=== PATIENT | male | born 1940 | race Caucasian/White ===

== ENCOUNTER 2020-02-03 10:21 | Inpatient (IN) | payer OTHER, MEDICARE, SELFPAY ==
[2020-02-03] VITALS (17 sets, daily range): BP systolic 97–142; BP diastolic 52–93; PULSE 95–114; RESP 16–26; TEMP 36.3–36.6; O2SAT 95–98; BMI 25.4
--- NOTE | 2020-02-03 10:42 | CT_ITS ---
STUDY: CT BRAIN WITHOUT CONTRAST REASON FOR EXAM: Male, 79 years old. [place] NESS, INCREASED SOB SINCE BEGINNING OF YEAR, CHOKING ON FOOD AND MEDICATED, RECENT WT LOSS OF 60 LBS RADIATION DOSAGE (If Supplied By Facility): CTDIvol = ( 44.99 ) mGy, DLP = ( 846.73 ) mGycm TECHNIQUE: Transaxial CT imaging of the brain was performed without administration of intravenous contrast material. Individualized dose optimization techniques were used for this CT. COMPARISON: No relevant priors. FINDINGS: Normal soft tissue structures. Normal calvarium. There is mild cerebral atrophy with widening of the extra-axial spaces and ventricular dilatation. There are areas of decreased attenuation within the white matter tracts of the supratentorial brain, consistent with microvascular disease changes. Normal basal ganglia and thalami. Normal brainstem. There is mild cerebellar atrophy. There is no intracranial hemorrhage. There are no findings of an acute ischemic infarction. Atherosclerotic calcification of the cavernous portions of the internal carotid arteries bilaterally. Normal visualized paranasal sinuses. CT/Brain/Head without Contrast IMPRESSION: Chronic involutional changes of the brain. Electronically Signed: Freddie Montaño, at 12:31 EDT , Service support ,
--- NOTE | 2020-02-03 10:43 | EKG12_ITS ---
Test Reason : SOB Blood Pressure : / mmHG Vent. Rate : 104 BPM Atrial Rate : 104 BPM P-R Int : 152 ms QRS Dur : 108 ms QT Int : 398 ms P-R-T Axes : 054 -23 090 degrees QTc Int : 523 ms Sinus tachycardia Prolonged QT Abnormal ECG Confirmed by TOM HARDING, SHAGUFTA ([id number]), editor farm journal MO CRUZ ([id number]) on 02/06/2020 12:59:46 PM Referred By: MARNIE Confirmed By:SHAGUFTA SANTOS MD
--- NOTE | 2020-02-03 10:44 | ED.DCSUM_ITS ---
History of Present Illness Chief Complaint: Shortness of Breath Informant: Patient, Family, Sterile Process Coordinator Narrative: Patient is brought to the emergency department by EMS from [place] because family states that he has declined over the past year to a point now where he is unable to walk today. They have been seen in the [facility] and have had a bunch of test run. I cannot really tell me what all has been done. Tell me has a history of asthma and hypertension. He states that his voice has gotten weak. He is choking on food drink and pills. He has lost over 60 pounds. He states he is really not eating. He has not had a bowel movement in 4 days. States he forces himself to drink water. He notes shortness of breath that is not acutely changed. Past Medical History - Allergies and Home Meds Allergies/Adverse Reactions: Allergies No Known Allergies Allergy (Verified 02/03/20 10:22) Primary Care Physician: [facility] [Primary Care Provider] - Past Medical History: - - Asthma hypertension Surgical History: noncontributory Lives: With Family Drugs: None Review of Systems General: Reports: Malaise, Weight loss. Denies: Chills, Fever, Sweats Eyes: Denies: Visual changes - bilaterally, Diplopia ENT: Reports: - - Dysphasia. Denies: Rhinorrhea, Sore throat Cardiovascular: Denies: Chest pain, Palpitations Respiratory: Reports: Dyspnea, Cough. Denies: Dyspnea on exertion Gastrointestinal: Reports: Constipation. Denies: Abdominal pain, Nausea, Vomiting, Diarrhea, Melena, Hematochezia Genitourinary: Denies: Dysuria, Hematuria, Frequency Musculoskeletal: Denies: Back pain, Extremity Pain Skin: Denies: Rash, Wounds Neurological: Denies: Headache, Weakness, Numbness Physical Exam Vital Signs/Narrative: Vital Signs Temp Pulse Resp BP Pulse Ox 02/03/20 10:23 97.3 F L 108 H 24 H 142/78 H 96 Inital Vital Signs reviewed: Yes General: Well nourished, Well developed, No Acute Distress Head: Normocephalic, Atraumatic Eyes: Perrl, EOMI ENT: No rhinorrhea, Dry mucous membranes Neck: Supple, Nontender Cardiovascular: Regular rate, No murmurs, Tachycardia Respiratory: No distress, CTA bilaterally, Chest nontender Abdomen: Soft, Nontender, Nondistended, Normal bowel sounds Back: Nontender, Normal Inspection Extremities: Nontender, No edema Skin: Normal color, No rash Neurological: Alert, Oriented x3, Cranial nerves II-XII grossly intact, Normal Strength, Normal Sensation Psychological: Normal affect, Normal Mood Diagnostic/Tx/Re-eval Clinical Impression(s) from Imaging Studies Brain CT 02/03/20 10:42 IMPRESSION: Chronic involutional changes of the brain. Electronically Signed: Freddie Danyel, at 12:31 EDT , Service support , Chest X-Ray 02/03/20 12:14 IMPRESSION: Findings suggestive of calcified pleural plaque overlying the right mid thorax. Electronically Signed: Freddie Danyel, at 12:30 EDT , Service support , Laboratory Last Values WBC 8.4 K/mm3 (4.4-11.0) 02/03/20 11:30 RBC 6.10 M/mm3 (4.6-6.2) 02/03/20 11:30 Hgb 17.2 g/dL (13.0-16.5) H 02/03/20 11:30 Hct 51.0 % (40-54) 02/03/20 11:30 MCV 83.6 fL (80-94) 02/03/20 11:30 MCH 28.2 pg (27.0-32.0) 02/03/20 11:30 MCHC 33.7 g/dL (32-36) 02/03/20 11:30 RDW Std Deviation 42.1 fl (35.1-43.9) 02/03/20 11:30 RDW Coeff of Yamile 14.0 % (11.6-14.6) 02/03/20 11:30 Plt Count 236 K/mm3 (150-450) 02/03/20 11:30 MPV 9.9 fl (6.2-12.0) 02/03/20 11:30 Immature Gran % (Auto) 0.400 % (0.0-0.9) 02/03/20 11:30 Neut % (Auto) 86.3 % (47-70) H 02/03/20 11:30 Lymph % (Auto) 8.3 % (19-41) L 02/03/20 11:30 [place] % (Auto) 4.9 % (0-10) 02/03/20 11:30 Eos % (Auto) 0.0 % (0-5) 02/03/20 11:30 Baso % (Auto) 0.1 % (0-1) 02/03/20 11:30 Absolute Neuts (auto) 7.3 X10^3/uL (2.0-7.7) 02/03/20 11:30 Absolute Lymphs (auto) 0.70 X10^3/uL (0.83-4.51) L 02/03/20 11:30 Nucleated RBC % 0 % (0-5) 02/03/20 11:30 PT 13.8 SECONDS (11.7-14.9) 02/03/20 11:30 INR 1.1 02/03/20 11:30 APTT 26.3 Seconds (24.1-36.2) 02/03/20 11:30 Specimen Type ART 02/03/20 13:57 Sample Site R Radial 02/03/20 13:57 pH 7.28 (7.35-7.45) L 02/03/20 13:57 Bicarbonate Actual 15.3 mmol/L (22-26) L 02/03/20 13:57 Total CO2 16 mmol/L 02/03/20 13:57 Base Excess -12 mmol/L (-2 to +2) L 02/03/20 13:57 O2 Saturation 97 % (95-99) 02/03/20 13:57 O2 % 21 02/03/20 13:57 ABG pCO2 32.9 mmHg (35-45) L 02/03/20 13:57 ABG pO2 97 mmHG (75-100) 02/03/20 13:57 Sodium 132 mmol/L (136-145) L 02/03/20 12:03 Potassium 3.5 mmol/L (3.5-5.1) 02/03/20 12:03 Chloride 94 mmol/L (98-107) L 02/03/20 12:03 Carbon Dioxide 19.0 mmol/L (21.0-32.0) L 02/03/20 12:03 Anion Gap 19 (5-15) H 02/03/20 12:03 BUN 20 mg/dL (7-18) H 02/03/20 12:03 Creatinine 0.99 mg/dL (0.70-1.30) 02/03/20 12:03 Estim Creat Clear Calc 56.57 ml/min 02/03/20 12:03 Est GFR (MDRD) Af Amer 93 mL/min (>60) 02/03/20 12:03 Est GFR (MDRD) Non-Af 77 mL/min (>60) 02/03/20 12:03 BUN/Creatinine Ratio 20.1 RATIO (10-20) H 02/03/20 12:03 Glucose 245 mg/dL (74-106) H 02/03/20 12:03 Calcium 9.7 mg/dL (8.5-10.1) 02/03/20 12:03 Total Bilirubin 1.40 mg/dL (0.20-1.00) H 02/03/20 12:03 AST 23 U/L (15-37) 02/03/20 12:03 ALT 37 U/L (16-61) 02/03/20 12:03 Alkaline Phosphatase 110 U/L (45-117) 02/03/20 12:03 Troponin I < 0.015 ng/mL (<0.045) 02/03/20 12:03 B-Natriuretic Peptide 42.7 pg/mL (0-100) 02/03/20 11:30 Total Protein 7.7 g/dL (6.4-8.2) 02/03/20 12:03 Albumin 3.8 g/dL (3.2-5.0) 02/03/20 12:03 Globulin 3.9 g/dL (2.2-4.2) 02/03/20 12:03 Albumin/Globulin Ratio 1.0 RATIO (0.9-2.4) 02/03/20 12:03 Amylase 26 U/L (25-115) 02/03/20 12:03 Lipase 92 U/L (73-393) 02/03/20 12:03 Acetone Level SMALL (NEG) H 02/03/20 13:40 - EKG Initial EKG Interpretation: Sinus Tachycardia - EKG demonstrates a sinus tachycardia at a rate of 104. - Medical Decision Making He received IV fluids. He has a slight metabolic acidosis. He has not been taking his insulin. We are going to put him on a insulin drip and admit to the ICU. I discussed with family the possibility he may need rehab or fpc facility. - Critical Care Time Critical care time (excluding procedures): 30-74 minutes - 35 min ED Disposition - Plan for ED Patient: Diagnosis: Weakness, Dysphagia, Metabolic acidosis, Diabetes mellitus, DKA (diabetic ketoacidoses) [facility]errals: [facility] [Primary Care Provider] -
--- NOTE | 2020-02-03 10:56 | NURSING ---
NO OLD EKGS
[2020-02-03 11:43] LABS: Absolute Neutrophil Count 7.3 X10^3/uL (2.0-7.7); Basophil# 0.01 X10^3/uL; Basophil% 0.1 % (0-1); Hemoglobin 17.2 g/dL (13.0-16.5); Lymphocyte % 8.3 % (19-41); Mean Corp Hgb Conc 33.7 g/dL (32-36); Mean Corpuscular Hgb 28.2 pg (27.0-32.0); Mean Corpuscular Volume 83.6 fL (80-94); Mean Platelet Vol. 9.9 fl (6.2-12.0); Monocyte# 0.41 X10^3/uL; Monocyte% 4.9 % (0-10); NRBC Flagged by Analyzer 0 % (0-5); Neutrophil # 7.25 X10^3/uL (2.7-7.7); Neutrophil % 86.3 % (47-70); Platelet Count 236 K/mm3 (150-450); RBC Distribution Width SD 42.1 fl (35.1-43.9); White Blood Count 8.4 K/mm3 (4.4-11.0)
[2020-02-03] MEDS: 0.9% Normal Saline 1,000 ML 1000 ML IV (11:43)
--- NOTE | 2020-02-03 11:49 | NURSING ---
PER [facility]IA, LAB, CHEMISTRIES HEMOLIZED
[2020-02-03 11:53] LABS: International Normalized Ratio 1.1; Prothrombin Time (Protime)PT. 13.8 SECONDS (11.7-14.9)
[2020-02-03 11:54] LABS: Partial Thromboplast Time 26.3 Seconds (24.1-36.2)
[2020-02-03 11:57] LABS: BNP,B-Type NATRIURETIC PEPTIDE 42.7 pg/mL (0-100)
--- NOTE | 2020-02-03 12:14 | RAD_ITS ---
STUDY: X-RAY CHEST REASON FOR EXAM: Male, 79 years old. SOB, WEAKNESS, LOST 60 POUNDS SINCE BEGINNING OF YEAR TECHNIQUE: Single AP portable view of the chest. COMPARISON: None. FINDINGS: EKG electrodes are seen. The lungs are clear and expanded. Findings suggestive of a focal calcific plaque overlying the right mid lung. Normal size heart. Normal mediastinum and padmaja. Normal visualized pulmonary arteries. Normal visualized aortic arch and descending thoracic aorta. Normal visualized thoracic spine. There is degenerative osteoarthritis of the bilateral shoulders. There is no demonstrated abnormality of the visualized soft tissue structures of the upper abdomen. RAD/Chest 1 View (Portable) IMPRESSION: Findings suggestive of calcified pleural plaque overlying the right mid thorax. Electronically Signed: Freddie Montaño, at 12:30 EDT , Service support ,
[2020-02-03 12:41] LABS: AST(SGOT) 23 U/L (15-37); Alanine Aminotransfer ALT/SGPT 37 U/L (16-61); Albumin, Serum 3.8 g/dL (3.2-5.0); Alkaline Phosphatase 110 U/L (45-117); Amylase 26 U/L (25-115); Anion Gap 19 (5-15); BUN 20 mg/dL (7-18); BUN/Creat Ratio 20.1 RATIO (10-20); Calcium,Total 9.7 mg/dL (8.5-10.1); Chloride 94 mmol/L (98-107); Creatinine, Serum 0.99 mg/dL (0.70-1.30); EST Glomerular Filtration Rate 77 mL/min (>60); Est Glom Filt Rate - Afr Amer 93 mL/min (>60); Estimated Creatinine Clearance 56.57 ml/min; Globulin 3.9 g/dL (2.2-4.2); Glucose 245 mg/dL (74-106); Lipase 92 U/L (73-393); Potassium 3.5 mmol/L (3.5-5.1); Protein, Total 7.7 g/dL (6.4-8.2); Sodium Level 132 mmol/L (136-145)
--- NOTE | 2020-02-03 13:01 | ED.RN ---
[facility]
--- NOTE | 2020-02-03 13:04 | HP.PCM_ITS ---
Problem List (1) Diabetes mellitus type 2 in nonobese Status: Chronic (2) Hypertension Status: Chronic (3) COPD (chronic obstructive pulmonary disease) Status: Chronic (4) Dyslipidemia Status: Chronic (5) Generalized weakness Status: Chronic (6) Dysphagia Status: Acute History of Present Illness Date of Admission: 02/03/20 Chief Complaint: Shortness of breath generalized weakness for few weeks The patient is a 79 year old M with history of diabetes mellitus type 2 came to ER for weakness and shortness of breath since the beginning of this year but patient progressively getting more short of breath and weak for last few weeks. Few weeks ago he was able to walk to the bathroom but today he even could not stand up and get short of breath even on conversation. Patient also states he does not have appetite and he often chokes and throat are in the chest area. He has lost 60 pounds in the last 6 months. Triage vitals shows heart rate 108/min, blood pressure 142/78 respiratory 24 and pulse ox 96% on room air. Orthostatic blood pressure showed drop in systolic blood pressure from 123 in lying position to 106 and sitting up position. Heart rate did not show significant change although in 100s Electrolytes shows high anion gap metabolic acidosis, anion gap 19, bicarb 19, sodium 132, BUN 20. ABG was done shows 7.28/30 3/97 with bicarb of 15. Serum acetone is pending. Patient got 1 L normal saline bolus and on second liter is running. Past Medical History Past Medical History (Chronic Problems): Chronic Problems Diabetes mellitus type 2 in nonobese (Chronic) Hypertension (Chronic) COPD (chronic obstructive pulmonary disease) (Chronic) Dyslipidemia (Chronic) Generalized weakness (Chronic) Allergies No Known Allergies Allergy (Verified 02/03/20 10:22) Home Medications: Ambulatory Orders Medication Instructions Recorded Albuterol IH (ProAir) [Proair Hfa 1 - 2 puff INHALATION Q6H PRN PRN 02/03/20 (SP)Vent Pts] Ascorbic Acid [Vitamin C] 250 mg PO QODAY 02/03/20 Atorvastatin Calcium 80 mg PO QHS 02/03/20 Budesonide/Formoterol Fumarate 2 puff IH BID 02/03/20 [Budesonide-Formoterol 160-4.5] Calcium Citrate/Vitamin D3 1 tab PO DAILY 02/03/20 [Calcium Citrate-Vit D3 Caplet] Empagliflozin [Jardiance] 10 mg PO DAILY 02/03/20 Ferrous Sulfate 325 mg PO QODAY 02/03/20 Fluocinonide/Emollient Base 15 gm TP DAILY PRN 02/03/20 [Fluocinonide-E 0.05% Cream] Insulin Glargine [Lantus (BKC)] 60 units SUBCUT DAILY 02/03/20 Losartan Potassium 100 mg PO DAILY 02/03/20 Metformin HCl 1,000 mg PO BID 02/03/20 Montelukast [Singulair] 10 mg PO DAILY 02/03/20 Multivitamin 1 ea PO DAILY 02/03/20 Pantoprazole Sodium [Protonix] 40 mg PO DAILY 02/03/20 Potassium Citrate [Urocit-K] 5 meq PO BID 02/03/20 Tiotropium [place] [Spiriva 2 puff IH BID 02/03/20 Respimat] Surgical History: noncontributory Lives: With Family Smoking Status: Former smoker - Smoked from age of 22 quit in his 30s therefore possible 10 to 15 years about half pack per day. Patient stated he was not being a smoker. Alcohol: None, Occasional Drugs: None Review of Systems Constitutional: Reports: Anorexia, Malaise, Weakness, Weight Change, Fatigue HEENT: Denies: Head Aches, Sinus Congestion, Sinus Drainage Cardiovascular: Denies: Chest Pain, Palpitations Respiratory: Reports: Shortness of Breath, Shortness of breath upon exertion. Denies: Cough, Shortness of breath at rest, Sputum production Gastrointestinal: Reports: Constipation - Did not move bowel in last 3 days. Denies: Abdominal Pain, Nausea, Vomiting Genitourinary: Denies: Dysuria, Frequency, Hesitancy Musculoskeletal: Denies: Joint Pain, Joint Tenderness Skin: Denies: Rash, Wounds Neurological: Reports: Balance problems, Incoordination. Denies: Focal weakne ss, Numbness, Tingling Psychiatric: Denies: Anxiety, Depression, Homicidal Ideations, Suicidal Ideations Hematologic/ Lymphatic: Denies: Easy Bruising, Easy Bleeding VTE Information - Inpt Only VTE Present on Admission: No VTE Mechan Device Prophylaxis: SCD's VTE Pharm Prophylaxis ordered?: Yes Patient Problems: Active and Suspected Problems Dysphagia (Acute) Weakness (Acute) Dysphagia (Acute) Metabolic acidosis (Acute) Diabetes mellitus (Acute) DKA (diabetic ketoacidoses) (Acute) - Physical Exam Vitals/I&O's: Vital Signs Temp Pulse Resp BP Pulse Ox 97.3 F L 102 H 24 H 123/73 H 96 02/03/20 10:23 02/03/20 11:40 02/03/20 10:23 02/03/20 11:40 02/03/20 10:23 Oxygen Delivery Method Room Air Weight: 162 lb 4.163 oz Body Mass Index (BMI) 25.4 General: Oriented x3, Cooperative, Lethargic, - - Weak voice. HEENT: Atraumatic, PERRLA, EOMI, Normocephalic Oral: No Gingival or Mucosal Lesions/ Ulcerations, Dry Mucosa Neck: Supple, No JVD, Negative Carotid Bruits Lungs: Clear to auscultation, No rhonchi, No wheeze, No rales, Diminished - Air entry diminished in bilateral lung bases Cardiovascular: Regular Rhythm, Normal S1, Normal S2, No murmurs, Tachycardic Abdomen: Bowel Sounds Present, Soft, Non Tender, Non-Distended Extremities: No edema, Capillary Refill Less than 3 Seconds Skin: No rashes, No breakdown Musculoskeletal: No Tenderness to Palpation of Joints or Extremities, Arthritic Changes, Muscle Wasting Neurological: Cranial nerves II-XII grossly intact, Deep Tendon Reflexes 2+/4 and Symmetrical, Neuro grossly intact Psych/Mental Status: Normal Affect, Appropriate Laboratory Results 02/03/20 11:30: WBC 8.4, RBC 6.10, Hgb 17.2 H, Hct 51.0, MCV 83.6, MCH 28.2, MCHC 33.7, RDW Std Deviation 42.1, RDW Coeff of Yamile 14.0, Plt Count 236, MPV 9.9, Immature Gran % (Auto) 0.400, Neut % (Auto) 86.3 H, Lymph % (Auto) 8.3 L, [place] % (Auto) 4.9, Eos % (Auto) 0.0, Baso % (Auto) 0.1, Absolute Neuts (auto) 7.3, Absolute Lymphs (auto) 0.70 L, Nucleated RBC % 0 02/03/20 11:30: PT 13.8, INR 1.1, APTT 26.3 02/03/20 11:30: Sodium Cancelled, Potassium Cancelled, Chloride Cancelled, Carbon Dioxide Cancelled, Anion Gap Cancelled, BUN Cancelled, Creatinine Cancelled, Estim Creat Clear Calc Cancelled, Est GFR (MDRD) Af Amer Cancelled, Est GFR (MDRD) Non-Af Cancelled, BUN/Creatinine Ratio Cancelled, Glucose Cancelled, Calcium Cancelled, Total Bilirubin Cancelled, AST Cancelled, ALT Cancelled, Alkaline Phosphatase Cancelled, Troponin I Cancelled, Total Protein Cancelled, Albumin Cancelled, Globulin Cancelled, Albumin/Globulin Ratio Cancelled, Amylase Cancelled, Lipase Cancelled 02/03/20 11:30: B-Natriuretic Peptide 42.7 02/03/20 12:03: Sodium 132 L, Potassium 3.5, Chloride 94 L, Carbon Dioxide 19.0 L, Anion Gap 19 H, BUN 20 H, Creatinine 0.99, Estim Creat Clear Calc 56.57, Est GFR (MDRD) Af Amer 93, Est GFR (MDRD) Non-Af 77, BUN/Creatinine Ratio 20.1 H, Glucose 245 H, Calcium 9.7, Total Bilirubin 1.40 H, AST 23, ALT 37, Alkaline Phosphatase 110, Troponin I < 0.015, Total Protein 7.7, Albumin 3.8, Globulin 3.9, Albumin/Globulin Ratio 1.0, Amylase 26, Lipase 92 Current Medications Sodium Chloride () 1,000 mls @ 150 mls/hr IV .Q6H40M COUNTS INCLUDE 234 BEDS AT THE [facility] Assessment/Plan All Active Problems Dysphagia (Acute) Weakness (Acute) Dysphagia (Acute) Metabolic acidosis (Acute) Diabetes mellitus (Acute) DKA (diabetic ketoacidoses) (Acute) The patient is a 79 year old M with history of diabetes mellitus type 2 came to ER for weakness and shortness of breath since the start of 2019 but worse in the last few weeks. 1. DKA with high anion gap metabolic acidosis with history of type 2 diabetes mellitus: Even though blood sugar is not very high, and about 250 mg/dL but DKA can be seen in euglycemia especially the patient is on Jardiance/SGLT-2 transporter medication. We will start the patient on IV fluid normal saline and insulin drip as per DKA protocol. Patient has not been taking his scheduled dose therefore DKA probably secondary to noncompliance and also starvation 2. Electrolyte abnormality: Hypotonic, hypochloremic, complex acid-base disturbance high anion gap metabolic acidosis and respiratory alkalosis due to DKA, starvation and hypovolemia: IV fluid normal saline. Treat underlying disorder. 3. Generalized weakness, failure to thrive and loss of weigh oropharyngeal dysphagia t: PT, OT, speech and swallow evaluation. [facility] is [facility] and therefore previous health screening and preventative care is unavailable to review. Denies any history of cancer. 4. COPD: Patient does not have new cough or change in his sputum or severity of cough. Continue DuoNeb nebulization. Other chronic comorbidities include hypertension, dyslipidemia: Home medication reconciliation done Living will/advanced directive/end of life care: Patient does not have living will or advanced directive. After discussion of procedures involved with full code, DNR CC arrest and DNR CC, the patient and her daughter near the bedside opted for full code. Patient does want artificial life support including intubation, tube feed, ventilator and/chest compression, central venous catheter, vasopressor and DC shock if needed Total time spent in [id number] encounter in discussion of advanced directive 16 minutes. Inpatient E&M: 29108 Init Hosp L3 Procedures: 22834 Advncd Care Plan 30 Min
[2020-02-03 14:01] LABS: Base Excess -12 mmol/L (-2 to +2); Bicarbonate 15.3 mmol/L (22-26); Blood Gas Specimen Type ART; FI02 21; PO2 97 mmHG (75-100); SITE R Radial; SO2 97 % (95-99); Total Carbon Dioxide 16 mmol/L; pCO2 32.9 mmHg (35-45); pH 7.28 (7.35-7.45)
--- NOTE | 2020-02-03 14:53 | NURSING ---
ICU [facility] DKA, FAILURE TO THRIVE
--- NOTE | 2020-02-03 14:53 | NURSING ---
ICU 5
--- NOTE | 2020-02-03 14:58 | NURSING ---
CALLED [facility], TALKED TO VIKI. THEY RECEIVED THE CHART. IT'S OK TO HAVE HIM ADMITTED TO [facility] PER HER
[2020-02-03 15:15] LABS: Bedside Glucose 213 mg/dL (70-110)
[2020-02-03] MEDS: 0.9% Normal Saline 1,000 ML 999 ML IV (15:38)
[2020-02-03] MEDS: Dext 5%-0.45% NS 1,000 ML 150 ML IV ×2 (16:05→22:58)
[2020-02-03] MEDS: Potassium Chloride 10mEq/100mL 10 MEQ/100 ML IV.SOLN. 100 MEQ IV BOLUS ×6 (16:42→23:00)
[2020-02-03 16:56] LABS: Bedside Glucose 212 mg/dL (70-110)
[2020-02-03 17:09] LABS: Anion Gap 20 (5-15); BUN 20 mg/dL (7-18); Calcium,Total 9.6 mg/dL (8.5-10.1); Chloride 101 mmol/L (98-107); Creatinine, Serum 0.87 mg/dL (0.70-1.30); EST Glomerular Filtration Rate 90 mL/min (>60); Est Glom Filt Rate - Afr Amer 109 mL/min (>60); Estimated Creatinine Clearance 64.37 ml/min; Glucose 189 mg/dL (74-106); Potassium 3.4 mmol/L (3.5-5.1); Sodium Level 134 mmol/L (136-145)
[2020-02-03] MEDS: Enoxaparin 40 MG/0.4 ML Syringe SC (17:34)
[2020-02-03 17:45] LABS: Bedside Glucose 156 mg/dL (70-110)
[2020-02-03 18:56] LABS: Bedside Glucose 127 mg/dL (70-110)
[2020-02-03 18:56] LABS: Magnesium 2.3 mg/dL (1.6-2.6)
[2020-02-03] MEDS: Ipratropium/Albuterol Sulfate 3 ML AMPUL.NEB INHALATION ×2 (19:20→23:01)
[2020-02-03] MEDS: Budesonide Respules 0.5 MG/2 ML AMPUL.NEB. INHALATION (19:20)
[2020-02-03 21:15] LABS: Anion Gap 11 (5-15); BUN 19 mg/dL (7-18); BUN/Creat Ratio 22.2 RATIO (10-20); Calcium,Total 9.2 mg/dL (8.5-10.1); Chloride 103 mmol/L (98-107); Creatinine, Serum 0.86 mg/dL (0.70-1.30); EST Glomerular Filtration Rate 92 mL/min (>60); Est Glom Filt Rate - Afr Amer 111 mL/min (>60); Estimated Creatinine Clearance 65.12 ml/min; Glucose 79 mg/dL (74-106); Potassium 3.3 mmol/L (3.5-5.1); Sodium Level 137 mmol/L (136-145)
[2020-02-03 21:40] LABS: Bedside Glucose 121 mg/dL (70-110)
[2020-02-03 21:40] LABS: Bedside Glucose 82 mg/dL (70-110)
[2020-02-03 21:40] LABS: Bedside Glucose 103 mg/dL (70-110)
[2020-02-04] VITALS (19 sets, daily range): BP systolic 106–136; BP diastolic 58–83; PULSE 84–110; RESP 16–26; TEMP 36.1–36.7; O2SAT 94–100; BMI 25.7
[2020-02-04] MEDS: Potassium Chloride 10mEq/100mL 10 MEQ/100 ML IV.SOLN. 100 MEQ IV BOLUS ×2 (00:23→01:49)
[2020-02-04] MEDS: Insulin Lispro 100 UNIT/ML INSULN.PEN SC ×6 (01:52→21:30)
[2020-02-04 02:01] LABS: Bedside Glucose 173 mg/dL (70-110)
[2020-02-04] MEDS: Ipratropium/Albuterol Sulfate 3 ML AMPUL.NEB INHALATION ×5 (02:14→19:17)
[2020-02-04] MEDS: Dext 5%-0.45% NS 1,000 ML 150 ML IV (05:52)
[2020-02-04 06:10] LABS: Bedside Glucose 253 mg/dL (70-110)
[2020-02-04 06:17] LABS: Absolute Lymphocyte Count 0.61 X10^3/uL (0.83-4.51); Absolute Neutrophil Count 10.9 X10^3/uL (2.0-7.7); Basophil# 0.01 X10^3/uL; Basophil% 0.1 % (0-1); Hematocrit 46.4 % (40-54); Hemoglobin 15.4 g/dL (13.0-16.5); Lymphocyte # 0.61 X10^3/ul (4.0); Lymphocyte % 4.8 % (19-41); Mean Corp Hgb Conc 33.2 g/dL (32-36); Mean Corpuscular Hgb 28.1 pg (27.0-32.0); Mean Corpuscular Volume 84.5 fL (80-94); Mean Platelet Vol. 9.5 fl (6.2-12.0); Monocyte# 1.15 X10^3/uL; NRBC Flagged by Analyzer 0 % (0-5); Neutrophil % 85.6 % (47-70); POSITIVE MORPHOLOGY YES; Platelet Count 146 K/mm3 (150-450); RBC Distribution Width CV 14.1 % (11.6-14.6); RBC Distribution Width SD 43.5 fl (35.1-43.9); Red Blood Count 5.49 M/mm3 (4.6-6.2); White Blood Count 12.7 K/mm3 (4.4-11.0)
[2020-02-04 06:19] LABS: Differential Indicated SCAN CRITERIA MET
[2020-02-04] MEDS: 0.9% Saline Lock 10 ML Syringe IV (06:32)
[2020-02-04 06:41] LABS: Differential Comment SCANNED
[2020-02-04] MEDS: Budesonide Respules 0.5 MG/2 ML AMPUL.NEB. INHALATION ×2 (06:53→19:17)
[2020-02-04 07:17] LABS: Anion Gap 15 (5-15); BUN 20 mg/dL (7-18); BUN/Creat Ratio 20.6 RATIO (10-20); Calcium,Total 9.4 mg/dL (8.5-10.1); Chloride 99 mmol/L (98-107); Creatinine, Serum 0.97 mg/dL (0.70-1.30); EST Glomerular Filtration Rate 79 mL/min (>60); Est Glom Filt Rate - Afr Amer 96 mL/min (>60); Estimated Creatinine Clearance 57.73 ml/min; Glucose 265 mg/dL (74-106); Sodium Level 133 mmol/L (136-145)
[2020-02-04 07:55] LABS: Bedside Glucose 230 mg/dL (70-110)
[2020-02-04 08:27] LABS: Hemoglobin A1c 9.9 % (3.8-5.6)
--- NOTE | 2020-02-04 09:19 | PN_ITS ---
Patient Problems: Active and Suspected Problems Dysphagia (Acute) Weakness (Acute) Dysphagia (Acute) Metabolic acidosis (Acute) Diabetes mellitus (Acute) DKA (diabetic ketoacidoses) (Acute) Weight loss (Acute) Reason for Visit: DKA, weight loss, dysphagia Objective: Patient seen and examined in the ICU. DKA has resolved with closure of anion gap x2. Patient was evaluated by speech therapist. As per speech therapist, patient could not swallow liquid at throat level. Speech therapist evaluation was moderate pharyngoesophageal phase dysphagia. GI has been consulted. Patient is currently n.p.o. Physical exam General: Alert, Oriented x3, Cooperative HEENT: Atraumatic, PERRLA, EOMI, Normocephalic Oral: No Gingival or Mucosal Lesions/ Ulcerations Neck: Supple, No JVD, Negative Carotid Bruits Lungs: Air entry diminished in bilateral lung bases. No crepitation/rhonchi Cardiovascular: Regular rate, Regular Rhythm, Normal S1, Normal S2, No murmurs Abdomen: Bowel Sounds Present, Soft, Non Tender, Non-Distended : No renal angle tenderness. No suprapubic tenderness. Extremities: No edema, Capillary Refill Less than 3 Seconds Skin: No rashes, No breakdown Musculoskeletal: No Tenderness to Palpation of Joints or Extremities Neurological: Cranial nerves II-XII grossly intact, Deep Tendon Reflexes 2+/4 and Symmetrical, Neuro grossly intact Psych/Mental Status: Normal Affect, Appropriate. Vitals/I&O's: Vital Signs Temp Pulse Resp BP Pulse Ox 97.6 F L 102 H 20 H 136/83 H 100 02/04/20 06:16 02/04/20 07:00 02/04/20 07:00 02/04/20 07:00 02/04/20 07:00 Oxygen Delivery Method Room Air Weight: 164 lb 10.965 oz Body Mass Index (BMI) 25.4 Finger Stick Blood Glucose 82 Intake and Output for Last 24 Hours 02/02/20 02/03/20 02/04/20 23:59 23:59 23:59 Intake Total 3536.82 / 3636.82 1505.83 / 1505.83 Output Total 0 / 0 Balance 3536.82 / 3636.82 1505.83 / 1505.83 Laboratory Results 02/03/20 11:30: WBC 8.4, RBC 6.10, Hgb 17.2 H, Hct 51.0, MCV 83.6, MCH 28.2, MCHC 33.7, RDW Std Deviation 42.1, RDW Coeff of [place]ile 14.0, Plt Count 236, MPV 9.9, Immature Gran % (Auto) 0.400, Neut % (Auto) 86.3 H, Lymph % (Auto) 8.3 L, [place] % (Auto) 4.9, Eos % (Auto) 0.0, Baso % (Auto) 0.1, Absolute Neuts (auto) 7.3, Absolute Lymphs (auto) 0.70 L, Nucleated RBC % 0 02/03/20 11:30: PT 13.8, INR 1.1, APTT 26.3 02/03/20 11:30: Sodium Cancelled, Potassium Cancelled, Chloride Cancelled, Carbon Dioxide Cancelled, Anion Gap Cancelled, BUN Cancelled, Creatinine Cancelled, Estim Creat Clear Calc Cancelled, Est GFR (MDRD) Af Amer Cancelled, Est GFR (MDRD) Non-Af Cancelled, BUN/Creatinine Ratio Cancelled, Glucose Cancelled, Calcium Cancelled, Total Bilirubin Cancelled, AST Cancelled, ALT Cancelled, Alkaline Phosphatase Cancelled, Troponin I Cancelled, Total Protein Cancelled, Albumin Cancelled, Globulin Cancelled, Albumin/Globulin Ratio Cancelled, Amylase Cancelled, Lipase Cancelled 02/03/20 11:30: B-Natriuretic Peptide 42.7 02/03/20 12:03: Sodium 132 L, Potassium 3.5, Chloride 94 L, Carbon Dioxide 19.0 L, Anion Gap 19 H, BUN 20 H, Creatinine 0.99, Estim Creat Clear Calc 56.57, Est GFR (MDRD) Af Amer 93, Est GFR (MDRD) Non-Af 77, BUN/Creatinine Ratio 20.1 H, Glucose 245 H, Calcium 9.7, Total Bilirubin 1.40 H, AST 23, ALT 37, Alkaline Phosphatase 110, Troponin I < 0.015, Total Protein 7.7, Albumin 3.8, Globulin 3.9, Albumin/Globulin Ratio 1.0, Amylase 26, Lipase 92 02/03/20 13:40: Acetone Level SMALL H 02/03/20 13:57: Specimen Type ART, Sample Site R Radial, pH 7.28 L, Bicarbonate Actual 15.3 L, Total CO2 16, Base Excess -12 L, O2 Saturation 97, O2 % 21, ABG pCO2 32.9 L, ABG pO2 97 02/03/20 15:12: POC Glucose 213 H 02/03/20 16:40: Sodium 134 L, Potassium 3.4 L, Chloride 101, Carbon Dioxide 13.0 L, Anion Gap 20 H, BUN 20 H, Creatinine 0.87, Estim Creat Clear Calc 64.37, Est GFR (MDRD) Af Amer 109, Est GFR (MDRD) Non-Af 90, BUN/Creatinine Ratio 23.0 H, Glucose 189 H, Calcium 9.6 02/03/20 16:40: Magnesium 2.3 02/03/20 16:48: POC Glucose 212 H 02/03/20 17:30: POC Glucose 156 H 02/03/20 18:46: POC Glucose 127 H 02/03/20 19:41: POC Glucose 121 H 02/03/20 20:42: POC Glucose 103 02/03/20 20:50: Sodium 137, Potassium 3.3 L, Chloride 103, Carbon Dioxide 23.0, Anion Gap 11, BUN 19 H, Creatinine 0.86, Estim Creat Clear Calc 65.12, Est GFR (MDRD) Af Amer 111, Est GFR (MDRD) Non-Af 92, BUN/Creatinine Ratio 22.2 H, Glucose 79, Calcium 9.2 02/03/20 21:34: POC Glucose 82 02/04/20 01:48: POC Glucose 173 H 02/04/20 05:50: POC Glucose 253 H 02/04/20 06:10: WBC 12.7 H, RBC 5.49, Hgb 15.4, Hct 46.4, MCV 84.5, MCH 28.1, MCHC 33.2, RDW Std Deviation 43.5, RDW Coeff of [place] 14.1, Plt Count 146 L, MPV 9.5, Immature Gran % (Auto) 0.500, Neut % (Auto) 85.6 H, Lymph % (Auto) 4.8 L, [place] % (Auto) 9.0, Eos % (Auto) 0.0, Baso % (Auto) 0.1, Absolute Neuts (auto) 10.9 H, Absolute Lymphs (auto) 0.61 L, Nucleated RBC % 0, Differential Comment SCANNED 09/23/20 06:10: Sodium Cancelled, Potassium Cancelled, Chloride Cancelled, Carbon Dioxide Cancelled, Anion Gap Cancelled, BUN Cancelled, Creatinine Cancelled, Estim Creat Clear Calc Cancelled, Est GFR (MDRD) Af Amer Cancelled, Est GFR (MDRD) Non-Af Cancelled, BUN/Creatinine Ratio Cancelled, Glucose Cancelled, Calcium Cancelled 02/04/20 06:10: Hemoglobin A1c 9.9 H 02/04/20 06:50: Sodium 133 L, Potassium 4.0, Chloride 99, Carbon Dioxide 19.0 L, Anion Gap 15, BUN 20 H, Creatinine 0.97, Estim Creat Clear Calc 57.73, Est GFR (MDRD) Af Amer 96, Est GFR (MDRD) Non-Af 79, BUN/Creatinine Ratio 20.6 H, Glucose 265 H, Calcium 9.4 02/04/20 07:21: POC Glucose 230 H Current Medications Albuterol Sulfate (Ventolin Aerosols) 2.5 mg INHALATION Q2H PRN PRN PRN Reason: SOB/Wheezing Albuterol/Ipratropium (Duoneb) 3 ml INHALATION Q4H.RT ROM Last Admin: 02/04/20 06:53 Dose: 3 ml Documented by: Budesonide (Pulmicort Aerosol) 0.5 mg INHALATION Q12H.RT ROM Last Admin: 02/04/20 06:53 Dose: 0.5 mg Documented by: Calamine/Phenol (Calmoseptine Ointment) 1 applic TOPICAL BID ROM; Protocol Dextrose (D50w Syringe) 0 gm IV X1 PRN; Protocol PRN Reason: Hypoglycemia Protocol Enoxaparin Sodium (Lovenox) 40 mg SC DAILY ROM Last Admin: 02/03/20 17:34 Dose: 40 mg Documented by: Dextrose/Sodium Chloride () 1,000 mls @ 100 mls/hr IV .Q10H ROM Last Infusion: 02/04/20 07:40 Dose: 100 mls/hr Documented by: Influenza Virus Vaccine Quadrival (Flucelvax /Fluzone ) 0.5 ml IM .ONCE ONE Stop: 02/04/20 10:01 Insulin Glargine (Lantus (Bkc)) 30 units SC BID ROM Last Admin: 02/04/20 06:29 Dose: 30 units Documented by: Insulin Human Lispro (Humalog Kwikpen (Bkc)) 0 unit SC Q4 [facility]; Protocol Last Admin: 02/04/20 06:28 Dose: 4 u Documented by: Montelukast Sodium (Singulair) 10 mg PO DAILY [facility] Ondansetron HCl (Zofran) 4 mg IV Q8H PRN PRN PRN Reason: NAUSEA/VOMITING Pantoprazole Sodium (Protonix) 40 mg PO DAILY [facility] Psyllium Hydrophilic Mucilloid (Metamucil) 1 packet PO DAILY [facility] Senna/Docusate Sodium (Senokot-S, Renae-Colace) 2 tablet PO BID ROM Last Admin: 02/03/20 21:28 Dose: Not Given Documented by: Sodium Chloride () 10 - 40 ml IV UD PRN PRN Reason: SALINE FLUSH Last Admin: 02/04/20 06:32 Dose: 20 ml Documented by: STROKE Vital Signs/Narrative: Vital Signs Temp Pulse Resp BP Pulse Ox 02/04/20 07:00 102 H 20 H 136/83 H 100 02/04/20 06:53 104 H 18 02/04/20 06:16 97.6 F L 105 H 22 H 107/58 L 98 Medical Necessity - Tobacco Use Smoking Status: Former smoker Tobacco Use: Cigarettes Assessment/Plan All Active Problems Dysphagia (Acute) Weakness (Acute) Dysphagia (Acute) Metabolic acidosis (Acute) Diabetes mellitus (Acute) DKA (diabetic ketoacidoses) (Acute) Weight loss (Acute) The patient is a 79 year old M with history of diabetes mellitus type 2 came to ER for weakness and shortness of breath since the start 2019 but worse in the last few weeks. 1. DKA with high anion gap metabolic acidosis with history of type 2 diabetes mellitus: Anion gap closed x2. Sodium 133. Bicarb 19. Patient insulin drip was discontinued last night and was switched to Lantus 30 units subcutaneous twice daily. Glucose is running about 200 to 250 mg/dL. Patient is transferred out of ICU. 2. Electrolyte abnormality: Hypotonic, hypochloremic, complex acid-base disturbance high anion gap metabolic acidosis and respiratory alkalosis due to DKA, starvation and hypovolemia: Mild hyponatremia, hypovolemic secondary to DKA. On IV fluid D5 half NS. 3. Weight loss, failure to thrive and pharyngoesophageal dysphagia: Patient has significant wasting of 60 pounds in the last 6 months with dysphagia with choking at the level of throat and chest. Patient was evaluated by speech therapist in the ICU and recommended n.p.o. With concern of malignancy, oncologist Dr. Patterson was called and clinical history labs and imagings were discussed. He suggested CT chest with IV contrast and CT abdomen and pelvis with oral and IV contrast but as patient cannot swallow even liquid therefore without oral contrast was ordered. Surgeon Dr. banerjee was also consulted for dysphagia. Overall, the plan is to review the CT scan abdomen and chest and further modified barium swallow as deemed appropriate and possible EGD tomorrow a.m. [facility] is [facility] therefore previous health screening and preventative care is unavailable to review. Denies any history of cancer. Patient does not have a specific point bony point tenderness, normal, anemia, hypercalcemia, increased gammaglobulin or increased total protein therefore clinically significant monoclonal paraproteinemia unlikely giving rise to weight loss. 4. COPD: Patient does not have new cough or change in his sputum or severity of cough. Continue DuoNeb nebulization. CT chest with IV ordered. Other chronic comorbidities include hypertension, dyslipidemia: Home medication reconciliation done Living will/advanced directive/end of life care: Patient does not have living will or advanced directive. After discussion of procedures involved with full code, DNR CC arrest and DNR CC, the patient and her daughter near the bedside opted for full code. Patient does want artificial life support including intubation, tube feed, ventilator and/chest compression, central venous catheter, vasopressor and DC shock if needed Total time of the visit including total time spent in counseling or coordination of care, (more than 50% of the total time, spent in obtaining medical information from nurses and other ancillary care providers), discussion with surgeon and oncologist, review of labs and imaging is 30 minutes. Inpatient E&M: [address] [facility] L3
--- NOTE | 2020-02-04 09:25 | CT_ITS ---
STUDY: CT ABDOMEN AND PELVIS WITH CONTRAST REASON FOR EXAM: Male, 79 years old. Weight loss, dysphagia, weakness, SOB, eval for malignancy. Patient failed swallowing eval, unable to tolerate PO contrast. RADIATION DOSAGE (If Supplied By Facility): CTDIvol = ( 14.77 ) mGy, DLP = ( 1526.56 ) mGycm TECHNIQUE: Transaxial images were obtained from the dome of the diaphragm to the symphysis pubis without oral contrast. IV 100mL Isovue-300 was administered. Sagittal and coronal images were reconstructed. Individualized dose optimization techniques were used for this CT. COMPARISON: None. FINDINGS: There is a 7.6 mm partially calcified granuloma in the posterolateral aspect of the right upper lobe abutting the minor fissure. Mild increased linear markings at the right lung base as well as anterior aspect of the lingular segment of the left upper lobe suggestive of scarring. Minimal pleural thickening at the left lung base. Coronary artery calcification. There is a diffuse contour abnormality of the liver consistent with cirrhotic changes. Small amount of perihepatic fluid. There are multiple small gallstones. Normal spleen. Normal pancreas. There is a small, circumscribed, smooth, low attenuation right adrenal mass, consistent with an adrenal adenoma. This measures 2.1 cm. Normal left adrenal gland. Normal right kidney. There is a 4.9 cm x 6.3 cm cyst in the inferior medial aspect of the left kidney. 3 mm nonobstructive calculus in the lower pole calyx of the left kidney. This also evidence of a 7.6 mm cyst in the lateral aspect of the left kidney. Mild bilateral hydronephrosis. Nonspecific bilateral perinephric stranding. Normal visualized stomach. Normal small intestine. Normal colon. The appendix is visualized and appears normal. Normal abdominal aorta. Normal inferior vena cava. There is borderline retroperitoneal lymphadenopathy with enlarged nodes no greater than 10mm in the short axis diameter. Distended urinary bladder. Evidence of prior TURP. Central prostatic calcification. There is a small umbilical hernia containing fat. There are diffuse degenerative changes of the visualized lumbar spine. The patient is status post right hip replacement. CT/Abdomen/Pelvis WITH Contrast IMPRESSION: Calcified granuloma in the right lower lobe. Mild scarring at the bases. Small amount of perihepatic fluid with lobular contour of the liver suggestive of cirrhotic change. Multiple small gallstones. Left renal cysts. Nonobstructive contrast in the lower pole calyx of the left kidney. Mild degree of bilateral hydronephrosis and perinephric stranding. 2.1 cm low density nodule in the right adrenal gland suggestive of adenoma. Electronically Signed: Freddie Montaño, at 12:07 EDT , Service support ,
--- NOTE | 2020-02-04 09:25 | CT_ITS ---
STUDY: CT CHEST WITH CONTRAST REASON FOR EXAM: Male, 79 years old. Weight loss, dysphagia, weakness, SOB, eval for malignancy. Patient failed swallowing eval, unable to tolerate PO contrast. RADIATION DOSAGE (If Supplied By Facility): CTDIvol = ( 14.77 ) mGy, DLP = ( 1526.56 ) mGycm TECHNIQUE: Transaxial imaging was performed following intravenous administration of IV 100mL Isovue-300. Multiplanar coronal and sagittal images were reformatted. Individualized dose optimization techniques were used for this CT. COMPARISON: None. FINDINGS: 5.8 mm hypodensity in the lower portion of the right lobe of the thyroid. Hyperinflation. Increased markings in the posterior aspect of the right upper lobe with the calcific granulomas in keeping with the scarring. Mild increased markings at the lung bases slightly more prominent on the right side in keeping with scarring. Minimal pleural thickening bilaterally. There are calcifications of the coronary arteries. Normal mediastinum. Normal hilar regions. Normal enhanced pulmonary arteries. Normal aorta arch and descending thoracic aorta. Bovine origin of the left common carotid artery. There are multi-level degenerative changes of the thoracic spine. Small amount of perihepatic fluid. Multiple small gallstones. 2 cm hypodense nodule in the right adrenal gland. CT/Chest WITH Contrast IMPRESSION: Chronic changes. No acute abnormality is seen. Electronically Signed: Freddie Montaño, at 12:15 EDT , Service support ,
[2020-02-04 10:01] LABS: Bedside Glucose 245 mg/dL (70-110)
[2020-02-04] MEDS: Enoxaparin 40 MG/0.4 ML Syringe SC (10:03)
--- NOTE | 2020-02-04 10:50 | PCM.NTREPORT ---
Nutrition Therapy Report - History Nutrition Services has been consulted to:: Manage nutrient details of diet order Current diet / nutrition support order:: NPO - Anthropometric Measurements Height:: 5 ft 7 in Weight:: 74.7 kg Body Mass Index (BMI):: 25.7 - Relevant Labs Relevant Labs:: WBC 12.7 K/mm3 (4.4-11.0) H 02/04/20 06:10 Hgb 17.2 g/dL (13.0-16.5) H 02/03/20 11:30 Plt Count 146 K/mm3 (150-450) L 02/04/20 06:10 Neut % (Auto) 85.6 % (47-70) H 02/04/20 06:10 Lymph % (Auto) 4.8 % (19-41) L 02/04/20 06:10 Absolute Neuts (auto) 10.9 X10^3/uL (2.0-7.7) H 02/04/20 06:10 Absolute Lymphs (auto) 0.61 X10^3/uL (0.83-4.51) L 02/04/20 06:10 Sodium 133 mmol/L (136-145) L 02/04/20 06:50 Potassium 3.3 mmol/L (3.5-5.1) L 02/03/20 20:50 Chloride 94 mmol/L (98-107) L 02/03/20 12:03 Carbon Dioxide 19.0 mmol/L (21.0-32.0) L 02/04/20 06:50 Anion Gap 20 (5-15) H 02/03/20 16:40 BUN 20 mg/dL (7-18) H 02/04/20 06:50 BUN/Creatinine Ratio 20.6 RATIO (10-20) H 02/04/20 06:50 Glucose 265 mg/dL (74-106) H 02/04/20 06:50 Hemoglobin A1c 9.9 % (3.8-5.6) H 02/04/20 06:10 Total Bilirubin 1.40 mg/dL (0.20-1.00) H 02/03/20 12:03 - Assessment Food / Nutrition-Related History:: Pt reports poor PO intake over last 6 months, w/ severely limited PO intake over last 1-2 weeks. Pt states he was unable to eat anything beyond a half cup of yogurt and felt he was choking on it. Pt states UBW 253#, CBW 164.7#- indicating a 88.3#/35% wt loss x 6 months, significant for severe malnutrition. Pt states he SMBG at home w/ readings ~200mg/dL. A1C indicates poor glycemic control. - Nutrition Diagnosis Problem / Etiology / Signs & Symptoms (PES):: Severe malnutrition related to inadequate energy intake d/t inability to swallow as evidenced by 88.3#/35% wt loss x 6 months, estimated PO intake meeting <75% of pt's estimated nutritional needs over 6 months, and PO intake <50% of pt's estimated nutritional needs over past 2 weeks. Evidence of Malnutrition Exists:: Yes Severe PCM:: Acute Illness - Nutrition Intervention Nutrition Prescription:: [id number] calories/day, 75-90 g protein/day - Food / Nutrient Delivery Interventions Summary of nutrition intervention:: Pt failed bedside swallow evaluation completed by WILD LIFE PHOTOGRAPHER. WILD [employer] PHOTOGRAPHER recommending NPO diet, MBS to be completed. Glucerna ONS on JUL- will d/c at this time. Noted additional imaging ordered by hospitalist. Will monitor pt's ability to resume PO diet. If unable to meet nutritional needs via oral diet, recommend considering enteral nutrition support via NG or PEG. Given reported lack of PO intake over past 2 weeks, pt w/ significant risk for refeeding syndrome. Will closely monitor caloric intake when PO diet appropriate, as well as electrolytes. Nutrition support ordered as / adjusted to:: continue NPO until cleared by WILD LIFE PHOTOGRAPHER for PO intake. Recommend regular diet, consistency per WILD LIFE PHOTOGRAPHER when PO diet appropriate. Due to risk for refeeding syndrome, recommend gradual increase in protein/calories. Will monitor daily wts. Will monitor electrolytes for signs of refeeding syndrome. Recommend enteral nutrition support if deemed unsafe for PO diet- consult RDN for recommendations/management as indicated. Nutrition education provided?: No - MNT Monitoring Further MNT monitoring and evaluation required?: Yes MNT Follow-up in:: 1-2 days
--- NOTE | 2020-02-04 11:35 | PCM.CONS.GEN ---
Problem List (1) Weight loss Status: Acute (2) Dysphagia Status: Acute Reason for Consult Date of Consultation: 02/04/20 Reason for Consultation: Weight loss and dysphagia History of Present Illness: The patient is a 79 year old M reports that he has been having weight loss and he says he is not able to get food to go down. He does not necessarily say that it is she getting stuck and he does not report any nausea or vomiting. He has unintentional weight loss. He is not had a recent endoscopy. Past Medical History Past Medical History (Chronic Problems): Chronic Problems Diabetes mellitus type 2 in nonobese (Chronic) Hypertension (Chronic) COPD (chronic obstructive pulmonary disease) (Chronic) Dyslipidemia (Chronic) Generalized weakness (Chronic) Allergies No Known Allergies Allergy (Verified 02/03/20 10:22) Home Medications: Ambulatory Orders Medication Instructions Recorded Albuterol IH (ProAir) [Proair Hfa 1 - 2 puff INHALATION Q6H PRN PRN 02/03/20 (SP)Vent Pts] Ascorbic Acid [Vitamin C] 250 mg PO QODAY 02/03/20 Atorvastatin Calcium 80 mg PO QHS 02/03/20 Budesonide/Formoterol Fumarate 2 puff IH BID 02/03/20 [Budesonide-Formoterol 160-4.5] Calcium Citrate/Vitamin D3 1 tab PO DAILY 02/03/20 [Calcium Citrate-Vit D3 Caplet] Empagliflozin [Jardiance] 10 mg PO DAILY 02/03/20 Ferrous Sulfate 325 mg PO QODAY 02/03/20 Fluocinonide/Emollient Base 15 gm TP DAILY PRN 02/03/20 [Fluocinonide-E 0.05% Cream] Insulin Glargine [Lantus (BKC)] 60 units SUBCUT DAILY 02/03/20 Losartan Potassium 100 mg PO DAILY 02/03/20 Metformin HCl 1,000 mg PO BID 02/03/20 Montelukast [Singulair] 10 mg PO DAILY 02/03/20 Multivitamin 1 ea PO DAILY 02/03/20 Pantoprazole Sodium [Protonix] 40 mg PO DAILY 02/03/20 Potassium Citrate [Urocit-K] 5 meq PO BID 02/03/20 Tiotropium [place] [Spiriva 2 puff IH BID 02/03/20 Respimat] Surgical History: noncontributory Lives: With Family Smoking Status: Former smoker Tobacco Use: Cigarettes Alcohol: None, Occasional Drugs: None Review of Systems Constitutional: Denies: Anorexia, Fever HEENT: Reports: Dysphasia Respiratory: Denies: Cough Gastrointestinal: Denies: Abdominal Pain, Nausea, Melena, Vomiting Genitourinary: Denies: Dysuria Skin: Denies: Jaundice Neurological: Denies: Focal weakness Psychiatric: Denies: Anxiety Patient Problems: Active and Suspected Problems Dysphagia (Acute) Weakness (Acute) Dysphagia (Acute) Metabolic acidosis (Acute) Diabetes mellitus (Acute) DKA (diabetic ketoacidoses) (Acute) Weight loss (Acute) - Physical Exam Vitals/I&O's: Vital Signs Temp Pulse Resp BP Pulse Ox 97.6 F L 109 H 18 110/65 98 02/04/20 11:29 02/04/20 11:31 02/04/20 11:29 02/04/20 11:29 02/04/20 11:29 Oxygen Delivery Method Room Air Weight: 164 lb 10.965 oz Body Mass Index (BMI) 25.7 Finger Stick Blood Glucose 82 Intake and Output for Last 24 Hours 02/02/20 02/03/20 02/04/20 23:59 23:59 23:59 Intake Total 3536.82 / 3636.82 1869.16 / 1869.16 Output Total 0 / 0 Balance 3536.82 / 3636.82 1869.16 / 1869.16 General: Alert, Cooperative, No apparent distress Neck: No JVD Lungs: Normal air movement Abdomen: Soft, Non Tender, Non-Distended Skin: No breakdown Neurological: Cranial nerves II-XII grossly intact Laboratory Results 02/03/20 11:30: WBC 8.4, RBC 6.10, Hgb 17.2 H, Hct 51.0, MCV 83.6, MCH 28.2, MCHC 33.7, RDW Std Deviation 42.1, RDW Coeff of Yamile 14.0, Plt Count 236, MPV 9.9, Immature Gran % (Auto) 0.400, Neut % (Auto) 86.3 H, Lymph % (Auto) 8.3 L, Larue % (Auto) 4.9, Eos % (Auto) 0.0, Baso % (Auto) 0.1, Absolute Neuts (auto) 7.3, Absolute Lymphs (auto) 0.70 L, Nucleated RBC % 0 02/03/20 11:30: PT 13.8, INR 1.1, APTT 26.3 02/03/20 11:30: Sodium Cancelled, Potassium Cancelled, Chloride Cancelled, Carbon Dioxide Cancelled, Anion Gap Cancelled, BUN Cancelled, Creatinine Cancelled, Estim Creat Clear Calc Cancelled, Est GFR (MDRD) Af Amer Cancelled, Est GFR (MDRD) Non-Af Cancelled, BUN/Creatinine Ratio Cancelled, Glucose Cancelled, Calcium Cancelled, Total Bilirubin Cancelled, AST Cancelled, ALT Cancelled, Alkaline Phosphatase Cancelled, Troponin I Cancelled, Total Protein Cancelled, Albumin Cancelled, Globulin Cancelled, Albumin/Globulin Ratio Cancelled, Amylase Cancelled, Lipase Cancelled 02/03/20 11:30: B-Natriuretic Peptide 42.7 02/03/20 12:03: Sodium 132 L, Potassium 3.5, Chloride 94 L, Carbon Dioxide 19.0 L, Anion Gap 19 H, BUN 20 H, Creatinine 0.99, Estim Creat Clear Calc 56.57, Est GFR (MDRD) Af Amer 93, Est GFR (MDRD) Non-Af 77, BUN/Creatinine Ratio 20.1 H, Glucose 245 H, Calcium 9.7, Total Bilirubin 1.40 H, AST 23, ALT 37, Alkaline Phosphatase 110, Troponin I < 0.015, Total Protein 7.7, Albumin 3.8, Globulin 3.9, Albumin/Globulin Ratio 1.0, Amylase 26, Lipase 92 02/03/20 13:40: Acetone Level SMALL H 02/03/20 13:57: Specimen Type ART, Sample Site R Radial, pH 7.28 L, Bicarbonate Actual 15.3 L, Total CO2 16, Base Excess -12 L, O2 Saturation 97, O2 % 21, ABG pCO2 32.9 L, ABG pO2 97 02/03/20 15:12: POC Glucose 213 H 02/03/20 16:40: Sodium 134 L, Potassium 3.4 L, Chloride 101, Carbon Dioxide 13.0 L, Anion Gap 20 H, BUN 20 H, Creatinine 0.87, Estim Creat Clear Calc 64.37, Est GFR (MDRD) Af Amer 109, Est GFR (MDRD) Non-Af 90, BUN/Creatinine Ratio 23.0 H, Glucose 189 H, Calcium 9.6 02/03/20 16:40: Magnesium 2.3 02/03/20 16:48: POC Glucose 212 H 02/03/20 17:30: POC Glucose 156 H 02/03/20 18:46: POC Glucose 127 H 02/03/20 19:41: POC Glucose 121 H 02/03/20 20:42: POC Glucose 103 02/03/20 20:50: Sodium 137, Potassium 3.3 L, Chloride 103, Carbon Dioxide 23.0, Anion Gap 11, BUN 19 H, Creatinine 0.86, Estim Creat Clear Calc 65.12, Est GFR (MDRD) Af Amer 111, Est GFR (MDRD) Non-Af 92, BUN/Creatinine Ratio 22.2 H, Glucose 79, Calcium 9.2 02/03/20 21:34: POC Glucose 82 02/04/20 01:48: POC Glucose 173 H 02/04/20 05:50: POC Glucose 253 H 02/04/20 06:10: WBC 12.7 H, RBC 5.49, Hgb 15.4, Hct 46.4, MCV 84.5, MCH 28.1, MCHC 33.2, RDW Std Deviation 43.5, RDW Coeff of Yamile 14.1, Plt Count 146 L, MPV 9.5, Immature Gran % (Auto) 0.500, Neut % (Auto) 85.6 H, Lymph % (Auto) 4.8 L, Larue % (Auto) 9.0, Eos % (Auto) 0.0, Baso % (Auto) 0.1, Absolute Neuts (auto) 10.9 H, Absolute Lymphs (auto) 0.61 L, Nucleated RBC % 0, Differential Comment SCANNED 02/04/20 06:10: Sodium Cancelled, Potassium Cancelled, Chloride Cancelled, Carbon Dioxide Cancelled, Anion Gap Cancelled, BUN Cancelled, Creatinine Cancelled, Estim Creat Clear Calc Cancelled, Est GFR (MDRD) Af Amer Cancelled, Est GFR (MDRD) Non-Af Cancelled, BUN/Creatinine Ratio Cancelled, Glucose Cancelled, Calcium Cancelled 02/04/20 06:10: Hemoglobin A1c 9.9 H 02/04/20 06:50: Sodium 133 L, Potassium 4.0, Chloride 99, Carbon Dioxide 19.0 L, Anion Gap 15, BUN 20 H, Creatinine 0.97, Estim Creat Clear Calc 57.73, Est GFR (MDRD) Af Amer 96, Est GFR (MDRD) Non-Af 79, BUN/Creatinine Ratio 20.6 H, Glucose 265 H, Calcium 9.4 02/04/20 07:21: POC Glucose 230 H 02/04/20 09:57: POC Glucose 245 H Current Medications Albuterol Sulfate (Ventolin Aerosols) 2.5 mg INHALATION Q2H PRN PRN PRN Reason: SOB/Wheezing Albuterol/Ipratropium (Duoneb) 3 ml INHALATION Q4H.RT ROM Last Admin: 02/04/20 10:00 Dose: 3 ml Documented by: Budesonide (Pulmicort Aerosol) 0.5 mg INHALATION Q12H.RT ROM Last Admin: 02/04/20 06:53 Dose: 0.5 mg Documented by: Calamine/Phenol (Calmoseptine Ointment) 1 applic TOPICAL BID ROM; Protocol Dextrose (D50w Syringe) 0 gm IV X1 PRN; Protocol PRN Reason: Hypoglycemia Protocol Enoxaparin Sodium (Lovenox) 40 mg SC DAILY ROM Last Admin: 02/04/20 10:03 Dose: 40 mg Documented by: Dextrose/Sodium Chloride () 1,000 mls @ 100 mls/hr IV .Q10H ROM Last Infusion: 02/04/20 11:18 Dose: 0 mls/hr Documented by: Insulin Glargine (Lantus (Bkc)) 30 units SC BID ROM Last Admin: 02/04/20 06:29 Dose: 30 units Documented by: Insulin Human Lispro (Humalog Kwikpen (Bk)) 0 unit SC Q4 ROM; Protocol Last Admin: 02/04/20 10:01 Dose: 4 u Documented by: Montelukast Sodium (Singulair) 10 mg PO DAILY ROM Last Admin: 02/04/20 10:03 Dose: Not Given Documented by: Ondansetron HCl (Zofran) 4 mg IV Q8H PRN PRN PRN Reason: NAUSEA/VOMITING Pantoprazole Sodium (Protonix) 40 mg PO DAILY ROM Last Admin: 02/04/20 10:03 Dose: Not Given Documented by: Psyllium Hydrophilic Mucilloid (Metamucil) 1 packet PO DAILY [facility] Last Admin: 02/04/20 10:03 Dose: Not Given Documented by: Senna/Docusate Sodium (Senokot-S, Renae-Colace) 2 tablet PO BID [facility] Last Admin: 02/04/20 10:03 Dose: Not Given Documented by: Sodium Chloride () 10 - 40 ml IV UD PRN PRN Reason: SALINE FLUSH Last Admin: 02/04/20 06:32 Dose: 20 ml Documented by: Assessment/Plan All Active Problems Dysphagia (Acute) Weakness (Acute) Dysphagia (Acute) Metabolic acidosis (Acute) Diabetes mellitus (Acute) DKA (diabetic ketoacidoses) (Acute) Weight loss (Acute) 79-year-old male with weight loss and possible dysphasia 1. Patient is having a CT scan of the chest abdomen pelvis today with oral IV contrast. If that shows abnormality with thickening I will perform an EGD tomorrow. If it is normal I may start with an upper GI with barium swallow to see if that reveals anything. Jasvir Sky MD Pager: [facility] [address] [place] [address], [address] [place] [address] Office:
--- NOTE | 2020-02-04 14:17 | CHAPLAIN ---
Type of Pastoral Visit _x__ Initial Visit ___ Follow-up Visit ___ On-call Visit ___ General Patient Visit ___ Spiritual Assessment ___ Family Conference ___ Bereavement ___ Rapid Response ___ Code Blue ___ Other (describe below) Pastoral Care Referral From _x__ Patient ___ Family ___ Nurse ___ Physician ___ Manager Security ___ Sand Cutter Operator ___ Other (describe below) Sacrament/Intervention _x__ Active listening ___ Anointing ___ Caodaism ___ Bereavement ___ Communion ___ Mray Grace exploration ___ ___ Life review _x__ Prayer ___ Reconciliation ___ Sacrament of Sick _x__ Supportive presence ___ Wedding ___ Other (describe below) Pastoral Comments patient is sitting up in chair but appears weak and states that it is too hard to talk right now; pt is welcoming of this telemarketer supervisor and asks just for a prayer
--- NOTE | 2020-02-04 14:29 | MRI_ITS ---
STUDY: MRI BRAIN WITHOUT CONTRAST REASON FOR EXAM: Male, 79 years old. right sided leg weakness, weight loss TECHNIQUE: Standardized multiplanar fat and water weighted pulse sequences were obtained. COMPARISON: CT of the brain 02/03/2020 FINDINGS: Mild atrophy and periventricular white matter ischemic change without mass effect or restricted diffusion.. Normal bilateral basal ganglia. Normal thalami. There is no extra-axial fluid accumulation. Normal flow voids within the major intracranial circulation suggesting patency by spin echo criteria. Normal sella turcica, pituitary gland, infundibular stalk, optic chiasm and hypothalamus. Normal tectal plate and pineal gland. Normal midbrain, apurva and medulla. Diffuse cerebellar atrophy. Normal basal cisterns. Normal bilateral temporal bones. Normal bilateral internal auditory canals. Postsurgical changes of the orbits.. Normal visualized paranasal sinuses. Normal calvarium and skull base. Normal visualized soft tissue structures. Normal visualized upper cervical spine. MRI/Brain without Contrast IMPRESSION: Cerebral and cerebellar atrophy with mild periventricular white matter ischemic changes. No evidence for acute infarct Electronically Signed: Norm Esqueda MD at 16:06 EDT , Service support ,
[2020-02-04 14:40] LABS: Bedside Glucose 253 mg/dL (70-110)
[2020-02-04 18:56] LABS: Bedside Glucose 201 mg/dL (70-110)
[2020-02-04] MEDS: Menthol/Lanolin/Calamine/Znox 113 GM Tube 1 APPLIC TOPICAL (21:36)
[2020-02-04 21:45] LABS: Bedside Glucose 205 mg/dL (70-110)
[2020-02-05] VITALS (8 sets, daily range): BP systolic 117–128; BP diastolic 63–64; PULSE 100–110; RESP 14–20; TEMP 36.4–36.8; O2SAT 95–100
[2020-02-05] MEDS: Dext 5%-0.45% NS 1,000 ML 75 ML IV ×2 (01:10→09:27)
[2020-02-05] MEDS: Insulin Lispro 100 UNIT/ML INSULN.PEN SC ×6 (02:19→21:56)
[2020-02-05 02:25] LABS: Bedside Glucose 301 mg/dL (70-110)
[2020-02-05] MEDS: Ipratropium/Albuterol Sulfate 3 ML AMPUL.NEB INHALATION ×4 (02:48→19:38)
[2020-02-05 06:11] LABS: Bedside Glucose 317 mg/dL (70-110)
[2020-02-05] MEDS: Budesonide Respules 0.5 MG/2 ML AMPUL.NEB. INHALATION ×2 (06:50→19:38)
[2020-02-05 08:01] LABS: Absolute Lymphocyte Count 0.61 X10^3/uL (0.83-4.51); Absolute Neutrophil Count 7.8 X10^3/uL (2.0-7.7); Basophil# 0.01 X10^3/uL; Basophil% 0.1 % (0-1); Hematocrit 47.5 % (40-54); Hemoglobin 16.1 g/dL (13.0-16.5); Lymphocyte # 0.61 X10^3/ul (4.0); Lymphocyte % 6.6 % (19-41); Mean Corp Hgb Conc 33.9 g/dL (32-36); Mean Corpuscular Hgb 28.2 pg (27.0-32.0); Mean Corpuscular Volume 83.3 fL (80-94); Mean Platelet Vol. 9.8 fl (6.2-12.0); Monocyte# 0.82 X10^3/uL; Monocyte% 8.8 % (0-10); NRBC Flagged by Analyzer 0 % (0-5); Neutrophil # 7.79 X10^3/uL (2.7-7.7); Neutrophil % 84.1 % (47-70); Platelet Count 118 K/mm3 (150-450); RBC Distribution Width CV 14.6 % (11.6-14.6); RBC Distribution Width SD 43.1 fl (35.1-43.9); White Blood Count 9.3 K/mm3 (4.4-11.0)
[2020-02-05 08:28] LABS: ALB/GLOB Ratio 0.9 RATIO (0.9-2.4); AST(SGOT) 30 U/L (15-37); Alanine Aminotransfer ALT/SGPT 32 U/L (16-61); Albumin, Serum 3.1 g/dL (3.2-5.0); Alkaline Phosphatase 89 U/L (45-117); Anion Gap 8 (5-15); BUN 27 mg/dL (7-18); BUN/Creat Ratio 13.2 RATIO (10-20); Calcium,Total 9.6 mg/dL (8.5-10.1); Chloride 102 mmol/L (98-107); Creatinine, Serum 2.05 mg/dL (0.70-1.30); EST Glomerular Filtration Rate 33 mL/min (>60); Est Glom Filt Rate - Afr Amer 41 mL/min (>60); Estimated Creatinine Clearance 27.32 ml/min; Globulin 3.4 g/dL (2.2-4.2); Glucose 267 mg/dL (74-106); Potassium 3.5 mmol/L (3.5-5.1); Protein, Total 6.5 g/dL (6.4-8.2); Sodium Level 133 mmol/L (136-145)
[2020-02-05] MEDS: Menthol/Lanolin/Calamine/Znox 113 GM Tube 1 APPLIC TOPICAL ×2 (09:27→21:57)
[2020-02-05 09:31] LABS: Bedside Glucose 273 mg/dL (70-110)
[2020-02-05] MEDS: Enoxaparin 40 MG/0.4 ML Syringe SC (09:32)
--- NOTE | 2020-02-05 11:10 | CASEMGMT ---
RN CM Face to Face with patient for initial transition planning/care coordination assessment. RN CM introduced self and role at [facility]. Patient lying in bed, alert and oriented. Patient willing to participate in assessment and is able to answer all questions appropriately. Care providers, pharmacy, and demographics verified. Patient is not sure of needs at discharge. Will monitor therapy, patient willing to go to SNF if recommended. Patient states he has no further needs or concerns at this time. CM to follow for discharge planning needs that may arise. PCP: Specialists: Preferred Pharmacy: Insurance: [facility], [place] Prescription Benefit: yes Living Will/HPOA: none LNOK: , daughter Living Arrangements: Patient lives with in a mobile home with 4 steps and railing to enter the home. Patient states he is independent at home. Transportation: self/ DME/HHC: Patient states he has shower chair, raised toilet, rollator, grab bars, and cpap at home. Patient denies previous HHC. Patient states he has been to SNF previous but could not recall where. Disposition Plan: TBD by course of treatment and progress with therapy. Dorina MARS, RN, CM
[2020-02-05 13:01] LABS: Bedside Glucose 209 mg/dL (70-110)
--- NOTE | 2020-02-05 13:45 | CASEMGMT ---
DOREEN CM in to discuss [facility] Decl[facility] form to patient. Patient states he wishes to stay at [facility] and have it billed under his MCR. Patient signed declination form. [facility] with [facility]. Patient had no further questions or concerns at this time.
--- NOTE | 2020-02-05 14:33 | PCM.PN.HOSP ---
Patient Problems: Active and Suspected Problems Dysphagia (Acute) Weakness (Acute) Dysphagia (Acute) Metabolic acidosis (Acute) Diabetes mellitus (Acute) DKA (diabetic ketoacidoses) (Acute) Weight loss (Acute) Reason for Visit: Loss of weight, dysphagia Objective: Blood pressure 128/64. Heart rate in 100s. Evaluated by speech therapist. Still n.p.o. status as patient with high risk of aspiration. Plan for MBS Physical exam General: Alert, Oriented x3, Cooperative, moderate malnutrition HEENT: Atraumatic, PERRLA, EOMI, Normocephalic Oral: No Gingival or Mucosal Lesions/ Ulcerations. Poor oropharyngeal swallow function Neck: Supple, No JVD, Negative Carotid Bruits Lungs: Air entry diminished in bilateral lung bases. No crepitation/rhonchi Cardiovascular: Regular rate, Regular Rhythm, Normal S1, Normal S2, No murmurs Abdomen: Bowel Sounds Present, Soft, Non Tender, Non-Distended : No renal angle tenderness. No suprapubic tenderness. Extremities: No edema, Capillary Refill Less than 3 Seconds Skin: No rashes, No breakdown Musculoskeletal: No Tenderness to Palpation of Joints or Extremities Neurological: Cranial nerves II-XII grossly intact, Deep Tendon Reflexes 2+/4 and Symmetrical, Neuro grossly intact Psych/Mental Status: Normal Affect, Appropriate. Vitals/I&O's: Vital Signs Temp Pulse Resp BP Pulse Ox 97.5 F L 109 H 16 128/64 H 96 02/05/20 09:00 02/05/20 09:00 02/05/20 09:00 02/05/20 09:00 02/05/20 09:00 Oxygen Delivery Method Room Air Weight: 166 lb Body Mass Index (BMI) 25.7 Finger Stick Blood Glucose 82 Intake and Output for Last 24 Hours 02/03/20 02/04/20 02/05/20 23:59 23:59 23:59 Intake Total 3536.82 / 3636.82 934.59 / 934.59 Output Total 0 / 0 Balance 3536.82 / 3636.82 934.59 / 934.59 Laboratory Results 02/04/20 14:33: POC Glucose 253 H 02/04/20 18:45: POC Glucose 201 H 02/04/20 21:28: POC Glucose 205 H 02/05/20 02:18: POC Glucose 301 H 02/05/20 05:56: POC Glucose 317 H 02/05/20 07:50: WBC 9.3, RBC 5.70, Hgb 16.1, Hct 47.5, MCV 83.3, MCH 28.2, MCHC 33.9, RDW Std Deviation 43.1, RDW Coeff of Yamile 14.6, Plt Count 118 L, MPV 9.8, Immature Gran % (Auto) 0.400, Neut % (Auto) 84.1 H, Lymph % (Auto) 6.6 L, [place] % (Auto) 8.8, Eos % (Auto) 0.0, Baso % (Auto) 0.1, Absolute Neuts (auto) 7.8 H, Absolute Lymphs (auto) 0.61 L, Nucleated RBC % 0 02/05/20 07:50: Sodium 133 L, Potassium 3.5, Chloride 102, Carbon Dioxide 23.0, Anion Gap 8, BUN 27 H, Creatinine 2.05 H, Estim Creat Clear Calc 27.32, Est GFR (MDRD) Af Amer 41 L, Est GFR (MDRD) Non-Af 33 L, BUN/Creatinine Ratio 13.2, Glucose 267 H, Calcium 9.6, Total Bilirubin 1.10 H, AST 30, ALT 32, Alkaline Phosphatase 89, Total Protein 6.5, Albumin 3.1 L, Globulin 3.4, Albumin/Globulin Ratio 0.9 02/05/20 09:25: POC Glucose 273 H 02/05/20 12:57: POC Glucose 209 H Current Medications Albuterol Sulfate (Ventolin Aerosols) 2.5 mg INHALATION Q2H PRN PRN PRN Reason: SOB/Wheezing Albuterol/Ipratropium (Duoneb) 3 ml INHALATION Q4H.RT ROM Last Admin: 02/05/20 10:55 Dose: Not Given Documented by: Budesonide (Pulmicort Aerosol) 0.5 mg INHALATION Q12H.RT ROM Last Admin: 02/05/20 06:50 Dose: 0.5 mg Documented by: Calamine/Phenol (Calmoseptine Ointment) 1 applic TOPICAL BID ROM; Protocol Last Admin: 02/05/20 09:27 Dose: 1 applic Documented by: Dextrose (D50w Syringe) 0 gm IV X1 PRN; Protocol PRN Reason: Hypoglycemia Protocol Enoxaparin Sodium (Lovenox) 30 mg SC DAILY [facility] Dextrose/Sodium Chloride () 1,000 mls @ 30 mls/hr IV .[id number] [facility] Last Admin: 02/05/20 09:27 Dose: 75 mls/hr Documented by: Insulin Glargine (Lantus ([facility])) 30 units SC BID [facility] Last Admin: 02/05/20 09:29 Dose: 30 units Documented by: Insulin Human Lispro (Humalog Kwikpen ([facility])) 0 unit SC Q4 [facility]; Protocol Last Admin: 02/05/20 13:00 Dose: 4 u Documented by: Montelukast Sodium (Singulair) 10 mg PO DAILY [facility] Last Admin: 02/04/20 10:03 Dose: Not Given Documented by: Ondansetron HCl (Zofran) 4 mg IV Q8H PRN PRN PRN Reason: NAUSEA/VOMITING Pantoprazole Sodium (Protonix) 40 mg PO DAILY [facility] Last Admin: 02/04/20 10:03 Dose: Not Given Documented by: Psyllium Hydrophilic Mucilloid (Metamucil) 1 packet PO DAILY [facility] Last Admin: 02/04/20 10:03 Dose: Not Given Documented by: Senna/Docusate Sodium (Senokot-S, Renae-Colace) 2 tablet PO BID [facility] Last Admin: 02/04/20 21:24 Dose: Not Given Documented by: Sodium Chloride () 10 - 40 ml IV UD PRN PRN Reason: SALINE FLUSH Last Admin: 02/04/20 06:32 Dose: 20 ml Documented by: Medical Necessity - Tobacco Use Smoking Status: Former smoker Tobacco Use: Cigarettes Assessment/Plan All Active Problems Dysphagia (Acute) Weakness (Acute) Dysphagia (Acute) Metabolic acidosis (Acute) Diabetes mellitus (Acute) DKA (diabetic ketoacidoses) (Acute) Weight loss (Acute) The patient is a 79 year old M with history of diabetes mellitus type 2 came to ER for weakness and shortness of breath since the start of 2019 but worse in the last few weeks. 1. DKA with high anion gap metabolic acidosis with history of type 2 diabetes mellitus: Anion gap closed x2. Sodium 133. Bicarb 19. Patient insulin drip was discontinued last night and was switched to Lantus 30 units subcutaneous twice daily. Glucose is running about 200 to 250 mg/dL. Patient is transferred out of ICU. 02/04: Blood sugars are running around 200. 2. Electrolyte abnormality: Hypotonic, hypochloremic, complex acid-base disturbance high anion gap metabolic acidosis and respiratory alkalosis due to DKA, starvation and hypovolemia: Mild hyponatremia, hypovolemic secondary to DKA. On IV fluid D5 half NS for nutritional purposes. 3. Weight loss, failure to thrive and pharyngoesophageal dysphagia: Patient has significant wasting of 60 pounds in the last 6 months with dysphagia with choking at the level of throat and chest. Patient was evaluated by speech therapist in the ICU and recommended n.p.o. With concern of malignancy, oncologist Dr. Patterson was called and clinical history labs and imagings were discussed. He suggested CT chest with IV contrast and CT abdomen and pelvis with oral and IV contrast but as patient cannot swallow even liquid therefore without oral contrast was ordered. Surgeon Dr. banerjee was also consulted for dysphagia. Overall, the plan is to review the CT scan abdomen and chest and further modified barium swallow as deemed appropriate. [facility] and therefore previous health screening and preventative care is unavailable to review. Denies any history of cancer. Patient does not have a specific point bony point tenderness, normal, anemia, hypercalcemia, increased gammaglobulin or increased total protein therefore clinically significant monoclonal paraproteinemia unlikely giving rise to weight loss. 02/04: Plan for modified barium swallow and esophagogram hopefully can further do barium meal to see up to stomach and duodenum. Continue n.p.o. status. High risk for aspiration. Being evaluated by speech therapist. 4. COPD: Patient does not have new cough or change in his sputum or severity of cough. Continue DuoNeb nebulization. CT chest with IV ordered. Other chronic comorbidities include hypertension, dyslipidemia: Home medication reconciliation done Living will/advanced directive/end of life care: Patient does not have living will or advanced directive. After discussion of procedures involved with full code, DNR CC arrest and DNR CC, the patient and her daughter near the bedside opted for full code. Patient does want artificial life support including intubation, tube feed, ventilator and/chest compression, central venous catheter, vasopressor and DC shock if needed Total time of the visit including total time spent in counseling or coordination of care, (more than 50% of the total time, spent in obtaining medical information from nurses and other ancillary care providers), discussion with surgeon and oncologist, review of labs and imaging is 30 minutes. Inpatient E&M: [id number] Subs Hosp L2
--- NOTE | 2020-02-05 14:35 | ST.MBS ---
Modified Barium Swallow - Patient Information Study Date: 02/05/20 Study Time: 13:45 Direct Billable Minutes: 120 Total Minutes procedure & reportin Diagnosis: dysphagia, unspecified (R13.10) Referring Physician: Paevl Aranda Reason for Referral: Patient NPO with concern for silent aspiration. Medical History: The patient is a 79 year old M with history of Diabetes mellitus type 2, Hypertension, COPD, Dyslipidemia, and Generalized weakness. Pt came to ER for weakness and shortness of breath since the beginning of this year but patient has been progressively getting more short of breath and weak for last few weeks. He also reported that he has had increased difficulty swallowing in the past 2-4 weeks. After a half a cup of yogurt he reports feeling choked up. He also reports getting short of breath when eating and drinking. Patient also has a poor appetite and has lost 60 pounds in the last [address] 02/03/20 IMPRESSION: Chronic involutional changes of the brain. Chest X-Ray 02/03/20 IMPRESSION: Findings suggestive of calcified pleural plaque overlying the right mid thorax. Current Diet Ordered: NPO Dentition: Upper Dentures, Lower Dentures Respiratory Status: Oxygenating on Room Air - Study Findings Consistencies: Thin Liquid, [place] Thick Liquid, Honey Thick Liquid, Pudding, Cookie - Penetration-Aspiration Scale Penetration-Aspiration Scale: OBJECTIVE ASSESSMENT OF SWALLOW FUNCTION (QUANTITATIVE ? PER TRIAL): PENETRATION / ASPIRATION SCALE (DIALLO): 1 = does not enter airway 2 = enters airway/above vocal folds/ejected 3 = enters airway/above vocal folds/not ejected 4 = enters airway/contacts vocal folds/ejected 5 = enters airway/contacts vocal folds/not ejected 6 = enters airway/below vocal folds/ejected 7 = enters airway/below vocal folds/not ejected despite effort 8 = enters airway/below vocal folds/no effort - Penetration-Aspiration Scale Score Thin Liquid via teaspoon Result: 2= enter airway/above vocal folds/ejected Thin Liquid via teaspoon Trial 2 Result: 1= does not enter airway Thin Liquid via small single sip from cup Result: 2= enter airway/above vocal folds/ejected Comment: took larger sip despite cue for small sip Thin Liquid via large single sip from cup Result: 4= enters airway/contacts vocal folds/ejected [place] Thick Liquid via small single sip from cup Result: 1= does not enter airway [place] Thick Liquid via large single sip from cup Comment: Aspiration scale not scored: assessed for esophageal retention; esophageal retention with retrograde flow below the pharyngoesophageal segment present Honey Thick Liquid via small single sip from cup Result: 1= does not enter airway Pudding Result: 1= does not enter airway Pudding Trial 2 Comment: aspiration scale not scored. Assessed for esophageal retention. Pt presents with esophageal retention with retrograde flow below the pharyngoesophageal segment. Thin Liquid via sequential sips from straw Result: 1= does not enter airway Cookie Result: 1= does not enter airway Thin Liquid via single sip from straw Trial 2 Result: 1= does not enter airway Thin Liquid via sequential sips from straw Trial 2 Result: 1= does not enter airway - Oral Phase Labial Seal: Interlabial escape, no progression to anterior lip Tongue Control During Bolus Hold: Escape to lateral buccal cavity/floor of mouth Bolus Preparation/Mastication: Disorganized chewing/mashing with solid pieces of bolus unchewed Bolus Transport/Lingual Motion: Slowed tongue motion Oral Residue: Residue collection on oral structures - Pharyngeal Phase Initiation of Pharyngeal Swallow: Bolus head in valleculae Soft Palate Elevation: No bolus between soft palate and pharyngeal wall Laryngeal Elevation: Partial superior movement thyroid cart/partial apprx aryt-epig petiole Anterior Hyoid Excursion: Partial anterior movement Epiglottic Movement: Complete inversion Laryngeal Vestibule Closure at Height of Swallow: Incomplete; narrow column of air/contrast in laryngeal vestibule Pharyngeal Stripping Wave: Present - complete Pharyngoesophageal Segment Opening: Parital distension and partial duration; parital obstruction of flow Tongue Base Retraction: Narrow column of contrast between tongue base & post. pharyngeal wall Pharyngeal Residue: Trace residue within or on pharyngeal structures - Esophageal Phase Esophageal Clearance: Esophageal retention w/ retrograde flow below pharyngoesophageal seg. - Diagnosis/Impression Diagnosis: moderate pharyngoesophageal dysphagia Impression: The patient trialed thin liquid via teaspoon sips, sips from cup, and sips from straw. Most significantly was thin liquids via sequential sips from cup where patient demonstrated penetration of the liquid to the vocal cords that was ejected. No overt/silent aspiration was found during this evaluation. Throughout the trials patient became short of breath requesting breaks at times before taking another sip or bite. Belching was present throughout the assessment with both liquid and solid trials. When scanning to the upper esophagus, esophageal retention was present with retrograde flow below the PES. Patient presented with effortful mastication of solid Maddie Doone cookie with increased shortness of breath. It is recommended patient be upgraded to thin liquids/puree textures with continued skilled ST intervention warranted for training of compensatory strategies and instruction and analysis of diet. - Recommendations Diet: Puree Textures, Thin Liquids Compensatory Strategies: Small Bites, Small Sips, Slow Rate, Feed only when alert, Alternate bites/solids and sips/liquids, Sitting upright, Remain sitting upright for 30 minutes after PO intake Supervision: 1:1 Close Supervision Recommend Repeat Modified Barium Swallow: TBD Need for Skilled Speech Therapy Services: Yes Recommended Referrals: GI Consult Education Completed: 1. Described result of evaluation., 2. Pt understands evaluation & agrees with goals and treatment plan. - Status Active ST Patient: Active - Contact Information [facility] Speech Therapy:: Abby Taylor MA, CCC-FISHERIES SPECIALIST [email or web address] [phone]
--- NOTE | 2020-02-05 14:46 | CASEMGMT ---
Social Work Note SW provided pt with list of SNF that accept his insurance in the event SNF is needed. Dorina Corral [employer], [employer]
[2020-02-05] MEDS: Pantoprazole Sodium 40 MG Tablet PO (16:06)
[2020-02-05] MEDS: Montelukast 10 MG Tablet PO (16:07)
[2020-02-05] MEDS: Senna/Docusate Sodium 1 Tablet 2 TABLET PO ×2 (16:07→21:56)
[2020-02-05] MEDS: Psyllium 1 PACKET PO (16:24)
[2020-02-05] MEDS: 0.9% Saline Lock 10 ML Syringe IV (16:28)
[2020-02-05 19:10] LABS: Bedside Glucose 213 mg/dL (70-110)
[2020-02-05 22:16] LABS: Bedside Glucose 197 mg/dL (70-110)
[2020-02-06] VITALS (10 sets, daily range): BP systolic 106–121; BP diastolic 70–76; PULSE 62–112; RESP 18–28; TEMP 36.2–37.1; O2SAT 95–98; BMI 25.9
[2020-02-06 02:01] LABS: Bedside Glucose 148 mg/dL (70-110)
[2020-02-06] MEDS: Dext 5%-0.45% NS 1,000 ML 30 ML IV (02:03)
[2020-02-06] MEDS: Ipratropium/Albuterol Sulfate 3 ML AMPUL.NEB INHALATION ×6 (02:28→22:37)
[2020-02-06 06:05] LABS: Absolute Lymphocyte Count 0.58 X10^3/uL (0.83-4.51); Absolute Neutrophil Count 5.6 X10^3/uL (2.0-7.7); Eosinophil# 0.02 X10^3/uL; Eosinophils% 0.3 % (0-5); Hematocrit 49.7 % (40-54); Hemoglobin 16.4 g/dL (13.0-16.5); Lymphocyte # 0.58 X10^3/ul (4.0); Lymphocyte % 8.6 % (19-41); Mean Corpuscular Hgb 27.7 pg (27.0-32.0); Mean Corpuscular Volume 83.8 fL (80-94); Mean Platelet Vol. 9.8 fl (6.2-12.0); Monocyte# 0.52 X10^3/uL; Monocyte% 7.7 % (0-10); NRBC Flagged by Analyzer 0 % (0-5); Neutrophil # 5.58 X10^3/uL (2.7-7.7); Neutrophil % 83.1 % (47-70); POSITIVE DIFFERENTIAL YES; Platelet Count 100 K/mm3 (150-450); RBC Distribution Width CV 14.6 % (11.6-14.6); RBC Distribution Width SD 44.4 fl (35.1-43.9); Red Blood Count 5.93 M/mm3 (4.6-6.2); White Blood Count 6.7 K/mm3 (4.4-11.0)
[2020-02-06 06:07] LABS: Differential Indicated SCAN CRITERIA MET
[2020-02-06] MEDS: Insulin Lispro 100 UNIT/ML INSULN.PEN SC ×4 (06:23→18:42)
[2020-02-06 06:28] LABS: Anion Gap 6 (5-15); BUN 32 mg/dL (7-18); BUN/Creat Ratio 11.1 RATIO (10-20); Calcium,Total 9.7 mg/dL (8.5-10.1); Chloride 104 mmol/L (98-107); Creatinine, Serum 2.89 mg/dL (0.70-1.30); EST Glomerular Filtration Rate 23 mL/min (>60); Est Glom Filt Rate - Afr Amer 27 mL/min (>60); Estimated Creatinine Clearance 19.38 ml/min; Glucose 155 mg/dL (74-106); Potassium 3.3 mmol/L (3.5-5.1); Sodium Level 134 mmol/L (136-145)
[2020-02-06 06:31] LABS: Bedside Glucose 154 mg/dL (70-110)
[2020-02-06 06:36] LABS: Differential Comment SCANNED
[2020-02-06] MEDS: Budesonide Respules 0.5 MG/2 ML AMPUL.NEB. INHALATION ×2 (07:17→19:20)
--- NOTE | 2020-02-06 07:21 | PN.SURG_ITS ---
Patient Problems: Active and Suspected Problems Dysphagia (Acute) Weakness (Acute) Dysphagia (Acute) Metabolic acidosis (Acute) Diabetes mellitus (Acute) DKA (diabetic ketoacidoses) (Acute) Weight loss (Acute) Subjective: The patient had modified barium swallow yesterday - Physical Exam Vitals/I&O's: Vital Signs Temp Pulse Resp BP Pulse Ox 97.2 F L 105 H 18 111/76 97 02/06/20 02:01 02/06/20 02:29 02/06/20 02:29 02/06/20 02:01 02/06/20 02:01 Oxygen Flow Rate (L/min) 1 Oxygen Delivery Method Room Air Weight: 165 lb 12.602 oz Body Mass Index (BMI) 25.7 Finger Stick Blood Glucose 82 Intake and Output for Last 24 Hours 02/04/20 02/05/20 02/06/20 23:59 23:59 23:59 Intake Total 170. / 173.09 281 / 281 Balance 281 / 281 General: Alert, Cooperative Neck: No JVD Cardiovascular: Regular rate, Regular Rhythm Abdomen: Soft, Non Tender, Non-Distended Laboratory Results 02/05/20 07:50: WBC 9.3, RBC 5.70, Hgb 16.1, Hct 47.5, MCV 83.3, MCH 28.2, MCHC 33.9, RDW Std Deviation 43.1, RDW Coeff of Yamile 14.6, Plt Count 118 L, MPV 9.8, Immature Gran % (Auto) 0.400, Neut % (Auto) 84.1 H, Lymph % (Auto) 6.6 L, Hood % (Auto) 8.8, Eos % (Auto) 0.0, Baso % (Auto) 0.1, Absolute Neuts (auto) 7.8 H, Absolute Lymphs (auto) 0.61 L, Nucleated RBC % 0 02/05/20 07:50: Sodium 133 L, Potassium 3.5, Chloride 102, Carbon Dioxide 23.0, Anion Gap 8, BUN 27 H, Creatinine 2.05 H, Estim Creat Clear Calc 27.32, Est GFR (MDRD) Af Amer 41 L, Est GFR (MDRD) Non-Af 33 L, BUN/Creatinine Ratio 13.2, Glucose 267 H, Calcium 9.6, Total Bilirubin 1.10 H, AST 30, ALT 32, Alkaline Phosphatase 89, Total Protein 6.5, Albumin 3.1 L, Globulin 3.4, Albumin/Globulin Ratio 0.9 02/05/20 09:25: POC Glucose 273 H 02/05/20 12:57: POC Glucose 209 H 02/05/20 19:04: POC Glucose 213 H 02/05/20 21:55: POC Glucose 197 H 02/06/20 01:52: POC Glucose 148 H 02/06/20 05:40: WBC 6.7, RBC 5.93, Hgb 16.4, Hct 49.7, MCV 83.8, MCH 27.7, MCHC 33.0, RDW Std Deviation 44.4 H, RDW Coeff of Yamile 14.6, Plt Count 100 L, MPV 9.8, Immature Gran % (Auto) 0.300, Neut % (Auto) 83.1 H, Lymph % (Auto) 8.6 L, Hood % (Auto) 7.7, Eos % (Auto) 0.3, Baso % (Auto) 0.0, Absolute Neuts (auto) 5.6, Absolute Lymphs (auto) 0.58 L, Nucleated RBC % 0, Differential Comment SCANNED 02/06/20 05:40: Sodium 134 L, Potassium 3.3 L, Chloride 104, Carbon Dioxide 24.0, Anion Gap 6, BUN 32 H, Creatinine 2.89 H, Estim Creat Clear Calc 19.38, Est GFR (MDRD) Af Amer 27 L, Est GFR (MDRD) Non-Af 23 L, BUN/Creatinine Ratio 11.1, Glucose 155 H, Calcium 9.7 02/06/20 06:22: POC Glucose 154 H Current Medications Albuterol Sulfate (Ventolin Aerosols) 2.5 mg INHALATION Q2H PRN PRN PRN Reason: SOB/Wheezing Albuterol/Ipratropium (Duoneb) 3 ml INHALATION Q4H.RT ROM Last Admin: 02/06/20 07:17 Dose: 3 ml Documented by: Budesonide (Pulmicort Aerosol) 0.5 mg INHALATION Q12H.RT ROM Last Admin: 02/06/20 07:17 Dose: 0.5 mg Documented by: Calamine/Phenol (Calmoseptine Ointment) 1 applic TOPICAL BID [facility]; Protocol Last Admin: 02/05/20 21:57 Dose: 1 applic Documented by: Dextrose (D50w Syringe) 0 gm IV X1 PRN; Protocol PRN Reason: Hypoglycemia Protocol Enoxaparin Sodium (Lovenox) 30 mg SC DAILY [facility] Dextrose/Sodium Chloride () 1,000 mls @ 30 mls/hr IV .[id number] [facility] Last Admin: 02/06/20 02:03 Dose: 30 mls/hr Documented by: Insulin Glargine (Lantus ([facility])) 30 units SC BID [facility] Last Admin: 02/05/20 21:56 Dose: 30 units Documented by: Insulin Human Lispro (Humalog Kwikpen ([facility])) 0 unit SC Q4 [facility]; Protocol Last Admin: 02/06/20 06:23 Dose: 2 u Documented by: Montelukast Sodium (Singulair) 10 mg PO DAILY [facility] Last Admin: 02/05/20 16:07 Dose: 10 mg Documented by: Ondansetron HCl (Zofran) 4 mg IV Q8H PRN PRN PRN Reason: NAUSEA/VOMITING Pantoprazole Sodium (Protonix) 40 mg PO DAILY [facility] Last Admin: 02/05/20 16:06 Dose: 40 mg Documented by: Psyllium Hydrophilic Mucilloid (Metamucil) 1 packet PO DAILY [facility] Last Admin: 02/05/20 16:24 Dose: 1 packet Documented by: Senna/Docusate Sodium (Senokot-S, Renae-Colace) 2 tablet PO BID [facility] Last Admin: 02/05/20 21:56 Dose: 2 tablet Documented by: Sodium Chloride () 10 - 40 ml IV UD PRN PRN Reason: SALINE FLUSH Last Admin: 02/05/20 16:28 Dose: 10 ml Documented by: Medical Necessity - Tobacco Use Smoking Status: Former smoker Tobacco Use: Cigarettes Assessment/Plan All Active Problems Dysphagia (Acute) Weakness (Acute) Dysphagia (Acute) Metabolic acidosis (Acute) Diabetes mellitus (Acute) DKA (diabetic ketoacidoses) (Acute) Weight loss (Acute) 79-year-old male with weight loss and dysphagia 1. Patient has a oral pharyngeal dysphasia. He was given diet recommendations. I discussed with Dr. Aranda yesterday. Plan is to see how much he is able to tolerate p.o. If he is unable to tolerate any diet orally I would discuss performing EGD and placing PEG tube at the same time. If the patient is able to tolerate diet without dysphagia I would perform EGD alone for the weight loss. Jasvir Sky MD Pager: [facility] [address] [place] [address] [address] [place] [address] Office:
[2020-02-06] MEDS: Enoxaparin 30 MG/0.3 ML Syringe SC (10:28)
[2020-02-06 10:35] LABS: Bedside Glucose 188 mg/dL (70-110)
--- NOTE | 2020-02-06 10:39 | CASEMGMT ---
Addendum entered by Ara Eastman 02/06/20 11:26: Social Work Return call from [facility] in TCU and they are able to accept pt on Sunday. SW met with pt in room and informed that pt dgt was requesting that pt stay at [facility] and they are able to accept. Pt will be her through the weekend according to Dr. Aranda. Pt is understanding and agreeable to d/c plan. Dgt notified that TCU has a bed. ZAINAB Garrido Original Note: Social Work SW met spoke with CUSTOMER SUPPORT ASSOCIATE who is recommending SNF. SW met with pt and introduced self and role of SW. Pt lives at home with his . Pt would like to return home at time of d/c but is understanding this is not the best thing for him and that short term SNF for rehab is needed. SW reviewed list of in network facilities with pt. Pt would like to go to [facility] SNF. Phone call to [facility] and they do have beds available. KP then spoke with Dr. Aranda who states in his conversations with dgt, dgt requesting [facility]. KP met again with pt and informed of above. Pt gave permission for SW to speak with dgt and states, if my dgt wants me here I will stay here. Phone call to pt karol Mike and discussed discharge plan. Cee states first choice if [facility] and if they cannot accept [facility] SNF. VM left with [facility] in TCU and will await return call if they can accept. Charge nurse notified pt will need Covid test for SNF admission. ZAINAB Garrido
[2020-02-06] MEDS: Senna/Docusate Sodium 1 Tablet 2 TABLET PO ×2 (10:46→20:37)
[2020-02-06] MEDS: Montelukast 10 MG Tablet PO (10:46)
[2020-02-06] MEDS: Pantoprazole Sodium 40 MG Tablet PO (10:46)
[2020-02-06] MEDS: Psyllium 1 PACKET PO (10:48)
[2020-02-06] MEDS: Menthol/Lanolin/Calamine/Znox 113 GM Tube 1 APPLIC TOPICAL ×2 (10:48→22:33)
--- NOTE | 2020-02-06 11:56 | PN_ITS ---
Patient Problems: Active and Suspected Problems Dysphagia (Acute) Weakness (Acute) Dysphagia (Acute) Metabolic acidosis (Acute) Diabetes mellitus (Acute) DKA (diabetic ketoacidoses) (Acute) Weight loss (Acute) Reason for Visit: Weight loss. Oropharyngeal dysphagia Objective: Discussed with the nursing staff. Patient gets easily tired after 2-3 sips teaspoonful of diet. Speech therapist and rubber turner working on the diet/calorie intake Physical exam Physical exam General: Awake but frail looking oriented x3, Cooperative, moderate malnutrition HEENT: Atraumatic, PERRLA, EOMI, Normocephalic Oral: No Gingival or Mucosal Lesions/ Ulcerations. Poor oropharyngeal swallow function Neck: Supple, No JVD, Negative Carotid Bruits Lungs: Air entry diminished in bilateral lung bases. No crepitation/rhonchi Cardiovascular: Regular rate, Regular Rhythm, Normal S1, Normal S2, No murmurs Abdomen: Bowel Sounds Present, Soft, Non Tender, Non-Distended : No renal angle tenderness. No suprapubic tenderness. Extremities: No edema, Capillary Refill Less than 3 Seconds Skin: No rashes, No breakdown Musculoskeletal: No Tenderness to Palpation of Joints or Extremities Neurological: Cranial nerves II-XII grossly intact, Deep Tendon Reflexes 2+/4 and Symmetrical, Neuro grossly intact Psych/Mental Status: Normal Affect, Appropriate. Vitals/I&O's: Vital Signs Temp Pulse Resp BP Pulse Ox 98.7 F 105 H 20 H 121/70 H 98 02/06/20 07:59 02/06/20 11:16 02/06/20 11:16 02/06/20 07:59 02/06/20 07:59 Oxygen Flow Rate (L/min) 1 Oxygen Delivery Method Room Air Weight: 165 lb 12.602 oz Body Mass Index (BMI) 25.7 Finger Stick Blood Glucose 82 Intake and Output for Last 24 Hours 02/04/20 02/05/20 02/06/20 23:59 23:59 23:59 Intake Total 281 / 281 Balance 281 / 281 Laboratory Results 02/05/20 12:57: POC Glucose 209 H 02/05/20 19:04: POC Glucose 213 H 02/05/20 21:55: POC Glucose 197 H 02/06/20 01:52: POC Glucose 148 H 02/06/20 05:40: WBC 6.7, RBC 5.93, Hgb 16.4, Hct 49.7, MCV 83.8, MCH 27.7, MCHC 33.0, RDW Std Deviation 44.4 H, RDW Coeff of Yamile 14.6, Plt Count 100 L, MPV 9.8, Immature Gran % (Auto) 0.300, Neut % (Auto) 83.1 H, Lymph % (Auto) 8.6 L, [place] % (Auto) 7.7, Eos % (Auto) 0.3, Baso % (Auto) 0.0, Absolute Neuts (auto) 5.6, Absolute Lymphs (auto) 0.58 L, Nucleated RBC % 0, Differential Comment SCANNED 02/06/20 05:40: Sodium 134 L, Potassium 3.3 L, Chloride 104, Carbon Dioxide 24.0, Anion Gap 6, BUN 32 H, Creatinine 2.89 H, Estim Creat Clear Calc 19.38, Est GFR (MDRD) Af Amer 27 L, Est GFR (MDRD) Non-Af 23 L, BUN/Creatinine Ratio 11.1, Glucose 155 H, Calcium 9.7 02/06/20 06:22: POC Glucose 154 H 02/06/20 10:26: POC Glucose 188 H Current Medications Albuterol Sulfate (Ventolin Aerosols) 2.5 mg INHALATION Q2H PRN PRN PRN Reason: SOB/Wheezing Albuterol/Ipratropium (Duoneb) 3 ml INHALATION Q4H.RT ROM Last Admin: 02/06/20 11:16 Dose: 3 ml Documented by: Budesonide (Pulmicort Aerosol) 0.5 mg INHALATION Q12H.RT ROM Last Admin: 02/06/20 07:17 Dose: 0.5 mg Documented by: Calamine/Phenol (Calmoseptine Ointment) 1 applic TOPICAL BID [facility]; Protocol Last Admin: 02/06/20 10:48 Dose: 1 applic Documented by: Dextrose (D50w Syringe) 0 gm IV X1 PRN; Protocol PRN Reason: Hypoglycemia Protocol Enoxaparin Sodium (Lovenox) 30 mg SC DAILY [facility] Last Admin: 02/06/20 10:28 Dose: 30 mg Documented by: Dextrose/Sodium Chloride () 1,000 mls @ 30 mls/hr IV .[id number] [facility] Last Admin: 02/06/20 02:03 Dose: 30 mls/hr Documented by: Insulin Glargine (Lantus (Bk)) 30 units SC BID [facility] Last Admin: 02/06/20 10:29 Dose: 30 units Documented by: Insulin Human Lispro (Humalog Kwikpen ([facility])) 0 unit SC Q4 [facility]; Protocol Last Admin: 02/06/20 10:28 Dose: 2 u Documented by: Montelukast Sodium (Singulair) 10 mg PO DAILY [facility] Last Admin: 02/06/20 10:46 Dose: 10 mg Documented by: Nutritional Formula (Lactose Free) (Glucerna Shake) 120 ml PO 4X/DAY [facility] Last Admin: 02/06/20 10:42 Dose: Not Given Documented by: Ondansetron HCl (Zofran) 4 mg IV Q8H PRN PRN PRN Reason: NAUSEA/VOMITING Pantoprazole Sodium (Protonix) 40 mg PO DAILY [facility] Last Admin: 02/06/20 10:46 Dose: 40 mg Documented by: Psyllium Hydrophilic Mucilloid (Metamucil) 1 packet PO DAILY [facility] Last Admin: 02/06/20 10:48 Dose: 1 packet Documented by: Senna/Docusate Sodium (Senokot-S, Renae-Colace) 2 tablet PO BID [facility] Last Admin: 02/06/20 10:46 Dose: 2 tablet Documented by: Sodium Chloride () 10 - 40 ml IV UD PRN PRN Reason: SALINE FLUSH Last Admin: 02/05/20 16:28 Dose: 10 ml Documented by: STROKE Vital Signs/Narrative: Vital Signs Temp Pulse Resp BP Pulse Ox 02/06/20 11:16 105 H 20 H 02/06/20 07:59 98.7 F 105 H 18 121/70 H 98 Medical Necessity - Tobacco Use Smoking Status: Former smoker Tobacco Use: Cigarettes Assessment/Plan All Active Problems Dysphagia (Acute) Weakness (Acute) Dysphagia (Acute) Metabolic acidosis (Acute) Diabetes mellitus (Acute) DKA (diabetic ketoacidoses) (Acute) Weight loss (Acute) The patient is a 79 year old M with history of diabetes mellitus type 2 came to ER for weakness and shortness of breath since the start of 2019 but worse in the last few weeks. 1. DKA with high anion gap metabolic acidosis with history of type 2 diabetes mellitus: Anion gap closed x2. Sodium 133. Bicarb 19. Patient insulin drip was discontinued last night and was switched to Lantus 30 units subcutaneous twice daily. Glucose is running about 200 to 250 mg/dL. Patient is transferred out of ICU. 02/04: Blood sugars are running around 200. 2. Electrolyte abnormality: Hypotonic, hypochloremic, complex acid-base disturbance high anion gap metabolic acidosis and respiratory alkalosis due to DKA, starvation and hypovolemia: Mild hyponatremia, hypovolemic secondary to DKA. 02/05: Mild hyponatremia and hypokalemia: Potassium replacement with IV fluid normal saline. Medication reconciliation done. No nephrotoxic medications. IV fluid normal saline 75 mils per hour for 1 L and then D5 half NS for nutritional purposes. Acute kidney injury most likely prerenal. BUN/creatinine went up from 2.02-2.89 3. Weight loss, failure to thrive and pharyngoesophageal dysphagia: Patient has significant wasting of 60 pounds in the last 6 months with dysphagia with choking at the level of throat and chest. Patient was evaluated by speech therapist in the ICU and recommended n.p.o. With concern of malignancy, oncologist Dr. Patterson was called and clinical history labs and imagings were discussed. He suggested CT chest with IV contrast and CT abdomen and pelvis wit h oral and IV contrast but as patient cannot swallow even liquid therefore without oral contrast was ordered. Surgeon Dr. banerjee was also consulted for dysphagia. Overall, the plan is to review the CT scan abdomen and chest and further modified barium swallow as deemed appropriate. Patient is a [employer] and therefore previous health screening and preventative care is unavailable to review. Denies any history of cancer. Patient does not have a specific point bony point tenderness, normal, anemia, hypercalcemia, increased gammaglobulin or increased total protein therefore clinically significant monoclonal paraproteinemia unlikely giving rise to weight loss. 02/04: Plan for modified barium swallow and esophagogram hopefully can further do barium meal to see up to stomach and duodenum. Continue n.p.o. status. High risk for aspiration. Being evaluated by speech therapist. 02/05: Clinical updates were given to patient's daughter, Cee regarding CT scan, MRI brain and modified barium swallow. Speech therapist working on swallow function. Seen by surgeon Dr. Sky. Plan for EGD and possible PEG tube at same time if swallow function/calorie intake is suboptimal. 4. COPD: Patient does not have new cough or change in his sputum or severity of cough. Continue DuoNeb nebulization. CT chest with IV ordered. Other chronic comorbidities include hypertension, dyslipidemia: Home medication reconciliation done Living will/advanced directive/end of life care: Patient does not have living will or advanced directive. After discussion of procedures involved with full code, DNR CC arrest and DNR CC, the patient and her daughter near the bedside opted for full code. Patient does want artificial life support including intubation, tube feed, ventilator and/chest compression, central venous catheter, vasopressor and DC shock if needed Total time of the visit including total time spent in counseling or coordination of care, (more than 50% of the total time, spent in obtaining medical information from nurses and other ancillary care providers), discussion with surgeon and oncologist, review of labs and imaging is 30 minutes. Inpatient E&M: [id number] [facility] L[facility]
[2020-02-06] MEDS: Potassium Chloride 10mEq/100mL 10 MEQ/100 ML IV.SOLN. 100 MEQ IV BOLUS ×2 (12:35→14:00)
[2020-02-06] MEDS: 0.9% Normal Saline 1,000 ML 75 ML IV (12:37)
[2020-02-06 14:26] LABS: Bedside Glucose 218 mg/dL (70-110)
--- NOTE | 2020-02-06 14:35 | NT.THERAPY_ITS ---
Nutrition Therapy Report - History Current diet / nutrition support order:: Regular puree w/ thin liquids - Anthropometric Measurements Height:: 5 ft 7 in Weight:: 75.2 kg Body Mass Index (BMI):: 25.9 - Relevant Labs Relevant Labs:: WBC 12.7 K/mm3 (4.4-11.0) H 02/04/20 06:10 Hgb 17.2 g/dL (13.0-16.5) H 02/03/20 11:30 RDW Std Deviation 44.4 fl (35.1-43.9) H 02/06/20 05:40 Plt Count 100 K/mm3 (150-450) L 02/06/20 05:40 Neut % (Auto) 83.1 % (47-70) H 02/06/20 05:40 Lymph % (Auto) 8.6 % (19-41) L 02/06/20 05:40 Absolute Neuts (auto) 7.8 X10^3/uL (2.0-7.7) H 02/05/20 07:50 Absolute Lymphs (auto) 0.58 X10^3/uL (0.83-4.51) L 02/06/20 05:40 Sodium 134 mmol/L (136-145) L 02/06/20 05:40 Potassium 3.3 mmol/L (3.5-5.1) L 02/06/20 05:40 Chloride 94 mmol/L (98-107) L 02/03/20 12:03 Carbon Dioxide 19.0 mmol/L (21.0-32.0) L 02/04/20 06:50 Anion Gap 20 (5-15) H 02/03/20 16:40 BUN 32 mg/dL (7-18) H 02/06/20 05:40 Creatinine 2.89 mg/dL (0.70-1.30) H 02/06/20 05:40 Est GFR (MDRD) Af Amer 27 mL/min (>60) L 02/06/20 05:40 Est GFR (MDRD) Non-Af 23 mL/min (>60) L 02/06/20 05:40 BUN/Creatinine Ratio 20.6 RATIO (10-20) H 02/04/20 06:50 Glucose 155 mg/dL (74-106) H 02/06/20 05:40 Hemoglobin A1c 9.9 % (3.8-5.6) H 02/04/20 06:10 Total Bilirubin 1.10 mg/dL (0.20-1.00) H 02/05/20 07:50 Albumin 3.1 g/dL (3.2-5.0) L 02/05/20 07:50 - Assessment Food / Nutrition-Related History:: Pt had MBS 02/04 w/ rec for puree consistency/thin liquids - po intake poor per nsg taking only sips/bites before pt quits trying d/t fatigue. WT ~ stable since last review. Will order ONS w/ medpass and meals for increased nutrition if consumed. [ End ] - Nutrition Diagnosis Problem / Etiology / Signs & Symptoms (PES):: Severe malnutrition related to inadequate energy intake d/t inability to swallow as evidenced by 88.3#/35% wt loss x 6 months, estimated PO intake meeting <75% of pt's estimated nutritional needs over 6 months, and PO intake <50% of pt's estimated nutritional needs over past 2 weeks. Evidence of Malnutrition Exists:: Yes Severe PCM:: Chronic Illness - Nutrition Intervention Nutrition Prescription:: [id number] wagner / 75-90 gm pro / day - Food / Nutrient Delivery Interventions Summary of nutrition intervention:: Rec continue liberal regular diet, consistency per GIFT SHOP ASSISTANT. Due to risk for refeeding syndrome, rec gradual increase in protein/calories. Will order ONS w/ medpass and meals for increased nutrition if consumed. Will monitor daily wts. Will monitor electrolytes for signs of refeeding syndrome. Rec consider enteral nutrition support if pt po intake fails to improve and if in accordance w/ pt/family wishes. If tf, rec Jevity 1.5 at goal rate 50 cc/hr with 150 cc H2O flush every 4 hours to provide ~ 1800 wagner / 76 gm pro / 1812 cc free water/day. Would start tf at 10 cc/hr and increase by 10 cc/hr every 12 hrs until goal rate achieved. [ End ] Nutrition support ordered as / adjusted to:: If tf, rec Jevity 1.5 at goal rate 50 cc/hr with 150 cc H2O flush every 4 hours to provide ~ 1800 wagner / 76 gm pro / 1812 cc free water/day. Would start tf at 10 cc/hr and increase by 10 cc/hr every 12 hrs until goal rate achieved. Nutrition education provided?: No - MNT Monitoring Further MNT monitoring and evaluation required?: Yes MNT Follow-up in:: 1-2 days - please call RD/LD at [phone] if questions
--- NOTE | 2020-02-06 14:47 | CHAPLAIN ---
Type of Pastoral Visit ___ Initial Visit _x__ Follow-up Visit ___ On-call Visit ___ General Patient Visit ___ Spiritual Assessment ___ Family Conference ___ Bereavement ___ Rapid Response ___ Code Blue ___ Other (describe below) Pastoral Care Referral From _x__ Patient ___ Family ___ Nurse ___ Physician ___ Lens Block Gauger ___ Electrician Control Equipment ___ Other (describe below) Sacrament/Intervention ___ Active listening ___ Anointing ___ Congregation ___ Bereavement ___ Communion ___ Mary Grace exploration ___ ___ Life review ___ Prayer ___ Reconciliation ___ Sacrament of Sick _x__ Supportive presence ___ Wedding ___ Other (describe below) Pastoral Comments patient is sitting up in chair but had difficulty maintaining focus and staying awake; pt apologized for inattention;
--- NOTE | 2020-02-06 15:35 | RAD_ITS ---
STUDY: X-RAY - ABDOMEN/PELVIS REASON FOR EXAM: Male, 79 years old. NG TUBE PLACEMENT (#1 OF 3 ATTEMPTS) TECHNIQUE: Single AP view of the abdomen / pelvis. COMPARISON: None. FINDINGS: Normal visualized lung bases. Nasogastric tube bends back on itself and terminates in the distal esophagus. It needs to be repositioned. RAD/Abdomen Single View IMPRESSION: Improper positioning of nasogastric tube. Electronically Signed: Yonathan Pedersen MD at 18:03 EDT , Service support ,
--- NOTE | 2020-02-06 16:44 | RAD_ITS ---
STUDY: X-RAY - ABDOMEN/PELVIS REASON FOR EXAM: Male, 79 years old. NG PLACEMENT (#2 OF 3 TRIES) TECHNIQUE: Single AP view of the abdomen / pelvis. COMPARISON: Same day, 4:38 PM. FINDINGS: No nasogastric tube is seen. It may be coiled in the oropharynx. No other changes since earlier today. Electronically Signed: Yonatahn Pedersen MD at 18:04 EDT , Service support , RAD/Abdomen Single View (Portable)
--- NOTE | 2020-02-06 17:15 | RAD_ITS ---
STUDY: X-RAY - ABDOMEN/PELVIS REASON FOR EXAM: Male, 79 years old. NG TUBE PLACEMENT (#3 OF 3 TRIES) TECHNIQUE: Single AP view of the abdomen / pelvis. COMPARISON: None. FINDINGS: Nasogastric tube is coiled in the fundus of the stomach. No other changes since earlier today. Electronically Signed: Yonathan Pedersen MD at 18:04 EDT , Service support , RAD/Abdomen Single View (Portable)
[2020-02-06 17:50] LABS: Bedside Glucose 172 mg/dL (70-110)
[2020-02-06] MEDS: Acetaminophen 325 MG Tablet 650 MG PO (20:37)
[2020-02-06] MEDS: Jevity 1.5 1,000 ML 10 ML NG (20:38)
[2020-02-06 22:40] LABS: Bedside Glucose 148 mg/dL (70-110)
[2020-02-07] VITALS (17 sets, daily range): BP systolic 113–154; BP diastolic 70–86; PULSE 99–118; RESP 18–24; TEMP 36.4–36.6; O2SAT 93–98
[2020-02-07] MEDS: Ipratropium/Albuterol Sulfate 3 ML AMPUL.NEB INHALATION ×6 (02:40→23:01)
[2020-02-07 06:40] LABS: Bedside Glucose 131 mg/dL (70-110)
[2020-02-07 06:41] LABS: Absolute Lymphocyte Count 0.57 X10^3/uL (0.83-4.51); Absolute Neutrophil Count 8.8 X10^3/uL (2.0-7.7); Basophil# 0.01 X10^3/uL; Basophil% 0.1 % (0-1); Eosinophil# 0.01 X10^3/uL; Eosinophils% 0.1 % (0-5); Hematocrit 47.1 % (40-54); Hemoglobin 15.7 g/dL (13.0-16.5); Lymphocyte # 0.57 X10^3/ul (4.0); Lymphocyte % 5.6 % (19-41); Mean Corp Hgb Conc 33.3 g/dL (32-36); Mean Corpuscular Hgb 28.1 pg (27.0-32.0); Mean Corpuscular Volume 84.3 fL (80-94); Mean Platelet Vol. 9.7 fl (6.2-12.0); Monocyte# 0.86 X10^3/uL; Monocyte% 8.4 % (0-10); NRBC Flagged by Analyzer 0 % (0-5); Neutrophil # 8.76 X10^3/uL (2.7-7.7); Neutrophil % 85.3 % (47-70); POSITIVE COUNT YES; POSITIVE DIFFERENTIAL YES; Platelet Count 96 K/mm3 (150-450); RBC Distribution Width CV 14.8 % (11.6-14.6); RBC Distribution Width SD 45.1 fl (35.1-43.9); Red Blood Count 5.59 M/mm3 (4.6-6.2); White Blood Count 10.3 K/mm3 (4.4-11.0)
[2020-02-07 06:45] LABS: Bedside Glucose 124 mg/dL (70-110)
[2020-02-07 06:52] LABS: Differential Indicated SCAN CRITERIA MET
[2020-02-07 07:04] LABS: Phosphorus 2.3 mg/dL (2.5-4.9)
[2020-02-07] MEDS: Budesonide Respules 0.5 MG/2 ML AMPUL.NEB. INHALATION ×2 (07:14→18:56)
[2020-02-07 07:17] LABS: Differential Comment SCANNED
--- NOTE | 2020-02-07 08:49 | NURSING ---
portable CXR in room
--- NOTE | 2020-02-07 08:50 | RAD_ITS ---
STUDY: X-RAY CHEST REASON FOR EXAM: Male, 79 years old. [place], NG PLACEMENT TECHNIQUE: Single AP portable view of the chest. COMPARISON: CT February 04, 2020 FINDINGS: Feeding tube extends to the stomach in the left upper quadrant. There are mild interstitial increased opacities in the right lower lung. There is no demonstrated pleural abnormality. Normal size heart. Normal mediastinum and padmaja. Normal visualized pulmonary arteries. Normal visualized aortic arch and descending thoracic aorta. There is demineralization of the osseous structures. There is degenerative osteoarthritis of the bilateral shoulders. There is no demonstrated abnormality of the visualized soft tissue structures of the upper abdomen. RAD/Chest 1 View (Portable) IMPRESSION: Feeding tube extends to the stomach. Right lower lung infiltrate. Electronically Signed: Bandar Clemens MD at 10:01 EDT , Service support ,
[2020-02-07] MEDS: Furosemide 40 MG/4 ML Vial IV ×3 (09:27→13:14)
[2020-02-07] MEDS: 0.9% Saline Lock 10 ML Syringe IV ×2 (09:28→21:39)
[2020-02-07] MEDS: Menthol/Lanolin/Calamine/Znox 113 GM Tube 1 APPLIC TOPICAL ×2 (09:29→21:38)
[2020-02-07] MEDS: Enoxaparin 30 MG/0.3 ML Syringe SC (09:31)
[2020-02-07] MEDS: Montelukast 10 MG Tablet PO (09:32)
[2020-02-07] MEDS: Senna/Docusate Sodium 1 Tablet 2 TABLET PO ×2 (09:32→21:39)
[2020-02-07] MEDS: Lansoprazole 15 MG Capsule.DR 30 MG NG (09:35)
[2020-02-07] MEDS: Psyllium 1 PACKET PO (09:35)
--- NOTE | 2020-02-07 10:06 | PCM.PN.SRG ---
Patient Problems: Active and Suspected Problems Dysphagia (Acute) Weakness (Acute) Dysphagia (Acute) Metabolic acidosis (Acute) Diabetes mellitus (Acute) DKA (diabetic ketoacidoses) (Acute) Weight loss (Acute) Subjective: Patient has had a NG tube placed and is started on tube feeds. Objective: Abdomen is soft nontender - Physical Exam Vitals/I&O's: Vital Signs Temp Pulse Resp BP Pulse Ox 97.9 F 99 20 H 140/82 H 98 02/07/20 08:44 02/07/20 08:44 02/07/20 08:44 02/07/20 08:44 02/07/20 08:44 Oxygen Flow Rate (L/min) 1 Oxygen Delivery Method Nasal Cannula Weight: 164 lb 14.492 oz Body Mass Index (BMI) 25.9 Finger Stick Blood Glucose 82 Intake and Output for Last 24 Hours 02/05/20 02/06/20 02/07/20 23:59 23:59 23:59 Intake Total 1702.09 / 1732.09 861 / 921 1100 / 1100 Balance 1702.09 / 1732.09 861 / 921 1100 / 1100 Laboratory Results 02/06/20 10:26: POC Glucose 188 H 02/06/20 14:19: POC Glucose 218 H 02/06/20 17:45: POC Glucose 172 H 02/06/20 22:27: POC Glucose 148 H 02/07/20 02:57: POC Glucose 131 H 02/07/20 06:05: WBC 10.3, RBC 5.59, Hgb 15.7, Hct 47.1, MCV 84.3, MCH 28.1, MCHC 33.3, RDW Std Deviation 45.1 H, RDW Coeff of Yamile 14.8 H, Plt Count 96 L, MPV 9.7, Immature Gran % (Auto) 0.500, Neut % (Auto) 85.3 H, Lymph % (Auto) 5.6 L, [place] % (Auto) 8.4, Eos % (Auto) 0.1, Baso % (Auto) 0.1, Absolute Neuts (auto) 8.8 H, Absolute Lymphs (auto) 0.57 L, Nucleated RBC % 0, Differential Comment SCANNED 02/07/20 06:05: Sodium Cancelled, Potassium Cancelled, Chloride Cancelled, Carbon Dioxide Cancelled, Anion Gap Cancelled, BUN Cancelled, Creatinine Cancelled, Estim Creat Clear Calc Cancelled, Est GFR (MDRD) Af Amer Cancelled, Est GFR (MDRD) Non-Af Cancelled, BUN/Creatinine Ratio Cancelled, Glucose Cancelled, Calcium Cancelled, Magnesium Cancelled, Prealbumin Cancelled 02/07/20 06:05: Phosphorus 2.3 L 02/07/20 06:38: POC Glucose 124 H Current Medications Acetaminophen (Tylenol) 650 mg PO Q6H PRN PRN PRN Reason: Pain Score 1-10/10 Last Admin: 02/06/20 20:37 Dose: 650 mg Documented by: Albuterol Sulfate (Ventolin Aerosols) 2.5 mg INHALATION Q2H PRN PRN PRN Reason: SOB/Wheezing Albuterol/Ipratropium (Duoneb) 3 ml INHALATION Q4H.RT ROM Last Admin: 02/07/20 07:14 Dose: 3 ml Documented by: Budesonide (Pulmicort Aerosol) 0.5 mg INHALATION Q12H.RT ROM Last Admin: 02/07/20 07:14 Dose: 0.5 mg Documented by: Calamine/Phenol (Calmoseptine Ointment) 1 applic TOPICAL BID ROM; Protocol Last Admin: 02/07/20 09:29 Dose: 1 applic Documented by: Dextrose (D50w Syringe) 0 gm IV X1 PRN; Protocol PRN Reason: Hypoglycemia Protocol Enoxaparin Sodium (Lovenox) 30 mg SC DAILY ROM Last Admin: 02/07/20 09:31 Dose: 30 mg Documented by: Enteral Nutritional Formula (Jevity 1.5) 1,000 mls @ 10 mls/hr NG .Q48H ROM Last Admin: 02/06/20 20:38 Dose: 10 mls/hr Documented by: Insulin Glargine (Lantus (Bk)) 25 units SC BID ROM Last Admin: 02/07/20 09:30 Dose: 25 u Documented by: Insulin Human Lispro (Humalog Kwikpen (Bk)) 0 unit SC Q4 ROM; Protocol Last Admin: 02/07/20 06:47 Dose: Not Given Documented by: Lansoprazole (Lansoprazole) 30 mg NG DAILY ROM Last Admin: 02/07/20 09:35 Dose: 30 mg Documented by: Montelukast Sodium (Singulair) 10 mg PO DAILY [facility] Last Admin: 02/07/20 09:32 Dose: 10 mg Documented by: Ondansetron HCl (Zofran) 4 mg IV Q8H PRN PRN PRN Reason: NAUSEA/VOMITING Psyllium Hydrophilic Mucilloid (Metamucil) 1 packet PO DAILY [facility] Last Admin: 02/07/20 09:35 Dose: 1 packet Documented by: Senna/Docusate Sodium (Senokot-S, Renae-Colace) 2 tablet PO BID [facility] Last Admin: 02/07/20 09:32 Dose: 2 tablet Documented by: Sodium Chloride () 10 - 40 ml IV UD PRN PRN Reason: SALINE FLUSH Last Admin: 02/07/20 09:28 Dose: 10 ml Documented by: Medical Necessity - Tobacco Use Smoking Status: Former smoker Tobacco Use: Cigarettes Assessment/Plan All Active Problems Dysphagia (Acute) Weakness (Acute) Dysphagia (Acute) Metabolic acidosis (Acute) Diabetes mellitus (Acute) DKA (diabetic ketoacidoses) (Acute) Weight loss (Acute) We will need to have a sit down with the family to discuss PEG tube placement probably early next week. Inpatient E&M: 79497 Subs Hosp L2
[2020-02-07 10:30] LABS: Bedside Glucose 132 mg/dL (70-110)
[2020-02-07 11:20] LABS: Anion Gap 12 (5-15); BUN 39 mg/dL (7-18); BUN/Creat Ratio 11.9 RATIO (10-20); Calcium,Total 9.5 mg/dL (8.5-10.1); Chloride 106 mmol/L (98-107); Creatinine, Serum 3.29 mg/dL (0.70-1.30); EST Glomerular Filtration Rate 19 mL/min (>60); Est Glom Filt Rate - Afr Amer 23 mL/min (>60); Estimated Creatinine Clearance 17.02 ml/min; Glucose 107 mg/dL (74-106); Potassium 3.7 mmol/L (3.5-5.1); Sodium Level 136 mmol/L (136-145)
[2020-02-07 11:28] LABS: BNP,B-Type NATRIURETIC PEPTIDE 40.6 pg/mL (0-100)
--- NOTE | 2020-02-07 12:01 | PN_ITS ---
Patient Problems: Active and Suspected Problems Dysphagia (Acute) Weakness (Acute) Dysphagia (Acute) Metabolic acidosis (Acute) Diabetes mellitus (Acute) DKA (diabetic ketoacidoses) (Acute) Weight loss (Acute) Reason for Visit: Loss of weight, generalized weakness, dysphagia Objective: Patient found short of breath, respiratory rate 20 to 24/min. Heart rate in the 100. Blood pressure 140/82. On NG tube feeding. NG tube placement was checked and its correlation left upper quadrant, stomach. The position was checked by auscultation also. Lasix 40 mill IV ordered in the morning Physical exam General: Lethargic and weak, oriented x3, Cooperative HEENT: Atraumatic, PERRLA, EOMI, Normocephalic Oral: No Gingival or Mucosal Lesions/ Ulcerations Neck: Supple, No JVD, Negative Carotid Bruits Lungs: Air entry diminished in bilateral posterior half of lungs. No crepitation/rhonchi Cardiovascular: Regular rate, Regular Rhythm, Normal S1, Normal S2, No murmurs Abdomen: Bowel Sounds Present, Soft, Non Tender, Non-Distended : No renal angle tenderness. No suprapubic tenderness. Patient is not incontinent. No significant urine output after Lasix 40 mg IV. Extremities: No edema, Capillary Refill Less than 3 Seconds Skin: No rashes, No breakdown Musculoskeletal: No Tenderness to Palpation of Joints or Extremities Neurological: Cranial nerves II-XII grossly intact, Deep Tendon Reflexes 2+/4 and Symmetrical, Neuro grossly intact Psych/Mental Status: Normal Affect, Appropriate. Vitals/I&O's: Vital Signs Temp Pulse Resp BP Pulse Ox 97.9 F 100 24 H 154/86 H 94 02/07/20 11:01 02/07/20 11:25 02/07/20 11:25 02/07/20 11:01 02/07/20 11:13 Oxygen Flow Rate (L/min) 1 Oxygen Delivery Method Nasal Cannula Weight: 164 lb 14.492 oz Body Mass Index (BMI) 25.9 Finger Stick Blood Glucose 82 Intake and Output for Last 24 Hours 02/05/20 02/06/20 02/07/20 23:59 23:59 23:59 Intake Total 1702.09 / 1732.09 861 / 921 1100 / 1100 Balance 1702.09 / 1732.09 861 / 921 1100 / 1100 Laboratory Results 02/06/20 14:19: POC Glucose 218 H 02/06/20 17:45: POC Glucose 172 H 02/06/20 22:27: POC Glucose 148 H 02/07/20 02:57: POC Glucose 131 H 02/07/20 06:05: WBC 10.3, RBC 5.59, Hgb 15.7, Hct 47.1, MCV 84.3, MCH 28.1, MCHC 33.3, RDW Std Deviation 45.1 H, RDW Coeff of Yamile 14.8 H, Plt Count 96 L, MPV 9.7, Immature Gran % (Auto) 0.500, Neut % (Auto) 85.3 H, Lymph % (Auto) 5.6 L, [place] % (Auto) 8.4, Eos % (Auto) 0.1, Baso % (Auto) 0.1, Absolute Neuts (auto) 8.8 H, Absolute Lymphs (auto) 0.57 L, Nucleated RBC % 0, Differential Comment SCANNED 02/07/20 06:05: Sodium Cancelled, Potassium Cancelled, Chloride Cancelled, Carbon Dioxide Cancelled, Anion Gap Cancelled, BUN Cancelled, Creatinine Cancelled, Estim Creat Clear Calc Cancelled, Est GFR (MDRD) Af Amer Cancelled, Est GFR (MDRD) Non-Af Cancelled, BUN/Creatinine Ratio Cancelled, Glucose Cancelled, Calcium Cancelled, Magnesium Cancelled, Prealbumin Cancelled 02/07/20 06:05: Phosphorus 2.3 L 02/07/20 06:05: B-Natriuretic Peptide 40.6 02/07/20 06:05: Sodium 136, Potassium 3.7, Chloride 106, Carbon Dioxide 18.0 L, Anion Gap 12, BUN 39 H, Creatinine 3.29 H, Estim Creat Clear Calc 17.02, Est GFR (MDRD) Af Amer 23 L, Est GFR (MDRD) Non-Af 19 L, BUN/Creatinine Ratio 11.9, Glucose 107 H, Calcium 9.5 02/07/20 06:38: POC Glucose 124 H 02/07/20 10:25: POC Glucose 132 H Current Medications Acetaminophen (Tylenol) 650 mg PO Q6H PRN PRN PRN Reason: Pain Score 1-10/10 Last Admin: 02/06/20 20:37 Dose: 650 mg Documented by: Albuterol Sulfate (Ventolin Aerosols) 2.5 mg INHALATION Q2H PRN PRN PRN Reason: SOB/Wheezing Albuterol/Ipratropium (Duoneb) 3 ml INHALATION Q4H.RT [facility] Last Admin: 02/07/20 11:25 Dose: 3 ml Documented by: Budesonide (Pulmicort Aerosol) 0.5 mg INHALATION Q12H.RT [facility] Last Admin: 02/07/20 07:14 Dose: 0.5 mg Documented by: Calamine/Phenol (Calmoseptine Ointment) 1 applic TOPICAL BID [facility]; Protocol Last Admin: 02/07/20 09:29 Dose: 1 applic Documented by: Dextrose (D50w Syringe) 0 gm IV X1 PRN; Protocol PRN Reason: Hypoglycemia Protocol Enoxaparin Sodium (Lovenox) 30 mg SC DAILY [facility] Last Admin: 02/07/20 09:31 Dose: 30 mg Documented by: Furosemide (Lasix) 40 mg IV DAILY [facility] Enteral Nutritional Formula (Jevity 1.5) 1,000 mls @ 10 mls/hr NG .Q48H [facility] Last Admin: 02/06/20 20:38 Dose: 10 mls/hr Documented by: Insulin Glargine (Lantus (Bkc)) 25 units SC BID [facility] Last Admin: 02/07/20 09:30 Dose: 25 u Documented by: Insulin Human Lispro (Humalog Kwikpen (Bkc)) 0 unit SC Q4 [facility]; Protocol Last Admin: 02/07/20 10:58 Dose: Not Given Documented by: Lansoprazole (Lansoprazole) 30 mg NG DAILY [facility] Last Admin: 02/07/20 09:35 Dose: 30 mg Documented by: Montelukast Sodium (Singulair) 10 mg PO DAILY [facility] Last Admin: 02/07/20 09:32 Dose: 10 mg Documented by: Ondansetron HCl (Zofran) 4 mg IV Q8H PRN PRN PRN Reason: NAUSEA/VOMITING Psyllium Hydrophilic Mucilloid (Metamucil) 1 packet PO DAILY [facility] Last Admin: 02/07/20 09:35 Dose: 1 packet Documented by: Senna/Docusate Sodium (Senokot-S, Renae-Colace) 2 tablet PO BID [facility] Last Admin: 09/26/20 09:32 Dose: 2 tablet Documented by: Sodium Chloride () 10 - 40 ml IV UD PRN PRN Reason: SALINE FLUSH Last Admin: 02/07/20 09:28 Dose: 10 ml Documented by: STROKE Vital Signs/Narrative: Vital Signs Temp Pulse Resp BP Pulse Ox 02/07/20 11:25 100 24 H 02/07/20 11:13 99 20 H 94 02/07/20 11:01 97.9 F 100 20 H 154/86 H 98 02/07/20 08:44 97.9 F 99 20 H 140/82 H 98 Medical Necessity - Tobacco Use Smoking Status: Former smoker Tobacco Use: Cigarettes Assessment/Plan All Active Problems Dysphagia (Acute) Weakness (Acute) Dysphagia (Acute) Metabolic acidosis (Acute) Diabetes mellitus (Acute) DKA (diabetic ketoacidoses) (Acute) Weight loss (Acute) The patient is a 79 year old M with history of diabetes mellitus type 2 came to ER for weakness and shortness of breath since the start 2019 but worse in the last few weeks. 1. DKA with high anion gap metabolic acidosis with history of type 2 diabetes mellitus: Anion gap closed x2. Sodium 133. Bicarb 19. Patient insulin drip was discontinued last night and was switched to Lantus 30 units subcutaneous twice daily. Glucose is running about 200 to 250 mg/dL. Patient is transferred out of ICU. 02/04: Blood sugars are running around 200. 2. Electrolyte abnormality: Hypotonic, hypochloremic, complex acid-base disturbance high anion gap metabolic acidosis and respiratory alkalosis due to DKA, starvation and hypovolemia: Mild hyponatremia, hypovolemic secondary to DKA. 02/05: Mild hyponatremia and hypokalemia: Potassium replacement with IV fluid normal saline. Medication reconciliation done. No nephrotoxic medications. IV fluid normal saline 75 mils per hour for 1 L and then D5 half NS for nutritional purposes. 3. Acute kidney injury, most likely contrast induced injury on CKD stage III. Patient creatinine was normal, 0.99, 0.87 at the time of admission. IV contrast was given on second day 02/03 and creatinine went up to 2.0 on 02/04 and then 3.29 today. BUN/creatinine went up from 2.02-2.89, 3.29. Patient initially got a lot of IV fluid normal saline and then D5 half NS as per protocol of DKA. Portable chest x-ray was done which shows interstitial edema. Patient is also making less amount of urine did not had good urine output after Lasix 40 given in the morning. Nephrology consult suggested to give Lasix 80 mg now. UA with reflex urine culture, protein, urine electrolytes and osmolality ordered. Daughter was called and voicemail left. 3. Weight loss, failure to thrive and pharyngoesophageal dysphagia: Patient has significant wasting of 60 pounds in the last 6 months with dysphagia with choking at the level of throat and chest. Patient was evaluated by speech therapist in the ICU and recommended n.p.o. With concern of malignancy, oncologist Dr. Patterson was called and clinical history labs and imagings were discussed. He suggested CT chest with IV contrast and CT abdomen and pelvis with oral and IV contrast but as patient cannot swallow even liquid therefore without oral contrast was ordered. Surgeon Dr. banerjee was also consulted for dysphagia. Overall, the plan is to review the CT scan abdomen and chest and further modified barium swallow as deemed appropriate. Patient is a [facility] and therefore previous health screening and preventative care is unavailable to review. Denies any history of cancer. Patient does not have a specific point bony point tenderness, normal, anemia, hypercalcemia, increased gammaglobulin or increased total protein therefore clinically significant monoclonal paraproteinemia unlikely giving rise to weight loss. 02/04: Plan for modified barium swallow and esophagogram hopefully can further do barium meal to see up to stomach and duodenum. Continue n.p.o. status. High risk for aspiration. Being evaluated by speech therapist. 02/05: Clinical updates were given to patient's daughter, Cee regarding CT scan, MRI brain and modified barium swallow. Speech therapist working on swallow function. Seen by surgeon Dr. Sky. Plan for EGD and possible PEG tube at same time if swallow function/calorie intake is suboptimal. 02/06: On tube feed, increased to 20 mils per minute. 4. COPD: Patient does not have new cough or change in his sputum or severity of cough. Continue DuoNeb nebulization. Other chronic comorbidities include hypertension, dyslipidemia: Home medication reconciliation done Living will/advanced directive/end of life care: Patient does not have living will or advanced directive. After discussion of procedures involved with full code, DNR CC arrest and DNR CC, the patient and her daughter near the bedside opted for full code. Patient does want artificial life support including intubation, tube feed, ventilator and/chest compression, central venous catheter, vasopressor and DC shock if needed Total time of the visit including total time spent in counseling or coordination of care, (more than 50% of the total time, spent in obtaining medical information from nurses and other ancillary care providers), discussion with surgeon, and tufting creeler, review of labs and imaging is 30 minutes. Clinical Impression(s) from Imaging Studies Brain CT 02/03/20 10:42 IMPRESSION: Chronic involutional changes of the brain. Electronically Signed: Freddie Montaño, at 12:31 EDT , Service support , Chest X-Ray 02/03/20 12:14 IMPRESSION: Findings suggestive of calcified pleural plaque overlying the right mid thorax. Electronically Signed: Freddie Montaño, at 12:30 EDT , Service support , Abdomen/Pelvis CT 02/04/20 09:25 IMPRESSION: Calcified granuloma in the right lower lobe. Mild scarring at the bases. Small amount of perihepatic fluid with lobular contour of the liver suggestive of cirrhotic change. Multiple small gallstones. Left renal cysts. Nonobstructive contrast in the lower pole calyx of the left kidney. Mild degree of bilateral hydronephrosis and perinephric stranding. 2.1 cm low density nodule in the right adrenal gland suggestive of adenoma. Electronically Signed: Freddie Montaño, at 12:07 EDT , Service support , Chest CT 02/04/20 09:25 IMPRESSION: Chronic changes. No acute abnormality is seen. Electronically Signed: Ferddie Montaño, at 12:15 EDT , Service support , Brain MRI 02/04/20 14:29 IMPRESSION: Cerebral and cerebellar atrophy with mild periventricular white matter ischemic changes. No evidence for acute infarct Chest X-Ray 02/07/20 08:50 IMPRESSION: Feeding tube extends to the stomach. Right lower lung infiltrate. Inpatient E&M: [id number] [facility] Hosp L3
[2020-02-07 13:46] LABS: Bacteria 0 SEEN /hpf (None Seen); Mucous, Urine 0 SEEN /hpf (<or=2+); Squamous Epithelial Cells - UA 0 SEEN /hpf (0-5); White Blood Cells 0 SEEN /hpf (0-5)
[2020-02-07 13:54] LABS: Color, Urine Yellow (Yellow); Glucose, Dipstick 1000 mg/dl (Normal); Ketone-Dipstick 5 mg/dl (Negative); Leukocyte Esterase-Dipstick Negative /ul (Negative); Nitrite-Dipstick Negative (Negative); Occult Blood-Urine 150 /ul (Negative); Protein-Dipstick 15 mg/dl (Negative); Urine Bilirubin Dipstick Negative (Negative); Urine Clarity Clear (Clear); Urine Urobilinogen Normal (Normal)
[2020-02-07 13:57] LABS: Urine Chloride 57 mmol/L (Not Establ.); Urine Sodium 44 mmol/L (Not Establ.)
[2020-02-07 14:03] LABS: Red Blood Cells-Urine 0-5 SEEN /hpf (0-5)
[2020-02-07 14:06] LABS: Protein, Urine (Random) 14.6 mg/dL (<11.9); Protein:Creat Ratio 436 mg/g CRE (0-200)
[2020-02-07 14:25] LABS: Osmolality, Urine 324 mOsm/KG
--- NOTE | 2020-02-07 14:39 | NURSING ---
daughter cullen here and expressed concern about father, he did arouse for her but quickly returned to sleep,mouth care done, pt declined anything to eat at this time-tube feeding increased to 20/hr after checked for placement and 10 ml residual obtained-pt continues to be a q2 hr turn with HOB up 30 degrees at all time-f/c placed and specimens sent to lab-d/t the large amount of retention, perez was left in place after ok'd per dr dent
--- NOTE | 2020-02-07 14:50 | NURSING ---
report called to kaye rn PCU
[2020-02-07 15:51] LABS: Allen Test Positive; Base Excess -2 mmol/L (-2 to +2); Blood Gas Specimen Type ART; O2 Delivery Device Cannula; PO2 100 mmHG (75-100); SITE L Brach; SO2 97 % (95-99); Total Carbon Dioxide 25 mmol/L; pCO2 43.9 mmHg (35-45); pH 7.35 (7.35-7.45)
--- NOTE | 2020-02-07 16:05 | CPS ---
Started Airvo instead of BIPAP after getting ABG on O2 @1lpm via [place] and speaking to Dr Aranda.
--- NOTE | 2020-02-07 16:11 | NURSING ---
Orly dc'd from patient at this time.
--- NOTE | 2020-02-07 17:17 | CON.PCM_ITS ---
Consultation - Renal PCP/ Referring MD: Requesting physician: [] Primary care physician: [facility] - History of Present Illness History of Present Illness: The patient is a 79 year old M PMH f HTN, COPD. Patient presented with progressive weakness and functio decline. Patient lost 60 pounds over few month. Patient has been having poor appetite. Patient also has been having dysphagia .Patient was found to have normal BG DKA and was admitted initially to ICU and treated with IV insulin drip and IVF Oncology service was consulted concerning malignancy. CT C/A/P with IV contrast was done to rule out malignancy on 02/02 SCr increased on 02/04 t 2.0 t0 3.2 mg/dl today. Patient was complaining of SOB this am. Patient was given IV lasix 120 mg this am due to concern of pulmonary interstitial edema. Mendes cath was placed with immediate urine return f 1800 cc UOP BP has been stable. ROS. Patient is obtunded. ROS is not obtainable [] - Allergies Allergies: Allergies No Known Allergies Allergy (Verified 02/03/20 10:22) - Current Medications Current Medications: Current Medications Acetaminophen (Tylenol) 650 mg PO Q6H PRN PRN PRN Reason: Pain Score 1-10/10 Last Admin: 02/06/20 20:37 Dose: 650 mg Documented by: Albuterol Sulfate (Ventolin Aerosols) 2.5 mg INHALATION Q2H PRN PRN PRN Reason: SOB/Wheezing Albuterol/Ipratropium (Duoneb) 3 ml INHALATION Q4H.RT ROM Last Admin: 02/07/20 15:33 Dose: 3 ml Documented by: Budesonide (Pulmicort Aerosol) 0.5 mg INHALATION Q12H.RT ROM Last Admin: 02/07/20 07:14 Dose: 0.5 mg Documented by: Calamine/Phenol (Calmoseptine Ointment) 1 applic TOPICAL BID ROM; Protocol Last Admin: 02/07/20 09:29 Dose: 1 applic Documented by: Dextrose (D50w Syringe) 0 gm IV X1 PRN; Protocol PRN Reason: Hypoglycemia Protocol Enoxaparin Sodium (Lovenox) 30 mg SC DAILY ROM Last Admin: 02/07/20 09:31 Dose: 30 mg Documented by: Piperacillin Sod/Tazobactam (Sod 3.375 gm/ Sodium Chloride) 50 mls @ 12.5 mls/hr IV Q12 [facility] Sodium Chloride () 500 mls @ 100 mls/hr IV .Q5H ONE Stop: 02/07/20 22:07 Insulin Glargine (Lantus (Bkc)) 25 units SC 0600,1800 ROM Insulin Human Lispro (Humalog Kwikpen ([facility])) 0 unit SC Q6 [facility]; Protocol Lansoprazole (Lansoprazole) 30 mg NG DAILY [facility] Last Admin: 02/07/20 09:35 Dose: 30 mg Documented by: Montelukast Sodium (Singulair) 10 mg PO DAILY [facility] Last Admin: 02/07/20 09:32 Dose: 10 mg Documented by: Ondansetron HCl (Zofran) 4 mg IV Q8H PRN PRN PRN Reason: NAUSEA/VOMITING Psyllium Hydrophilic Mucilloid (Metamucil) 1 packet PO DAILY [facility] Last Admin: 02/07/20 09:35 Dose: 1 packet Documented by: Senna/Docusate Sodium (Senokot-S, Renae-Colace) 2 tablet PO BID [facility] Last Admin: 02/07/20 09:32 Dose: 2 tablet Documented by: Sodium Chloride () 10 - 40 ml IV UD PRN PRN Reason: SALINE FLUSH Last Admin: 02/07/20 09:28 Dose: 10 ml Documented by: - Past Medical History Past Medical History (Chronic Problems): Chronic Problems Diabetes mellitus type 2 in nonobese (Chronic) Hypertension (Chronic) COPD (chronic obstructive pulmonary disease) (Chronic) Dyslipidemia (Chronic) Generalized weakness (Chronic) - Past Surgical History Surgical History: noncontributory - Social History Smoking Status: Former smoker Alcohol: None, Occasional Drugs: None Patient Problems: Active and Suspected Problems Dysphagia (Acute) Weakness (Acute) Dysphagia (Acute) Metabolic acidosis (Acute) Diabetes mellitus (Acute) DKA (diabetic ketoacidoses) (Acute) Weight loss (Acute) - Physical Exam Vitals/I&O's: Vital Signs Temp Pulse Resp BP Pulse Ox 97.8 F 118 H 24 H 113/76 97 02/07/20 16:00 02/07/20 16:05 02/07/20 16:05 02/07/20 16:00 02/07/20 16:05 Oxygen Flow Rate (L/min) 1 Oxygen Delivery Method Nasal Cannula Weight: 74.8 kg Body Mass Index (BMI) 25.9 Finger Stick Blood Glucose 82 Intake and Output for Last 24 Hours 02/05/20 02/06/20 02/07/20 23:59 23:59 23:59 Intake Total 1702. / 1732.09 861 / 921 2170 / 2170 Balance 1702. / 1732.09 861 / 921 2170 / 2170 General: Lethargic HEENT: Atraumatic Oral: Dry Mucosa Neck: Supple, No JVD Lungs: - - RLL rhonchi. decreased BS in general Cardiovascular: Regular rate, Regular Rhythm, Normal S1, Normal S2 Abdomen: Bowel Sounds Present, Soft, Non Tender, Non-Distended Extremities: No clubbing, No cyanosis, No edema Skin: No rashes Musculoskeletal: Cachexia Lymphatic: No Cervical, Supraclavicular, or Inguinal Adenopathy Psych/Mental Status: - - obtunded Microbiology Past 72 Hours 02/07/20 13:30 Urine Catheter - Catheter Streptococcus pneumoniae Antigen (M - Final 02/07/20 13:30 Urine Catheter - Catheter Legionella Antigen - Final Laboratory Results 02/06/20 17:45: POC Glucose 172 H 02/06/20 22:27: POC Glucose 148 H 02/07/20 02:57: POC Glucose 131 H 02/07/20 06:05: WBC 10.3, RBC 5.59, Hgb 15.7, Hct 47.1, MCV 84.3, MCH 28.1, MCHC 33.3, RDW Std Deviation 45.1 H, RDW Coeff of Yamile 14.8 H, Plt Count 96 L, MPV 9.7, Immature Gran % (Auto) 0.500, Neut % (Auto) 85.3 H, Lymph % (Auto) 5.6 L, Crawford % (Auto) 8.4, Eos % (Auto) 0.1, Baso % (Auto) 0.1, Absolute Neuts (auto) 8.8 H, Absolute Lymphs (auto) 0.57 L, Nucleated RBC % 0, Differential Comment SCANNED 02/07/20 06:05: Sodium Cancelled, Potassium Cancelled, Chloride Cancelled, Carbon Dioxide Cancelled, Anion Gap Cancelled, BUN Cancelled, Creatinine Cancelled, Estim Creat Clear Calc Cancelled, Est GFR (MDRD) Af Amer Cancelled, Est GFR (MDRD) Non-Af Cancelled, BUN/Creatinine Ratio Cancelled, Glucose Cancelled, Calcium Cancelled, Magnesium Cancelled, Prealbumin Cancelled 02/07/20 06:05: Phosphorus 2.3 L 02/07/20 06:05: B-Natriuretic Peptide 40.6 02/07/20 06:05: Sodium 136, Potassium 3.7, Chloride 106, Carbon Dioxide 18.0 L, Anion Gap 12, BUN 39 H, Creatinine 3.29 H, Estim Creat Clear Calc 17.02, Est GFR (MDRD) Af Amer 23 L, Est GFR (MDRD) Non-Af 19 L, BUN/Creatinine Ratio 11.9, Glucose 107 H, Calcium 9.5 02/07/20 06:38: POC Glucose 124 H 02/07/20 10:25: POC Glucose 132 H 02/07/20 13:30: Ur Random Sodium 44, Urine Potassium 16.0, Urine Chloride 57 02/07/20 13:30: Urine Osmolality 324 02/07/20 13:30: U Random Total Protein 14.6 H, Urine Creatinine 33.50, Protein/Creatinin Ratio 436 H 02/07/20 13:30: Urine Color Yellow, Urine Clarity Clear, Urine pH 6.0, Ur Specific [place] 1.010, Urine Protein 15 H, Urine Glucose (UA) 1000 H, Urine Ketones 5 H, Urine Occult Blood 150 H, Urine Nitrite Negative, Urine Bilirubin Negative, Urine Urobilinogen Normal, Ur Leukocyte Esterase Negative, Urine RBC 0-5 SEEN, Urine WBC 0 SEEN, Ur Squamous Epith Cells 0 SEEN, Urine Bacteria 0 SEEN, Urine Mucus 0 SEEN 02/07/20 15:43: Specimen Type ART, Sample Site L Brach, pH 7.35, Bicarbonate Actual 24.0, Total CO2 25, Base Excess -2, O2 Saturation 97, ABG pCO2 43.9, ABG pO2 100, Keith Test Positive, O2 Delivery Device Cannula, Liter Flow 1.0 Current Medications Acetaminophen (Tylenol) 650 mg PO Q6H PRN PRN PRN Reason: Pain Score 1-10/10 Last Admin: 02/06/20 20:37 Dose: 650 mg Documented by: Albuterol Sulfate (Ventolin Aerosols) 2.5 mg INHALATION Q2H PRN PRN PRN Reason: SOB/Wheezing Albuterol/Ipratropium (Duoneb) 3 ml INHALATION Q4H.RT [facility] Last Admin: 02/07/20 15:33 Dose: 3 ml Documented by: Budesonide (Pulmicort Aerosol) 0.5 mg INHALATION Q12H.RT [facility] Last Admin: 02/07/20 07:14 Dose: 0.5 mg Documented by: Calamine/Phenol (Calmoseptine Ointment) 1 applic TOPICAL BID ROM; Protocol Last Admin: 02/07/20 09:29 Dose: 1 applic Documented by: Dextrose (D50w Syringe) 0 gm IV X1 PRN; Protocol PRN Reason: Hypoglycemia Protocol Enoxaparin Sodium (Lovenox) 30 mg SC DAILY [facility] Last Admin: 02/07/20 09:31 Dose: 30 mg Documented by: Piperacillin Sod/Tazobactam (Sod 3.375 gm/ Sodium Chloride) 50 mls @ 12.5 mls/hr IV Q12 ROM Sodium Chloride () 500 mls @ 100 mls/hr IV .Q5H ONE Stop: 02/07/20 22:07 Insulin Glargine (Lantus (Bkc)) 25 units SC 0600,1800 [facility] Insulin Human Lispro (Humalog Kwikpen (Bk)) 0 unit SC Q6 [facility]; Protocol Lansoprazole (Lansoprazole) 30 mg NG DAILY [facility] Last Admin: 02/07/20 09:35 Dose: 30 mg Documented by: Montelukast Sodium (Singulair) 10 mg PO DAILY [facility] Last Admin: 02/07/20 09:32 Dose: 10 mg Documented by: Ondansetron HCl (Zofran) 4 mg IV Q8H PRN PRN PRN Reason: NAUSEA/VOMITING Psyllium Hydrophilic Mucilloid (Metamucil) 1 packet PO DAILY [facility] Last Admin: 02/07/20 09:35 Dose: 1 packet Documented by: Senna/Docusate Sodium (Senokot-S, Renae-Colace) 2 tablet PO BID [facility] Last Admin: 02/07/20 09:32 Dose: 2 tablet Documented by: Sodium Chloride () 10 - 40 ml IV UD PRN PRN Reason: SALINE FLUSH Last Admin: 02/07/20 09:28 Dose: 10 ml Documented by: Assessment/Plan All Active Problems Dysphagia (Acute) Weakness (Acute) Dysphagia (Acute) Metabolic acidosis (Acute) Diabetes mellitus (Acute) DKA (diabetic ketoacidoses) (Acute) Weight loss (Acute) 1- MATTHEW . normal SCr at baseline MATTHEW is likely obstructive UOP. Patient also could have ANDREW SCr is up to 3.2 mg/dl today Will d/c lasix. Please give 500 cc NS bolus N indication for [employer] Monitor RFP 2- high anion gap acidosis from DKA. resolved with DKA treatment HC03 dropped today and this is likely from MATTHEW No need for replacement Monitor HC03 level. 3- dysphagia. n NGT feeding might need PEG tube placement if n imprvement 4- change in mental status . from aspiration pneumonia Vs hypoglycemia On Zosyn ABG ok will defer to primary service Thank you for the consult Renal team will continue to follow d/w Dr. Manoj Harris MD
[2020-02-07] MEDS: Insulin Lispro 100 UNIT/ML INSULN.PEN SC (18:49)
[2020-02-07 18:51] LABS: Bedside Glucose 215 mg/dL (70-110)
[2020-02-07 19:04] LABS: M R Staph aureus DNA By PCR Negative (Negative)
[2020-02-07 19:05] LABS: Probe Check PASS; Specimen Processing Control PASS
--- NOTE | 2020-02-07 19:59 | CT_ITS ---
STUDY: CT BRAIN WITHOUT CONTRAST REASON FOR EXAM: Male, 79 years old. LETHARGY AND DECREASED LOC,WEAKNESS,RECENT WEIGHT LOSS -- HX:HTN,DIABETES,COPD RADIATION DOSAGE (If Supplied By Facility): CTDIvol = ( 44.99 ) mGy, DLP = ( 897.35 ) mGycm TECHNIQUE: Transaxial CT imaging of the brain was performed without administration of intravenous contrast material. Individualized dose optimization techniques were used for this CT. COMPARISON: 02/03/2020 FINDINGS: Normal soft tissue structures. Normal calvarium. There is mild cerebral atrophy with widening of the extra-axial spaces and ventricular dilatation. There are areas of decreased attenuation within the white matter tracts of the supratentorial brain, consistent with microvascular disease changes. Normal basal ganglia and thalami. Normal brainstem. There is mild cerebellar atrophy. There is no intracranial hemorrhage. There are no findings of an acute ischemic infarction. Normal visualized paranasal sinuses. CT/Brain/Head without Contrast IMPRESSION: No change. Atrophy and white matter disease with no acute abnormalities. Electronically Signed: Yonathan Pedersen MD at 22:02 EDT , Service support ,
--- NOTE | 2020-02-07 20:57 | NURSING ---
RT took pt. off air vo machine and RN placed on 3L NC oxygen in order to take pt. to CT scan. Pt. leaving room now for CT.
[2020-02-08] VITALS (18 sets, daily range): BP systolic 112–139; BP diastolic 61–76; PULSE 85–107; RESP 16–24; TEMP 36–36.5; O2SAT 92–99; BMI 25.2
[2020-02-08] MEDS: Dext 5%-0.45% NS 1,000 ML 60 ML IV ×2 (00:07→16:39)
[2020-02-08] MEDS: 0.9% Saline Lock 10 ML Syringe IV ×3 (00:08→20:59)
[2020-02-08 00:21] LABS: Bedside Glucose 135 mg/dL (70-110)
[2020-02-08] MEDS: Ipratropium/Albuterol Sulfate 3 ML AMPUL.NEB INHALATION ×5 (03:03→23:07)
[2020-02-08 05:36] LABS: Bedside Glucose 139 mg/dL (70-110)
[2020-02-08 06:06] LABS: Absolute Lymphocyte Count 1.07 X10^3/uL (0.83-4.51); Absolute Neutrophil Count 10.4 X10^3/uL (2.0-7.7); Basophil# 0.01 X10^3/uL; Basophil% 0.1 % (0-1); Eosinophil# 0.02 X10^3/uL; Eosinophils% 0.2 % (0-5); Hematocrit 45.4 % (40-54); Hemoglobin 15.2 g/dL (13.0-16.5); Lymphocyte # 1.07 X10^3/ul (4.0); Lymphocyte % 8.3 % (19-41); Mean Corp Hgb Conc 33.5 g/dL (32-36); Mean Corpuscular Hgb 28.5 pg (27.0-32.0); Mean Platelet Vol. 10.1 fl (6.2-12.0); Monocyte# 1.24 X10^3/uL; Monocyte% 9.6 % (0-10); NRBC Flagged by Analyzer 0 % (0-5); Neutrophil % 80.8 % (47-70); Platelet Count 144 K/mm3 (150-450); RBC Distribution Width CV 14.9 % (11.6-14.6); RBC Distribution Width SD 45.3 fl (35.1-43.9); Red Blood Count 5.34 M/mm3 (4.6-6.2); White Blood Count 12.9 K/mm3 (4.4-11.0)
--- NOTE | 2020-02-08 06:13 | CON.PCM_ITS ---
Reason for Consult Date of Consultation: 02/08/20 Reason for Consultation: Acute respiratory failure, BiPAP History of Present Illness: The patient is a 79-year-old male, with a history as outlined below, who initially presented to the emergency department on February 02 with failure to thrive and dysphasia. The patient does have baseline shortness of breath and has been getting progressively more weak with decreased appetite over the course of the last year. The patient does report a prior smoking history, although he is a somewhat poor historian. He does appear to be on triple therapy as an outpatient. On presentation to the emergency department, the patient was noted to be afeb rile and hemodynamically stable. He was maintaining appropriate oxygen saturations on room air. Laboratory evaluation revealed no evidence of a leukocytosis. Hemoglobin was elevated to 17.2 g/dL. Coagulation profile was within normal limits. Chemistry profile was notable for a sodium of 132, chloride of 94, bicarbonate of 19 and creatinine of 0.99. Head CT revealed chronic involutional changes of the brain. Chest x-ray revealed calcified pleural plaquing. The patient received supplemental IV fluid hydration and was admitted to the progressive care unit for further work-up. The patient's hospital course has included consultation by general surgery due to his reported weight loss and dysphasia. The patient had a CT abdomen/pelvis completed along with a modified barium swallow which demonstrated moderate pharyngeal esophageal dysphasia. CT chest revealed hyperinflated lung gomes with stigmata of granulomatous disease. MRI brain revealed cerebral and cerebellar atrophy with mild periventricular white matter ischemic changes. The patient is currently documented to be overall net +9 L for the hospital admission. He has subsequently developed worsening renal insufficiency. Although the patient was initially listed as a full code, per nursing report, the patient's CODE STATUS was transitioned to DNR CCA without intubation yesterday afternoon. Past Medical History Past Medical History (Chronic Problems): Chronic Problems Diabetes mellitus type 2 in nonobese (Chronic) Hypertension (Chronic) COPD (chronic obstructive pulmonary disease) (Chronic) Dyslipidemia (Chronic) Generalized weakness (Chronic) Allergies No Known Allergies Allergy (Verified 02/03/20 10:22) Home Medications: Ambulatory Orders Medication Instructions Recorded Albuterol IH (ProAir) [Proair Hfa 1 - 2 puff INHALATION Q6H PRN PRN 02/03/20 (SP)Vent Pts] Ascorbic Acid [Vitamin C] 250 mg PO QODAY 02/03/20 Atorvastatin Calcium 80 mg PO QHS 02/03/20 Budesonide/Formoterol Fumarate 2 puff IH BID 02/03/20 [Budesonide-Formoterol 160-4.5] Calcium Citrate/Vitamin D3 1 tab PO DAILY 02/03/20 [Calcium Citrate-Vit D3 Caplet] Empagliflozin [Jardiance] 10 mg PO DAILY 02/03/20 Ferrous Sulfate 325 mg PO QODAY 02/03/20 Fluocinonide/Emollient Base 15 gm TP DAILY PRN 02/03/20 [Fluocinonide-E 0.05% Cream] Insulin Glargine [Lantus (BKC)] 60 units SUBCUT DAILY 02/03/20 Losartan Potassium 100 mg PO DAILY 02/03/20 Metformin HCl 1,000 mg PO BID 02/03/20 Montelukast [Singulair] 10 mg PO DAILY 02/03/20 Multivitamin 1 ea PO DAILY 02/03/20 Pantoprazole Sodium [Protonix] 40 mg PO DAILY 02/03/20 Potassium Citrate [Urocit-K] 5 meq PO BID 02/03/20 Tiotropium [place] [Spiriva 2 puff IH BID 02/03/20 Respimat] Surgical History: noncontributory Lives: With Family Smoking Status: Former smoker Tobacco Use: Cigarettes Alcohol: None, Occasional Drugs: None Review of Systems Constitutional: Reports: Weakness, Fatigue Eyes: Denies: Blurred vision, Double vision HEENT: Reports: Difficulty Swallowing, Dysphasia Cardiovascular: Denies: Chest Pain, Palpitations Respiratory: Reports: Shortness of Breath Gastrointestinal: Denies: Abdominal Pain, Nausea, Vomiting Genitourinary: Denies: Dysuria Musculoskeletal: Denies: Joint Pain, Joint Tenderness Skin: Denies: Rash, Wounds Neurological: Reports: Difficulty swallowing Psychiatric: Denies: Anxiety, Depression, Homicidal Ideations, Suicidal Ideations Hematologic/ Lymphatic: Denies: Easy Bruising, Easy Bleeding Patient Problems: Active and Suspected Problems Dysphagia (Acute) Weakness (Acute) Dysphagia (Acute) Metabolic acidosis (Acute) Diabetes mellitus (Acute) DKA (diabetic ketoacidoses) (Acute) Weight loss (Acute) Objective: The patient's most recent lab work, culture data and imaging studies have all been personally reviewed. Strep and urine Legionella antigens were negative. Urine culture is currently pending. - Physical Exam Vitals/I&O's: Vital Signs Temp Pulse Resp BP Pulse Ox 97.4 F L 100 22 H 116/64 98 02/08/20 04:30 02/08/20 04:30 02/08/20 04:30 02/08/20 04:30 02/08/20 04:30 Oxygen Flow Rate (L/min) 1 Oxygen Delivery Method Nasal Cannula Weight: 160 lb 11.472 oz Body Mass Index (BMI) 25.9 Finger Stick Blood Glucose 82 Intake and Output for Last 24 Hours 02/06/20 02/07/20 02/08/20 23:59 23:59 23:59 Intake Total 861 / 921 2800 / 2800 80 / 80 Output Total 1200 / 1200 700 / 700 Balance 861 / 921 1600 / 1600 -620 / -620 General: Lethargic, - - Quite deconditioned in appearance. HEENT: Atraumatic, Normocephalic, - - Nasogastric feeding tube in place Oral: Dry Mucosa Neck: Supple, No Nodes, Trachea Midline Lungs: - - Diminished air movement bilaterally. Suboptimal inspiratory effort. Cardiovascular: Regular rate, Regular Rhythm Abdomen: Bowel Sounds Present, Soft, Non Tender Extremities: No clubbing, No cyanosis Skin: No breakdown Musculoskeletal: No Tenderness to Palpation of Joints or Extremities Lymphatic: No Cervical, Supraclavicular, or Inguinal Adenopathy Neurological: - - No focal neurological deficits. Psych/Mental Status: Flat Affect Labs (Last 48 Hours) 02/06/20 02/06/20 02/06/20 05:40 05:40 06:22 WBC RBC Hgb Hct MCV MCH MCHC RDW Std Deviation RDW Coeff of Yamile Plt Count MPV Immature Gran % (Auto) Neut % (Auto) Lymph % (Auto) Cass % (Auto) Eos % (Auto) Baso % (Auto) Absolute Neuts (auto) Absolute Lymphs (auto) Nucleated RBC % Differential Comment SCANNED Specimen Type Sample Site pH Bicarbonate Actual Total CO2 Base Excess O2 Saturation ABG pCO2 ABG pO2 Keith Test O2 Delivery Device Liter Flow Sodium 134 L Potassium 3.3 L Chloride 104 Carbon Dioxide 24.0 Anion Gap 6 BUN 32 H Creatinine 2.89 H Estim Creat Clear Calc 19.38 Est GFR (MDRD) Af Amer 27 L Est GFR (MDRD) Non-Af 23 L BUN/Creatinine Ratio 11.1 Glucose 155 H Calcium 9.7 Phosphorus Magnesium Total Bilirubin AST ALT Alkaline Phosphatase Ammonia B-Natriuretic Peptide Total Protein Albumin Prealbumin Urine Color Urine Clarity Urine pH Ur Specific [place] Urine Protein Urine Glucose (UA) Urine Ketones Urine Occult Blood Urine Nitrite Urine Bilirubin Urine Urobilinogen Ur Leukocyte Esterase Urine RBC Urine WBC Ur Squamous Epith Cells Urine Bacteria Urine Mucus Urine Osmolality U Random Total Protein Ur Random Sodium Urine Creatinine Protein/Creatinin Ratio Urine Potassium Urine Chloride MRSA (PCR) POC Glucose 154 H 02/06/20 02/06/20 02/06/20 10:26 14:19 17:45 WBC RBC Hgb Hct MCV MCH MCHC RDW Std Deviation RDW Coeff of [place] Plt Count MPV Immature Gran % (Auto) Neut % (Auto) Lymph % (Auto) Cass % (Auto) Eos % (Auto) Baso % (Auto) Absolute Neuts (auto) Absolute Lymphs (auto) Nucleated RBC % Differential Comment Specimen Type Sample Site pH Bicarbonate Actual Total CO2 Base Excess O2 Saturation ABG pCO2 ABG pO2 Keith Test O2 Delivery Device Liter Flow Sodium Potassium Chloride Carbon Dioxide Anion Gap BUN Creatinine Estim Creat Clear Calc Est GFR (MDRD) Af Amer Est GFR (MDRD) Non-Af BUN/Creatinine Ratio Glucose Calcium Phosphorus Magnesium Total Bilirubin AST ALT Alkaline Phosphatase Ammonia B-Natriuretic Peptide Total Protein Albumin Prealbumin Urine Color Urine Clarity Urine pH Ur Specific [place] Urine Protein Urine Glucose (UA) Urine Ketones Urine Occult Blood Urine Nitrite Urine Bilirubin Urine Urobilinogen Ur Leukocyte Esterase Urine RBC Urine WBC Ur Squamous Epith Cells Urine Bacteria Urine Mucus Urine Osmolality U Random Total Protein Ur Random Sodium Urine Creatinine Protein/Creatinin Ratio Urine Potassium Urine Chloride MRSA (PCR) POC Glucose 188 H 218 H 172 H 02/06/20 02/07/20 02/07/20 22:27 02:57 06:05 WBC 10.3 RBC 5.59 Hgb 15.7 Hct 47.1 MCV 84.3 MCH 28.1 MCHC 33.3 RDW Std Deviation 45.1 H RDW Coeff of Yamile 14.8 H Plt Count 96 L MPV 9.7 Immature Gran % (Auto) 0.500 Neut % (Auto) 85.3 H Lymph % (Auto) 5.6 L Cass % (Auto) 8.4 Eos % (Auto) 0.1 Baso % (Auto) 0.1 Absolute Neuts (auto) 8.8 H Absolute Lymphs (auto) 0.57 L Nucleated RBC % 0 Differential Comment SCANNED Specimen Type Sample Site pH Bicarbonate Actual Total CO2 Base Excess O2 Saturation ABG pCO2 ABG pO2 Keith Test O2 Delivery Device Liter Flow Sodium Potassium Chloride Carbon Dioxide Anion Gap BUN Creatinine Estim Creat Clear Calc Est GFR (MDRD) Af Amer Est GFR (MDRD) Non-Af BUN/Creatinine Ratio Glucose Calcium Phosphorus Magnesium Total Bilirubin AST ALT Alkaline Phosphatase Ammonia B-Natriuretic Peptide Total Protein Albumin Prealbumin Urine Color Urine Clarity Urine pH Ur Specific [place] Urine Protein Urine Glucose (UA) Urine Ketones Urine Occult Blood Urine Nitrite Urine Bilirubin Urine Urobilinogen Ur Leukocyte Esterase Urine RBC Urine WBC Ur Squamous Epith Cells Urine Bacteria Urine Mucus Urine Osmolality U Random Total Protein Ur Random Sodium Urine Creatinine Protein/Creatinin Ratio Urine Potassium Urine Chloride MRSA (PCR) POC Glucose 148 H 131 H 02/07/20 02/07/20 02/07/20 06:05 06:05 06:05 WBC RBC Hgb Hct MCV MCH MCHC RDW Std Deviation RDW Coeff of [place] Plt Count MPV Immature Gran % (Auto) Neut % (Auto) Lymph % (Auto) Cass % (Auto) Eos % (Auto) Baso % (Auto) Absolute Neuts (auto) Absolute Lymphs (auto) Nucleated RBC % Differential Comment Specimen Type Sample Site pH Bicarbonate Actual Total CO2 Base Excess O2 Saturation ABG pCO2 ABG pO2 Keith Test O2 Delivery Device Liter Flow Sodium Cancelled Potassium Cancelled Chloride Cancelled Carbon Dioxide Cancelled Anion Gap Cancelled BUN Cancelled Creatinine Cancelled Estim Creat Clear Calc Cancelled Est GFR (MDRD) Af Amer Cancelled Est GFR (MDRD) Non-Af Cancelled BUN/Creatinine Ratio Cancelled Glucose Cancelled Calcium Cancelled Phosphorus 2.3 L Magnesium Cancelled Total Bilirubin AST ALT Alkaline Phosphatase Ammonia B-Natriuretic Peptide 40.6 Total Protein Albumin Prealbumin Cancelled Urine Color Urine Clarity Urine pH Ur Specific [place] Urine Protein Urine Glucose (UA) Urine Ketones Urine Occult Blood Urine Nitrite Urine Bilirubin Urine Urobilinogen Ur Leukocyte Esterase Urine RBC Urine WBC Ur Squamous Epith Cells Urine Bacteria Urine Mucus Urine Osmolality U Random Total Protein Ur Random Sodium Urine Creatinine Protein/Creatinin Ratio Urine Potassium Urine Chloride MRSA (PCR) POC Glucose 02/07/20 02/07/20 02/07/20 06:05 06:38 10:25 WBC RBC Hgb Hct MCV MCH MCHC RDW Std Deviation RDW Coeff of [place] Plt Count MPV Immature Gran % (Auto) Neut % (Auto) Lymph % (Auto) Cass % (Auto) Eos % (Auto) Baso % (Auto) Absolute Neuts (auto) Absolute Lymphs (auto) Nucleated RBC % Differential Comment Specimen Type Sample Site pH Bicarbonate Actual Total CO2 Base Excess O2 Saturation ABG pCO2 ABG pO2 Keith Test O2 Delivery Device Liter Flow Sodium 136 Potassium 3.7 Chloride 106 Carbon Dioxide 18.0 L Anion Gap 12 BUN 39 H Creatinine 3.29 H Estim Creat Clear Calc 17.02 Est GFR (MDRD) Af Amer 23 L Est GFR (MDRD) Non-Af 19 L BUN/Creatinine Ratio 11.9 Glucose 107 H Calcium 9.5 Phosphorus Magnesium Total Bilirubin AST ALT Alkaline Phosphatase Ammonia B-Natriuretic Peptide Total Protein Albumin Prealbumin Urine Color Urine Clarity Urine pH Ur Specific [place] Urine Protein Urine Glucose (UA) Urine Ketones Urine Occult Blood Urine Nitrite Urine Bilirubin Urine Urobilinogen Ur Leukocyte Esterase Urine RBC Urine WBC Ur Squamous Epith Cells Urine Bacteria Urine Mucus Urine Osmolality U Random Total Protein Ur Random Sodium Urine Creatinine Protein/Creatinin Ratio Urine Potassium Urine Chloride MRSA (PCR) POC Glucose 124 H 132 H 02/07/20 02/07/20 02/07/20 13:30 13:30 13:30 WBC RBC Hgb Hct MCV MCH MCHC RDW Std Deviation RDW Coeff of [place] Plt Count MPV Immature Gran % (Auto) Neut % (Auto) Lymph % (Auto) Cass % (Auto) Eos % (Auto) Baso % (Auto) Absolute Neuts (auto) Absolute Lymphs (auto) Nucleated RBC % Differential Comment Specimen Type Sample Site pH Bicarbonate Actual Total CO2 Base Excess O2 Saturation ABG pCO2 ABG pO2 Keith Test O2 Delivery Device Liter Flow Sodium Potassium Chloride Carbon Dioxide Anion Gap BUN Creatinine Estim Creat Clear Calc Est GFR (MDRD) Af Amer Est GFR (MDRD) Non-Af BUN/Creatinine Ratio Glucose Calcium Phosphorus Magnesium Total Bilirubin AST ALT Alkaline Phosphatase Ammonia B-Natriuretic Peptide Total Protein Albumin Prealbumin Urine Color Urine Clarity Urine pH Ur Specific [place] Urine Protein Urine Glucose (UA) Urine Ketones Urine Occult Blood Urine Nitrite Urine Bilirubin Urine Urobilinogen Ur Leukocyte Esterase Urine RBC Urine WBC Ur Squamous Epith Cells Urine Bacteria Urine Mucus Urine Osmolality 324 U Random Total Protein 14.6 H Ur Random Sodium 44 Urine Creatinine 33.50 Protein/Creatinin Ratio 436 H Urine Potassium 16.0 Urine Chloride 57 MRSA (PCR) POC Glucose 02/07/20 02/07/20 02/07/20 13:30 15:43 16:45 WBC RBC Hgb Hct MCV MCH MCHC RDW Std Deviation RDW Coeff of [place] Plt Count MPV Immature Gran % (Auto) Neut % (Auto) Lymph % (Auto) Cass % (Auto) Eos % (Auto) Baso % (Auto) Absolute Neuts (auto) Absolute Lymphs (auto) Nucleated RBC % Differential Comment Specimen Type ART Sample Site L Brach pH 7.35 Bicarbonate Actual 24.0 Total CO2 25 Base Excess -2 O2 Saturation 97 ABG pCO2 43.9 ABG pO2 100 Keith Test Positive O2 Delivery Device Cannula Liter Flow 1.0 Sodium Potassium Chloride Carbon Dioxide Anion Gap BUN Creatinine Estim Creat Clear Calc Est GFR (MDRD) Af Amer Est GFR (MDRD) Non-Af BUN/Creatinine Ratio Glucose Calcium Phosphorus Magnesium Total Bilirubin AST ALT Alkaline Phosphatase Ammonia B-Natriuretic Peptide Total Protein Albumin Prealbumin Urine Color Yellow Urine Clarity Clear Urine pH 6.0 Ur Specific [place] 1.010 Urine Protein 15 H Urine Glucose (UA) 1000 H Urine Ketones 5 H Urine Occult Blood 150 H Urine Nitrite Negative Urine Bilirubin Negative Urine Urobilinogen Normal Ur Leukocyte Esterase Negative Urine RBC 0-5 SEEN Urine WBC 0 SEEN Ur Squamous Epith Cells 0 SEEN Urine Bacteria 0 SEEN Urine Mucus 0 SEEN Urine Osmolality U Random Total Protein Ur Random Sodium Urine Creatinine Protein/Creatinin Ratio Urine Potassium Urine Chloride MRSA (PCR) Negative POC Glucose 02/07/20 02/07/20 02/08/20 18:44 20:24 00:09 WBC RBC Hgb Hct MCV MCH MCHC RDW Std Deviation RDW Coeff of Yamile Plt Count MPV Immature Gran % (Auto) Neut % (Auto) Lymph % (Auto) Cass % (Auto) Eos % (Auto) Baso % (Auto) Absolute Neuts (auto) Absolute Lymphs (auto) Nucleated RBC % Differential Comment Specimen Type Sample Site pH Bicarbonate Actual Total CO2 Base Excess O2 Saturation ABG pCO2 ABG pO2 Keith Test O2 Delivery Device Liter Flow Sodium Potassium Chloride Carbon Dioxide Anion Gap BUN Creatinine Estim Creat Clear Calc Est GFR (MDRD) Af Amer Est GFR (MDRD) Non-Af BUN/Creatinine Ratio Glucose Calcium Phosphorus Magnesium Total Bilirubin AST ALT Alkaline Phosphatase Ammonia 23.0 B-Natriuretic Peptide Total Protein Albumin Prealbumin Urine Color Urine Clarity Urine pH Ur Specific [place] Urine Protein Urine Glucose (UA) Urine Ketones Urine Occult Blood Urine Nitrite Urine Bilirubin Urine Urobilinogen Ur Leukocyte Esterase Urine RBC Urine WBC Ur Squamous Epith Cells Urine Bacteria Urine Mucus Urine Osmolality U Random Total Protein Ur Random Sodium Urine Creatinine Protein/Creatinin Ratio Urine Potassium Urine Chloride MRSA (PCR) POC Glucose 215 H 135 H 02/08/20 02/08/20 02/08/20 05:29 05:40 05:40 WBC 12.9 H RBC 5.34 Hgb 15.2 Hct 45.4 MCV 85.0 MCH 28.5 MCHC 33.5 RDW Std Deviation 45.3 H RDW Coeff of Yamile 14.9 H Plt Count 144 L MPV 10.1 Immature Gran % (Auto) 1.000 H Neut % (Auto) 80.8 H Lymph % (Auto) 8.3 L Cass % (Auto) 9.6 Eos % (Auto) 0.2 Baso % (Auto) 0.1 Absolute Neuts (auto) 10.4 H Absolute Lymphs (auto) 1.07 Nucleated RBC % 0 Differential Comment Specimen Type Sample Site pH Bicarbonate Actual Total CO2 Base Excess O2 Saturation ABG pCO2 ABG pO2 Keith Test O2 Delivery Device Liter Flow Sodium Pending Potassium Pending Chloride Pending Carbon Dioxide Pending Anion Gap Pending BUN Pending Creatinine Pending Estim Creat Clear Calc Est GFR (MDRD) Af Amer Pending Est GFR (MDRD) Non-Af Pending BUN/Creatinine Ratio Pending Glucose Pending Calcium Pending Phosphorus Pending Magnesium Pending Total Bilirubin Pending AST Pending ALT Pending Alkaline Phosphatase Pending Ammonia B-Natriuretic Peptide Total Protein Pending Albumin Pending Prealbumin Urine Color Urine Clarity Urine pH Ur Specific [place] Urine Protein Urine Glucose (UA) Urine Ketones Urine Occult Blood Urine Nitrite Urine Bilirubin Urine Urobilinogen Ur Leukocyte Esterase Urine RBC Urine WBC Ur Squamous Epith Cells Urine Bacteria Urine Mucus Urine Osmolality U Random Total Protein Ur Random Sodium Urine Creatinine Protein/Creatinin Ratio Urine Potassium Urine Chloride MRSA (PCR) POC Glucose 139 H Microbiology 02/07/20 13:30 Urine Catheter - Catheter Streptococcus pneumoniae Antigen (M - Final 02/07/20 13:30 Urine Catheter - Catheter Legionella Antigen - Final Clinical Impression(s) from Imaging Studies Brain CT 02/03/20 10:42 IMPRESSION: Chronic involutional changes of the brain. Electronically Signed: Freddie Cortesrajesh, at 12:31 EDT , Service support , Chest X-Ray 02/03/20 12:14 IMPRESSION: Findings suggestive of calcified pleural plaque overlying the right mid thorax. Electronically Signed: Freddie Danyel, at 12:30 EDT , Service support , Abdomen/Pelvis CT 02/04/20 09:25 IMPRESSION: Calcified granuloma in the right lower lobe. Mild scarring at the bases. Small amount of perihepatic fluid with lobular contour of the liver suggestive of cirrhotic change. Multiple small gallstones. Left renal cysts. Nonobstructive contrast in the lower pole calyx of the left kidney. Mild degree of bilateral hydronephrosis and perinephric stranding. 2.1 cm low density nodule in the right adrenal gland suggestive of adenoma. Electronically Signed: Freddie Danyel, at 12:07 EDT , Service support , Chest CT 02/04/20 09:25 IMPRESSION: Chronic changes. No acute abnormality is seen. Electronically Signed: Freddie Danyel, at 12:15 EDT , Service support , Brain MRI 02/04/20 14:29 IMPRESSION: Cerebral and cerebellar atrophy with mild periventricular white matter ischemic changes. No evidence for acute infarct Electronically Signed: Norm Esqueda MD at 16:06 EDT , Service support , KUB X-Ray 02/06/20 15:35 IMPRESSION: Improper positioning of nasogastric tube. Electronically Signed: Yonathan Pedersen MD at 18:03 EDT , Service support , KUB X-Ray 02/06/20 16:44 KUB X-Ray 02/06/20 17:15 Chest X-Ray 02/07/20 08:50 IMPRESSION: Feeding tube extends to the stomach. Right lower lung infiltrate. Electronically Signed: Bandar Clemens MD at 10:01 EDT , Service support , Brain CT 02/07/20 19:59 IMPRESSION: No change. Atrophy and white matter disease with no acute abnormalities. Electronically Signed: Yonathan Pedersen MD at 22:02 EDT , Service support , Current Medications Acetaminophen (Tylenol) 650 mg PO Q6H PRN PRN PRN Reason: Pain Score 1-10/10 Last Admin: 02/06/20 20:37 Dose: 650 mg Documented by: Albuterol Sulfate (Ventolin Aerosols) 2.5 mg INHALATION Q2H PRN PRN PRN Reason: SOB/Wheezing Albuterol/Ipratropium (Duoneb) 3 ml INHALATION Q4H.RT ROM Last Admin: 02/08/20 03:03 Dose: 3 ml Documented by: Budesonide (Pulmicort Aerosol) 0.5 mg INHALATION Q12H.RT ROM Last Admin: 02/07/20 18:56 Dose: 0.5 mg Documented by: Calamine/Phenol (Calmoseptine Ointment) 1 applic TOPICAL BID ROM; Protocol Last Admin: 02/07/20 21:38 Dose: 1 applic Documented by: Dextrose (D50w Syringe) 0 gm IV X1 PRN; Protocol PRN Reason: Hypoglycemia Protocol Enoxaparin Sodium (Lovenox) 30 mg SC DAILY ROM Last Admin: 02/07/20 09:31 Dose: 30 mg Documented by: Piperacillin Sod/Tazobactam (Sod 3.375 gm/ Sodium Chloride) 50 mls @ 12.5 mls/hr IV Q12 ROM Last Infusion: 02/07/20 23:55 Dose: Infused Documented by: Dextrose/Sodium Chloride () 1,000 mls @ 60 mls/hr IV .[id number] [facility] Last Admin: 02/08/20 00:07 Dose: 60 mls/hr Documented by: Insulin Glargine (Lantus (Bk)) 25 units SC 0600,1800 [facility] Last Admin: 02/07/20 18:50 Dose: 25 u Documented by: Insulin Human Lispro (Humalog Kwikpen ([facility])) 0 unit SC Q6 [facility]; Protocol Last Admin: 02/08/20 05:30 Dose: Not Given Documented by: Lansoprazole (Lansoprazole) 30 mg NG DAILY [facility] Last Admin: 02/07/20 09:35 Dose: 30 mg Documented by: Montelukast Sodium (Singulair) 10 mg PO DAILY [facility] Last Admin: 02/07/20 09:32 Dose: 10 mg Documented by: Ondansetron HCl (Zofran) 4 mg IV Q8H PRN PRN PRN Reason: NAUSEA/VOMITING Psyllium Hydrophilic Mucilloid (Metamucil) 1 packet PO DAILY [facility] Last Admin: 02/07/20 09:35 Dose: 1 packet Documented by: Senna/Docusate Sodium (Senokot-S, Renae-Colace) 2 tablet PO BID [facility] Last Admin: 02/07/20 21:39 Dose: 2 tablet Documented by: Sodium Chloride () 10 - 40 ml IV UD PRN PRN Reason: SALINE FLUSH Last Admin: 02/08/20 00:08 Dose: 10 ml Documented by: Assessment/Plan All Active Problems Dysphagia (Acute) Weakness (Acute) Dysphagia (Acute) Metabolic acidosis (Acute) Diabetes mellitus (Acute) DKA (diabetic ketoacidoses) (Acute) Weight loss (Acute) RECOMMENDATIONS: 1. Transition patient from Airvo back to conventional nasal cannula. 2. Wean supplemental oxygen to maintain saturations at or above 90%. 3. Continue antimicrobials as ordered. 4. Continue scheduled bronchodilator therapy. 5. Consider gentle diuresis as the patient is overall net positive for the hospital admission. 6. Encourage incentive spirometer use and mobilize patient as tolerated. IMPRESSIONS: 1. Acute hypoxemic respiratory insufficiency The patient does have a reported history of COPD of unknown severity. He is a poor historian and unable to provide any additional details. Nevertheless, he does appear to be prescribed a triple therapy inhaler regimen on an outpatient basis. The patient is currently on antimicrobials over concerns for possible aspiration, especially in light of his dysphasia. He does currently have a nasogastric feeding tube in place. The patient did have an arterial blood gas obtained yesterday on 1 L/min via nasal cannula which revealed a normal pH with a PO2 of 100 and oxygen saturation of 97%. Accordingly, I do not feel that the patient requires Airvo and can be transition back to conventional nasal cannula with goals to wean oxygen to maintain saturations at or above 90%. I would plan to continue aspiration precautions. Continue scheduled bronchodilators as ordered. The patient may benefit from diuresis, as he is currently documented to be overall net positive 9+ liters for the hospital admission. 2. Weight loss/failure to thrive/pharyngeal esophageal dysphasia/advanced age and deconditioning/diabetes mellitus/hyperlipidemia Complicates care, management, recovery and prognosis. Defer management and work-up of the patient's failure to thrive and weight loss to hospitalist. CODE STATUS has already been addressed and documented to be DNR CCA without intubation. This note was generated with Jebbit dictation software. It may contain incorrect words, spelling, and punctuation that were not noted in checking the note before signing. Inpatient E&M: 39341 Init Hosp L3
[2020-02-08 06:33] LABS: ALB/GLOB Ratio 0.7 RATIO (0.9-2.4); AST(SGOT) 20 U/L (15-37); Alanine Aminotransfer ALT/SGPT 28 U/L (16-61); Albumin, Serum 2.5 g/dL (3.2-5.0); Alkaline Phosphatase 99 U/L (45-117); Anion Gap 4 (5-15); BUN 25 mg/dL (7-18); BUN/Creat Ratio 26.3 RATIO (10-20); Calcium,Total 9.4 mg/dL (8.5-10.1); Chloride 108 mmol/L (98-107); Creatinine, Serum 0.95 mg/dL (0.70-1.30); EST Glomerular Filtration Rate 81 mL/min (>60); Est Glom Filt Rate - Afr Amer 98 mL/min (>60); Estimated Creatinine Clearance 58.95 ml/min; Globulin 3.8 g/dL (2.2-4.2); Glucose 134 mg/dL (74-106); Magnesium 1.8 mg/dL (1.6-2.6); Potassium 3.2 mmol/L (3.5-5.1); Protein, Total 6.3 g/dL (6.4-8.2); Sodium Level 140 mmol/L (136-145)
[2020-02-08] MEDS: Budesonide Respules 0.5 MG/2 ML AMPUL.NEB. INHALATION ×2 (06:56→19:27)
--- NOTE | 2020-02-08 08:05 | PN_ITS ---
Patient Problems: Active and Suspected Problems Dysphagia (Acute) Weakness (Acute) Dysphagia (Acute) Metabolic acidosis (Acute) Diabetes mellitus (Acute) DKA (diabetic ketoacidoses) (Acute) Weight loss (Acute) Reason for Visit: Follow-up for multiple issues, altered mental status, failure to thrive, loss of weight, dysphagia and acute kidney injury Objective: Patient afebrile. Patient is still drowsy and lethargic but he wakes up on verbal command. He opens eyes. He is still not nonconversant. Labs reviewed. Physical exam General: Lethargic and weak, Cooperative. Opens eyes on verbal command. HEENT: Atraumatic, PERRLA, EOMI, Normocephalic Oral: No Gingival or Mucosal Lesions/ Ulcerations Neck: Supple, No JVD, Negative Carotid Bruits Lungs: Air entry diminished in bilateral posterior half of lungs. No crepitation/rhonchi Cardiovascular: Regular rate, Regular Rhythm, Normal S1, Normal S2, No murmurs. Heart rate in 90s 200s. Abdomen: Bowel Sounds Present, but sluggish. Soft, Non Tender, Non-Distended. : No renal angle tenderness. No suprapubic tenderness. Patient is not in continent. No significant urine output after Lasix 40 mg IV. Extremities: No edema, Capillary Refill Less than 3 Seconds Skin: No rashes, No breakdown Musculoskeletal: No Tenderness to Palpation of Joints or Extremities Neurological: Deep Tendon Reflexes 2+/4 and Symmetrical. Detailed neuro exam unobtainable. Psych/Mental Status: Possible depressed. Vitals/I&O's: Vital Signs Temp Pulse Resp BP Pulse Ox 96.8 F L 93 20 H 138/72 H 98 02/08/20 07:00 02/08/20 07:00 02/08/20 07:00 02/08/20 07:00 02/08/20 07:00 Oxygen Flow Rate (L/min) 1 Oxygen Delivery Method Nasal Cannula Weight: 160 lb 11.472 oz Body Mass Index (BMI) 25.9 Finger Stick Blood Glucose 82 Intake and Output for Last 24 Hours 02/06/20 02/07/20 02/08/20 23:59 23:59 23:59 Intake Total 861 / 921 2800 / 2800 80 / 80 Output Total 1200 / 1200 700 / 700 Balance 861 / 921 1600 / 1600 -620 / -620 Microbiology Past 72 Hours 02/07/20 13:30 Urine Catheter - Catheter Streptococcus pneumoniae Antigen (M - Final 02/07/20 13:30 Urine Catheter - Catheter Legionella Antigen - Final Laboratory Results 02/07/20 06:05: B-Natriuretic Peptide 40.6 02/07/20 06:05: Sodium 136, Potassium 3.7, Chloride 106, Carbon Dioxide 18.0 L, Anion Gap 12, BUN 39 H, Creatinine 3.29 H, Estim Creat Clear Calc 17.02, Est GFR (MDRD) Af Amer 23 L, Est GFR (MDRD) Non-Af 19 L, BUN/Creatinine Ratio 11.9, Glucose 107 H, Calcium 9.5 02/07/20 10:25: POC Glucose 132 H 02/07/20 13:30: Ur Random Sodium 44, Urine Potassium 16.0, Urine Chloride 57 02/07/20 13:30: Urine Osmolality 324 02/07/20 13:30: U Random Total Protein 14.6 H, Urine Creatinine 33.50, Protein/Creatinin Ratio 436 H 02/07/20 13:30: Urine Color Yellow, Urine Clarity Clear, Urine pH 6.0, Ur Specific [place] 1.010, Urine Protein 15 H, Urine Glucose (UA) 1000 H, Urine Ketones 5 H, Urine Occult Blood 150 H, Urine Nitrite Negative, Urine Bilirubin Negative, Urine Urobilinogen Normal, Ur Leukocyte Esterase Negative, Urine RBC 0-5 SEEN, Urine WBC 0 SEEN, Ur Squamous Epith Cells 0 SEEN, Urine Bacteria 0 SEEN, Urine Mucus 0 SEEN 02/07/20 15:43: Specimen Type ART, Sample Site L Brach, pH 7.35, Bicarbonate Actual 24.0, Total CO2 25, Base Excess -2, O2 Saturation 97, ABG pCO2 43.9, ABG pO2 100, Keith Test Positive, O2 Delivery Device Cannula, Liter Flow 1.0 02/07/20 16:45: MRSA (PCR) Negative 02/07/20 18:44: POC Glucose 215 H 02/07/20 20:24: Ammonia 23.0 02/08/20 00:09: POC Glucose 135 H 02/08/20 05:29: POC Glucose 139 H 02/08/20 05:40: Sodium 140, Potassium 3.2 L, Chloride 108 H, Carbon Dioxide 28.0, Anion Gap 4 L, BUN 25 H, Creatinine 0.95, Estim Creat Clear Calc 58.95, Est GFR (MDRD) Af Amer 98, Est GFR (MDRD) Non-Af 81, BUN/Creatinine Ratio 26.3 H , Glucose 134 H, Calcium 9.4, Phosphorus 3.0, Magnesium 1.8, Total Bilirubin 1.10 H, AST 20, ALT 28, Alkaline Phosphatase 99, Total Protein 6.3 L, Albumin 2.5 L, Globulin 3.8, Albumin/Globulin Ratio 0.7 L 02/08/20 05:40: WBC 12.9 H, RBC 5.34, Hgb 15.2, Hct 45.4, MCV 85.0, MCH 28.5, MCHC 33.5, RDW Std Deviation 45.3 H, RDW Coeff of Yamile 14.9 H, Plt Count 144 L, MPV 10.1, Immature Gran % (Auto) 1.000 H, Neut % (Auto) 80.8 H, Lymph % (Auto) 8.3 L, [place] % (Auto) 9.6, Eos % (Auto) 0.2, Baso % (Auto) 0.1, Absolute Neuts (auto) 10.4 H, Absolute Lymphs (auto) 1.07, Nucleated RBC % 0 Current Medications Acetaminophen (Tylenol) 650 mg PO Q6H PRN PRN PRN Reason: Pain Score 1-10/10 Last Admin: 02/06/20 20:37 Dose: 650 mg Documented by: Albuterol Sulfate (Ventolin Aerosols) 2.5 mg INHALATION Q2H PRN PRN PRN Reason: SOB/Wheezing Albuterol/Ipratropium (Duoneb) 3 ml INHALATION Q4H.RT ROM Last Admin: 02/08/20 06:56 Dose: 3 ml Documented by: Budesonide (Pulmicort Aerosol) 0.5 mg INHALATION Q12H.RT ROM Last Admin: 02/08/20 06:56 Dose: 0.5 mg Documented by: Calamine/Phenol (Calmoseptine Ointment) 1 applic TOPICAL BID ROM; Protocol Last Admin: 02/07/20 21:38 Dose: 1 applic Documented by: Dextrose (D50w Syringe) 0 gm IV X1 PRN; Protocol PRN Reason: Hypoglycemia Protocol Enoxaparin Sodium (Lovenox) 40 mg SC DAILY [facility] Piperacillin Sod/Tazobactam (Sod 3.375 gm/ Sodium Chloride) 50 mls @ 12.5 mls/hr IV Q12 [facility] Last Infusion: 02/07/20 23:55 Dose: Infused Documented by: Dextrose/Sodium Chloride () 1,000 mls @ 60 mls/hr IV .[id number] [facility] Last Admin: 02/08/20 00:07 Dose: 60 mls/hr Documented by: Potassium Chloride () 10 meq in 100 mls @ 100 mls/hr IV BOLUS Q1H [facility] Stop: 02/08/20 12:59 Enteral Nutritional Formula (Jevity 1.5) 1,000 mls @ 30 mls/hr GT .[id number] [facility] Insulin Glargine (Lantus ([facility])) 25 units SC QHS [facility] Insulin Human Lispro (Humalog Kwikpen ([facility])) 0 unit SC Q6 [facility]; Protocol Last Admin: 02/08/20 05:30 Dose: Not Given Documented by: Lansoprazole (Lansoprazole) 30 mg NG DAILY [facility] Last Admin: 02/07/20 09:35 Dose: 30 mg Documented by: Montelukast Sodium (Singulair) 10 mg PO DAILY [facility] Last Admin: 02/07/20 09:32 Dose: 10 mg Documented by: Ondansetron HCl (Zofran) 4 mg IV Q8H PRN PRN PRN Reason: NAUSEA/VOMITING Senna/Docusate Sodium (Senokot-S, Renae-Colace) 2 tablet PO BID [facility] Last Admin: 02/07/20 21:39 Dose: 2 tablet Documented by: Sodium Chloride () 10 - 40 ml IV UD PRN PRN Reason: SALINE FLUSH Last Admin: 02/08/20 00:08 Dose: 10 ml Documented by: STROKE Vital Signs/Narrative: Vital Signs Temp Pulse Resp BP Pulse Ox 02/08/20 07:00 96.8 F L 93 20 H 138/72 H 98 02/08/20 04:30 97.4 F L 100 22 H 116/64 98 Medical Necessity - Tobacco Use Smoking Status: Former smoker Tobacco Use: Cigarettes Assessment/Plan All Active Problems Dysphagia (Acute) Weakness (Acute) Dysphagia (Acute) Metabolic acidosis (Acute) Diabetes mellitus (Acute) DKA (diabetic ketoacidoses) (Acute) Weight loss (Acute) The patient is a 79 year old M with history of diabetes mellitus type 2 came to ER for weakness and shortness of breath since the start of 2019 but worse in the last few weeks. 1. DKA with high anion gap metabolic acidosis with history of type 2 diabetes mellitus: Anion gap closed x2. Sodium 133. Bicarb 19. Patient insulin drip was discontinued last night and was switched to Lantus 30 units subcutaneous twice daily. Glucose is running about 200 to 250 mg/dL. Patient is transferred out of ICU. Blood sugar in the 130s. 2. Electrolyte abnormality: Hypotonic, hypochloremic, complex acid-base disturbance high anion gap metabolic acidosis and respiratory alkalosis due to DKA, starvation and hypovolemia: Mild hyponatremia, hypovolemic secondary to DKA. 02/07: Sodium 140. Mild hypokalemia. Magnesium and phosphorus normal. IV potassium rider ordered. 3. Acute kidney injury, most likely contrast induced injury, postobstructive, neurogenic bladder on CKD stage III. Patient creatinine was normal, 0.99, 0.87 at the time of admission. IV contrast was given on second day 02/03 and creatinine went up to 2.0 on 02/04 and then 3.29 today. BUN/creatinine went up from 2.02-2.89, 3.29. Patient initially got a lot of IV fluid normal saline and then D5 half NS as per protocol of DKA. 02/07 nephrology was consulted. Urine sodium 44, potassium 16, urine protein creatinine ratio of 136. UA shows no pyuria or dysuria. Patient creatinine jumped up from 0.97-3.29. Patient was put Mendes catheter and Lasix for presumed interstitial edema on chest x-ray. Creatinine came to normal 0.95. 3. Weight loss, failure to thrive and pharyngoesophageal dysphagia: Patient has significant wasting of 60 pounds in the last 6 months with dysphagia with choking at the level of throat and chest. Patient was evaluated by emily ochoa in the ICU and recommended n.p.o. With concern of malignancy, oncologist Dr. Patterson was called and clinical history labs and imagings were discussed. CT chest with IV contrast and CT abdomen and pelvis with oral and IV contrast and nonspecific mass concerning for malignancy was found. Patient further had MRI brain as he was dragging his right side as per physical therapist but reported a cerebral and cerebellar atrophy with mild periventricular white matter ischemic changes. No evidence of acute ischemia. Surgeon Dr. banerjee was also consulted for oropharyngeal dysphagia. Patient could not tolerate enough barium contrast to evaluate for esophagus or stomach. Patient does not have a specific point bony point tenderness, normal, anemia, hypercalcemia, increased gammaglobulin or increased total protein therefore clinically significant monoclonal paraproteinemia unlikely giving rise to weight loss. 02/07: Patient was seen by Dr. Steel. It was discussed plan for EGD and PEG tube on Sunday. Hold Lovenox for tomorrow a.m. Tube feed was hold but resumed at 30 mils per hour. KUB x-ray ordered to look for bowel function/ileus. 4. Acute hypoxic respiratory insufficiency with COPD with concern for possible aspiration pneumonia: Patient was put on high flow oxygen as he was unresponsive and ventilatory failure. Changed back to nasal cannula. Seen by venetian blind worker. Chest x-ray reported right lower lung infiltrate. On IV Zosyn. Scheduled bronchodilator, aggressive pulmonary hygiene as per tolerated with incentive spirometry and pep. Other chronic comorbidities include hypertension, dyslipidemia: Home medication reconciliation done Living will/advanced directive/end of life care: Patient does not have living will or advanced directive. Her daughter Ms. Cee Hernandes is the power of regulatory attorney for [facility]. After discussion of procedures involved with full code, DNR CC arrest and DNR CC, she agreed for DNR-CC Arrest with no intubation okay for tube feeding and PEG tube. Patient does not want artificial life support including intubation, ventilator and/chest compression, central venous catheter, vasopressor and DC shock if needed Total time of the visit including total time spent in counseling or coordination of care, (more than 50% of the total time, spent in obtaining medical information from nurses and other ancillary care providers), discussion with surgeon, and job analyst, venetian blind worker, review of labs and imaging is 30 minutes. Signout: Active for tomorrow a.m. Discussed with patient's daughter, Cee regarding further care. Discharge plan overall to transfer to TCU after PEG tube probably on Sunday Clinical Impression(s) from Imaging Studies Brain CT 02/03/20 10:42 IMPRESSION: Chronic involutional changes of the brain. Electronically Signed: Freddie Montaño, at 12:31 EDT , Service support , Chest X-Ray 02/03/20 12:14 IMPRESSION: Findings suggestive of calcified pleural plaque overlying the right mid thorax. Electronically Signed: Freddie Danyel, at 12:30 EDT , Service support , Abdomen/Pelvis CT 02/04/20 09:25 IMPRESSION: Calcified granuloma in the right lower lobe. Mild scarring at the bases. Small amount of perihepatic fluid with lobular contour of the liver suggestive of cirrhotic change. Multiple small gallstones. Left renal cysts. Nonobstructive contrast in the lower pole calyx of the left kidney. Mild degree of bilateral hydronephrosis and perinephric stranding. 2.1 cm low density nodule in the right adrenal gland suggestive of adenoma. Electronically Signed: Freddie Montaño, at 12:07 EDT , Service support , Chest CT 02/04/20 09:25 IMPRESSION: Chronic changes. No acute abnormality is seen. Electronically Signed: Freddie Danyel, at 12:15 EDT , Service support , Brain MRI 02/04/20 14:29 IMPRESSION: Cerebral and cerebellar atrophy with mild periventricular white matter ischemic changes. No evidence for acute infarct Chest X-Ray 02/07/20 08:50 IMPRESSION: Feeding tube extends to the stomach. Right lower lung infiltrate. Inpatient E&M: [id number] [facility] Hosp L3
--- NOTE | 2020-02-08 08:14 | RAD_ITS ---
STUDY: X-RAY - ABDOMEN/PELVIS REASON FOR EXAM: Male, 79 years old. ileus TECHNIQUE: AP supine and decubitus views of the abdomen and pelvis. COMPARISON: 02/06/2020 FINDINGS: Normal visualized lung bases. Enteric tube extends to stomach. There is a paralytic ileus of the small intestine and colon with mild gaseous distention. Previously ingested contrast persists in the right colon without significant advancement. There is no demonstrated free abdominal air. The visualized liver, spleen and kidneys are grossly normal in size and morphology. Normal soft tissue structures. There are diffuse degenerative changes of the visualized lumbar spine. RAD/Abd Decub and/or Erect(Portabl IMPRESSION: 1. No pneumoperitoneum. Diffuse ileus. 2. Enteric tube extends to the upper stomach. Electronically Signed: Quentin Tejeda MD ([place]) at 12:10 EDT , Service support ,
--- NOTE | 2020-02-08 08:51 | PCM.PN.SRG ---
Patient Problems: Active and Suspected Problems Dysphagia (Acute) Weakness (Acute) Dysphagia (Acute) Metabolic acidosis (Acute) Diabetes mellitus (Acute) DKA (diabetic ketoacidoses) (Acute) Weight loss (Acute) Subjective: Spoke with patient this morning about doing an upper scope and putting in a PEG tube he nodded verbally yes that he was amendable to this. Objective: Abdomen is soft and nontender - Physical Exam Vitals/I&O's: Vital Signs Temp Pulse Resp BP Pulse Ox 96.8 F L 93 20 H 138/72 H 98 02/08/20 07:00 02/08/20 07:30 02/08/20 07:00 02/08/20 07:00 02/08/20 07:00 Oxygen Flow Rate (L/min) 1 Oxygen Delivery Method Nasal Cannula Weight: 160 lb 11.472 oz Body Mass Index (BMI) 25.9 Finger Stick Blood Glucose 82 Intake and Output for Last 24 Hours 02/06/20 02/07/20 02/08/20 23:59 23:59 23:59 Intake Total 861 / 921 2800 / 2800 583 / 583 Output Total 1200 / 1200 700 / 700 Balance 861 / 921 1600 / 1600 -117 / -117 Microbiology Past 72 Hours 02/07/20 13:30 Urine Catheter - Catheter Streptococcus pneumoniae Antigen (M - Final 02/07/20 13:30 Urine Catheter - Catheter Legionella Antigen - Final Laboratory Results 02/07/20 06:05: B-Natriuretic Peptide 40.6 02/07/20 06:05: Sodium 136, Potassium 3.7, Chloride 106, Carbon Dioxide 18.0 L, Anion Gap 12, BUN 39 H, Creatinine 3.29 H, Estim Creat Clear Calc 17.02, Est GFR (MDRD) Af Amer 23 L, Est GFR (MDRD) Non-Af 19 L, BUN/Creatinine Ratio 11.9, Glucose 107 H, Calcium 9.5 02/07/20 10:25: POC Glucose 132 H 02/07/20 13:30: Ur Random Sodium 44, Urine Potassium 16.0, Urine Chloride 57 02/07/20 13:30: Urine Osmolality 324 02/07/20 13:30: U Random Total Protein 14.6 H, Urine Creatinine 33.50, Protein/Creatinin Ratio 436 H 02/07/20 13:30: Urine Color Yellow, Urine Clarity Clear, Urine pH 6.0, Ur Specific [place] 1.010, Urine Protein 15 H, Urine Glucose (UA) 1000 H, Urine Ketones 5 H, Urine Occult Blood 150 H, Urine Nitrite Negative, Urine Bilirubin Negative, Urine Urobilinogen Normal, Ur Leukocyte Esterase Negative, Urine RBC 0-5 SEEN, Urine WBC 0 SEEN, Ur Squamous Epith Cells 0 SEEN, Urine Bacteria 0 SEEN, Urine Mucus 0 SEEN 02/07/20 15:43: Specimen Type ART, Sample Site L Brach, pH 7.35, Bicarbonate Actual 24.0, Total CO2 25, Base Excess -2, O2 Saturation 97, ABG pCO2 43.9, ABG pO2 100, Keith Test Positive, O2 Delivery Device Cannula, Liter Flow 1.0 02/07/20 16:45: MRSA (PCR) Negative 02/07/20 18:44: POC Glucose 215 H 02/07/20 20:24: Ammonia 23.0 02/08/20 00:09: POC Glucose 135 H 02/08/20 05:29: POC Glucose 139 H 02/08/20 05:40: Sodium 140, Potassium 3.2 L, Chloride 108 H, Carbon Dioxide 28.0, Anion Gap 4 L, BUN 25 H, Creatinine 0.95, Estim Creat Clear Calc 58.95, Est GFR (MDRD) Af Amer 98, Est GFR (MDRD) Non-Af 81, BUN/Creatinine Ratio 26.3 H, Glucose 134 H, Calcium 9.4, Phosphorus 3.0, Magnesium 1.8, Total Bilirubin 1.10 H, AST 20, ALT 28, Alkaline Phosphatase 99, Total Protein 6.3 L, Albumin 2.5 L, Globulin 3.8, Albumin/Globulin Ratio 0.7 L 02/08/20 05:40: WBC 12.9 H, RBC 5.34, Hgb 15.2, Hct 45.4, MCV 85.0, MCH 28.5, MCHC 33.5, RDW Std Deviation 45.3 H, RDW Coeff of [place] 14.9 H, Plt Count 144 L, MPV 10.1, Immature Gran % (Auto) 1.000 H, Neut % (Auto) 80.8 H, Lymph % (Auto) 8.3 L, [place] % (Auto) 9.6, Eos % (Auto) 0.2, Baso % (Auto) 0.1, Absolute Neuts (auto) 10.4 H, Absolute Lymphs (auto) 1.07, Nucleated RBC % 0 Current Medications Acetaminophen (Tylenol) 650 mg PO Q6H PRN PRN PRN Reason: Pain Score 1-10/10 Last Admin: 02/06/20 20:37 Dose: 650 mg Documented by: Acetaminophen (Tylenol Liquid) 650 mg NG Q6H PRN PRN PRN Reason: Pain Score 1-10/10 Albuterol Sulfate (Ventolin Aerosols) 2.5 mg INHALATION Q2H PRN PRN PRN Reason: SOB/Wheezing Albuterol/Ipratropium (Duoneb) 3 ml INHALATION Q4H.RT [facility] Last Admin: 02/08/20 06:56 Dose: 3 ml Documented by: Budesonide (Pulmicort Aerosol) 0.5 mg INHALATION Q12H.RT [facility] Last Admin: 02/08/20 06:56 Dose: 0.5 mg Documented by: Calamine/Phenol (Calmoseptine Ointment) 1 applic TOPICAL BID ROM; Protocol Last Admin: 02/07/20 21:38 Dose: 1 applic Documented by: Dextrose (D50w Syringe) 0 gm IV X1 PRN; Protocol PRN Reason: Hypoglycemia Protocol Enoxaparin Sodium (Lovenox) 40 mg SC DAILY [facility] Stop: 02/08/20 10:01 Enoxaparin Sodium (Lovenox) 40 mg SC DAILY [facility] Piperacillin Sod/Tazobactam (Sod 3.375 gm/ Sodium Chloride) 50 mls @ 12.5 mls/hr IV Q12 [facility] Last Infusion: 02/07/20 23:55 Dose: Infused Documented by: Dextrose/Sodium Chloride () 1,000 mls @ 60 mls/hr IV .[id number] [facility] Last Infusion: 02/08/20 08:30 Dose: 0 mls/hr Documented by: Potassium Chloride () 10 meq in 100 mls @ 100 mls/hr IV BOLUS Q1H [facility] Stop: 02/08/20 12:59 Enteral Nutritional Formula (Jevity 1.5) 1,000 mls @ 30 mls/hr GT .[id number] [facility] Insulin Glargine (Lantus ([facility])) 25 units SC QHS [facility] Insulin Human Lispro (Humalog Kwikpen ([facility])) 0 unit SC Q6 [facility]; Protocol Last Admin: 02/08/20 05:30 Dose: Not Given Documented by: Lansoprazole (Lansoprazole) 30 mg NG DAILY [facility] Last Admin: 02/07/20 09:35 Dose: 30 mg Documented by: Montelukast Sodium (Singulair) 10 mg NG QHS [facility] Ondansetron HCl (Zofran) 4 mg IV Q8H PRN PRN PRN Reason: NAUSEA/VOMITING Senna/Docusate Sodium (Senokot-S, Renae-Colace) 2 tablet NG BID [facility] Sodium Chloride () 10 - 40 ml IV UD PRN PRN Reason: SALINE FLUSH Last Admin: 02/08/20 00:08 Dose: 10 ml Documented by: Medical Necessity - Tobacco Use Smoking Status: Former smoker Tobacco Use: Cigarettes Assessment/Plan All Active Problems Dysphagia (Acute) Weakness (Acute) Dysphagia (Acute) Metabolic acidosis (Acute) Diabetes mellitus (Acute) DKA (diabetic ketoacidoses) (Acute) Weight loss (Acute) Plan will be to place a PEG tube sometime tomorrow. Inpatient E&M: [id number] Subs Hosp L2
[2020-02-08] MEDS: Bisacodyl 10 MG Suppository RECTAL (09:17)
[2020-02-08] MEDS: Potassium Chloride 10mEq/100mL 10 MEQ/100 ML IV.SOLN. 100 MEQ IV BOLUS ×4 (09:18→13:21)
[2020-02-08] MEDS: Menthol/Lanolin/Calamine/Znox 113 GM Tube 1 APPLIC TOPICAL ×2 (09:34→20:58)
[2020-02-08] MEDS: Lansoprazole 15 MG Capsule.DR 30 MG NG (09:35)
[2020-02-08] MEDS: Senna/Docusate Sodium 1 Tablet 2 TABLET NG ×2 (09:35→20:58)
[2020-02-08] MEDS: Lactulose 20 GM/30 ML UDC NG (09:43)
[2020-02-08] MEDS: Enoxaparin 40 MG/0.4 ML Syringe SC (09:44)
[2020-02-08] MEDS: Jevity 1.5 1,000 ML 20 ML GT (10:00)
[2020-02-08 12:16] LABS: Bedside Glucose 136 mg/dL (70-110)
[2020-02-08 13:55] LABS: Probe Check PASS; Specimen Processing Control PASS
[2020-02-08] MEDS: Insulin Lispro 100 UNIT/ML INSULN.PEN SC (16:48)
[2020-02-08 18:31] LABS: Bedside Glucose 202 mg/dL (70-110)
[2020-02-08] MEDS: Montelukast 10 MG Tablet NG (20:58)
[2020-02-09] VITALS (19 sets, daily range): BP systolic 108–138; BP diastolic 54–67; PULSE 84–105; RESP 16–26; TEMP 35.6–36.8; O2SAT 93–100
--- NOTE | 2020-02-09 00:32 | NURSING ---
Tube feed turned off 02/08 at 0000 for EGD and PEG tube insertion scheduled for this AM. DOREEN Marsh.
[2020-02-09 00:56] LABS: Bedside Glucose 186 mg/dL (70-110)
--- NOTE | 2020-02-09 05:00 | EKG12_ITS ---
Test Reason : AM EKG Blood Pressure : / mmHG Vent. Rate : 088 BPM Atrial Rate : 088 BPM P-R Int : 154 ms QRS Dur : 104 ms QT Int : 380 ms P-R-T Axes : 066 -31 090 degrees QTc Int : 459 ms Normal sinus rhythm Left axis deviation Abnormal ECG When compared with ECG of 03-FEB-2020 10:56, QT has shortened Confirmed by TOM HARDING, SHAGUFTA ([id number]), restaurant expeditor MO CRUZ ([id number]) on 02/10/2020 12:39:56 PM Referred By: DR MARQUES Confirmed By:SHAGUFTA SANTOS MD
[2020-02-09 05:42] LABS: Mean Corp Hgb Conc 31.8 g/dL (32-36); Mean Corpuscular Hgb 28.1 pg (27.0-32.0); Mean Corpuscular Volume 88.2 fL (80-94); Platelet Count 124 K/mm3 (150-450); RBC Distribution Width CV 15.2 % (11.6-14.6); RBC Distribution Width SD 48.7 fl (35.1-43.9); Red Blood Count 4.99 M/mm3 (4.6-6.2); White Blood Count 9.3 K/mm3 (4.4-11.0)
[2020-02-09 05:56] LABS: Bedside Glucose 141 mg/dL (70-110)
[2020-02-09 05:57] LABS: Anion Gap 4 (5-15); BUN 17 mg/dL (7-18); BUN/Creat Ratio 35.2 RATIO (10-20); Calcium,Total 8.8 mg/dL (8.5-10.1); Chloride 105 mmol/L (98-107); Creatinine, Serum 0.48 mg/dL (0.70-1.30); EST Glomerular Filtration Rate 177 mL/min (>60); Est Glom Filt Rate - Afr Amer 215 mL/min (>60); Glucose 162 mg/dL (74-106); Magnesium 1.7 mg/dL (1.6-2.6); Phosphorus 2.5 mg/dL (2.5-4.9); Potassium 3.4 mmol/L (3.5-5.1); Sodium Level 137 mmol/L (136-145)
[2020-02-09] MEDS: Ipratropium/Albuterol Sulfate 3 ML AMPUL.NEB INHALATION ×3 (06:42→19:30)
[2020-02-09] MEDS: Budesonide Respules 0.5 MG/2 ML AMPUL.NEB. INHALATION ×2 (06:42→19:30)
[2020-02-09] MEDS: Potassium Chloride 10mEq/100mL 10 MEQ/100 ML IV.SOLN. 100 MEQ IV BOLUS ×4 (06:45→13:19)
[2020-02-09] MEDS: 0.9% Saline Lock 10 ML Syringe IV ×3 (06:45→21:55)
[2020-02-09] MEDS: Dext 5%-0.45% NS 1,000 ML 60 ML IV ×2 (08:30→21:52)
--- NOTE | 2020-02-09 09:14 | PCM.PN.PUL ---
Patient Problems: Active and Suspected Problems Dysphagia (Acute) Weakness (Acute) Dysphagia (Acute) Metabolic acidosis (Acute) Diabetes mellitus (Acute) DKA (diabetic ketoacidoses) (Acute) Weight loss (Acute) Subjective: Patient did okay overnight. No acute issues were reported. Patient reports he is subjectively unchanged compared to previous. Patient denies any current chest pain. NG remains in place. Patient reportedly is to go to the TCU later today. Did discuss with family member at the bedside - Physical Exam Vitals/I&O's: Vital Signs Temp Pulse Resp BP Pulse Ox 36.2 C L 88 26 H 108/54 L 98 02/09/20 05:47 02/09/20 06:42 02/09/20 06:42 02/09/20 05:47 02/09/20 06:42 Oxygen Flow Rate (L/min) 2 Oxygen Delivery Method Nasal Cannula Weight: 77.2 kg Body Mass Index (BMI) 25.2 Finger Stick Blood Glucose 82 Intake and Output for Last 24 Hours 02/07/20 02/08/20 02/09/20 23:59 23:59 23:59 Intake Total 2800 / 2800 2343 / 2343 1101 / 1101 Output Total 1200 / 1200 1700 / 1700 325 / 325 Balance 1600 / 1600 643 / 643 776 / 776 General: Alert, Oriented x3, Cooperative, No apparent distress, - - Cachectic. Appears older than stated age. HEENT: Atraumatic, PERRLA, EOMI, Normocephalic, - - Some temporal wasting noted Oral: Moist Mucosa, Dry Mucosa - . NG in place. Neck: Supple, No JVD, Trachea Midline Lungs: No rhonchi, No wheeze, No rales, Diminished, - - Marginal effort noted. Cardiovascular: Regular rate, Regular Rhythm, Normal S1, Normal S2, No murmurs, No rub noted, No Gallop Abdomen: Bowel Sounds Present, Soft, Non Tender Extremities: No clubbing, No cyanosis, No edema Skin: No breakdown Musculoskeletal: No Tenderness to Palpation of Joints or Extremities Lymphatic: No Cervical, Supraclavicular, or Inguinal Adenopathy Neurological: Cranial nerves II-XII grossly intact, Neuro grossly intact Psych/Mental Status: Flat Affect Microbiology Past 72 Hours 02/07/20 13:30 Urine Catheter - Catheter Streptococcus pneumoniae Antigen (M - Final 02/07/20 13:30 Urine Catheter - Catheter Legionella Antigen - Final Laboratory Results 02/08/20 11:15: COVID-19 ([facility]WINDER) Negative 02/08/20 12:00: POC Glucose 136 H 02/08/20 16:46: POC Glucose 202 H 02/09/20 00:07: POC Glucose 186 H 02/09/20 05:06: WBC 9.3, RBC 4.99, Hgb 14.0, Hct 44.0, MCV 88.2, MCH 28.1, MCHC 31.8 L D, RDW Std Deviation 48.7 H, RDW Coeff of Yamile 15.2 H, Plt Count 124 L, MPV 10.0 02/09/20 05:06: Sodium 137, Potassium 3.4 L, Chloride 105, Carbon Dioxide 28.0, Anion Gap 4 L, BUN 17, Creatinine 0.48 L, Estim Creat Clear Calc 56.00, Est GFR (MDRD) Af Amer 215, Est GFR (MDRD) Non-Af 177, BUN/Creatinine Ratio 35.2 H, Glucose 162 H, Calcium 8.8, Phosphorus 2.5, Magnesium 1.7 02/09/20 05:45: POC Glucose 141 H Current Medications Acetaminophen (Tylenol) 650 mg PO Q6H PRN PRN PRN Reason: Pain Score 1-10/10 Last Admin: 02/06/20 20:37 Dose: 650 mg Documented by: Acetaminophen (Tylenol Liquid) 650 mg NG Q6H PRN PRN PRN Reason: Pain Score 1-10/10 Albuterol Sulfate (Ventolin Aerosols) 2.5 mg INHALATION Q2H PRN PRN PRN Reason: SOB/Wheezing Albuterol/Ipratropium (Duoneb) 3 ml INHALATION Q4H.RT ROM Last Admin: 02/09/20 06:42 Dose: 3 ml Documented by: Budesonide (Pulmicort Aerosol) 0.5 mg INHALATION Q12H.RT ROM Last Admin: 02/09/20 06:42 Dose: 0.5 mg Documented by: Calamine/Phenol (Calmoseptine Ointment) 1 applic TOPICAL BID ROM; Protocol Last Admin: 02/08/20 20:58 Dose: 1 applic Documented by: Dextrose (D50w Syringe) 0 gm IV X1 PRN; Protocol PRN Reason: Hypoglycemia Protocol Enoxaparin Sodium (Lovenox) 40 mg SC DAILY [facility] Piperacillin Sod/Tazobactam (Sod 3.375 gm/ Sodium Chloride) 50 mls @ 12.5 mls/hr IV Q12 [facility] Last Infusion: 02/09/20 01:00 Dose: Infused Documented by: Dextrose/Sodium Chloride () 1,000 mls @ 60 mls/hr IV .[id number] [facility] Last Admin: 02/09/20 08:30 Dose: 60 mls/hr Documented by: Enteral Nutritional Formula (Jevity 1.5) 1,000 mls @ 30 mls/hr GT .[id number] [facility] Last Admin: 02/08/20 10:00 Dose: 20 mls/hr Documented by: Potassium Chloride () 10 meq in 100 mls @ 100 mls/hr IV BOLUS Q1H [facility] Stop: 02/09/20 10:14 Last Admin: 02/09/20 08:27 Dose: 100 mls/hr Documented by: Insulin Glargine (Lantus (Bk)) 25 units SC DINNER [facility] Last Admin: 02/08/20 16:47 Dose: 25 units Documented by: Insulin Human Lispro (Humalog Kwikpen ([facility])) 0 unit SC Q6 [facility]; Protocol Last Admin: 02/09/20 05:50 Dose: Not Given Documented by: Lansoprazole (Lansoprazole) 30 mg NG DAILY [facility] Last Admin: 02/08/20 09:35 Dose: 30 mg Documented by: Montelukast Sodium (Singulair) 10 mg NG QHS [facility] Last Admin: 02/08/20 20:58 Dose: 10 mg Documented by: Ondansetron HCl (Zofran) 4 mg IV Q8H PRN PRN PRN Reason: NAUSEA/VOMITING Senna/Docusate Sodium (Senokot-S, Renae-Colace) 2 tablet NG BID [facility] Last Admin: 02/08/20 20:58 Dose: 2 tablet Documented by: Sodium Chloride () 10 - 40 ml IV UD PRN PRN Reason: SALINE FLUSH Last Admin: 02/09/20 06:52 Dose: 20 ml Documented by: Clinical Impression(s) from Imaging Studies Abdomen X-Ray 02/08/20 08:14 IMPRESSION: 1. No pneumoperitoneum. Diffuse ileus. 2. Enteric tube extends to the upper stomach. Electronically Signed: Quentin Tejeda MD (Brooks) at 12:10 EDT , Service support , Medical Necessity - Tobacco Use Smoking Status: Former smoker Tobacco Use: Cigarettes Assessment/Plan All Active Problems Dysphagia (Acute) Weakness (Acute) Dysphagia (Acute) Metabolic acidosis (Acute) Diabetes mellitus (Acute) DKA (diabetic ketoacidoses) (Acute) Weight loss (Acute) RECOMMENDATIONS: 1. Continue nasal cannula as necessary. 2. Wean supplemental oxygen to maintain saturations at or above 90%. 3. Continue antimicrobials as ordered. 4. Continue scheduled bronchodilator therapy. 5. Consider gentle diuresis as the patient is overall net positive for the hospital admission. 6. Encourage incentive spirometer use and mobilize patient as tolerated. 7. Follow-up in our office with nurse practitioner 2 weeks after discharge from the TCU IMPRESSIONS: 1. Acute hypoxemic respiratory insufficiency The patient does have a reported history of COPD of unknown severity. He is a poor historian and unable to provide any additional details. Nevertheless, he does appear to be prescribed a triple therapy inhaler regimen on an outpatient basis. The patient is currently on antimicrobials over concerns for possible aspiration, especially in light of his dysphasia. He does currently have a nasogastric feeding tube in place. The patient did have an arterial blood gas obtained yesterday on 1 L/min via nasal cannula which revealed a normal pH with a PO2 of 100 and oxygen saturation of 97%. Accordingly, I do not feel that the patient requires Airvo and can be transition back to conventional nasal cannula with goals to wean oxygen to maintain saturations at or above 90%. I would plan to continue aspiration precautions until cleared by speech therapy. Continue scheduled bronchodilators as ordered. The patient may benefit from diuresis, as he is currently documented to be overall net positive 9+ liters for the hospital admission. 2. Weight loss/failure to thrive/pharyngeal esophageal dysphasia/advanced age and deconditioning/diabetes mellitus/hyperlipidemia Complicates care, management, recovery and prognosis. Defer management and work-up of the patient's failure to thrive and weight loss to hospitalist. CODE STATUS has already been addressed and documented to be DNR CCA without intubation. Inpatient E&M: 62180 Subs Hosp L2
--- NOTE | 2020-02-09 11:33 | OP.EGD_ITS ---
Patient Name: Bg Daniels Procedure Date: 02/09/2020 11:05 AM Date of : 1940 Age: 79 Procedure: Upper GI endoscopy Indications: Oropharyngeal phase dysphagia Providers: Bg Steel MD Medicines: See the Anesthesia note for documentation of the administered medications Patient Profile: This is a 79 year old male. Refer to note in patient chart for documentation of history and physical. Complications: No immediate complications. Procedure: Pre-Anesthesia Assessment: - Prior to the procedure, a History and Physical was performed, and patient medications and allergies were reviewed. The patient's tolerance of previous anesthesia was also reviewed. The risks and benefits of the procedure and the sedation options and risks were discussed with the patient. All questions were answered, and informed consent was obtained. Prior Anticoagulants: The patient has taken Lovenox (enoxaparin), last dose was 1 day prior to procedure. ASA Grade Assessment: III - A patient with severe systemic disease. After reviewing the risks and benefits, the patient was deemed in satisfactory condition to undergo the procedure. After obtaining informed consent, the endoscope was passed under direct vision. Throughout the procedure, the patient's blood pressure, pulse, and oxygen saturations were monitored continuously. The Endoscope was introduced through the mouth, and advanced to the second part of duodenum. The upper GI endoscopy was accomplished without difficulty. The patient tolerated the procedure well. Scope In: 11:15:55 AM Scope Out: 11:23:49 AM Total Procedure Duration Time 0 hours 7 minutes 54 seconds Findings: The examined esophagus was normal. Patchy mildly erythematous mucosa without bleeding was found in the prepyloric region of the stomach. The examined duodenum was normal. No biopsies or other specimens were collected for this exam. There is no endoscopic evidence of any significant findings in the entire examined stomach. Placement of an externally removable PEG with no T-fasteners was successfully completed. The external bumper was at the 3.5 cm marking on the tube. Impression: - Normal esophagus. - Erythematous mucosa in the prepyloric region of the stomach. - Normal examined duodenum. No specimens collected. - An externally removable PEG placement was successfully completed. Recommendation: - Return patient to hospital [facility] for ongoing care. - NPO. - Continue present medications. - Await pathology results. - Repeat upper endoscopy (date not yet determined) for surveillance. - Return to primary care physician (date not yet determined). Procedure Code(s): --- Professional --- 04570, Esophagogastroduodenoscopy, flexible, transoral; with directed placement of percutaneous gastrostomy tube Diagnosis Code(s): --- Professional --- K31.89, Other diseases of stomach and duodenum R13.12, Dysphagia, oropharyngeal phase CPT copyright 2017 [employer]. All rights reserved. The codes documented in this report are preliminary and upon payroll administrative assistant review may be revised to meet current compliance requirements. MD Bg Parham MD 02/09/2020 11:33:15 AM This report has been signed electronically. Number of Addenda: 0 Note Initiated On: 02/09/2020 11:05 AM
--- NOTE | 2020-02-09 11:34 | OP.CCLET_ITS ---
02/09/2020 [facility] Re : Upper GI endoscopy procedure for [facility] This procedure was performed on Sunday, February 09, 2020. My impressions and recommendations are as follows: Impressions : - Normal esophagus. - Erythematous mucosa in the prepyloric region of the stomach. - Normal examined duodenum. No specimens collected. - An externally removable PEG placement was successfully completed. Recommendations : - Return patient to hospital [facility] for ongoing care. - NPO. - Continue present medications. - Await pathology results. - Repeat upper endoscopy (date not yet determined) for surveillance. - Return to primary care physician (date not yet determined). My findings are described in the full procedure note, which is enclosed. If I can be of further assistance, please feel free to contact me at Doctor phone number(s): , Fax: [phone], Work: . Sincerely, MD Bg Parham MD 02/09/2020 11:33:15 AM This report has been signed electronically.
--- NOTE | 2020-02-09 11:34 | PCM.PN.SRG ---
Patient Problems: Active and Suspected Problems Dysphagia (Acute) Weakness (Acute) Dysphagia (Acute) Metabolic acidosis (Acute) Diabetes mellitus (Acute) DKA (diabetic ketoacidoses) (Acute) Weight loss (Acute) Subjective: Patient underwent a successful PEG tube placement today. Objective: The oropharynx look relatively normal but there was significant amount of blood in the back secondary to his NG tube placement. This precluded a really good exam of the oropharynx but the scope easily traversed into the esophagus without any difficulty. And I saw no obvious gross lesions. - Physical Exam Vitals/I&O's: Vital Signs Temp Pulse Resp BP Pulse Ox 97.6 F L 84 20 H 119/61 95 02/09/20 09:35 02/09/20 09:35 02/09/20 09:35 02/09/20 09:35 02/09/20 09:35 Oxygen Flow Rate (L/min) 2 Oxygen Delivery Method Nasal Cannula Weight: 170 lb 3.15 oz Body Mass Index (BMI) 25.2 Finger Stick Blood Glucose 82 Intake and Output for Last 24 Hours 02/07/20 02/08/20 02/09/20 23:59 23:59 23:59 Intake Total 2800 / 2800 2343 / 2343 1232.67 / 1232.67 Output Total 1200 / 1200 1700 / 1700 325 / 325 Balance 1600 / 1600 643 / 643 907.67 / 907.67 Microbiology Past 72 Hours 02/07/20 13:30 Urine Catheter - Catheter Streptococcus pneumoniae Antigen (M - Final 02/07/20 13:30 Urine Catheter - Catheter Legionella Antigen - Final Laboratory Results 02/08/20 11:15: COVID-19 ([facility]) Negative 02/08/20 12:00: POC Glucose 136 H 02/08/20 16:46: POC Glucose 202 H 02/09/20 00:07: POC Glucose 186 H 02/09/20 05:06: WBC 9.3, RBC 4.99, Hgb 14.0, Hct 44.0, MCV 88.2, MCH 28.1, MCHC 31.8 L D, RDW Std Deviation 48.7 H, RDW Coeff of Yamile 15.2 H, Plt Count 124 L, MPV 10.0 02/09/20 05:06: Sodium 137, Potassium 3.4 L, Chloride 105, Carbon Dioxide 28.0, Anion Gap 4 L, BUN 17, Creatinine 0.48 L, Estim Creat Clear Calc 56.00, Est GFR (MDRD) Af Amer 215, Est GFR (MDRD) Non-Af 177, BUN/Creatinine Ratio 35.2 H, Glucose 162 H, Calcium 8.8, Phosphorus 2.5, Magnesium 1.7 02/09/20 05:45: POC Glucose 141 H Current Medications Acetaminophen (Tylenol) 650 mg PO Q6H PRN PRN PRN Reason: Pain Score 1-1010 Last Admin: 02/06/20 20:37 Dose: 650 mg Documented by: Acetaminophen (Tylenol Liquid) 650 mg NG Q6H PRN PRN PRN Reason: Pain Score 1-10/10 Albuterol Sulfate (Ventolin Aerosols) 2.5 mg INHALATION Q2H PRN PRN PRN Reason: SOB/Wheezing Albuterol/Ipratropium (Duoneb) 3 ml INHALATION Q4H.RT ROM Last Admin: 02/09/20 10:55 Dose: Not Given Documented by: Budesonide (Pulmicort Aerosol) 0.5 mg INHALATION Q12H.RT [facility] Last Admin: 02/09/20 06:42 Dose: 0.5 mg Documented by: Calamine/Phenol (Calmoseptine Ointment) 1 applic TOPICAL BID ROM; Protocol Last Admin: 02/08/20 20:58 Dose: 1 applic Documented by: Dextrose (D50w Syringe) 0 gm IV X1 PRN; Protocol PRN Reason: Hypoglycemia Protocol Enoxaparin Sodium (Lovenox) 40 mg SC DAILY [facility] Piperacillin Sod/Tazobactam (Sod 3.375 gm/ Sodium Chloride) 50 mls @ 12.5 mls/hr IV Q12 [facility] Last Admin: 02/09/20 09:47 Dose: 12.5 mls/hr Documented by: Dextrose/Sodium Chloride () 1,000 mls @ 60 mls/hr IV .[id number] [facility] Last Admin: 02/09/20 08:30 Dose: 60 mls/hr Documented by: Enteral Nutritional Formula (Jevity 1.5) 1,000 mls @ 30 mls/hr GT .[id number] [facility] Last Admin: 02/08/20 10:00 Dose: 20 mls/hr Documented by: Insulin Glargine (Lantus (Bkc)) 25 units SC DINNER [facility] Last Admin: 02/08/20 16:47 Dose: 25 units Documented by: Insulin Human Lispro (Humalog Kwikpen ([facility])) 0 unit SC Q6 [facility]; Protocol Last Admin: 02/09/20 05:50 Dose: Not Given Documented by: Lansoprazole (Lansoprazole) 30 mg NG DAILY [facility] Last Admin: 02/09/20 11:18 Dose: Not Given Documented by: Montelukast Sodium (Singulair) 10 mg NG QHS [facility] Last Admin: 02/08/20 20:58 Dose: 10 mg Documented by: Ondansetron HCl (Zofran) 4 mg IV Q8H PRN PRN PRN Reason: NAUSEA/VOMITING Senna/Docusate Sodium (Senokot-S, Renae-Colace) 2 tablet NG BID [facility] Last Admin: 02/09/20 11:19 Dose: Not Given Documented by: Sodium Chloride () 10 - 40 ml IV UD PRN PRN Reason: SALINE FLUSH Last Admin: 02/09/20 06:52 Dose: 20 ml Documented by: Medical Necessity - Tobacco Use Smoking Status: Former smoker Tobacco Use: Cigarettes Assessment/Plan All Active Problems Dysphagia (Acute) Weakness (Acute) Dysphagia (Acute) Metabolic acidosis (Acute) Diabetes mellitus (Acute) DKA (diabetic ketoacidoses) (Acute) Weight loss (Acute) PEG tube should be ready to be used later today with meds and starting some tube feeds.
[2020-02-09] MEDS: Menthol/Lanolin/Calamine/Znox 113 GM Tube 1 APPLIC TOPICAL ×2 (12:21→22:05)
[2020-02-09 12:31] LABS: Bedside Glucose 154 mg/dL (70-110)
--- NOTE | 2020-02-09 13:24 | CASEMGMT ---
KP faxed clinicals to [facility] requesting permission to proceed with obtaining pre-cert for SNF. Await return call. Gladis SELF MSW
--- NOTE | 2020-02-09 13:38 | PCM.PN.HOSP ---
Patient Problems: Active and Suspected Problems Dysphagia (Acute) Weakness (Acute) Dysphagia (Acute) Metabolic acidosis (Acute) Diabetes mellitus (Acute) DKA (diabetic ketoacidoses) (Acute) Weight loss (Acute) Reason for Visit: DKA Subjective: Working with therapy. Admits to waxing and waning strength and weakness. Vitals/I&O's: Vital Signs Temp Pulse Resp BP Pulse Ox 36.4 C L 91 20 H 134/62 H 94 02/09/20 12:15 02/09/20 12:15 02/09/20 12:15 02/09/20 12:15 02/09/20 12:27 Oxygen Flow Rate (L/min) 2 Oxygen Delivery Method Room Air Weight: 77.2 kg Body Mass Index (BMI) 25.2 Finger Stick Blood Glucose 82 Intake and Output for Last 24 Hours 02/07/20 02/08/20 02/09/20 23:59 23:59 23:59 Intake Total 2800 / 2800 2343 / 2343 1292.67 / 1292.67 Output Total 1200 / 1200 1700 / 1700 1000 / 1000 Balance 1600 / 1600 643 / 643 292.67 / 292.67 General: Alert, No apparent distress HEENT: Atraumatic, Normocephalic, - - vertical nystagmus Neck: No Nodes, Thyroid Normal Size and Texture Lungs: Clear to auscultation, Normal air movement, No rhonchi, No wheeze, No rales Cardiovascular: Regular rate, Regular Rhythm, Normal S1, Normal S2, No murmurs Abdomen: Bowel Sounds Present, Soft, Non Tender, Non-Distended, No Hepato-splenomegaly Extremities: No edema, No Calf Tenderness Skin: No rashes, No breakdown Musculoskeletal: No Tenderness to Palpation of Joints or Extremities, No Muscle Wasting Psych/Mental Status: Normal Affect, Appropriate Microbiology Past 72 Hours 02/07/20 13:30 Urine, Catheterized Urine Culture - Preliminary Culture exhibits no growth. 02/07/20 13:30 Urine Catheter - Catheter Streptococcus pneumoniae Antigen (M - Final 02/07/20 13:30 Urine Catheter - Catheter Legionella Antigen - Final Laboratory Results 02/08/20 11:15: COVID-19 ([facility]) Negative 02/08/20 16:46: POC Glucose 202 H 02/09/20 00:07: POC Glucose 186 H 02/09/20 05:06: WBC 9.3, RBC 4.99, Hgb 14.0, Hct 44.0, MCV 88.2, MCH 28.1, MCHC 31.8 L D, RDW Std Deviation 48.7 H, RDW Coeff of Yamile 15.2 H, Plt Count 124 L, MPV 10.0 02/09/20 05:06: Sodium 137, Potassium 3.4 L, Chloride 105, Carbon Dioxide 28.0, Anion Gap 4 L, BUN 17, Creatinine 0.48 L, Estim Creat Clear Calc 56.00, Est GFR (MDRD) Af Amer 215, Est GFR (MDRD) Non-Af 177, BUN/Creatinine Ratio 35.2 H, Glucose 162 H, Calcium 8.8, Phosphorus 2.5, Magnesium 1.7 02/09/20 05:45: POC Glucose 141 H 02/09/20 12:20: POC Glucose 154 H Current Medications Acetaminophen (Tylenol) 650 mg PO Q6H PRN PRN PRN Reason: Pain Score 1-10/10 Last Admin: 02/06/20 20:37 Dose: 650 mg Documented by: Acetaminophen (Tylenol Liquid) 650 mg NG Q6H PRN PRN PRN Reason: Pain Score 1-10/10 Albuterol Sulfate (Ventolin Aerosols) 2.5 mg INHALATION Q2H PRN PRN PRN Reason: SOB/Wheezing Albuterol/Ipratropium (Duoneb) 3 ml INHALATION Q4H.RT [facility] Last Admin: 02/09/20 10:55 Dose: Not Given Documented by: Budesonide (Pulmicort Aerosol) 0.5 mg INHALATION Q12H.RT ROM Last Admin: 02/09/20 06:42 Dose: 0.5 mg Documented by: Calamine/Phenol (Calmoseptine Ointment) 1 applic TOPICAL BID ROM; Protocol Last Admin: 02/09/20 12:21 Dose: 1 applic Documented by: Dextrose (D50w Syringe) 0 gm IV X1 PRN; Protocol PRN Reason: Hypoglycemia Protocol Enoxaparin Sodium (Lovenox) 40 mg SC DAILY [facility] Piperacillin Sod/Tazobactam (Sod 3.375 gm/ Sodium Chloride) 50 mls @ 12.5 mls/hr IV Q12 ROM Last Admin: 02/09/20 09:47 Dose: 12.5 mls/hr Documented by: Dextrose/Sodium Chloride () 1,000 mls @ 60 mls/hr IV .[id number] [facility] Last Admin: 02/09/20 08:30 Dose: 60 mls/hr Documented by: Enteral Nutritional Formula (Jevity 1.5) 1,000 mls @ 30 mls/hr GT .[id number] [facility] Last Admin: 02/08/20 10:00 Dose: 20 mls/hr Documented by: Insulin Glargine (Lantus (Bk)) 25 units SC DINNER [facility] Last Admin: 02/08/20 16:47 Dose: 25 units Documented by: Insulin Human Lispro (Humalog Kwikpen ([facility])) 0 unit SC Q6 [facility]; Protocol Last Admin: 02/09/20 12:21 Dose: Not Given Documented by: Lansoprazole (Lansoprazole) 30 mg NG DAILY [facility] Last Admin: 02/09/20 11:18 Dose: Not Given Documented by: Montelukast Sodium (Singulair) 10 mg NG QHS [facility] Last Admin: 02/08/20 20:58 Dose: 10 mg Documented by: Ondansetron HCl (Zofran) 4 mg IV Q8H PRN PRN PRN Reason: NAUSEA/VOMITING Senna/Docusate Sodium (Senokot-S, Renae-Colace) 2 tablet NG BID [facility] Last Admin: 02/09/20 11:19 Dose: Not Given Documented by: Sodium Chloride () 10 - 40 ml IV UD PRN PRN Reason: SALINE FLUSH Last Admin: 02/09/20 06:52 Dose: 20 ml Documented by: STROKE Vital Signs/Narrative: Vital Signs Temp Pulse Resp BP Pulse Ox 02/09/20 12:27 94 02/09/20 12:15 36.4 C L 91 20 H 134/62 H 93 02/09/20 11:53 35.6 C L 93 16 123/61 H 95 02/09/20 11:50 91 16 124/61 H 98 02/09/20 11:47 90 16 130/67 H 100 02/09/20 11:40 36.1 C L 91 16 138/67 H 100 Medical Necessity - Tobacco Use Smoking Status: Former smoker Tobacco Use: Cigarettes Assessment/Plan All Active Problems Dysphagia (Acute) Weakness (Acute) Dysphagia (Acute) Metabolic acidosis (Acute) Diabetes mellitus (Acute) DKA (diabetic ketoacidoses) (Acute) Weight loss (Acute) 1. DKA POA resolved basal insulin and SSI a1c 9.9 2. MATTHEW resolved prerenal monitor 3. dsyphagia PEG tube placed 02/08 suspect 2/2 underlying neurodegenerative process (i.e., PSP, MSA) 4. Debility: plan to go to TCU in next 24-48h 5. VTE prophylaxis: LMWH Inpatient E&M: 25134 Subs Hosp L2
--- NOTE | 2020-02-09 15:14 | PN.RENAL_ITS ---
Patient Problems: Active and Suspected Problems Dysphagia (Acute) Weakness (Acute) Dysphagia (Acute) Metabolic acidosis (Acute) Diabetes mellitus (Acute) DKA (diabetic ketoacidoses) (Acute) Weight loss (Acute) Subjective: Following for MATTHEW. Pt denies CP, SOB or nausea. - Physical Exam Vitals/I&O's: Vital Signs Temp Pulse Resp BP Pulse Ox 97.5 F L 84 23 H 134/62 H 94 02/09/20 12:15 02/09/20 14:15 02/09/20 14:15 02/09/20 12:15 02/09/20 12:27 Oxygen Flow Rate (L/min) 2 Oxygen Delivery Method Room Air Weight: 77.2 kg Body Mass Index (BMI) 25.2 Finger Stick Blood Glucose 82 Intake and Output for Last 24 Hours 02/07/20 02/08/20 02/09/20 23:59 23:59 23:59 Intake Total 2800 / 2800 2343 / 2343 1442.67 / 1442.67 Output Total 1200 / 1200 1700 / 1700 1000 / 1000 Balance 1600 / 1600 643 / 643 442.67 / 442.67 General: Alert, Cooperative Oral: Dry Mucosa Neck: Supple Lungs: Clear to auscultation Cardiovascular: Normal S1, Normal S2, No murmurs Abdomen: Bowel Sounds Present, Soft, Non Tender Extremities: No edema Microbiology Past 72 Hours 02/07/20 13:30 Urine, Catheterized Urine Culture - Preliminary Culture exhibits no growth. 02/07/20 13:30 Urine Catheter - Catheter Streptococcus pneumoniae Antigen (M - Final 02/07/20 13:30 Urine Catheter - Catheter Legionella Antigen - Final Laboratory Results 02/08/20 16:46: POC Glucose 202 H 02/09/20 00:07: POC Glucose 186 H 02/09/20 05:06: WBC 9.3, RBC 4.99, Hgb 14.0, Hct 44.0, MCV 88.2, MCH 28.1, MCHC 31.8 L D, RDW Std Deviation 48.7 H, RDW Coeff of Yamile 15.2 H, Plt Count 124 L, MPV 10.0 02/09/20 05:06: Sodium 137, Potassium 3.4 L, Chloride 105, Carbon Dioxide 28.0, Anion Gap 4 L, BUN 17, Creatinine 0.48 L, Estim Creat Clear Calc 56.00, Est GFR (MDRD) Af Amer 215, Est GFR (MDRD) Non-Af 177, BUN/Creatinine Ratio 35.2 H, Glucose 162 H, Calcium 8.8, Phosphorus 2.5, Magnesium 1.7 02/09/20 05:45: POC Glucose 141 H 02/09/20 12:20: POC Glucose 154 H Current Medications Acetaminophen (Tylenol) 650 mg PO Q6H PRN PRN PRN Reason: Pain Score 1-10/10 Last Admin: 02/06/20 20:37 Dose: 650 mg Documented by: Acetaminophen (Tylenol Liquid) 650 mg NG Q6H PRN PRN PRN Reason: Pain Score 1-10/10 Albuterol Sulfate (Ventolin Aerosols) 2.5 mg INHALATION Q2H PRN PRN PRN Reason: SOB/Wheezing Albuterol/Ipratropium (Duoneb) 3 ml INHALATION Q4H.RT [facility] Last Admin: 02/09/20 14:15 Dose: 3 ml Documented by: Budesonide (Pulmicort Aerosol) 0.5 mg INHALATION Q12H.RT [facility] Last Admin: 02/09/20 06:42 Dose: 0.5 mg Documented by: Calamine/Phenol (Calmoseptine Ointment) 1 applic TOPICAL BID ROM; Protocol Last Admin: 02/09/20 12:21 Dose: 1 applic Documented by: Dextrose (D50w Syringe) 0 gm IV X1 PRN; Protocol PRN Reason: Hypoglycemia Protocol Enoxaparin Sodium (Lovenox) 40 mg SC DAILY [facility] Piperacillin Sod/Tazobactam (Sod 3.375 gm/ Sodium Chloride) 50 mls @ 12.5 mls/ hr IV Q12 [facility] Last Infusion: 02/09/20 13:50 Dose: Infused Documented by: Dextrose/Sodium Chloride () 1,000 mls @ 60 mls/hr IV .[id number] [facility] Last Admin: 02/09/20 08:30 Dose: 60 mls/hr Documented by: Enteral Nutritional Formula (Jevity 1.5) 1,000 mls @ 30 mls/hr GT .[id number] [facility] Last Admin: 02/08/20 10:00 Dose: 20 mls/hr Documented by: Insulin Glargine (Lantus (Bkc)) 25 units SC DINNER [facility] Last Admin: 02/08/20 16:47 Dose: 25 units Documented by: Insulin Human Lispro (Humalog Kwikpen ([facility])) 0 unit SC Q6 [facility]; Protocol Last Admin: 02/09/20 12:21 Dose: Not Given Documented by: Lansoprazole (Lansoprazole) 30 mg NG DAILY [facility] Last Admin: 02/09/20 11:18 Dose: Not Given Documented by: Montelukast Sodium (Singulair) 10 mg NG QHS [facility] Last Admin: 02/08/20 20:58 Dose: 10 mg Documented by: Ondansetron HCl (Zofran) 4 mg IV Q8H PRN PRN PRN Reason: NAUSEA/VOMITING Senna/Docusate Sodium (Senokot-S, Renae-Colace) 2 tablet NG BID [facility] Last Admin: 02/09/20 11:19 Dose: Not Given Documented by: Sodium Chloride () 10 - 40 ml IV UD PRN PRN Reason: SALINE FLUSH Last Admin: 02/09/20 06:52 Dose: 20 ml Documented by: Medical Necessity - Tobacco Use Smoking Status: Former smoker Tobacco Use: Cigarettes Assessment/Plan All Active Problems Dysphagia (Acute) Weakness (Acute) Dysphagia (Acute) Metabolic acidosis (Acute) Diabetes mellitus (Acute) DKA (diabetic ketoacidoses) (Acute) Weight loss (Acute) 1- MATTHEW . Resolved. Pt has normal SCr at baseline MATTHEW was likely prerenal. Although he has BL mild hydronephrosis, MATTHEW is less likely obstructive. SCr peaked at 3.2 mg/dl on 02/07/20. No evidence of fluid OL. Hold Lasix. Continue IVF today. Can stop IVF once tube feed starts. Monitor renal function. Recheck BMP in am. 2- Anion gap acidosis from DKA and MATTHEW. Resolved with DKA treatment and improved renal function. Serum HC03 is acceptable today. Monitor HC03 level. 3-Hypokalemia. Mild. Replace as you are doing. Recheck K in am. If still low, check Mg as well.
--- NOTE | 2020-02-09 15:44 | CASEMGMT ---
KP received a call from Keisha at [facility] and she is in agreement with SNF level of care for patient. KP called Belen in TCU and left her a message letting her know that she can start the pre-cert for patient. Plan: d/c to TCU pending pre-cert. Gladis SELF MSW
[2020-02-09] MEDS: Jevity 1.5 1,000 ML 20 ML GT (17:51)
[2020-02-09 18:06] LABS: Bedside Glucose 129 mg/dL (70-110)
[2020-02-09] MEDS: Montelukast 10 MG Tablet NG (21:49)
[2020-02-09] MEDS: Senna/Docusate Sodium 1 Tablet 2 TABLET NG (21:49)
[2020-02-09] MEDS: Insulin Lispro 100 UNIT/ML INSULN.PEN SC (23:31)
[2020-02-09 23:36] LABS: Bedside Glucose 255 mg/dL (70-110)
[2020-02-10] VITALS (11 sets, daily range): BP systolic 122–127; BP diastolic 61–67; PULSE 82–102; RESP 17–20; TEMP 36.4–36.7; O2SAT 94–97
[2020-02-10] MEDS: Insulin Lispro 100 UNIT/ML INSULN.PEN SC ×2 (06:08→12:11)
[2020-02-10 06:40] LABS: Bedside Glucose 220 mg/dL (70-110)
[2020-02-10 07:01] LABS: Anion Gap 4 (5-15); BUN 11 mg/dL (7-18); BUN/Creat Ratio 21.5 RATIO (10-20); Chloride 105 mmol/L (98-107); Creatinine, Serum 0.51 mg/dL (0.70-1.30); EST Glomerular Filtration Rate 166 mL/min (>60); Est Glom Filt Rate - Afr Amer 201 mL/min (>60); Glucose 229 mg/dL (74-106); Potassium 3.7 mmol/L (3.5-5.1); Sodium Level 138 mmol/L (136-145)
[2020-02-10] MEDS: Budesonide Respules 0.5 MG/2 ML AMPUL.NEB. INHALATION (07:27)
[2020-02-10] MEDS: Ipratropium/Albuterol Sulfate 3 ML AMPUL.NEB INHALATION ×3 (07:27→14:56)
--- NOTE | 2020-02-10 08:36 | PN_ITS ---
Patient Problems: Active and Suspected Problems Dysphagia (Acute) Weakness (Acute) Dysphagia (Acute) Metabolic acidosis (Acute) Diabetes mellitus (Acute) DKA (diabetic ketoacidoses) (Acute) Weight loss (Acute) Subjective: Patient did okay overnight. Patient has been able to be taken off of nasal cannula oxygen. Patient with no complaints this morning. Patient is not reporting any cough. - Physical Exam Vitals/I&O's: Vital Signs Temp Pulse Resp BP Pulse Ox 36.4 C L 97 18 127/67 H 94 02/10/20 08:15 02/10/20 08:15 02/10/20 08:15 02/10/20 08:15 02/10/20 08:15 Oxygen Flow Rate (L/min) 2 Oxygen Delivery Method Room Air Weight: 73.7 kg Body Mass Index (BMI) 25.2 Finger Stick Blood Glucose 82 Intake and Output for Last 24 Hours 02/08/20 02/09/20 02/10/20 23:59 23:59 23:59 Intake Total 2343 / 2343 2264.67 / 2264.67 495 / 495 Output Total 1700 / 1700 1300 / 1700 625 / 625 Balance 643 / 643 964.67 / 564.67 -130 / -130 General: Alert, Cooperative, No apparent distress, - - Speaking in full sentences HEENT: Atraumatic, PERRLA, EOMI, Normocephalic, - - No scleral icterus or injection noted Oral: No Gingival or Mucosal Lesions/ Ulcerations, Dry Mucosa Neck: Supple, No JVD, No Nodes, Trachea Midline Lungs: No rhonchi, No wheeze, No rales, Diminished, - - Improved effort today Cardiovascular: Regular rate, Regular Rhythm, Normal S1, Normal S2, No murmurs, No rub noted, No Gallop Abdomen: Bowel Sounds Present, Soft, Non Tender, Non-Distended Extremities: No clubbing, No cyanosis, Capillary Refill Less than 3 Seconds Skin: - - No change compared to previous Musculoskeletal: No Tenderness to Palpation of Joints or Extremities Lymphatic: No Cervical, Supraclavicular, or Inguinal Adenopathy Neurological: Cranial nerves II-XII grossly intact, Neuro grossly intact, Motor Exam 5/5 strength throughout Psych/Mental Status: Flat Affect Microbiology Past 72 Hours 02/07/20 13:30 Urine, Catheterized Urine Culture - Preliminary Culture exhibits no growth. 02/07/20 13:30 Urine Catheter - Catheter Streptococcus pneumoniae Antigen (M - Final 02/07/20 13:30 Urine Catheter - Catheter Legionella Antigen - Final Laboratory Results 02/09/20 12:20: POC Glucose 154 H 02/09/20 17:43: POC Glucose 129 H 02/09/20 23:29: POC Glucose 255 H 02/10/20 06:01: POC Glucose 220 H 02/10/20 06:08: Sodium 138, Potassium 3.7, Chloride 105, Carbon Dioxide 29.0, Anion Gap 4 L, BUN 11, Creatinine 0.51 L, Estim Creat Clear Calc 56.00, Est GFR (MDRD) Af Amer 201, Est GFR (MDRD) Non-Af 166, BUN/Creatinine Ratio 21.5 H, Glucose 229 H, Calcium 9.0 Current Medications Acetaminophen (Tylenol) 650 mg PO Q6H PRN PRN PRN Reason: Pain Score 1-10/10 Last Admin: 02/06/20 20:37 Dose: 650 mg Documented by: Acetaminophen (Tylenol Liquid) 650 mg NG Q6H PRN PRN PRN Reason: Pain Score 1-10/10 Albuterol Sulfate (Ventolin Aerosols) 2.5 mg INHALATION Q2H PRN PRN PRN Reason: SOB/Wheezing Albuterol/Ipratropium (Duoneb) 3 ml INHALATION Q4H.RT [facility] Last Admin: 02/10/20 07:27 Dose: 3 ml Documented by: Budesonide (Pulmicort Aerosol) 0.5 mg INHALATION Q12H.RT [facility] Last Admin: 02/10/20 07:27 Dose: 0.5 mg Documented by: Calamine/Phenol (Calmoseptine Ointment) 1 applic TOPICAL BID ROM; Protocol Last Admin: 02/09/20 22:05 Dose: 1 applic Documented by: Dextrose (D50w Syringe) 0 gm IV X1 PRN; Protocol PRN Reason: Hypoglycemia Protocol Enoxaparin Sodium (Lovenox) 40 mg SC DAILY [facility] Piperacillin Sod/Tazobactam (Sod 3.375 gm/ Sodium Chloride) 50 mls @ 12.5 mls/hr IV Q12 [facility] Last Infusion: 02/10/20 01:51 Dose: Infused Documented by: Dextrose/Sodium Chloride () 1,000 mls @ 60 mls/hr IV .[id number] [facility] Last Infusion: 02/10/20 02:07 Dose: 0 mls/hr Documented by: Enteral Nutritional Formula (Jevity 1.5) 1,000 mls @ 30 mls/hr GT .[id number] [facility] Last Admin: 02/09/20 17:51 Dose: 20 mls/hr Documented by: Insulin Glargine (Lantus (Bk)) 25 units SC DINNER [facility] Last Admin: 02/09/20 17:13 Dose: Not Given Documented by: Insulin Human Lispro (Humalog Kwikpen ([facility])) 0 unit SC Q6 [facility]; Protocol Last Admin: 02/10/20 06:08 Dose: 4 u Documented by: Lansoprazole (Lansoprazole) 30 mg NG DAILY [facility] Last Admin: 02/09/20 11:18 Dose: Not Given Documented by: Montelukast Sodium (Singulair) 10 mg NG QHS [facility] Last Admin: 02/09/20 21:49 Dose: 10 mg Documented by: Ondansetron HCl (Zofran) 4 mg IV Q8H PRN PRN PRN Reason: NAUSEA/VOMITING Senna/Docusate Sodium (Senokot-S, Renae-Colace) 2 tablet NG BID [facility] Last Admin: 02/09/20 21:49 Dose: 2 tablet Documented by: Sodium Chloride () 10 - 40 ml IV UD PRN PRN Reason: SALINE FLUSH Last Admin: 02/09/20 21:55 Dose: 10 ml Documented by: Medical Necessity - Tobacco Use Smoking Status: Former smoker Tobacco Use: Cigarettes Assessment/Plan All Active Problems Dysphagia (Acute) Weakness (Acute) Dysphagia (Acute) Metabolic acidosis (Acute) Diabetes mellitus (Acute) DKA (diabetic ketoacidoses) (Acute) Weight loss (Acute) RECOMMENDATIONS: 1. Monitor oxygen saturations with activity 2. Wean supplemental oxygen to maintain saturations at or above 90%. 3. Continue antimicrobials as ordered. 4. Continue scheduled bronchodilator therapy. 5. Encourage incentive spirometer use and mobilize patient as tolerated. 6. Follow-up in our office with nurse practitioner 2 weeks after discharge from the TCU and establish with Dr. Mcfarland IMPRESSIONS: 1. Acute hypoxemic respiratory insufficiency The patient does have a reported history of COPD of unknown severity. He is a poor historian and unable to provide any additional details. Nevertheless, he does appear to be prescribed a triple therapy inhaler regimen on an outpatient basis. The patient is currently on antimicrobials over concerns for possible aspiration, especially in light of his dysphasia. He does currently have a nasogastric feeding tube in place. The patient did have an arterial blood gas obtained yesterday on 1 L/min via nasal cannula which revealed a normal pH with a PO2 of 100 and oxygen saturation of 97%. Patient has responded to fluid restriction. However, will need to continue to monitor oxygen saturations with activity. Continue scheduled bronchodilators as ordered. Weight is significantly improved over the last 24 hours. 2. Weight loss/failure to thrive/pharyngeal esophageal dysphasia/advanced age and deconditioning/diabetes mellitus/hyperlipidemia Complicates care, management, recovery and prognosis. Defer management and work-up of the patient's failure to thrive and weight loss to hospitalist. CODE STATUS has already been addressed and documented to be DNR CCA without intubation. Inpatient E&M: 74095 Subs Hosp L2
--- NOTE | 2020-02-10 08:46 | PCM.PN.REN ---
Patient Problems: Active and Suspected Problems Dysphagia (Acute) Weakness (Acute) Dysphagia (Acute) Metabolic acidosis (Acute) Diabetes mellitus (Acute) DKA (diabetic ketoacidoses) (Acute) Weight loss (Acute) Subjective: Following for MATTHEW. Pt denies CP, SOB or nausea. No diarrhea. - Physical Exam Vitals/I&O's: Vital Signs Temp Pulse Resp BP Pulse Ox 97.6 F L 97 18 127/67 H 94 02/10/20 08:15 02/10/20 08:15 02/10/20 08:15 02/10/20 08:15 02/10/20 08:15 Oxygen Flow Rate (L/min) 2 Oxygen Delivery Method Room Air Weight: 73.7 kg Body Mass Index (BMI) 25.2 Finger Stick Blood Glucose 82 Intake and Output for Last 24 Hours 02/08/20 02/09/20 02/10/20 23:59 23:59 23:59 Intake Total 2343 / 2343 2264.67 / 2264.67 495 / 495 Output Total 1700 / 1700 1300 / 1700 625 / 625 Balance 643 / 643 964.67 / 564.67 -130 / -130 General: Alert, Cooperative, No apparent distress Oral: Moist Mucosa Neck: Supple, No JVD Lungs: Clear to auscultation Cardiovascular: Normal S1, Normal S2, No murmurs Abdomen: Bowel Sounds Present, Soft, Non Tender Extremities: No edema Microbiology Past 72 Hours 02/07/20 13:30 Urine, Catheterized Urine Culture - Preliminary Culture exhibits no growth. 02/07/20 13:30 Urine Catheter - Catheter Streptococcus pneumoniae Antigen (M - Final 02/07/20 13:30 Urine Catheter - Catheter Legionella Antigen - Final Laboratory Results 02/09/20 12:20: POC Glucose 154 H 02/09/20 17:43: POC Glucose 129 H 02/09/20 23:29: POC Glucose 255 H 02/10/20 06:01: POC Glucose 220 H 02/10/20 06:08: Sodium 138, Potassium 3.7, Chloride 105, Carbon Dioxide 29.0, Anion Gap 4 L, BUN 11, Creatinine 0.51 L, Estim Creat Clear Calc 56.00, Est GFR (MDRD) Af Amer 201, Est GFR (MDRD) Non-Af 166, BUN/Creatinine Ratio 21.5 H, Glucose 229 H, Calcium 9.0 Current Medications Acetaminophen (Tylenol) 650 mg PO Q6H PRN PRN PRN Reason: Pain Score 1-10/10 Last Admin: 02/06/20 20:37 Dose: 650 mg Documented by: Acetaminophen (Tylenol Liquid) 650 mg NG Q6H PRN PRN PRN Reason: Pain Score 1-10/10 Albuterol Sulfate (Ventolin Aerosols) 2.5 mg INHALATION Q2H PRN PRN PRN Reason: SOB/Wheezing Albuterol/Ipratropium (Duoneb) 3 ml INHALATION Q4H.RT [facility] Last Admin: 02/10/20 07:27 Dose: 3 ml Documented by: Budesonide (Pulmicort Aerosol) 0.5 mg INHALATION Q12H.RT [facility] Last Admin: 02/10/20 07:27 Dose: 0.5 mg Documented by: Calamine/Phenol (Calmoseptine Ointment) 1 applic TOPICAL BID ROM; Protocol Last Admin: 02/09/20 22:05 Dose: 1 applic Documented by: Dextrose (D50w Syringe) 0 gm IV X1 PRN; Protocol PRN Reason: Hypoglycemia Protocol Enoxaparin Sodium (Lovenox) 40 mg SC DAILY [facility] Piperacillin Sod/Tazobactam (Sod 3.375 gm/ Sodium Chloride) 50 mls @ 12.5 mls/hr IV Q12 [facility] Last Infusion: 02/10/20 01:51 Dose: Infused Documented by: Dextrose/Sodium Chloride () 1,000 mls @ 60 mls/hr IV .[id number] [facility] Last Infusion: 02/10/20 02:07 Dose: 0 mls/hr Documented by: Enteral Nutritional Formula (Jevity 1.5) 1,000 mls @ 30 mls/hr GT .[id number] [facility] Last Admin: 02/09/20 17:51 Dose: 20 mls/hr Documented by: Insulin Glargine (Lantus (Bkc)) 25 units SC DINNER [facility] Last Admin: 02/09/20 17:13 Dose: Not Given Documented by: Insulin Human Lispro (Humalog Kwikpen (Bkc)) 0 unit SC Q6 [facility]; Protocol Last Admin: 02/10/20 06:08 Dose: 4 u Documented by: Lansoprazole (Lansoprazole) 30 mg NG DAILY [facility] Last Admin: 02/09/20 11:18 Dose: Not Given Documented by: Montelukast Sodium (Singulair) 10 mg NG QHS [facility] Last Admin: 02/09/20 21:49 Dose: 10 mg Documented by: Ondansetron HCl (Zofran) 4 mg IV Q8H PRN PRN PRN Reason: NAUSEA/VOMITING Senna/Docusate Sodium (Senokot-S, Renae-Colace) 2 tablet NG BID [facility] Last Admin: 02/09/20 21:49 Dose: 2 tablet Documented by: Sodium Chloride () 10 - 40 ml IV UD PRN PRN Reason: SALINE FLUSH Last Admin: 02/09/20 21:55 Dose: 10 ml Documented by: Medical Necessity - Tobacco Use Smoking Status: Former smoker Tobacco Use: Cigarettes Assessment/Plan All Active Problems Dysphagia (Acute) Weakness (Acute) Dysphagia (Acute) Metabolic acidosis (Acute) Diabetes mellitus (Acute) DKA (diabetic ketoacidoses) (Acute) Weight loss (Acute) 1- MATTHEW . Resolved. Pt has normal SCr at baseline MATTHEW was likely prerenal. Although he has BL mild hydronephrosis, MATTHEW is less likely obstructive. SCr peaked at 3.2 mg/dl on 02/07/20. SCr remains stable in normal range last 2 days. OK to restart metformin. No evidence of fluid OL. Hold Lasix. Can stop IVF since he is now on tube feed. Monitor renal function. Recheck BMP in am. 2- Anion gap acidosis from DKA and MATTHEW. Resolved with DKA treatment and improved renal function. Serum HC03 is acceptable today. Monitor HC03 level. 3-Hypokalemia. Resolved. Replace as needed. Follow K. 4-HTN. OK to restart losartan from my standpoint, especially since pt has DM and proteinuria. 5-T2DM. OK to restart metformin. Will follow peripherally. Please let us know if there is questions.
[2020-02-10] MEDS: Lansoprazole 15 MG Capsule.DR 30 MG NG (10:43)
[2020-02-10] MEDS: Enoxaparin 40 MG/0.4 ML Syringe SC (10:44)
[2020-02-10] MEDS: 0.9% Saline Lock 10 ML Syringe IV (10:44)
[2020-02-10] MEDS: Menthol/Lanolin/Calamine/Znox 113 GM Tube 1 APPLIC TOPICAL (10:45)
[2020-02-10 12:20] LABS: Bedside Glucose 233 mg/dL (70-110)
--- NOTE | 2020-02-10 14:23 | CASEMGMT ---
Patient was approved to go to TCU. KP notified physician and he will send patient today. KP notified patient, RN, pocket secretary assembler, and patient's daughter. She will be over to see him after her meeting ends at 3p. KP notified RN. Plan: [facility] TCU under skilled level of care. Gladis SELF MSW
--- NOTE | 2020-02-10 14:27 | TREXTCAR_ITS ---
- Diet 02/08/20 08:01 Diet: Tube Feeding Food consistency:: N/A - Liquid only Is pt able to select menu?: No Diet Comments: 1:1 supervised meals, upright 90 degrees during PO and 30-60 min after Jevity 1.5. 1 can 5 x day. Flush 150 cc ml flush water after can and with meds. - Routine Orders/Code Status Routine Lab Work: CBC, BMP Code Status: DNRCC-A - Wound(s) left elbow Wound Type: Abrasion bilateral arms Wound Type: scattered old scabs B/L feet Wound Type: scattered old scabs R AC Wound Type: infiltated IV ABD Wound Type: Surgical Incision - Therapies Physical Therapy: Eval and Treat Occupational Therapy: Eval and Treat Speech Therapy: Eval and Treat - Allergies/Procedures Done in Hospital Allergies/Adverse Reactions: Allergies No Known Allergies Allergy (Verified 02/03/20 10:22) Procedures: Peg tube placement - Type of Care/Length of Stay Estimated LOS: Convalescent Care Less Than 30 days Type of Care Needed: Skilled Rehab Potential: Fair Prognosis: Fair - Additional Orders/Day of Discharge Additional Orders: Follow up with neurology movment disorder clinic. [facility] [phone]. [facility] [phone]. [facility] [phone] Day of Discharge: 02/10/20 - Dietary and Speech Recommendations Dietitian Recommendations/Changes: TF ordered at goal rate of 30 ml/hr will adjust to 50 ml/hr and continue advancement by 10 ml every 12 hours until goal rate achieved. Jevity 1.5 at goal rate 50 ml/hr with 150 ml H2O flush every 4 hours to provide ~ 1800 wagner / 76 gm pro / 1812 cc free water/day. Continue liberal regular diet, consistency per [employer]. Due to risk for refeeding syndrome, rec gradual increase in protein/calories. Continue ONS w/ meals for increased nutrition if consumed. Will monitor daily wts. Will monitor electrolytes for signs of refeeding syndrome. - Follow Up Care Primary Care Physician: [facility],[place] [Primary Care Provider] -
--- NOTE | 2020-02-10 14:46 | DS.PCM_ITS ---
Discharge Date and Diagnosis - Problem List Patient Problems: Active and Suspected Problems Dysphagia (Acute) Weakness (Acute) Dysphagia (Acute) Metabolic acidosis (Acute) Diabetes mellitus (Acute) DKA (diabetic ketoacidoses) (Acute) Weight loss (Acute) Date of Admission: 02/03/20 Date of Discharge: 02/10/20 - Primary Discharge Diagnosis Acute Problems: Active Problems DKA MATTHEW dysphagia, acute on chronic aspiration pneumonia - Secondary Discharge Diagnosis Chronic Problems: Chronic Problems Diabetes mellitus type 2 in nonobese (Chronic) Hypertension (Chronic) COPD (chronic obstructive pulmonary disease) (Chronic) Dyslipidemia (Chronic) Generalized weakness (Chronic) Hospital Course and Treatment Imaging Results: Clinical Impression(s) from Imaging Studies Brain CT 02/03/20 10:42 IMPRESSION: Chronic involutional changes of the brain. Electronically Signed: Freddie Montaño, at 12:31 EDT , Service support , Chest X-Ray 02/03/20 12:14 IMPRESSION: Findings suggestive of calcified pleural plaque overlying the right mid thorax. Electronically Signed: Freddie Montaño, at 12:30 EDT , Service support , Abdomen/Pelvis CT 02/04/20 09:25 IMPRESSION: Calcified granuloma in the right lower lobe. Mild scarring at the bases. Small amount of perihepatic fluid with lobular contour of the liver suggestive of cirrhotic change. Multiple small gallstones. Left renal cysts. Nonobstructive contrast in the lower pole calyx of the left kidney. Mild degree of bilateral hydronephrosis and perinephric stranding. 2.1 cm low density nodule in the right adrenal gland suggestive of adenoma. Electronically Signed: Freddie Montaño at 12:07 EDT , Service support , Chest CT 02/04/20 09:25 IMPRESSION: Chronic changes. No acute abnormality is seen. Electronically Signed: Freddie Montaño at 12:15 EDT , Service support , Brain MRI 02/04/20 14:29 IMPRESSION: Cerebral and cerebellar atrophy with mild periventricular white matter ischemic changes. No evidence for acute infarct Electronically Signed: Norm Esqueda MD at 16:06 EDT , Service support , KUB X-Ray 02/06/20 15:35 IMPRESSION: Improper positioning of nasogastric tube. Electronically Signed: Yonathan Pedersen MD at 18:03 EDT , Service support , KUB X-Ray 02/06/20 16:44 KUB X-Ray 02/06/20 17:15 Chest X-Ray 02/07/20 08:50 IMPRESSION: Feeding tube extends to the stomach. Right lower lung infiltrate. Electronically Signed: Bandar Clemens MD at 10:01 EDT , Service support , Brain CT 02/07/20 19:59 IMPRESSION: No change. Atrophy and white matter disease with no acute abnormalities. Electronically Signed: Yonathan Pedersen MD at 22:02 EDT , Service support , Abdomen X-Ray 02/08/20 08:14 IMPRESSION: 1. No pneumoperitoneum. Diffuse ileus. 2. Enteric tube extends to the upper stomach. Electronically Signed: Quentin Tejeda MD ([place]) at 12:10 EDT , Service support , [place], nephrology [place], surgery [place], [facility] Procedures: Peg tube placement Summary of Care Provided: The patient is a 79 year old M presents with shortness of breath and weakness. Patient presented to the emergency room and was having some shortness of breath and had noted that he had been choking. Patient had lost roughly 60 pounds in the past 6 months. Patient is a known diabetic and was found to be in diabetic ketoacidosis with some mild ketones. Patient was started on saline and an insulin drip. Subsequent patient was transitioned over to basal and sliding scale insulin. It is likely that the patient went into diabetic ketoacidosis due to inability to self administer insulin. Discussed with the patient's daughter today and states that he actually has a drop of a vial and then administer the insulin himself. Patient is just weak and has had periods where it is even difficult for him to speak. I would anticipate the patient improving and may need further adjustments to his insulin regimen but if patient is able to have his insulin administered patient should be able to avoid diabetic ketoacidosis. Patient also was found to have pneumonia on chest x-ray and likely aspiration. Patient was on Pipracil/tazobactam. Patient will be transitioned over to amoxicillin/clavulanic acid upon discharge. Patient to complete a 7-day course of antibiotics. Patient also had acute kidney injury. His initial creatinine was 0.99 but then went up to 3.29. Patient was seen by nephrology and felt that this was likely prerenal in etiology. His creatinine since normalized and IV fluids have been discontinued. Patient also has had dysphasia. This is present prior to arrival. Patient was seen by speech therapy and recommended additional means of feeding. Patient did have a PEG tube placed on the . Patient can have a modified oral diet but will be primarily on tube feeds. Discussed with the patient's daughter as I feel that patient has an underlying neurodegenerative process. Patient had an MRI that showed cerebellar and cerebral atrophy. Concern is patient may have the hummingbird sign which may be seen with individuals with progressive supranuclear palsy. Patient does have some slight nystagmus with vertical gaze. I recommended to her to have patient be seen by a movement disorder specialist. I provided numbers for [facility] and [facility] so they may follow-up with 1 of those neurologist. I explained that that this is likely a clinical diagnosis. Patient seen and examined independently. Data reviewed. I agree with the above note by the physician orthopedic physician assistant. I do not think the patient has Parkinson's but would defer to the neurologist as to the actual disease process. I informed her that I would be more concerned that this could be progressive supranuclear palsy versus multisystem atrophy. Explained that if he does have any of those diseases that any gains that he could make with physical therapy would eventually be lost. [] Patient Problems: Active and Suspected Problems Dysphagia (Acute) Weakness (Acute) Dysphagia (Acute) Metabolic acidosis (Acute) Diabetes mellitus (Acute) DKA (diabetic ketoacidoses) (Acute) Weight loss (Acute) - Physical Exam Vitals/I&O's: Vital Signs Temp Pulse Resp BP Pulse Ox 36.4 C L 82 17 127/67 H 94 02/10/20 08:15 02/10/20 11:43 02/10/20 11:43 02/10/20 08:15 02/10/20 08:15 Oxygen Flow Rate (L/min) 2 Oxygen Delivery Method Room Air Weight: 73.7 kg Body Mass Index (BMI) 25.2 Finger Stick Blood Glucose 82 Intake and Output for Last 24 Hours 02/08/20 02/09/20 02/10/20 23:59 23:59 23:59 Intake Total 2343 / 2343 2264.67 / 2264.67 935 / 935 Output Total 1700 / 1700 1300 / 1700 925 / 925 Balance 643 / 643 964.67 / 564.67 General: Alert, No apparent distress HEENT: - - Vertical nystagmus Oral: Moist Mucosa, No Gingival or Mucosal Lesions/ Ulcerations Neck: No Nodes, Thyroid Normal Size and Texture Lungs: Normal air movement, - - bibasilar crackles Cardiovascular: Regular rate, Regular Rhythm, Normal S1, Normal S2, No murmurs Abdomen: Bowel Sounds Present, Soft, Non Tender, Non-Distended Extremities: No edema, No Calf Tenderness Psych/Mental Status: Normal Affect, Appropriate Microbiology Past 72 Hours 02/07/20 13:30 Urine, Catheterized Urine Culture - Final Culture exhibits no growth. 02/07/20 13:30 Urine Catheter - Catheter Streptococcus pneumoniae Antigen (M - Final 02/07/20 13:30 Urine Catheter - Catheter Legionella Antigen - Final Laboratory Results 02/09/20 17:43: POC Glucose 129 H 02/09/20 23:29: POC Glucose 255 H 02/10/20 06:01: POC Glucose 220 H 02/10/20 06:08: Sodium 138, Potassium 3.7, Chloride 105, Carbon Dioxide 29.0, Anion Gap 4 L, BUN 11, Creatinine 0.51 L, Estim Creat Clear Calc 56.00, Est GFR (MDRD) Af Amer 201, Est GFR (MDRD) Non-Af 166, BUN/Creatinine Ratio 21.5 H, Glucose 229 H, Calcium 9.0 02/10/20 12:06: POC Glucose 233 H Current Medications Acetaminophen (Tylenol) 650 mg PO Q6H PRN PRN PRN Reason: Pain Score 1-10/10 Last Admin: 02/06/20 20:37 Dose: 650 mg Documented by: Acetaminophen (Tylenol Liquid) 650 mg GT Q6H PRN PRN PRN Reason: Pain Score 1-10/10 Albuterol Sulfate (Ventolin Aerosols) 2.5 mg INHALATION Q2H PRN PRN PRN Reason: SOB/Wheezing Albuterol/Ipratropium (Duoneb) 3 ml INHALATION Q4H.RT ROM Last Admin: 02/10/20 11:16 Dose: 3 ml Documented by: Budesonide (Pulmicort Aerosol) 0.5 mg INHALATION Q12H.RT ROM Last Admin: 02/10/20 07:27 Dose: 0.5 mg Documented by: Calamine/Phenol (Calmoseptine Ointment) 1 applic TOPICAL BID ROM; Protocol Last Admin: 02/10/20 10:45 Dose: 1 applic Documented by: Dextrose (D50w Syringe) 0 gm IV X1 PRN; Protocol PRN Reason: Hypoglycemia Protocol Enoxaparin Sodium (Lovenox) 40 mg SC DAILY ROM Last Admin: 02/10/20 10:44 Dose: 40 mg Documented by: Piperacillin Sod/Tazobactam (Sod 3.375 gm/ Sodium Chloride) 50 mls @ 12.5 mls/hr IV Q12 ROM Last Admin: 02/10/20 10:44 Dose: 12.5 mls/hr Documented by: Enteral Nutritional Formula (Jevity 1.5) 1,000 mls @ 50 mls/hr GT .Q20H ROM Last Admin: 02/09/20 17:51 Dose: 20 mls/hr Documented by: Insulin Glargine (Lantus (Bkc)) 25 units SC DINNER ROM Last Admin: 02/09/20 17:13 Dose: Not Given Documented by: Insulin Human Lispro (Humalog Kwikpen (Bkc)) 0 unit SC Q6 ROM; Protocol Last Admin: 02/10/20 12:11 Dose: 4 u Documented by: Lansoprazole (Lansoprazole) 30 mg GT DAILY ROM Montelukast Sodium (Singulair) 10 mg GT QHS ROM Ondansetron HCl (Zofran) 4 mg IV Q8H PRN PRN PRN Reason: NAUSEA/VOMITING Senna/Docusate Sodium (Senokot-S, Renae-Colace) 2 tablet GT BID ROM Sodium Chloride () 10 - 40 ml IV UD PRN PRN Reason: SALINE FLUSH Last Admin: 02/10/20 10:44 Dose: 10 ml Documented by: Home Medications: Medications to take at Discharge Budesonide/Formoterol Fumarate [Budesonide-Formoterol 160-4.5] 2 puff IH BID 02/03/20 Calcium Citrate/Vitamin D3 [Calcium Citrate-Vit D3 Caplet] 1 tab PO DAILY 02/03/20 Empagliflozin [Jardiance] 10 mg PO DAILY 02/03/20 Fluocinonide/Emollient Base [Fluocinonide-E 0.05% Cream] 15 gm TP DAILY PRN 02/03/20 Tiotropium [place] [Spiriva Respimat] 2 puff IH BID 02/03/20 Acetaminophen Liquid [Tylenol Liquid] 650 mg GT Q6H PRN PRN udc 02/10/20 Amox/Clav 400mg/5ml Suspension [Augmentin Suspension 400mg/5ml] 10 ml PO Q12H #1 bottle 02/10/20 Atorvastatin Calcium 80 mg GT QHS #0 02/10/20 Ferrous Sulfate 325 mg GT QODAY #0 02/10/20 Insulin Glargine [Lantus SoloStar Pen] 25 units SUBCUT DINNER pen 02/10/20 Insulin Lispro [Humalog KwikPen] See Protocol SUBCUT Q6 insuln.pen 02/10/20 Ipratropium/Albuterol Sulfate [Duoneb] 3 ml INHALATION Q4H.RT ampul.neb 02/10/20 Jevity 1.5 1 bottle GT 5X/DAY #1 bottle 02/10/20 Lansoprazole 30 mg GT DAILY capsule. 02/10/20 Lansoprazole 30 mg GT DAILY capsule. 02/10/20 Menthol/Lanolin/Calamine/Znox [Calmoseptine Ointment] 1 applic TOPICAL BID tube 02/10/20 Montelukast [Singulair] 10 mg GT QHS tab 02/10/20 Montelukast [Singulair] 10 mg GT QHS tab 02/10/20 Multivitamin 1 ea GT DAILY #0 02/10/20 Pantoprazole Sodium [Protonix] 40 mg GT DAILY #0 02/10/20 Senna/Docusate Sodium [Senokot-S] 2 tab GT BID tab 02/10/20 Following Prescriptions Were Given to Patient: Amox/Clav 400mg/5ml Suspension [Augmentin Suspension 400mg/5ml] 10 ml PO Q12H #1 bottle Jevity 1.5 1 bottle GT 5X/DAY #1 bottle Other Amb Orders: Abdomen Single View (Portable) [RAD] Facility: [facility], Location: [facility] - Disposition: Nursing Home facility Minutes spent on discharge:: 36 Patient Condition:: Fair Medical Necessity - Tobacco Use Smoking Status: Former smoker Tobacco Use: Cigarettes Meaningful Use Info Meaningful Use Diagnoses (Choose all that apply): None applicable Inpatient E&M: 35626 Disch Hosp
--- NOTE | 2020-02-10 15:03 | PHA.DC.MR ---
Pharmacy Service has performed discharge medication reconciliation for this patient upon transfer to [facility]. Home Medications Budesonide/Formoterol Fumarate [Budesonide-Formoterol 160-4.5] 2 puff IH BID 02/03/20 Calcium Citrate/Vitamin D3 [Calcium Citrate-Vit D3 Caplet] 1 tab PO DAILY 02/03/20 Empagliflozin [Jardiance] 10 mg PO DAILY 02/03/20 Fluocinonide/Emollient Base [Fluocinonide-E 0.05% Cream] 15 gm TP DAILY PRN 02/03/20 Tiotropium [place] [Spiriva Respimat] 2 puff IH BID 02/03/20 Acetaminophen Liquid [Tylenol Liquid] 650 mg GT Q6H PRN PRN udc 02/10/20 Amox/Clav 400mg/5ml Suspension [Augmentin Suspension 400mg/5ml] 10 ml PO Q12H #1 bottle 02/10/20 Atorvastatin Calcium 80 mg GT QHS #0 02/10/20 Ferrous Sulfate 325 mg GT QODAY #0 02/10/20 Insulin Glargine [Lantus SoloStar Pen] 25 units SUBCUT DINNER pen 02/10/20 Insulin Lispro [Humalog KwikPen] See Protocol SUBCUT Q6 insuln.pen 02/10/20 Ipratropium/Albuterol Sulfate [Duoneb] 3 ml INHALATION Q4H.RT ampul.neb 02/10/20 Jevity 1.5 1 bottle GT 5X/DAY #1 bottle 02/10/20 Lansoprazole 30 mg GT DAILY capsule. 02/10/20 Menthol/Lanolin/Calamine/Znox [Calmoseptine Ointment] 1 applic TOPICAL BID tube 02/10/20 Montelukast [Singulair] 10 mg GT QHS tab 02/10/20 Multivitamin 1 ea GT DAILY #0 02/10/20 Senna/Docusate Sodium [Senokot-S] 2 tab GT BID tab 02/10/20 The patient's discharge medication list was reviewed for discrepancies and discrepancies were resolved.
== END 2020-02-10 15:32 | disposition skilled nursing facility (03) | DRG 637 ==
LOC: ED 13:54 → ICU 14:58 → MS3 02-04 10:25 → PCU 02-07 15:21
PROVIDERS: Anesthesiology; Internal Medicine Critical Care Medicine; Surgery; Admitting Provider Internal Medicine; Emergency Provider Emergency Medicine
PROC: 0DJ08ZZ Inspection of Upper Intestinal Tract, Via Natural or Artificial Opening Endoscopic (ICD-10-PCS; CPT 43235; principal; 2020-02-09 10:55)
DX: E11.10 Type 2 diabetes mellitus with ketoacidosis without coma (principal); J69.0 Pneumonitis due to inhalation of food and vomit; J44.0 Chronic obstructive pulmonary disease with (acute) lower respiratory infection; E87.1 Hypo-osmolality and hyponatremia; N17.9 Acute kidney failure, unspecified; E44.0 Moderate protein-calorie malnutrition; E87.3 Alkalosis; T50.8X5A Adverse effect of diagnostic agents, initial encounter; Y92.239 Unspecified place in hospital as the place of occurrence of the external cause; R13.14 Dysphagia, pharyngoesophageal phase; E87.6 Hypokalemia; E86.1 Hypovolemia; E87.8 Other disorders of electrolyte and fluid balance, not elsewhere classified; T73.0XXA Starvation, initial encounter; X58.XXXA Exposure to other specified factors, initial encounter; N31.9 Neuromuscular dysfunction of bladder, unspecified; R62.7 Adult failure to thrive; J44.9 Chronic obstructive pulmonary disease, unspecified; E78.5 Hyperlipidemia, unspecified; K21.9 Gastro-esophageal reflux disease without esophagitis; R06.89 Other abnormalities of breathing; F32.9 Major depressive disorder, single episode, unspecified; Z68.25 Body mass index [BMI] 25.0-25.9, adult; Z23 Encounter for immunization; Z91.14 Patient's other noncompliance with medication regimen; Z79.4 Long term (current) use of insulin; Z79.899 Other long term (current) drug therapy; Z87.891 Personal history of nicotine dependence
CPT/HCPCS: 36415; 36600; 70450; 70551; 71045; 71260; 74018; 74019; 74177; 74230; 80048; 80053; 81001; 82009; 82140; 82150; 82436; 82570; 82803; 82962; 83036; 83690; 83735; 83880; 83935; 84100; 84133; 84156; 84300; 84484; 85025; 85027; 85610; 85730; 87086; 87449; 87635; 87641; 92526; 92610; 92611; 93005; 94003; 94640; 94660; 97110; 97163; 97166; 97530; 97535; 97802; 97803; 99251; 99285; G0008; J7030; J7040; Q9967; 90686; A4216; G0463; J1940; J7799; U0003

== ENCOUNTER 2020-02-10 15:37 | Inpatient (IN) | payer OTHER, MEDICARE, MEDICAID, SELFPAY ==
[2020-02-08 21:43] VITALS: BMI 25.2
[2020-02-10 15:57] VITALS: BP 126/61; PULSE 96; RESP 18; TEMP 36.8; O2SAT 94; BMI 25.7
--- NOTE | 2020-02-10 19:33 | HP.PCM_ITS ---
Problem List (1) Debility Status: Acute (2) Asthma Status: Chronic (3) Hypertension Status: Chronic (4) Hyperlipidemia Status: Acute (5) Iron deficiency anemia Status: Chronic (6) GERD (gastroesophageal reflux disease) Status: Chronic (7) Kidney stone Status: Chronic (8) Acute kidney injury Status: Acute (9) COPD (chronic obstructive pulmonary disease) Status: Chronic (10) Weakness Status: Acute (11) Dysphagia Status: Acute (12) Diabetes mellitus Status: Chronic (13) DKA (diabetic ketoacidoses) Status: Acute (14) Weight loss Status: Chronic History of Present Illness Date of Admission: 02/10/20 Chief Complaint: Here for rehabilitation, strengtening, prior to discharge home with family. 02/03/20 The patient is a 79 year old Male with below past medical history presented to [facility] Emergency Department with shortness of breath. 02/03/20 CT brain chronic involutional changes of brain. 02/03/20 EKG sinus tachycardia, prolonged QT. 02/03/20 Chest X-ray calcified pleural plaque right mid thorax. Unable to walk, voice weak. Choking on food, drink, pills, lost > 60 pounds. No bowel movement in 4 days. IV fluids given, insulin drip for diabetic ketoacidosis. 02/03/20 Admit to Hospital. IV normal saline, insulin drip for DKA. PT/OT/ST for debility, dysphagia. 02/04/20 DKA improved, out of ICU. Oncology consulted for weight loss, malignancy evaluation. 02/04/20 CT chest chronic changes. 02/04/20 CT abdomen/pelvis right lower lobe granuloma, cirrhosis with perihepatic fluid. Multiple small gallstones, left renal cyst, mild bilateral hydronephrosis, perinephric stranding. Right adrenal adenoma 2.1CM. 02/04/20 MRI brain showed cerebral, cerebellar atrophy, with mild periventricular white matter ischemic changes. 02/05/20 Blood sugar around 200. D51/2NS for nutrition. High risk of aspiration. 02/06/20 General surgery considering PEG tube for dysphagia. 02/06/20 Creatinine increased from 2.02 to 2.89. 02/07/20 Chest X-ray right lower lobe infiltrate. 02/09/20 General surgery performed EGD, placed PEG tube. 02/09/20 DKA resolved. Acute kidney injury resolved. 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 02/10/20 Admit to TCU with debility, here for rehabilitation, strengthening, prior to discharge home with family. Past Medical History Past Medical History (Chronic Problems): Chronic Problems Diabetes mellitus type 2 in nonobese (Chronic) Hypertension (Chronic) COPD (chronic obstructive pulmonary disease) (Chronic) Dyslipidemia (Chronic) Generalized weakness (Chronic) Diabetes mellitus (Chronic) Weight loss (Chronic) Asthma (Chronic) Hypertension (Chronic) Iron deficiency anemia (Chronic) GERD (gastroesophageal reflux disease) (Chronic) Kidney stone (Chronic) Allergies No Known Allergies Allergy (Verified 02/03/20 10:22) Home Medications: Ambulatory Orders Medication Instructions Recorded Budesonide/Formoterol Fumarate 2 puff IH BID 02/03/20 [Budesonide-Formoterol 160-4.5] Calcium Citrate/Vitamin D3 1 tab PO DAILY 02/03/20 [Calcium Citrate-Vit D3 Caplet] Empagliflozin [Jardiance] 10 mg PO DAILY 02/03/20 Fluocinonide/Emollient Base 15 gm TP DAILY PRN 02/03/20 [Fluocinonide-E 0.05% Cream] Tiotropium [place] [Spiriva 2 puff IH BID 02/03/20 Respimat] Acetaminophen Liquid [Tylenol 650 mg GT Q6H PRN PRN udc 02/10/20 Liquid] Amox/Clav 400mg/5ml Suspension 10 ml PO Q12H #1 bottle 02/10/20 [Augmentin Suspension 400mg/5ml] Atorvastatin Calcium 80 mg GT QHS #0 02/10/20 Ferrous Sulfate 325 mg GT QODAY #0 02/10/20 Insulin Glargine [Lantus SoloStar 25 units SUBCUT DINNER pen 02/10/20 Pen] Insulin Lispro [Humalog KwikPen] See Protocol SUBCUT Q6 insuln.pen 02/10/20 Ipratropium/Albuterol Sulfate 3 ml INHALATION Q4H.RT ampul.neb 02/10/20 [Duoneb] Jevity 1.5 1 bottle GT 5X/DAY #1 bottle 02/10/20 Lansoprazole 30 mg GT DAILY capsule. 02/10/20 Menthol/Lanolin/Calamine/Znox 1 applic TOPICAL BID tube 02/10/20 [Calmoseptine Ointment] Montelukast [Singulair] 10 mg GT QHS tab 02/10/20 Multivitamin 1 ea GT DAILY #0 02/10/20 Senna/Docusate Sodium [Senokot-S] 2 tab GT BID tab 02/10/20 Surgical History: noncontributory, - - PEG tube. Psychiatric History: No pertinent psych hx Lives: With Family Smoking Status: Former smoker Tobacco Use: Non-smoker Alcohol: Occasional Drugs: None - *Family History Maternal History Items: No pertinent history Paternal History Items: No pertinent history Review of Systems Constitutional: Denies: Chills, Fever, Weight Change HEENT: Denies: Head Aches, Sinus Congestion, Sinus Drainage Cardiovascular: Denies: Chest Pain, Palpitations Respiratory: Denies: Cough, Shortness of breath at rest, Sputum production Gastrointestinal: Denies: Abdominal Pain, Nausea, Vomiting Genitourinary: Denies: Dysuria Musculoskeletal: Denies: Joint Pain, Joint Tenderness Skin: Denies: Rash, Wounds Neurological: Denies: Numbness, Tingling, Focal weakness Psychiatric: Denies: Anxiety, Depression, Homicidal Ideations, Suicidal Ideations Hematologic/ Lymphatic: Denies: Easy Bruising, Easy Bleeding VTE Information - Inpt Only VTE Present on Admission: No VTE Mechan Device Prophylaxis: Knee High BRADLEY Hose VTE Pharm Prophylaxis ordered?: Yes Patient Problems: Active and Suspected Problems Debility (Acute) Hyperlipidemia (Acute) Acute kidney injury (Acute) - Physical Exam Vitals/I&O's: Vital Signs Temp Pulse Resp BP Pulse Ox 98.2 F 96 18 126/61 H 94 02/10/20 15:57 02/10/20 15:57 02/10/20 15:57 02/10/20 15:57 02/10/20 15:57 Oxygen Delivery Method Room Air Weight: 74.616 kg Body Mass Index (BMI) 25.7 Finger Stick Blood Glucose 82 General: Alert, Oriented x3, Cooperative HEENT: Atraumatic, PERRLA, EOMI, Normocephalic Neck: Supple, No JVD, Negative Carotid Bruits Lungs: Clear to auscultation, Normal air movement Cardiovascular: Regular rate, No murmurs Abdomen: Bowel Sounds Present, Soft, Non Tender, - - PEG tube. Extremities: No edema, Capillary Refill Less than 3 Seconds Skin: No rashes, No breakdown Musculoskeletal: No Tenderness to Palpation of Joints or Extremities Neurological: Cranial nerves II-XII grossly intact Psych/Mental Status: Normal Affect, Appropriate Current Medications Acetaminophen (Tylenol Liquid) 650 mg GT Q6H PRN PRN PRN Reason: Pain Score 1-10/10 Albuterol/Ipratropium (Duoneb) 3 ml INHALATION Q4H.RT ROM Amoxicillin/Clavulanate Potassium (Augmentin Suspension 400mg/5ml) 400 mg GT BIDCM ROM Atorvastatin Calcium (Lipitor) 80 mg GT QHS ROM Calamine/Phenol (Calmoseptine Ointment) 1 applic TOPICAL BID ROM; Protocol Clobetasol Propionate (Temovate Cream (Bkc)) 1 applic TOPICAL DAILY PRN PRN Reason: SCALP LESIONS Dextrose (D50w Syringe) 0 gm IV X1 PRN; Protocol PRN Reason: Hypoglycemia Ferrous Sulfate (Ferrous Sulfate) 325 mg GT DAILY@1200 ROM Fluticasone Propionate (Flovent Diskus 250 Mcg) 1 puff INHALATION BID ROM Glucagon () 1 mg IM .X1 PRN PRN Reason: Hypoglycemia Enteral Nutritional Formula (Jevity 1.5) 1,000 mls @ 50 mls/hr GT .Q20H [facility] Insulin Glargine (Lantus (Bkc)) 25 units SC DINNER ROM Insulin Human Lispro (Humalog Kwikpen (Bkc)) 0 unit SC Q6 ROM; Protocol Lansoprazole (Lansoprazole) 30 mg GT DAILY [facility] Multivitamins (Multivitamin) 1 tablet GT DAILYCM [facility] Senna/Docusate Sodium (Senokot-S, Renae-Colace) 2 tablet GT BID [facility] Sodium Chloride () 10 - 40 ml IV UD PRN PRN Reason: SALINE FLUSH Tuberculin PPD (Tubersol, Aplisol, Ppd) 5 tu ID X1 ONE Stop: 02/11/20 10:01 Tuberculin PPD (Tubersol, Aplisol, Ppd) 5 tu ID X1 ONE Stop: 02/18/20 10:01 Umeclidinium [place] (Incruse Ellipta Inhaler) 1 puff IH DAILY [facility] Assessment/Plan All Active Problems Dysphagia (Acute) Weakness (Acute) Dysphagia (Acute) Metabolic acidosis (Acute) DKA (diabetic ketoacidoses) (Acute) Debility (Acute) Hyperlipidemia (Acute) Acute kidney injury (Acute) 79 year old male with below past medical history hospitalized for diabetic ketoacidosis, acute kidney injury, complicated by dysphagia requiring PEG tube placement, admitted to TCU with debility, here for rehabilitation, strengthening, prior to discharge home with family. * Debility - PT/OT. * Pain - Tylenol 650MG Q6H PRN pain (1-10). * Bowel - Senna/colace 2 tablets BID. * Adult immunization - Administer Prevnar 13, Pneumovax 23, Fluzone as appropriate. * DVT prophylaxis - Lovenox 40MG SC daily. * Aspiration pneumonia - Augmentin 400MG BID thru 02/14/20. * Hyperlipidemia - Atorvastatin 80MG QHS. * Rash - Clobetasol cream daily PRN. * COPD - Flovent diskus 1 puff BID, Incruse 1 puff daily, Duoneb 3ML Q6H. * Diabetes Mellitus II - Lantus 25 units with dinner, Glucagon 1MG IM x 1 PRN hypoglycemia, monitor blood sugar. * Nutrition - Jevity 1.5 50ML/hour via PEG, MVI daily. * GERD - Lansoprazole 30MG daily. * Skin irritation - Calmoseptine BID.
[2020-02-10 20:10] VITALS: PULSE 90; RESP 24; O2SAT 95
[2020-02-10] MEDS: Ipratropium/Albuterol Sulfate 3 ML AMPUL.NEB INHALATION ×2 (20:10→23:29)
[2020-02-10 21:41] LABS: Bedside Glucose 196 mg/dL (70-110)
[2020-02-10] MEDS: Menthol/Lanolin/Calamine/Znox 113 GM Tube 1 APPLIC TOPICAL (21:50)
[2020-02-10] MEDS: Atorvastatin Calcium 80 MG Tablet GT (21:50)
[2020-02-10] MEDS: Amox/Clav 400mg/5ml Susp 400 MG GT (21:50)
[2020-02-10] MEDS: Montelukast 10 MG Tablet GT (21:50)
[2020-02-10] MEDS: Senna/Docusate Sodium 1 Tablet 2 TABLET GT (21:50)
[2020-02-10 22:51] VITALS: PULSE 73; O2SAT 98
[2020-02-10 23:29] VITALS: PULSE 96; RESP 24
[2020-02-11] VITALS (7 sets, daily range): BP systolic 129–131; BP diastolic 65–74; PULSE 97–104; RESP 17–26; TEMP 36.4–37; O2SAT 94–98
[2020-02-11 00:21] LABS: Bedside Glucose 236 mg/dL (70-110)
[2020-02-11] MEDS: Umeclidinium Bromide Inhaler 1 PUFF IH (04:06)
[2020-02-11] MEDS: Enoxaparin 40 MG/0.4 ML Syringe SC (04:06)
[2020-02-11] MEDS: Lansoprazole 15 MG Capsule.DR 30 MG GT (04:06)
[2020-02-11] MEDS: Menthol/Lanolin/Calamine/Znox 113 GM Tube 1 APPLIC TOPICAL ×2 (04:07→17:17)
[2020-02-11] MEDS: Nystatin Powder 15gm Bottle 1 APPLIC TOPICAL ×2 (04:11→21:21)
[2020-02-11] MEDS: Jevity 1.5 1,000 ML 50 ML GT (04:12)
[2020-02-11] MEDS: Senna/Docusate Sodium 1 Tablet 2 TABLET GT ×2 (04:12→16:57)
[2020-02-11] MEDS: Ipratropium/Albuterol Sulfate 3 ML AMPUL.NEB INHALATION ×3 (04:13→22:34)
[2020-02-11] MEDS: Amox/Clav 400mg/5ml Susp 400 MG GT ×2 (04:23→16:55)
[2020-02-11] MEDS: Multivitamins,Therapeutic Tablet 1 TABLET GT (04:25)
[2020-02-11] MEDS: 0.9% Saline Lock 10 ML Syringe IV ×2 (04:36→17:00)
[2020-02-11 05:47] LABS: Absolute Neutrophil Count 3.5 X10^3/uL (2.0-7.7); Eosinophil# 0.04 X10^3/uL; Eosinophils% 0.8 % (0-5); Hematocrit 41.6 % (40-54); Hemoglobin 13.2 g/dL (13.0-16.5); Lymphocyte % 21.1 % (19-41); Mean Corp Hgb Conc 31.7 g/dL (32-36); Mean Corpuscular Volume 88.3 fL (80-94); Mean Platelet Vol. 9.9 fl (6.2-12.0); Monocyte# 0.58 X10^3/uL; Monocyte% 11.1 % (0-10); NRBC Flagged by Analyzer 0 % (0-5); Neutrophil # 3.47 X10^3/uL (2.7-7.7); Neutrophil % 66.4 % (47-70); POSITIVE COUNT YES; Platelet Count 85 K/mm3 (150-450); RBC Distribution Width CV 14.6 % (11.6-14.6); RBC Distribution Width SD 47.1 fl (35.1-43.9); Red Blood Count 4.71 M/mm3 (4.6-6.2); White Blood Count 5.2 K/mm3 (4.4-11.0)
[2020-02-11 05:58] LABS: Anion Gap 4 (5-15); BUN 14 mg/dL (7-18); BUN/Creat Ratio 29.6 RATIO (10-20); Calcium,Total 8.7 mg/dL (8.5-10.1); Chloride 99 mmol/L (98-107); Creatinine, Serum 0.47 mg/dL (0.70-1.30); EST Glomerular Filtration Rate 182 mL/min (>60); Est Glom Filt Rate - Afr Amer 220 mL/min (>60); Glucose 284 mg/dL (74-106); Potassium 3.4 mmol/L (3.5-5.1); Sodium Level 135 mmol/L (136-145)
[2020-02-11 06:26] LABS: Bedside Glucose 249 mg/dL (70-110)
--- NOTE | 2020-02-11 10:32 | CASEMGMT ---
Social Work SW spoke with pt regarding end of life wishes. Pt clearly stating he would like to be full code and would want intubation if needed. Molst form completed and SW informed Thea LOGAN to update on pt wishes. ZAINAB Garrido
[2020-02-11] MEDS: Tuberculin,Purif.prot.deriv. 50 TU/ML Vial 5 ML ID (10:42)
--- NOTE | 2020-02-11 10:51 | NURSING ---
checked PEG residual 0cc, liquid potassium given per order via PEG. pt potassium level lower this AM. 3.4.
[2020-02-11 11:05] LABS: Bedside Glucose 345 mg/dL (70-110)
--- NOTE | 2020-02-11 12:21 | PCM.PN.RX ---
<Sidra Mckeon - Last Filed: 02/11/20 12:21> Progress Note - Pharmacy Subjective: TCU Admission Objective: Allergies No Known Allergies Allergy (Verified 02/03/20 10:22) Current Medications Generic Name Dose Route Start Last Admin Trade Name Freq PRN Reason Stop Dose Admin Acetaminophen 650 mg 02/10/20 16:33 Tylenol Liquid GT Q6H PRN PRN Pain Score 1-10/10 Albuterol/Ipratropium 3 ml 02/10/20 16:45 02/11/20 11:50 Duoneb INHALATION Not Given Q4H.RT ROM Amoxicillin/Clavulanate Potassium 400 mg 02/10/20 17:00 02/11/20 04:23 Augmentin Suspension 400mg/5ml GT 02/14/20 23:59 400 mg BIDCM ROM Administration Atorvastatin Calcium 80 mg 02/10/20 22:00 02/10/20 21:50 Lipitor GT 80 mg QHS ROM Administration Calamine/Phenol 1 applic 02/10/20 18:00 02/11/20 04:07 Calmoseptine Ointment TOPICAL 1 applicatio BID ROM Administration Protocol Clobetasol Propionate 1 applic 02/10/20 18:48 Temovate Cream (Bkc) TOPICAL DAILY PRN SCALP LESIONS Dextrose 0 gm 02/10/20 16:33 D50w Syringe IV X1 PRN Hypoglycemia Protocol Enoxaparin Sodium 40 mg 02/11/20 06:00 02/11/20 04:06 Lovenox SC 40 mg DAILY@0600 ROM Administration Fluticasone Propionate 1 puff 02/10/20 18:00 02/11/20 04:06 Flovent Diskus 250 Mcg INHALATION 1 puff BID ROM Administration Glucagon 1 mg 02/10/20 16:33 IM .X1 PRN Hypoglycemia Enteral Nutritional Formula 1,000 mls @ 50 mls/hr 02/10/20 18:00 02/11/20 04:12 Jevity 1.5 GT 50 mls/hr .Q20H ROM Administration Insulin Glargine 25 units 02/10/20 17:00 02/10/20 21:51 Lantus (Bkc) SC 25 units DINNER ROM Administration Lansoprazole 30 mg 02/11/20 06:00 02/11/20 04:06 Lansoprazole GT 30 mg DAILY ROM Administration Multi-Ingredient Cream 1 applic 02/11/20 22:00 Eucerin TOPICAL QHS [facility] Protocol Multivitamins 1 tablet 02/11/20 08:00 02/11/20 04:25 Multivitamin GT 1 tablet DAILYCM ROM Administration Nystatin 1 applic 02/11/20 06:00 02/11/20 04:11 Mycostatin Powder TOPICAL 1 applicatio 0600,2200 ROM Administration Protocol Potassium Chloride 10 meq 02/12/20 06:00 02/11/20 10:42 Potassium Chl Soln PO 10 meq DAILY ROM Administration Senna/Docusate Sodium 2 tablet 02/10/20 18:00 02/11/20 04:12 Senokot-S, Renae-Colace GT 2 tablet BID ROM Administration Sodium Chloride 10 - 40 ml 02/10/20 16:00 02/11/20 04:36 IV 20 ml UD PRN Administration SALINE FLUSH Tuberculin PPD 5 tu 02/18/20 10:00 Tubersol, Aplisol, Ppd ID 02/18/20 10:01 X1 ONE Umeclidinium [place] 1 puff 02/11/20 06:00 02/11/20 04:06 Incruse Ellipta Inhaler IH 1 puff DAILY ROM Administration Problem List Debility (Acute) Asthma (Chronic) Hypertension (Chronic) Hyperlipidemia (Acute) Iron deficiency anemia (Chronic) GERD (gastroesophageal reflux disease) (Chronic) Kidney stone (Chronic) Acute kidney injury (Acute) Vital Signs Temp Pulse Resp BP Pulse Ox 98.6 F 104 H 17 129/65 H 98 02/11/20 04:41 02/11/20 04:41 02/11/20 04:41 02/11/20 04:41 02/11/20 04:41 Oxygen Delivery Method Room Air Weight: 74.616 kg Body Mass Index (BMI) 25.7 Finger Stick Blood Glucose 82 Sodium 135 mmol/L (136-145) L 02/11/20 05:15 Potassium 3.4 mmol/L (3.5-5.1) L 02/11/20 05:15 Chloride 99 mmol/L (98-107) 02/11/20 05:15 Carbon Dioxide 32.0 mmol/L (21.0-32.0) 02/11/20 05:15 Anion Gap 4 (5-15) L 02/11/20 05:15 BUN 14 mg/dL (7-18) 02/11/20 05:15 Creatinine 0.47 mg/dL (0.70-1.30) L 02/11/20 05:15 Est GFR (MDRD) Af Amer 220 mL/min (>60) 02/11/20 05:15 Est GFR (MDRD) Non-Af 182 mL/min (>60) 02/11/20 05:15 BUN/Creatinine Ratio 29.6 RATIO (10-20) H 02/11/20 05:15 Glucose 284 mg/dL (74-106) H 02/11/20 05:15 Assessment/Plan: 1. Pain: acetaminophen liquid 650mg GT Q6H PRN pain 1-02/20. Please continue to monitor for increased pain and PRN usage. 2. Aspiration pneumonia: amoxicillin/clavulanate suspension 400mg GT BIDCM thru 02/14/20. Please continue to monitor for S/S of worsening infection, renal function, and diarrhea. 3. DVT prophylaxis: enoxaparin 40mg SC daily. Please continue to monitor for S/S of bleeding/DVT, renal function, platelets (last 85,000), and hemoglobin (last 13.2g/dL). *4. Hyperlipidemia: atorvastatin 80mg GT QHS. Please consider ordering a lipid panel now and then annually as clinically appropriate. I did not see one in the patient's chart. Please continue to monitor for muscle pain. Thanks. *5. COPD: fluticasone inhaler 250mcg inhalation BID, umeclidinium inhaler 1 inhalation DAILY, and ipratropium/albuterol 3mL inhalation Q4H.RT. Please consider changing Duoneb to Q4HWA.RT as patient has not been receiving doses due to being asleep. Thanks. Please continue to monitor for SOB and wheezing. Please rinse and spit the mouth with water after administering fluticasone to prevent thrush. 6. Type II Diabetes Mellitus: insulin glargine 25units SC DINNER. Please continue to monitor hemoglobin A1c (last 9.9%), blood sugars, and for S/S of hypo/hyperglycemia. 7. GERD: lansoprazole 30mg GT daily. Please continue to monitor for S/S of GERD. 8. Nutrition: Jevity 1.5 50mLs/hr via PEG, multivitamin 1T PO DAILYCM. Please continue to monitor. 9. Hypokalemia: potassium chloride solution 10meq GT daily. Please continue to monitor potassium levels (last 3.4mmol/L). 10. Rash: clobetasol 0.05% cream topically DAILY PRN scalp lesions. Please continue to monitor. Psychotropic Medications: None Unnecessary Medications: None Bowel Regimen: senna/docusate 2T GT BID. Please continue to monitor for S/S of constipation/diarrhea. Date of Note:: 02/11/20 - Provider Comments Provider responsibility: Provider responsible to enter orders to implement recommendations <Milton Davis Chi - Last Filed: 02/11/20 17:22> Progress Note - Pharmacy Subjective: [] Objective: Allergies No Known Allergies Allergy (Verified 02/03/20 10:22) Current Medications Generic Name Dose Route Start Last Admin Trade Name Freq PRN Reason Stop Dose Admin Acetaminophen 650 mg 02/10/20 16:33 Tylenol Liquid GT Q6H PRN PRN Pain Score 1-02/20 Albuterol/Ipratropium 3 ml 02/10/20 16:45 02/11/20 11:50 Duoneb INHALATION Not Given Q4H.RT ROM Amoxicillin/Clavulanate Potassium 400 mg 02/10/20 17:00 02/11/20 16:55 Augmentin Suspension 400mg/5ml GT 02/14/20 23:59 400 mg BIDCM ROM Administration Atorvastatin Calcium 80 mg 02/10/20 22:00 02/10/20 21:50 Lipitor GT 80 mg QHS ROM Administration Calamine/Phenol 1 applic 02/10/20 18:00 02/11/20 17:17 Calmoseptine Ointment TOPICAL 1 applicatio BID ROM Administration Protocol Clobetasol Propionate 1 applic 02/10/20 18:48 Temovate Cream (Bkc) TOPICAL DAILY PRN SCALP LESIONS Dextrose 0 gm 02/10/20 16:33 D50w Syringe IV X1 PRN Hypoglycemia Protocol Enoxaparin Sodium 40 mg 02/11/20 06:00 02/11/20 04:06 Lovenox SC 40 mg DAILY@0600 ROM Administration Fluticasone Propionate 1 puff 02/10/20 18:00 02/11/20 16:55 Flovent Diskus 250 Mcg INHALATION 1 puff BID ROM Administration Glucagon 1 mg 02/10/20 16:33 IM .X1 PRN Hypoglycemia Enteral Nutritional Formula 1,000 mls @ 50 mls/hr 02/10/20 18:00 02/11/20 04:12 Jevity 1.5 GT 50 mls/hr .Q20H ROM Administration Insulin Glargine 30 units 02/11/20 22:00 Lantus ([facility]) SC QHS ROM Insulin Human Lispro 15 unit 02/11/20 17:19 Humalog Kwikpen ([facility]) SC 02/11/20 17:20 X1 ONE Insulin Human Lispro 10 unit 02/12/20 06:45 Humalog Kwikpen ([facility]) NC TIDAC ROM Lansoprazole 30 mg 02/11/20 06:00 02/11/20 04:06 Lansoprazole GT 30 mg DAILY ROM Administration Multi-Ingredient Cream 1 applic 02/11/20 22:00 Eucerin TOPICAL QHS [facility] Protocol Multivitamins 1 tablet 02/11/20 08:00 02/11/20 04:25 Multivitamin GT 1 tablet DAILYCM ROM Administration Nystatin 1 applic 02/11/20 06:00 02/11/20 04:11 Mycostatin Powder TOPICAL 1 applicatio 0600,2200 [facility] Administration Protocol Potassium Chloride 10 meq 02/12/20 06:00 Potassium Chl Soln GT DAILY [facility] Senna/Docusate Sodium 2 tablet 02/10/20 18:00 02/11/20 16:57 Senokot-S, Renae-Colace GT 2 tablet BID ROM Administration Sodium Chloride 10 - 40 ml 02/10/20 16:00 02/11/20 17:00 IV 10 ml UD PRN Administration SALINE FLUSH Tuberculin PPD 5 tu 02/18/20 10:00 Tubersol, Aplisol, Ppd ID 02/18/20 10:01 X1 ONE Umeclidinium [place] 1 puff 02/11/20 06:00 02/11/20 04:06 Incruse Ellipta Inhaler IH 1 puff DAILY [facility] Administration Problem List Debility (Acute) Asthma (Chronic) Hypertension (Chronic) Hyperlipidemia (Acute) Iron deficiency anemia (Chronic) GERD (gastroesophageal reflux disease) (Chronic) Kidney stone (Chronic) Acute kidney injury (Acute) Vital Signs Temp Pulse Resp BP Pulse Ox 97.5 F L 97 24 H 131/74 H 94 02/11/20 14:53 02/11/20 15:22 02/11/20 15:22 02/11/20 14:53 02/11/20 15:22 Oxygen Delivery Method Room Air Weight: 74.616 kg Body Mass Index (BMI) 25.7 Finger Stick Blood Glucose 82 Sodium 135 mmol/L (136-145) L 02/11/20 05:15 Potassium 3.4 mmol/L (3.5-5.1) L 02/11/20 05:15 Chloride 99 mmol/L (98-107) 02/11/20 05:15 Carbon Dioxide 32.0 mmol/L (21.0-32.0) 02/11/20 05:15 Anion Gap 4 (5-15) L 02/11/20 05:15 BUN 14 mg/dL (7-18) 02/11/20 05:15 Creatinine 0.47 mg/dL (0.70-1.30) L 02/11/20 05:15 Est GFR (MDRD) Af Amer 220 mL/min (>60) 02/11/20 05:15 Est GFR (MDRD) Non-Af 182 mL/min (>60) 02/11/20 05:15 BUN/Creatinine Ratio 29.6 RATIO (10-20) H 02/11/20 05:15 Glucose 284 mg/dL (74-106) H 02/11/20 05:15 Assessment/Plan: Psychotropic Medications: Unnecessary Medications: Bowel Regimen: - Provider Comments Provider responsibility: Provider responsible to enter orders to implement recommendations Provider Comments to Recommendations by Pharmacy: Agree
[2020-02-11 16:31] LABS: Bedside Glucose 405 mg/dL (70-110)
--- NOTE | 2020-02-11 17:28 | NURSING ---
Did not notify family pt was on phone with .
[2020-02-11] MEDS: Insulin Lispro 100 UNIT/ML INSULN.PEN 15 UNIT SC (18:38)
[2020-02-11] MEDS: Atorvastatin Calcium 80 MG Tablet GT (21:21)
--- NOTE | 2020-02-11 23:54 | NURSING ---
Pt up to bsc x3 assists, pt very weak, unable to stand for period of time. Had mod bm, mucus and green/brown color. Will leave note for Dr. Davis, will continue to monitor.
[2020-02-12 00:05] LABS: Bedside Glucose 240 mg/dL (70-110)
[2020-02-12] MEDS: Jevity 1.5 1,000 ML 50 ML GT (01:33)
[2020-02-12] MEDS: 0.9% Saline Lock 10 ML Syringe IV ×2 (04:23→09:24)
[2020-02-12 04:24] VITALS: BP 148/72; PULSE 97; RESP 18; TEMP 36.1; O2SAT 95
[2020-02-12] MEDS: Umeclidinium Bromide Inhaler 1 PUFF IH (04:36)
[2020-02-12] MEDS: Enoxaparin 40 MG/0.4 ML Syringe SC (04:36)
[2020-02-12] MEDS: Menthol/Lanolin/Calamine/Znox 113 GM Tube 1 APPLIC TOPICAL ×2 (04:40→18:28)
[2020-02-12] MEDS: Nystatin Powder 15gm Bottle 1 APPLIC TOPICAL ×2 (04:40→21:09)
[2020-02-12] MEDS: Senna/Docusate Sodium 1 Tablet 2 TABLET GT ×2 (04:40→18:29)
[2020-02-12] MEDS: Lansoprazole 15 MG Capsule.DR 30 MG GT (04:40)
[2020-02-12 05:35] LABS: Absolute Lymphocyte Count 1.02 X10^3/uL (0.83-4.51); Absolute Neutrophil Count 3.7 X10^3/uL (2.0-7.7); Eosinophil# 0.02 X10^3/uL; Eosinophils% 0.4 % (0-5); Hematocrit 39.6 % (40-54); Hemoglobin 12.5 g/dL (13.0-16.5); Lymphocyte # 1.02 X10^3/ul (4.0); Lymphocyte % 19.6 % (19-41); Mean Corp Hgb Conc 31.6 g/dL (32-36); Mean Corpuscular Volume 88.6 fL (80-94); Mean Platelet Vol. 9.7 fl (6.2-12.0); Monocyte# 0.47 X10^3/uL; NRBC Flagged by Analyzer 0 % (0-5); Neutrophil # 3.68 X10^3/uL (2.7-7.7); Neutrophil % 70.6 % (47-70); POSITIVE COUNT YES; Platelet Count 87 K/mm3 (150-450); RBC Distribution Width CV 14.5 % (11.6-14.6); RBC Distribution Width SD 46.5 fl (35.1-43.9); Red Blood Count 4.47 M/mm3 (4.6-6.2); White Blood Count 5.2 K/mm3 (4.4-11.0)
[2020-02-12 05:49] LABS: Anion Gap 3 (5-15); BUN 13 mg/dL (7-18); Calcium,Total 8.3 mg/dL (8.5-10.1); Chloride 101 mmol/L (98-107); Creatinine, Serum 0.43 mg/dL (0.70-1.30); EST Glomerular Filtration Rate 201 mL/min (>60); Est Glom Filt Rate - Afr Amer 243 mL/min (>60); Glucose 274 mg/dL (74-106); Potassium 3.5 mmol/L (3.5-5.1); Sodium Level 138 mmol/L (136-145)
[2020-02-12 06:26] LABS: Bedside Glucose 275 mg/dL (70-110)
[2020-02-12 07:30] VITALS: PULSE 106; RESP 20
[2020-02-12] MEDS: Ipratropium/Albuterol Sulfate 3 ML AMPUL.NEB INHALATION ×3 (07:30→20:15)
[2020-02-12] MEDS: Insulin Lispro 100 UNIT/ML INSULN.PEN 13 UNIT SC ×3 (08:08→18:27)
[2020-02-12] MEDS: Multivitamins,Therapeutic Tablet 1 TABLET GT (08:10)
[2020-02-12] MEDS: Amox/Clav 400mg/5ml Susp 400 MG GT ×2 (08:11→18:28)
--- NOTE | 2020-02-12 08:30 | RAD_ITS ---
STUDY: X-RAY - ABDOMEN/PELVIS REASON FOR EXAM: Male, 79 years old. ILEUS F/U, NO COMPLAINTS TODAY TECHNIQUE: Single AP view of the abdomen / pelvis. COMPARISON: Comparison is made with prior study dated 02/08/2020. FINDINGS: Small amount of residual contrast is seen within the colon. The colonic gaseous distention has improved. Contrast is seen down to the level of the rectum. The visualized liver, spleen and kidneys are grossly normal in size and morphology. Normal soft tissue structures. There are diffuse degenerative changes of the visualized lumbar spine. Status post left hip replacement. RAD/Abdomen Single View IMPRESSION: Decreased gaseous distention of the colon as well as the amount of contrast within the colon. Electronically Signed: Freddie Montaño, at 8:52 EDT , Service support ,
[2020-02-12] MEDS: BACITRACIN 15 GM Tube 1 APPLIC TOPICAL ×3 (09:14→21:06)
[2020-02-12 09:25] VITALS: PULSE 102; RESP 18; O2SAT 92
[2020-02-12 11:06] LABS: Bedside Glucose 330 mg/dL (70-110)
[2020-02-12 11:28] VITALS: PULSE 100; RESP 20
[2020-02-12 13:47] VITALS: BP 123/62; PULSE 106; RESP 16; TEMP 36.2; O2SAT 95
[2020-02-12 18:16] LABS: Bedside Glucose 324 mg/dL (70-110)
[2020-02-12 20:15] VITALS: PULSE 102; RESP 18
[2020-02-12] MEDS: Insulin Lispro 100 UNIT/ML INSULN.PEN 20 UNIT SC (21:03)
[2020-02-12 21:06] LABS: Bedside Glucose 235 mg/dL (70-110)
[2020-02-12] MEDS: Atorvastatin Calcium 80 MG Tablet GT (21:08)
[2020-02-12] MEDS: MELATONIN 10 MG TABLET PO (21:10)
[2020-02-13 00:20] LABS: Bedside Glucose 98 mg/dL (70-110)
[2020-02-13] MEDS: Jevity 1.5 1,000 ML 50 ML GT (00:33)
[2020-02-13 04:29] VITALS: BP 123/68; PULSE 91; RESP 16; TEMP 36.6; O2SAT 98
[2020-02-13] MEDS: Umeclidinium Bromide Inhaler 1 PUFF IH (05:01)
[2020-02-13] MEDS: Lansoprazole 15 MG Capsule.DR 30 MG GT (05:02)
[2020-02-13] MEDS: Enoxaparin 30 MG/0.3 ML Syringe SC (05:02)
[2020-02-13] MEDS: Senna/Docusate Sodium 1 Tablet 2 TABLET GT ×2 (05:02→18:37)
[2020-02-13] MEDS: BACITRACIN 15 GM Tube 1 APPLIC TOPICAL ×2 (05:03→18:45)
[2020-02-13] MEDS: Nystatin Powder 15gm Bottle 1 APPLIC TOPICAL ×2 (05:05→20:46)
[2020-02-13] MEDS: Menthol/Lanolin/Calamine/Znox 113 GM Tube 1 APPLIC TOPICAL ×2 (05:05→20:43)
[2020-02-13 05:46] LABS: Absolute Lymphocyte Count 1.08 X10^3/uL (0.83-4.51); Absolute Neutrophil Count 3.5 X10^3/uL (2.0-7.7); Basophil# 0.01 X10^3/uL; Basophil% 0.2 % (0-1); Eosinophil# 0.05 X10^3/uL; Hematocrit 39.7 % (40-54); Hemoglobin 12.6 g/dL (13.0-16.5); Lymphocyte # 1.08 X10^3/ul (4.0); Lymphocyte % 21.6 % (19-41); Mean Corp Hgb Conc 31.7 g/dL (32-36); Mean Corpuscular Hgb 28.7 pg (27.0-32.0); Mean Corpuscular Volume 90.4 fL (80-94); Mean Platelet Vol. 9.8 fl (6.2-12.0); Monocyte# 0.35 X10^3/uL; NRBC Flagged by Analyzer 0 % (0-5); Neutrophil # 3.46 X10^3/uL (2.7-7.7); Neutrophil % 69.4 % (47-70); POSITIVE COUNT YES; Platelet Count 82 K/mm3 (150-450); RBC Distribution Width CV 14.4 % (11.6-14.6); RBC Distribution Width SD 47.3 fl (35.1-43.9); Red Blood Count 4.39 M/mm3 (4.6-6.2)
[2020-02-13 06:00] LABS: BUN 10 mg/dL (7-18); Creatinine, Serum 0.42 mg/dL (0.70-1.30); Glucose 140 mg/dL (74-106)
[2020-02-13 06:01] LABS: Anion Gap 2 (5-15); BUN/Creat Ratio 23.9 RATIO (10-20); Calcium,Total 8.3 mg/dL (8.5-10.1); Chloride 99 mmol/L (98-107); EST Glomerular Filtration Rate 209 mL/min (>60); Est Glom Filt Rate - Afr Amer 253 mL/min (>60); Potassium 3.6 mmol/L (3.5-5.1); Sodium Level 139 mmol/L (136-145)
[2020-02-13 06:16] LABS: Bedside Glucose 154 mg/dL (70-110)
[2020-02-13 06:34] VITALS: PULSE 101; RESP 20
[2020-02-13] MEDS: Ipratropium/Albuterol Sulfate 3 ML AMPUL.NEB INHALATION ×4 (06:34→22:55)
[2020-02-13] MEDS: Insulin Lispro 100 UNIT/ML INSULN.PEN 17 UNIT SC ×2 (07:37→18:38)
[2020-02-13] MEDS: Amox/Clav 400mg/5ml Susp 400 MG GT ×2 (07:38→18:37)
[2020-02-13] MEDS: Multivitamins,Therapeutic Tablet 1 TABLET GT (07:38)
--- NOTE | 2020-02-13 09:00 | NS ---
Due to no pump sets for tf, will need to change to gravity feeds - Jevity 1.5 at 50 ml w/ 100 ml flush every 4 hrs will be converted to 200 ml formula with 100 ml every four hours.
[2020-02-13] MEDS: 0.9% Saline Lock 10 ML Syringe IV (10:13)
--- NOTE | 2020-02-13 10:14 | NURSING ---
PT CHANGED TO BOLUSES IF HE DOES NOT EAT >50% OF MEALS AND WILL GET SCHEDULED BOLUS AT 8P & MIDNIGHT 240CC W/180CC FLUSH. PT UPDATED AND AGREEABLE. PT PEG TUBE CLAMPED AFTER FLUSHING. PT SITTING W/HOB ELEVATED AT 40 DEGREES. PT C/O SOB TODAY, SAT 94% RA. LUNGS CLEAR A&P. WILL CONT TO MONITOR.
[2020-02-13 11:00] LABS: Bedside Glucose 135 mg/dL (70-110)
[2020-02-13] MEDS: Jevity 1.5. 1,000 ML Bottle 240 ML GT ×3 (14:00→23:55)
[2020-02-13 15:03] VITALS: PULSE 102; RESP 20
[2020-02-13 15:38] VITALS: BP 125/73; PULSE 95; RESP 18; TEMP 36.3; O2SAT 94
[2020-02-13 17:00] LABS: Bedside Glucose 223 mg/dL (70-110)
[2020-02-13 18:50] VITALS: PULSE 98; RESP 20
[2020-02-13] MEDS: MELATONIN 10 MG TABLET PO (20:45)
[2020-02-13] MEDS: Atorvastatin Calcium 80 MG Tablet GT (20:45)
[2020-02-13 21:06] LABS: Bedside Glucose 202 mg/dL (70-110)
[2020-02-13 22:55] VITALS: PULSE 97; RESP 20
[2020-02-14 03:55] VITALS: BP 111/67; PULSE 94; RESP 18; TEMP 36.3; O2SAT 97
[2020-02-14] MEDS: Enoxaparin 30 MG/0.3 ML Syringe SC (04:41)
[2020-02-14] MEDS: Senna/Docusate Sodium 1 Tablet 2 TABLET GT ×2 (04:41→17:41)
[2020-02-14] MEDS: BACITRACIN 15 GM Tube 1 APPLIC TOPICAL ×2 (04:42→17:42)
[2020-02-14] MEDS: Menthol/Lanolin/Calamine/Znox 113 GM Tube 1 APPLIC TOPICAL ×2 (04:42→17:46)
[2020-02-14] MEDS: Lansoprazole 15 MG Capsule.DR 30 MG GT (04:43)
[2020-02-14] MEDS: Umeclidinium Bromide Inhaler 1 PUFF IH (04:43)
[2020-02-14] MEDS: Nystatin Powder 15gm Bottle 1 APPLIC TOPICAL ×2 (04:44→21:05)
[2020-02-14 06:11] LABS: Bedside Glucose 186 mg/dL (70-110)
[2020-02-14 07:30] VITALS: PULSE 82; RESP 18; O2SAT 95
[2020-02-14] MEDS: Insulin Lispro 100 UNIT/ML INSULN.PEN 17 UNIT SC (07:56)
[2020-02-14] MEDS: Amox/Clav 400mg/5ml Susp 400 MG GT ×2 (07:57→17:42)
[2020-02-14] MEDS: Multivitamins,Therapeutic Tablet 1 TABLET GT (07:57)
[2020-02-14 08:07] LABS: Absolute Lymphocyte Count 1.22 X10^3/uL (0.83-4.51); Absolute Neutrophil Count 4.9 X10^3/uL (2.0-7.7); Basophil# 0.01 X10^3/uL; Basophil% 0.1 % (0-1); Eosinophil# 0.04 X10^3/uL; Eosinophils% 0.6 % (0-5); Hematocrit 41.8 % (40-54); Hemoglobin 13.3 g/dL (13.0-16.5); Lymphocyte # 1.22 X10^3/ul (4.0); Lymphocyte % 18.3 % (19-41); Mean Corp Hgb Conc 31.8 g/dL (32-36); Mean Corpuscular Hgb 28.6 pg (27.0-32.0); Mean Corpuscular Volume 89.9 fL (80-94); Mean Platelet Vol. 9.9 fl (6.2-12.0); Monocyte# 0.49 X10^3/uL; Monocyte% 7.3 % (0-10); NRBC Flagged by Analyzer 0 % (0-5); Neutrophil # 4.87 X10^3/uL (2.7-7.7); Neutrophil % 73.1 % (47-70); Platelet Count 105 K/mm3 (150-450); RBC Distribution Width CV 14.4 % (11.6-14.6); Red Blood Count 4.65 M/mm3 (4.6-6.2); White Blood Count 6.7 K/mm3 (4.4-11.0)
[2020-02-14 08:45] LABS: Anion Gap -1 (5-15); BUN 9 mg/dL (7-18); BUN/Creat Ratio 21.4 RATIO (10-20); Calcium,Total 8.4 mg/dL (8.5-10.1); Chloride 100 mmol/L (98-107); Creatinine, Serum 0.42 mg/dL (0.70-1.30); EST Glomerular Filtration Rate 208 mL/min (>60); Est Glom Filt Rate - Afr Amer 252 mL/min (>60); Glucose 118 mg/dL (74-106); Potassium 3.6 mmol/L (3.5-5.1); Sodium Level 139 mmol/L (136-145)
--- NOTE | 2020-02-14 10:55 | NURSING ---
Notified by MANAGER INSURANCE that patient's blood glucose is 44, stat blood glucose ordered. Provided supplements to pt to bring up glucose. pt denies any symptoms. Will recheck in [address] Davis, received new order for Humalog to be changed to 10 units TID and Lantus to be changed to 30 units at HS. Ordered repeated back. Will add orders.
[2020-02-14 10:56] LABS: Bedside Glucose 44 mg/dL (70-110)
[2020-02-14 11:00] LABS: Bedside Glucose 44 mg/dL (70-110)
[2020-02-14 11:15] LABS: Bedside Glucose 66 mg/dL (70-110)
[2020-02-14 11:22] VITALS: PULSE 86; RESP 18
[2020-02-14 11:22] LABS: Glucose 54 mg/dL (74-106)
[2020-02-14] MEDS: Jevity 1.5. 1,000 ML Bottle 240 ML GT ×3 (13:20→20:47)
[2020-02-14 13:24] VITALS: BP 133/69; PULSE 95; RESP 16; TEMP 36; O2SAT 99
[2020-02-14 13:31] LABS: Bedside Glucose 146 mg/dL (70-110)
[2020-02-14 16:00] VITALS: PULSE 96; RESP 16
[2020-02-14] MEDS: Ipratropium/Albuterol Sulfate 3 ML AMPUL.NEB INHALATION ×2 (16:00→19:50)
[2020-02-14 16:11] LABS: Bedside Glucose 294 mg/dL (70-110)
[2020-02-14] MEDS: Insulin Lispro 100 UNIT/ML INSULN.PEN 10 UNIT SC (17:41)
[2020-02-14] MEDS: 0.9% Saline Lock 10 ML Syringe IV (18:28)
[2020-02-14 19:50] VITALS: PULSE 106; RESP 18
[2020-02-14] MEDS: Atorvastatin Calcium 80 MG Tablet GT (20:49)
[2020-02-14] MEDS: MELATONIN 10 MG TABLET PO (20:49)
[2020-02-14 21:11] LABS: Bedside Glucose 287 mg/dL (70-110)
[2020-02-15] MEDS: Jevity 1.5. 1,000 ML Bottle 240 ML GT ×4 (00:08→20:43)
[2020-02-15 04:19] VITALS: BP 143/72; PULSE 95; RESP 18; TEMP 35.8; O2SAT 94
[2020-02-15] MEDS: 0.9% Saline Lock 10 ML Syringe IV ×3 (04:20→21:51)
[2020-02-15] MEDS: Enoxaparin 30 MG/0.3 ML Syringe SC (04:22)
[2020-02-15] MEDS: BACITRACIN 15 GM Tube 1 APPLIC TOPICAL ×2 (04:22→17:48)
[2020-02-15] MEDS: Lansoprazole 15 MG Capsule.DR 30 MG GT (04:24)
[2020-02-15] MEDS: Senna/Docusate Sodium 1 Tablet 2 TABLET GT (04:24)
[2020-02-15] MEDS: Nystatin Powder 15gm Bottle 1 APPLIC TOPICAL ×2 (04:31→20:47)
[2020-02-15] MEDS: Menthol/Lanolin/Calamine/Znox 113 GM Tube 1 APPLIC TOPICAL ×2 (04:31→17:49)
[2020-02-15] MEDS: Umeclidinium Bromide Inhaler 1 PUFF IH (04:32)
[2020-02-15 04:41] LABS: Bedside Glucose 295 mg/dL (70-110)
[2020-02-15 06:21] LABS: Bedside Glucose 255 mg/dL (70-110)
[2020-02-15] MEDS: Ipratropium/Albuterol Sulfate 3 ML AMPUL.NEB INHALATION (06:45)
[2020-02-15 06:56] LABS: Absolute Neutrophil Count 4.8 X10^3/uL (2.0-7.7); Eosinophil# 0.03 X10^3/uL; Eosinophils% 0.5 % (0-5); Hematocrit 39.9 % (40-54); Hemoglobin 12.4 g/dL (13.0-16.5); Lymphocyte % 17.1 % (19-41); Mean Corp Hgb Conc 31.1 g/dL (32-36); Mean Corpuscular Hgb 28.2 pg (27.0-32.0); Mean Corpuscular Volume 90.9 fL (80-94); Mean Platelet Vol. 10.2 fl (6.2-12.0); Monocyte# 0.46 X10^3/uL; Monocyte% 7.1 % (0-10); NRBC Flagged by Analyzer 0 % (0-5); Neutrophil # 4.84 X10^3/uL (2.7-7.7); Platelet Count 103 K/mm3 (150-450); RBC Distribution Width CV 14.2 % (11.6-14.6); RBC Distribution Width SD 47.1 fl (35.1-43.9); Red Blood Count 4.39 M/mm3 (4.6-6.2); White Blood Count 6.5 K/mm3 (4.4-11.0)
[2020-02-15 07:24] VITALS: PULSE 96; RESP 16; O2SAT 95
[2020-02-15 08:14] LABS: Anion Gap 3 (5-15); BUN 10 mg/dL (7-18); Calcium,Total 8.3 mg/dL (8.5-10.1); Chloride 99 mmol/L (98-107); EST Glomerular Filtration Rate 170 mL/min (>60); Est Glom Filt Rate - Afr Amer 206 mL/min (>60); Glucose 251 mg/dL (74-106); Potassium 3.9 mmol/L (3.5-5.1); Sodium Level 139 mmol/L (136-145)
[2020-02-15] MEDS: Insulin Lispro 100 UNIT/ML INSULN.PEN 10 UNIT SC (08:23)
[2020-02-15] MEDS: Multivitamins,Therapeutic Tablet 1 TABLET GT (08:23)
[2020-02-15 11:06] LABS: Bedside Glucose 323 mg/dL (70-110)
[2020-02-15] MEDS: Insulin Lispro 100 UNIT/ML INSULN.PEN 13 UNIT SC ×2 (11:43→17:48)
[2020-02-15 14:12] VITALS: BP 120/63; PULSE 101; RESP 18; TEMP 36.2; O2SAT 96
[2020-02-15 16:25] LABS: Bedside Glucose 230 mg/dL (70-110)
[2020-02-15] MEDS: Atorvastatin Calcium 80 MG Tablet GT (20:45)
[2020-02-15] MEDS: MELATONIN 10 MG TABLET PO (20:45)
[2020-02-15 21:26] LABS: Bedside Glucose 132 mg/dL (70-110)
[2020-02-16 00:01] VITALS: BP 113/71; PULSE 94; RESP 16; TEMP 36.4; O2SAT 95
[2020-02-16] MEDS: Jevity 1.5. 1,000 ML Bottle 240 ML GT ×3 (00:15→19:38)
[2020-02-16] MEDS: Enoxaparin 30 MG/0.3 ML Syringe SC (05:03)
[2020-02-16] MEDS: Lansoprazole 15 MG Capsule.DR 30 MG GT (05:03)
[2020-02-16] MEDS: BACITRACIN 15 GM Tube 1 APPLIC TOPICAL ×2 (05:03→18:37)
[2020-02-16] MEDS: Menthol/Lanolin/Calamine/Znox 113 GM Tube 1 APPLIC TOPICAL (05:03)
[2020-02-16] MEDS: Umeclidinium Bromide Inhaler 1 PUFF IH (05:03)
[2020-02-16] MEDS: Nystatin Powder 15gm Bottle 1 APPLIC TOPICAL ×2 (05:04→19:35)
[2020-02-16 05:28] LABS: Absolute Lymphocyte Count 1.48 X10^3/uL (0.83-4.51); Absolute Neutrophil Count 4.9 X10^3/uL (2.0-7.7); Basophil# 0.01 X10^3/uL; Basophil% 0.1 % (0-1); Eosinophil# 0.04 X10^3/uL; Eosinophils% 0.6 % (0-5); Hematocrit 39.2 % (40-54); Hemoglobin 12.3 g/dL (13.0-16.5); Lymphocyte # 1.48 X10^3/ul (4.0); Lymphocyte % 21.6 % (19-41); Mean Corp Hgb Conc 31.4 g/dL (32-36); Mean Corpuscular Hgb 28.2 pg (27.0-32.0); Mean Corpuscular Volume 89.9 fL (80-94); Mean Platelet Vol. 10.1 fl (6.2-12.0); Monocyte# 0.45 X10^3/uL; Monocyte% 6.6 % (0-10); NRBC Flagged by Analyzer 0 % (0-5); Neutrophil # 4.85 X10^3/uL (2.7-7.7); Neutrophil % 70.7 % (47-70); Platelet Count 117 K/mm3 (150-450); RBC Distribution Width CV 14.2 % (11.6-14.6); RBC Distribution Width SD 46.5 fl (35.1-43.9); Red Blood Count 4.36 M/mm3 (4.6-6.2); White Blood Count 6.9 K/mm3 (4.4-11.0)
[2020-02-16 05:43] LABS: Anion Gap 1 (5-15); BUN 9 mg/dL (7-18); BUN/Creat Ratio 28.6 RATIO (10-20); Calcium,Total 8.2 mg/dL (8.5-10.1); Chloride 99 mmol/L (98-107); Creatinine, Serum 0.32 mg/dL (0.70-1.30); EST Glomerular Filtration Rate 290 mL/min (>60); Est Glom Filt Rate - Afr Amer 351 mL/min (>60); Glucose 173 mg/dL (74-106); Potassium 3.7 mmol/L (3.5-5.1); Sodium Level 136 mmol/L (136-145)
[2020-02-16 06:21] LABS: Bedside Glucose 144 mg/dL (70-110)
[2020-02-16] MEDS: Multivitamins,Therapeutic Tablet 1 TABLET GT (09:10)
[2020-02-16] MEDS: Insulin Lispro 100 UNIT/ML INSULN.PEN 13 UNIT SC ×2 (09:11→17:50)
[2020-02-16 10:50] LABS: Bedside Glucose 96 mg/dL (70-110)
--- NOTE | 2020-02-16 13:02 | NURSING ---
Addendum entered by Sandee Velazquez 02/16/20 15:59: Resident is feeling better after given the Zofran. Speech therapy is in with resident and is willing to try some soup at this time. Original Note: Up in chair. was not able to eat lunch. States he is not feeling well and nausaus. Stated to this nurse that he could take his Jevity. Also drinking sprite. Blood sugar rechecked after jevity given and 125. Resident does not want to take his Humalog injection at this time.
[2020-02-16 13:05] LABS: Bedside Glucose 125 mg/dL (70-110)
[2020-02-16 13:33] VITALS: BP 126/63; PULSE 101; RESP 17; TEMP 36.1; O2SAT 91
[2020-02-16] MEDS: Ondansetron ODT 4 MG Tablet PO (13:50)
[2020-02-16 16:45] LABS: Bedside Glucose 240 mg/dL (70-110)
[2020-02-16] MEDS: Atorvastatin Calcium 80 MG Tablet GT (19:35)
[2020-02-16] MEDS: MELATONIN 10 MG TABLET PO (19:35)
[2020-02-16 21:55] LABS: Bedside Glucose 276 mg/dL (70-110)
[2020-02-17] MEDS: Jevity 1.5. 1,000 ML Bottle 240 ML GT ×5 (00:39→23:50)
[2020-02-17 03:58] VITALS: BP 139/70; PULSE 66; RESP 15; TEMP 36.6; O2SAT 94
[2020-02-17] MEDS: Enoxaparin 30 MG/0.3 ML Syringe SC (04:40)
[2020-02-17] MEDS: Umeclidinium Bromide Inhaler 1 PUFF IH (04:40)
[2020-02-17] MEDS: Senna/Docusate Sodium 1 Tablet 2 TABLET GT ×2 (04:41→17:50)
[2020-02-17] MEDS: Lansoprazole 15 MG Capsule.DR 30 MG GT (04:41)
[2020-02-17] MEDS: Menthol/Lanolin/Calamine/Znox 113 GM Tube 1 APPLIC TOPICAL ×2 (04:42→17:50)
[2020-02-17] MEDS: BACITRACIN 15 GM Tube 1 APPLIC TOPICAL ×2 (04:42→17:48)
[2020-02-17] MEDS: Nystatin Powder 15gm Bottle 1 APPLIC TOPICAL ×2 (04:42→21:49)
[2020-02-17 06:06] LABS: Bedside Glucose 192 mg/dL (70-110)
[2020-02-17] MEDS: Insulin Lispro 100 UNIT/ML INSULN.PEN 13 UNIT SC ×2 (08:07→17:48)
[2020-02-17] MEDS: Multivitamins,Therapeutic Tablet 1 TABLET GT (08:07)
[2020-02-17 11:05] LABS: Bedside Glucose 109 mg/dL (70-110)
[2020-02-17 14:28] VITALS: BP 129/71; PULSE 84; RESP 16; TEMP 36.4; O2SAT 93
[2020-02-17 16:36] LABS: Bedside Glucose 242 mg/dL (70-110)
[2020-02-17] MEDS: MELATONIN 10 MG TABLET PO (20:41)
[2020-02-17] MEDS: Atorvastatin Calcium 80 MG Tablet GT (20:42)
[2020-02-17 21:40] LABS: Bedside Glucose 317 mg/dL (70-110)
[2020-02-18] MEDS: Enoxaparin 30 MG/0.3 ML Syringe SC (05:01)
[2020-02-18] MEDS: Lansoprazole 15 MG Capsule.DR 30 MG GT (05:02)
[2020-02-18] MEDS: Senna/Docusate Sodium 1 Tablet 2 TABLET GT ×2 (05:02→18:12)
[2020-02-18] MEDS: Umeclidinium Bromide Inhaler 1 PUFF IH (05:03)
[2020-02-18] MEDS: BACITRACIN 15 GM Tube 1 APPLIC TOPICAL ×2 (05:06→18:08)
[2020-02-18] MEDS: Nystatin Powder 15gm Bottle 1 APPLIC TOPICAL ×2 (05:07→20:01)
[2020-02-18] MEDS: Menthol/Lanolin/Calamine/Znox 113 GM Tube 1 APPLIC TOPICAL ×2 (05:07→18:11)
[2020-02-18 05:41] VITALS: BP 125/70; PULSE 89; RESP 18; TEMP 36.3; O2SAT 93
[2020-02-18 06:36] LABS: Bedside Glucose 168 mg/dL (70-110)
[2020-02-18] MEDS: Insulin Lispro 100 UNIT/ML INSULN.PEN 13 UNIT SC (08:02)
[2020-02-18] MEDS: Multivitamins,Therapeutic Tablet 1 TABLET GT (08:04)
[2020-02-18] MEDS: Tuberculin,Purif.prot.deriv. 50 TU/ML Vial 5 ML ID (09:56)
--- NOTE | 2020-02-18 10:49 | CASEMGMT ---
Addendum entered by Bety García 02/18/20 11:53: Daughter followed up. Patient and do not have any assets nor money in their checking/savings to pay out of pocket. Dtr to complete ANTHONY application. Dtr provided SW with SNFs to refer to. Referral made to [facility], [facility] and [facility]. Will continue to follow. Original Note: Social Work IDT met with patient, dtr and via conference call for care plan meeting. Discussed patient's progress in therapy. Pt is modA x1 for bed mobility, modx1-2 for transfers depending on height of surface, cannot ambulate yet d/t extreme fatigue, and can stand about 20 seconds with FWW. Pt is Rebecca for UE bathing and grooming, mod/maxA for UE dressing, dependent for LE ADLs, modified toileting modx1 for standing with dependent of another for pericare and clothing, and gets SOB/fatigued upon exertion. Pt is on a puree/thin diet, supervised with meals. ST completed a tiral of [facility] soft and that was unsuccessful. ST working on oropharyngeal strengthening exercises and compensatory strategies. Pt is on a regular diet, receives bolus tube feeds if intake is less than 50% and two feedings during the night since pt has lost weight. Pt is out of isolation 02/23, has new peg, new cath. Physician recommending neurology f/u at [place]. Physician to speak with dtr this day to further review pt condition. Explained pt is [facility] with NRD 02/19 and continued stay is not guaranteed. Inquired about alternative plan if pt cannot go home or is issued DC prior to being ready to DC home. Pt and family open to SNF if pt cannot DC home. Explained SNF coverage - private pay for Medicaid and to transfer to in network facility. Family inquired about VA benefits. Contacted [facility] SW and pt is not service connected. Emailed list of [facility] SNFs to dtr and Medicaid application, along with reiteration of SNF coverage, etc. Will continue to follow. Bety García, KEISHA CONVEYOR TENDER CONCRETE MIXING PLANT
[2020-02-18 11:06] LABS: Bedside Glucose 103 mg/dL (70-110)
--- NOTE | 2020-02-18 12:17 | NURSING ---
Resident gets around 9 items of food on his tray. Eats a bit of all of it but eats about 50% of spagetti with meatballs per report. Will hold Jevity at this time.
[2020-02-18 14:00] VITALS: BP 111/69; PULSE 89; RESP 16; TEMP 36.4; O2SAT 98
[2020-02-18 16:35] LABS: Bedside Glucose 97 mg/dL (70-110)
[2020-02-18] MEDS: Atorvastatin Calcium 80 MG Tablet GT (20:00)
[2020-02-18] MEDS: MELATONIN 10 MG TABLET PO (20:00)
[2020-02-18] MEDS: Jevity 1.5. 1,000 ML Bottle 240 ML GT (20:00)
[2020-02-18 21:16] LABS: Bedside Glucose 196 mg/dL (70-110)
[2020-02-19] MEDS: Jevity 1.5. 1,000 ML Bottle 240 ML GT ×2 (00:55→21:00)
[2020-02-19 03:45] VITALS: BP 130/73; PULSE 97; RESP 18; TEMP 36.2; O2SAT 93
[2020-02-19] MEDS: Umeclidinium Bromide Inhaler 1 PUFF IH (05:05)
[2020-02-19] MEDS: Enoxaparin 30 MG/0.3 ML Syringe SC (05:06)
[2020-02-19] MEDS: Lansoprazole 15 MG Capsule.DR 30 MG GT (05:06)
[2020-02-19] MEDS: BACITRACIN 15 GM Tube 1 APPLIC TOPICAL ×2 (05:08→17:43)
[2020-02-19] MEDS: Menthol/Lanolin/Calamine/Znox 113 GM Tube 1 APPLIC TOPICAL ×2 (05:08→17:43)
[2020-02-19] MEDS: Nystatin Powder 15gm Bottle 1 APPLIC TOPICAL ×2 (05:09→21:15)
[2020-02-19 06:26] LABS: Bedside Glucose 265 mg/dL (70-110)
[2020-02-19] MEDS: Insulin Lispro 100 UNIT/ML INSULN.PEN 13 UNIT SC ×3 (08:09→17:42)
[2020-02-19] MEDS: Multivitamins,Therapeutic Tablet 1 TABLET GT (08:11)
[2020-02-19 10:50] LABS: Bedside Glucose 232 mg/dL (70-110)
--- NOTE | 2020-02-19 12:03 | NURSING ---
attempt to call daughter cullen unsucessful, no answer
[2020-02-19 14:49] VITALS: BP 125/66; PULSE 82; RESP 17; TEMP 36.2; O2SAT 97
[2020-02-19 16:16] LABS: Bedside Glucose 227 mg/dL (70-110)
--- NOTE | 2020-02-19 16:18 | CASEMGMT ---
Social Work Completed advanced directives with patient. Patient named HCPOA as dtr Cee Nelson. HCPOA and LW placed on chart. Originals and copy given to dtr. Bety García, GAUGE AND INSTRUMENT INSPECTOR HEALTH SAFETY ENGINEER
--- NOTE | 2020-02-19 16:19 | CASEMGMT ---
Social Work Met with patient's dtr. Discussed Medicaid application and DC plans. Answered questions about transfer to SNF, Medicaid pending and private pay, skilled vs nonskilled and part B benefits. Dtr discussed she wants her mom to move into SNF with pt for LTP. SW offered when following up with SNFs to include pt's to transfer as well and assist dtr with facilitating that conversation with the SNF. Dtr completed ANTHONY liza. SW submitted to JFS. Will await. Explained pt may need QIT but SNF can assist with that. SW completed HCPOA but dtr would need financial POA to access bank account. Dtr is planning on completing that and SW offered to assist with having pt sign paperwork in front of notary. Provided emotional and verbal support to dtr during conversation and validated feelings of anxiousness and feeling overwhelmed. Dtr very appreciative of SW time and assistance. [facility] has denied pt due to availability. [facility] is reviewing referral. Left message with [facility]. Refaxed referral to [facility]. Will continue to follow. Bety García, [employer] MANAGER HOME OFFICE CLAIM SPECIALIST
[2020-02-19] MEDS: Atorvastatin Calcium 80 MG Tablet GT (21:00)
[2020-02-19] MEDS: MELATONIN 10 MG TABLET PO (21:00)
[2020-02-19 21:35] LABS: Bedside Glucose 284 mg/dL (70-110)
[2020-02-20] MEDS: Jevity 1.5. 1,000 ML Bottle 240 ML GT ×2 (00:07→12:11)
[2020-02-20 04:29] VITALS: BP 116/64; PULSE 85; RESP 18; TEMP 36.2; O2SAT 93
[2020-02-20] MEDS: BACITRACIN 15 GM Tube 1 APPLIC TOPICAL ×2 (04:30→17:27)
[2020-02-20] MEDS: Enoxaparin 30 MG/0.3 ML Syringe SC (04:31)
[2020-02-20] MEDS: Menthol/Lanolin/Calamine/Znox 113 GM Tube 1 APPLIC TOPICAL ×2 (04:32→17:28)
[2020-02-20] MEDS: Nystatin Powder 15gm Bottle 1 APPLIC TOPICAL ×2 (04:33→22:02)
[2020-02-20] MEDS: Lansoprazole 15 MG Capsule.DR 30 MG GT (04:35)
[2020-02-20] MEDS: Senna/Docusate Sodium 1 Tablet 2 TABLET GT ×2 (04:35→17:28)
[2020-02-20] MEDS: Umeclidinium Bromide Inhaler 1 PUFF IH (04:40)
[2020-02-20 06:20] LABS: Bedside Glucose 201 mg/dL (70-110)
[2020-02-20] MEDS: Insulin Lispro 100 UNIT/ML INSULN.PEN 13 UNIT SC ×3 (07:46→17:31)
[2020-02-20] MEDS: Multivitamins,Therapeutic Tablet 1 TABLET GT (07:47)
[2020-02-20 10:00] VITALS: PULSE 96
[2020-02-20 10:58] VITALS: PULSE 95; RESP 28
--- NOTE | 2020-02-20 11:00 | NURSING ---
Pt respirations 32 breath per min. Spo2 93% RA. Pt stated he feels a little SOB. Applied 1L of O2 contacted respiratory to do PRN Albuterol Aerosol. Will continue to monitored.
[2020-02-20] MEDS: Albuterol 2.5 MG/3 ML VIAL.NEB. INHALATION (12:53)
[2020-02-20 13:45] VITALS: BP 129/51; PULSE 94; RESP 28; TEMP 36.3; O2SAT 96
--- NOTE | 2020-02-20 16:17 | CASEMGMT ---
Social Work Notified dtr that insurance approved pt with NRD 02/24, [facility] cannot accept MCDP - either pv. py or full ANTHONY, and [facility] cannot accept. Will continue to follow. Bety García, VP DIRECTOR OF CREATIVE STRATEGY PLATFORM POWER TECHNICIAN
[2020-02-20 17:01] LABS: Bedside Glucose 178 mg/dL (70-110)
[2020-02-20] MEDS: MELATONIN 10 MG TABLET PO (21:59)
[2020-02-20] MEDS: Atorvastatin Calcium 80 MG Tablet GT (21:59)
[2020-02-20 22:01] LABS: Bedside Glucose 75 mg/dL (70-110)
[2020-02-21 04:00] VITALS: BP 121/67; PULSE 84; RESP 16; TEMP 36.3; O2SAT 94
[2020-02-21] MEDS: Enoxaparin 30 MG/0.3 ML Syringe SC (04:07)
[2020-02-21] MEDS: Lansoprazole 15 MG Capsule.DR 30 MG GT (04:07)
[2020-02-21] MEDS: Nystatin Powder 15gm Bottle 1 APPLIC TOPICAL ×2 (04:08→21:29)
[2020-02-21] MEDS: Menthol/Lanolin/Calamine/Znox 113 GM Tube 1 APPLIC TOPICAL ×2 (04:08→18:05)
[2020-02-21] MEDS: BACITRACIN 15 GM Tube 1 APPLIC TOPICAL ×2 (04:09→18:05)
[2020-02-21] MEDS: Umeclidinium Bromide Inhaler 1 PUFF IH (04:09)
[2020-02-21 04:21] LABS: Bedside Glucose 103 mg/dL (70-110)
[2020-02-21 06:31] LABS: Bedside Glucose 103 mg/dL (70-110)
--- NOTE | 2020-02-21 08:05 | NURSING ---
blood sugar 103, Dr Davis aware, adjusted insulin orders. held brigid this AM
[2020-02-21] MEDS: Multivitamins,Therapeutic Tablet 1 TABLET GT (10:36)
[2020-02-21 11:20] LABS: Bedside Glucose 239 mg/dL (70-110)
[2020-02-21] MEDS: Insulin Lispro 100 UNIT/ML INSULN.PEN SC ×2 (11:55→18:09)
[2020-02-21 14:31] VITALS: BP 134/65; PULSE 100; RESP 20; TEMP 36.7; O2SAT 92
[2020-02-21 18:01] LABS: Bedside Glucose 162 mg/dL (70-110)
[2020-02-21] MEDS: Senna/Docusate Sodium 1 Tablet 2 TABLET PO (18:06)
[2020-02-21 21:20] LABS: Bedside Glucose 195 mg/dL (70-110)
[2020-02-21] MEDS: Atorvastatin Calcium 80 MG Tablet PO (21:25)
[2020-02-21] MEDS: MELATONIN 10 MG TABLET PO (21:25)
[2020-02-21 21:47] VITALS: O2SAT 95
[2020-02-22] MEDS: Pantoprazole Sodium 40 MG Tablet PO (05:18)
[2020-02-22] MEDS: Nystatin Powder 15gm Bottle 1 APPLIC TOPICAL ×2 (05:18→19:52)
[2020-02-22] MEDS: Senna/Docusate Sodium 1 Tablet 2 TABLET PO ×2 (05:18→17:31)
[2020-02-22] MEDS: Enoxaparin 30 MG/0.3 ML Syringe SC (05:18)
[2020-02-22] MEDS: Umeclidinium Bromide Inhaler 1 PUFF IH (05:19)
[2020-02-22] MEDS: Menthol/Lanolin/Calamine/Znox 113 GM Tube 1 APPLIC TOPICAL ×2 (05:19→17:32)
[2020-02-22] MEDS: BACITRACIN 15 GM Tube 1 APPLIC TOPICAL ×2 (05:20→17:32)
[2020-02-22 05:24] VITALS: BP 137/81; PULSE 69; RESP 19; TEMP 36.3; O2SAT 98
[2020-02-22 06:25] LABS: Bedside Glucose 182 mg/dL (70-110)
[2020-02-22] MEDS: Multivitamins,Therapeutic Tablet 1 TABLET PO (08:05)
[2020-02-22] MEDS: Insulin Lispro 100 UNIT/ML INSULN.PEN SC ×3 (08:06→17:33)
[2020-02-22 09:47] VITALS: PULSE 91; RESP 18; O2SAT 94
--- NOTE | 2020-02-22 10:20 | NURSING ---
This nurse removed pt's Urinary catheter for trials. Catheter tip intact pt tolerated well. Will continue to monitor for urinary output.
[2020-02-22 11:11] LABS: Bedside Glucose 206 mg/dL (70-110)
[2020-02-22 14:43] VITALS: BP 135/78; PULSE 87; RESP 17; TEMP 36.1; O2SAT 93
[2020-02-22 17:25] LABS: Bedside Glucose 192 mg/dL (70-110)
--- NOTE | 2020-02-22 19:30 | NURSING ---
{Pt has not voided since fc removed, reinserted fc and obtained 750 ml clear yellow urine
[2020-02-22] MEDS: Atorvastatin Calcium 80 MG Tablet PO (19:51)
[2020-02-22] MEDS: MELATONIN 10 MG TABLET PO (19:53)
[2020-02-22 22:16] LABS: Bedside Glucose 256 mg/dL (70-110)
[2020-02-23 04:00] VITALS: BP 136/72; PULSE 79; RESP 18; TEMP 36.6; O2SAT 97
[2020-02-23] MEDS: Enoxaparin 30 MG/0.3 ML Syringe SC (04:43)
[2020-02-23] MEDS: Pantoprazole Sodium 40 MG Tablet PO (04:43)
[2020-02-23] MEDS: Senna/Docusate Sodium 1 Tablet 2 TABLET PO ×2 (04:43→18:13)
[2020-02-23] MEDS: BACITRACIN 15 GM Tube 1 APPLIC TOPICAL ×2 (04:43→18:14)
[2020-02-23] MEDS: Menthol/Lanolin/Calamine/Znox 113 GM Tube 1 APPLIC TOPICAL ×2 (04:44→18:14)
[2020-02-23] MEDS: Nystatin Powder 15gm Bottle 1 APPLIC TOPICAL ×2 (04:44→22:41)
[2020-02-23] MEDS: Umeclidinium Bromide Inhaler 1 PUFF IH (04:45)
[2020-02-23 05:50] LABS: Absolute Lymphocyte Count 1.13 X10^3/uL (0.83-4.51); Absolute Neutrophil Count 2.1 X10^3/uL (2.0-7.7); Basophil# 0.01 X10^3/uL; Basophil% 0.3 % (0-1); Eosinophil# 0.06 X10^3/uL; Eosinophils% 1.6 % (0-5); Hematocrit 38.9 % (40-54); Hemoglobin 11.9 g/dL (13.0-16.5); Lymphocyte # 1.13 X10^3/ul (4.0); Lymphocyte % 30.5 % (19-41); Mean Corp Hgb Conc 30.6 g/dL (32-36); Mean Corpuscular Hgb 28.2 pg (27.0-32.0); Mean Corpuscular Volume 92.2 fL (80-94); Mean Platelet Vol. 9.5 fl (6.2-12.0); Monocyte# 0.44 X10^3/uL; Monocyte% 11.9 % (0-10); NRBC Flagged by Analyzer 0 % (0-5); Neutrophil # 2.05 X10^3/uL (2.7-7.7); Neutrophil % 55.4 % (47-70); Platelet Count 172 K/mm3 (150-450); RBC Distribution Width CV 14.7 % (11.6-14.6); RBC Distribution Width SD 49.2 fl (35.1-43.9); Red Blood Count 4.22 M/mm3 (4.6-6.2); White Blood Count 3.7 K/mm3 (4.4-11.0)
[2020-02-23 06:26] LABS: Bedside Glucose 167 mg/dL (70-110)
[2020-02-23 06:29] LABS: Anion Gap 3 (5-15); BUN 6 mg/dL (7-18); BUN/Creat Ratio 12.3 RATIO (10-20); Calcium,Total 8.3 mg/dL (8.5-10.1); Chloride 106 mmol/L (98-107); Creatinine, Serum 0.49 mg/dL (0.70-1.30); EST Glomerular Filtration Rate 175 mL/min (>60); Est Glom Filt Rate - Afr Amer 212 mL/min (>60); Glucose 170 mg/dL (74-106); Potassium 3.6 mmol/L (3.5-5.1); Sodium Level 142 mmol/L (136-145)
[2020-02-23] MEDS: Insulin Lispro 100 UNIT/ML INSULN.PEN SC ×3 (07:53→18:13)
[2020-02-23] MEDS: Multivitamins,Therapeutic Tablet 1 TABLET PO (07:53)
--- NOTE | 2020-02-23 08:01 | VDLE_ITS ---
Reason For Study: SWELLING RIGHT LEFT GSV is normal. GSV is normal. FV is compressible, spontaneous, phasic, CFV is compressible, spontaneous, phasic, competent and demonstrates normal competent, and demonstrates normal augmentation. augmentation. POP V is compressible, spontaneous, phasic, FV is compressible, spontaneous, phasic, competent and demonstrates normal competent and demonstrates normal augmentation. augmentation. T/P Trunk is compressible. POP V is compressible, spontaneous, phasic, PTV is compressible. competent and demonstrates normal RT PerV is compressible. augmentation. RT CFV and SFJ have PARTIAL COMPRESSIBILITY T/P Trunk is compressible. and color filling. PTV is compressible. Procedure LT PerV is compressible. Exam performed portable in patient room. A preliminary report was called and/or faxed to TCU. Interpretation Summary There is no evidence of left lower extremity deep vein thrombosis. Right common femoral vein and saphenofemoral junction are only partially compressible. Echogenicity not identified. Possible partial deep venous thrombosis at that level. Color feeling however is noted. Indeterminate. Patent and compressible bilateral great saphenous veins Ordering Physician: Milton Davis Referring Physician: [facility] Performed By: Rosalind Ashby, GRAY, RVT
[2020-02-23] MEDS: Furosemide 40 MG Tablet PO (09:38)
--- NOTE | 2020-02-23 10:23 | NURSING ---
Notified Dr. Davis that pt is positive for a right common femoral vein occlusion. Received orders to discontinue the Lovenox, start Eliquis 10mg BID for 7 days, then change Eliquis to 5mg BID with no stop date. Orders repeated back, will add orders.
[2020-02-23 11:01] LABS: Bedside Glucose 164 mg/dL (70-110)
--- NOTE | 2020-02-23 11:43 | MDS.RN ---
Information for the mds was obtained from review of the clinical record, interview of resident, staff, and direct observation of resident's care.
[2020-02-23 13:08] VITALS: BP 109/61; PULSE 90; RESP 17; TEMP 36.4; O2SAT 94
--- NOTE | 2020-02-23 13:18 | CASEMGMT ---
Social Work Left message with JFS 02/19 to follow up on Medicaid application. Awaiting return phone call. Faheem Dietrich contacted to inquire about further questions for Medicaid - have not received approval or denial thus far. Updated dtr. Will continue to follow. KEISHA MessinaW
[2020-02-23 16:11] LABS: Bedside Glucose 165 mg/dL (70-110)
[2020-02-23] MEDS: APIXABAN 5 MG TABLET 10 MG PO (18:13)
[2020-02-23 21:41] LABS: Bedside Glucose 191 mg/dL (70-110)
[2020-02-23] MEDS: MELATONIN 10 MG TABLET PO (22:42)
[2020-02-23] MEDS: Atorvastatin Calcium 80 MG Tablet PO (22:42)
[2020-02-24 04:37] VITALS: BP 119/66; PULSE 85; RESP 18; TEMP 36.3; O2SAT 92
[2020-02-24] MEDS: Senna/Docusate Sodium 1 Tablet 2 TABLET PO ×2 (04:38→17:57)
[2020-02-24] MEDS: Furosemide 40 MG Tablet PO (04:38)
[2020-02-24] MEDS: APIXABAN 5 MG TABLET 10 MG PO ×2 (04:38→17:57)
[2020-02-24] MEDS: Pantoprazole Sodium 40 MG Tablet PO (04:38)
[2020-02-24] MEDS: Nystatin Powder 15gm Bottle 1 APPLIC TOPICAL ×2 (04:39→19:49)
[2020-02-24] MEDS: Menthol/Lanolin/Calamine/Znox 113 GM Tube 1 APPLIC TOPICAL ×2 (04:39→17:56)
[2020-02-24] MEDS: Umeclidinium Bromide Inhaler 1 PUFF IH (04:47)
[2020-02-24 07:42] LABS: Bedside Glucose 177 mg/dL (70-110)
[2020-02-24] MEDS: Insulin Lispro 100 UNIT/ML INSULN.PEN SC ×2 (07:51→11:45)
[2020-02-24] MEDS: Multivitamins,Therapeutic Tablet 1 TABLET PO (07:52)
[2020-02-24 11:01] LABS: Bedside Glucose 251 mg/dL (70-110)
[2020-02-24 13:46] VITALS: BP 130/60; PULSE 86; RESP 15; TEMP 36.7; O2SAT 93
[2020-02-24 16:15] LABS: Bedside Glucose 319 mg/dL (70-110)
[2020-02-24] MEDS: Insulin Lispro 100 UNIT/ML INSULN.PEN 10 UNIT SC (17:55)
[2020-02-24] MEDS: Atorvastatin Calcium 80 MG Tablet PO (19:48)
[2020-02-24] MEDS: MELATONIN 10 MG TABLET PO (19:49)
[2020-02-24 21:21] LABS: Bedside Glucose 206 mg/dL (70-110)
[2020-02-25 04:49] VITALS: BP 126/66; PULSE 84; RESP 16; TEMP 36.1; O2SAT 94
[2020-02-25] MEDS: Senna/Docusate Sodium 1 Tablet 2 TABLET PO ×2 (04:53→18:04)
[2020-02-25] MEDS: Furosemide 40 MG Tablet PO (04:53)
[2020-02-25] MEDS: Pantoprazole Sodium 40 MG Tablet PO (04:53)
[2020-02-25] MEDS: APIXABAN 5 MG TABLET 10 MG PO ×2 (04:53→18:04)
[2020-02-25] MEDS: Nystatin Powder 15gm Bottle 1 APPLIC TOPICAL ×2 (04:59→22:45)
[2020-02-25] MEDS: Menthol/Lanolin/Calamine/Znox 113 GM Tube 1 APPLIC TOPICAL ×2 (04:59→18:05)
[2020-02-25] MEDS: Umeclidinium Bromide Inhaler 1 PUFF IH (05:00)
[2020-02-25 06:21] LABS: Bedside Glucose 153 mg/dL (70-110)
[2020-02-25 06:27] LABS: Anion Gap 6 (5-15); BUN 5 mg/dL (7-18); BUN/Creat Ratio 11.4 RATIO (10-20); Calcium,Total 8.2 mg/dL (8.5-10.1); Chloride 104 mmol/L (98-107); Creatinine, Serum 0.44 mg/dL (0.70-1.30); EST Glomerular Filtration Rate 198 mL/min (>60); Est Glom Filt Rate - Afr Amer 239 mL/min (>60); Glucose 142 mg/dL (74-106); Potassium 3.5 mmol/L (3.5-5.1); Sodium Level 142 mmol/L (136-145)
[2020-02-25] MEDS: Insulin Lispro 100 UNIT/ML INSULN.PEN 7 UNIT SC ×3 (08:01→18:03)
[2020-02-25] MEDS: Multivitamins,Therapeutic Tablet 1 TABLET PO (08:01)
[2020-02-25 10:00] VITALS: PULSE 95; RESP 16; O2SAT 96
[2020-02-25 11:15] LABS: Bedside Glucose 160 mg/dL (70-110)
[2020-02-25 13:53] VITALS: BP 113/66; PULSE 92; RESP 15; TEMP 36.6; O2SAT 98
--- NOTE | 2020-02-25 14:21 | CASEMGMT ---
Social Work Insurance issued LCD 02/26, [place] 02/27. Notified [facility] Dietrich - they can accept pt Medicaid Pending. Notified dtr - dtr agreeable. Dtr working with Faheemindra Dietrich to get admitted LTP as well. Contacted JFS again - pt is a [facility] resident and since is applying as well, case transferred to [facility]. There is not pending number currently. SW provided [facility] contact information for pending number. KP will continue to contact and follow. Sw to schedule transport and complete PASRR. Plan: DC to [facility] 02/27 nonskilled, part B therapies Bety García, KEISHA LAMB
[2020-02-25 16:30] LABS: Bedside Glucose 160 mg/dL (70-110)
--- NOTE | 2020-02-25 20:05 | DCINST_ITS ---
- Discharge Diagnoses Current Active Problems: Current Active and Chronic Problems Debility (Acute) Asthma (Chronic) Hypertension (Chronic) Hyperlipidemia (Acute) Iron deficiency anemia (Chronic) GERD (gastroesophageal reflux disease) (Chronic) Kidney stone (Chronic) Acute kidney injury (Acute) You will use the following diet at home:: Regular Your food should be the consistency of: Mechanical soft (ground) - Minced/Moist. Your liquids should be the consistency of: Regular/Thin Discharge Activity: Return to Normal Activity, May Shower, Use Walker Weight Bearing Status: Weight bearing as tolerated Call your doctor if you observe: Fever of 101 or Higher, Inability to urinate, Inability to have a bowel movement, Shortness of breath, Chest pain, Uncontrolled pain Allergies/Adverse Reactions: Allergies No Known Allergies Allergy (Verified 02/03/20 10:22) Medications to take at Discharge Acetaminophen Liquid [Tylenol Liquid] 650 mg PO Q6H PRN PRN udc 02/25/20 Apixaban [Eliquis] 5 mg PO BID tablet 02/25/20 Atorvastatin Calcium [Lipitor] 80 mg PO QHS tablet 02/25/20 Clobetasol Propionate [Temovate Cream (BKC)] 1 applic TOPICAL DAILY PRN tube 02/25/20 Fluticasone Prop 250 mcg [Flovent Diskus 250 mcg] 1 puff INHALATION BID inhaler 02/25/20 Furosemide [Lasix] 40 mg PO DAILY tablet 02/25/20 Glucagon 1 mg IM .X1 PRN syringe 02/25/20 Insulin Glargine [Lantus SoloStar Pen] 20 units SC QHS pen 02/25/20 Insulin Lispro [Humalog KwikPen] 7 unit SC TIDAC insuln.pen 02/25/20 Jevity 1.5 240 ml GT TIDCM bottle 02/25/20 Melatonin 10 mg PO QHS tablet 02/25/20 Menthol/Lanolin/Calamine/Znox [Calmoseptine Ointment] 1 applic TOPICAL BID tube 02/25/20 Mineral Oil/Petrolatum,White [Eucerin] 1 applic TOPICAL QHS jar 02/25/20 Multivitamins,Therapeutic [Multivitamin] 1 tablet PO DAILYCM tablet 02/25/20 Nystatin Powder [Mycostatin Powder] 1 applic TOPICAL 0600,2200 bottle 02/25/20 Pantoprazole Sodium [Protonix] 40 mg PO DAILY tablet 02/25/20 Potassium Chloride [K-Dur] 20 meq PO BIDCM tablet 02/25/20 Senna/Docusate Sodium [Senokot-S] 2 tablet PO BID tablet 02/25/20 Umeclidinium [place] Inhaler [Incruse Ellipta Inhaler] 1 puff IH DAILY inhaler 02/25/20 Primary Care Physician: [facility] [Primary Care Provider] - Please follow up with your Primary Care Physician in: 1 week. Test Results: Test results from this visit will be discussed in further detail at your follow- up appointment, if applicable. Proposed Discharge Date: 02/28/20
--- NOTE | 2020-02-25 20:09 | DS.PCM_ITS ---
Discharge Date and Diagnosis - Problem List Patient Problems: Active and Suspected Problems Debility (Acute) Hyperlipidemia (Acute) Acute kidney injury (Acute) Date of Admission: 02/10/20 Date of Discharge: 02/28/20 - Primary Discharge Diagnosis Acute Problems: Active Problems Debility (Acute) Hyperlipidemia (Acute) Acute kidney injury (Acute) - Secondary Discharge Diagnosis Chronic Problems: Chronic Problems Diabetes mellitus type 2 in nonobese (Chronic) Hypertension (Chronic) COPD (chronic obstructive pulmonary disease) (Chronic) Dyslipidemia (Chronic) Generalized weakness (Chronic) Diabetes mellitus (Chronic) Weight loss (Chronic) Asthma (Chronic) Hypertension (Chronic) Iron deficiency anemia (Chronic) GERD (gastroesophageal reflux disease) (Chronic) Kidney stone (Chronic) Hospital Course and Treatment Imaging Results: 02/11/20 00:05 Diet: Regular - General Food consistency:: Mechanical (Minced/Moist) Liquid Consistency:: Regular/Thin Is pt able to select menu?: No Diet Comments: 1:1supervision, upright 90 degrees for all PO intake & 30- 60min after Clinical Impression(s) from Imaging Studies KUB X-Ray 02/12/20 08:30 IMPRESSION: Decreased gaseous distention of the colon as well as the amount of contrast within the colon. Electronically Signed: Freddie Montaño, at 8:52 EDT , Service support , Labs (Last 48 Hours) 02/23/20 02/24/20 02/24/20 21:30 06:17 10:54 Sodium Potassium Chloride Carbon Dioxide Anion Gap BUN Creatinine Estim Creat Clear Calc Est GFR (MDRD) Af Amer Est GFR (MDRD) Non-Af BUN/Creatinine Ratio Glucose Calcium POC Glucose 191 H 177 H 251 H 02/24/20 02/24/20 02/25/20 15:59 21:07 05:10 Sodium 142 Potassium 3.5 Chloride 104 Carbon Dioxide 32.0 Anion Gap 6 BUN 5 L Creatinine 0.44 L Estim Creat Clear Calc 56.00 Est GFR (MDRD) Af Amer 239 Est GFR (MDRD) Non-Af 198 BUN/Creatinine Ratio 11.4 Glucose 142 H Calcium 8.2 L POC Glucose 319 H 206 H 02/25/20 02/25/20 02/25/20 06:10 11:05 16:23 Sodium Potassium Chloride Carbon Dioxide Anion Gap BUN Creatinine Estim Creat Clear Calc Est GFR (MDRD) Af Amer Est GFR (MDRD) Non-Af BUN/Creatinine Ratio Glucose Calcium POC Glucose 153 H 160 H 160 H Operations: None Procedures: None Summary of Care Provided: The patient is a 79 year old Male with below past medical history hospitalized for diabetic ketoacidosis, acute kidney injury, complicated by dysphagia requiring PEG tube placement, admitted to TCU with debility, here for rehabilitation, strengthening, prior to discharge home with family. Discharge to [facility], nonskilled, part B therapies. Patient Problems: Active and Suspected Problems Debility (Acute) Hyperlipidemia (Acute) Acute kidney injury (Acute) - Physical Exam Vitals/I&O's: Vital Signs Temp Pulse Resp BP Pulse Ox 97.9 F 92 15 113/66 98 02/25/20 13:53 02/25/20 13:53 02/25/20 13:53 02/25/20 13:53 02/25/20 13:53 Oxygen Flow Rate (L/min) 2 Oxygen Delivery Method Room Air Weight: 78.925 kg Body Mass Index (BMI) 25.7 Finger Stick Blood Glucose 82 Intake and Output for Last 24 Hours 02/23/20 02/24/20 02/25/20 23:59 23:59 23:59 Intake Total 870 / 870 720 / 720 560 / 560 Output Total 2800 / 2800 2200 / 2200 2400 / 2400 Balance -1930 / -1930 -1480 / -1480 -1840 / -1840 Laboratory Results 02/24/20 21:07: POC Glucose 206 H 02/25/20 05:10: Sodium 142, Potassium 3.5, Chloride 104, Carbon Dioxide 32.0, Anion Gap 6, BUN 5 L, Creatinine 0.44 L, Estim Creat Clear Calc 56.00, Est GFR (MDRD) Af Amer 239, Est GFR (MDRD) Non-Af 198, BUN/Creatinine Ratio 11.4, Glucose 142 H, Calcium 8.2 L 02/25/20 06:10: POC Glucose 153 H 02/25/20 11:05: POC Glucose 160 H 02/25/20 16:23: POC Glucose 160 H Current Medications Acetaminophen (Tylenol Liquid) 650 mg PO Q6H PRN PRN PRN Reason: Pain Score 1-10 Albuterol Sulfate (Ventolin Aerosols) 2.5 mg INHALATION Q2H PRN PRN PRN Reason: SOB &/OR WHEEZING Last Admin: 02/20/20 12:53 Dose: 2.5 mg Documented by: Apixaban (Eliquis) 10 mg PO BID [facility] Stop: 03/01/20 22:00 Last Admin: 02/25/20 18:04 Dose: 10 mg Documented by: Apixaban (Eliquis) 5 mg PO BID [facility] Atorvastatin Calcium (Lipitor) 80 mg PO QHS [facility] Last Admin: 02/24/20 19:48 Dose: 80 mg Documented by: Calamine/Phenol (Calmoseptine Ointment) 1 applic TOPICAL BID [facility]; Protocol Last Admin: 02/25/20 18:05 Dose: 1 applicatio Documented by: Clobetasol Propionate (Temovate Cream (Bkc)) 1 applic TOPICAL DAILY PRN PRN Reason: SCALP LESIONS Dextrose (D50w Syringe) 0 gm IV X1 PRN; Protocol PRN Reason: Hypoglycemia Enteral Nutritional Formula (Jevity 1.5) 240 ml GT TIDCM [facility] Last Admin: 02/25/20 18:52 Dose: Not Given Documented by: Fluticasone Propionate (Flovent Diskus 250 Mcg) 1 puff INHALATION BID [facility] Last Admin: 02/25/20 18:04 Dose: 1 puff Documented by: Furosemide (Lasix) 40 mg PO DAILY [facility] Last Admin: 02/25/20 04:53 Dose: 40 mg Documented by: Glucagon () 1 mg IM .X1 PRN PRN Reason: Hypoglycemia Insulin Glargine (Insulin Glargine 100 Units/Ml Pen) 20 units SC QHS [facility] Last Admin: 02/24/20 21:58 Dose: 20 units Documented by: Insulin Human Lispro (Insulin Lispro 100 Unit/Ml Insuln.Pen) 7 unit SC TIDAC [facility] Last Admin: 02/25/20 18:03 Dose: 7 units Documented by: Melatonin (Melatonin) 10 mg PO QHS [facility] Last Admin: 02/24/20 19:49 Dose: 10 mg Documented by: Multi-Ingredient Cream (Eucerin) 1 applic TOPICAL QHS [facility]; Protocol Last Admin: 02/24/20 19:49 Dose: 1 applicatio Documented by: [facility]amin) [facility] Last Admin: 02/25/20 08:01 Dose: 1 tablet Documented by: Nystatin (Mycostatin Powder) 1 applic TOPICAL 0600,2200 [facility]; Protocol Last Admin: 02/25/20 04:59 Dose: 1 applicatio Documented by: Ondansetron HCl (Zofran Odt) 4 mg PO Q6H PRN PRN PRN Reason: NAUSEA Last Admin: 02/16/20 13:50 Dose: 4 mg Documented by: Pantoprazole Sodium (Protonix) 40 mg PO DAILY [facility] Last Admin: 02/25/20 04:53 Dose: 40 mg Documented by: Potassium Chloride (Potassium Chloride 20 Meq Tablet) [facility] Last Admin: 02/25/20 18:05 Dose: 20 meq Documented by: Senna/Docusate Sodium (Senokot-S, Renae-Colace) 2 tablet PO BID [facility] Last Admin: 02/25/20 18:04 Dose: 2 tablet Documented by: Sodium Chloride () 10 - 40 ml IV UD PRN PRN Reason: SALINE FLUSH Last Admin: 02/15/20 21:51 Dose: 10 ml Documented by: Umeclidinium [place] (Incruse Ellipta Inhaler) 1 puff IH DAILY [facility] Last Admin: 02/25/20 05:00 Dose: 1 puff Documented by: Discharge Diet: No Restrictions Discharge Activity: Return to Normal Activity, May Shower, Use Walker Weight Bearing Status: Weight bearing as tolerated Call your doctor if you observe: Fever of 101 or Higher, Inability to urinate, Inability to have a bowel movement, Shortness of breath, Chest pain, Uncontrolled pain Home Medications: Medications to take at Discharge Acetaminophen Liquid [Tylenol Liquid] 650 mg PO Q6H PRN PRN udc 02/25/20 Apixaban [Eliquis] 5 mg PO BID tablet 02/25/20 Atorvastatin Calcium [Lipitor] 80 mg PO QHS tablet 02/25/20 Clobetasol Propionate [Temovate Cream (BKC)] 1 applic TOPICAL DAILY PRN tube 02/25/20 Fluticasone Prop 250 mcg [Flovent Diskus 250 mcg] 1 puff INHALATION BID inhaler 02/25/20 Furosemide [Lasix] 40 mg PO DAILY tablet 02/25/20 Glucagon 1 mg IM .X1 PRN syringe 10/14/20 Insulin Glargine [Lantus SoloStar Pen] 20 units SC QHS pen 02/25/20 Insulin Lispro [Humalog KwikPen] 7 unit SC TIDAC insuln.pen 02/25/20 Jevity 1.5 240 ml GT TIDCM bottle 02/25/20 Melatonin 10 mg PO QHS tablet 02/25/20 Menthol/Lanolin/Calamine/Znox [Calmoseptine Ointment] 1 applic TOPICAL BID tube 02/25/20 Mineral Oil/Petrolatum,White [Eucerin] 1 applic TOPICAL QHS jar 02/25/20 Multivitamins,Therapeutic [Multivitamin] 1 tablet PO DAILYCM tablet 02/25/20 Nystatin Powder [Mycostatin Powder] 1 applic TOPICAL 0600,2200 bottle 02/25/20 Pantoprazole Sodium [Protonix] 40 mg PO DAILY tablet 02/25/20 Potassium Chloride [K-Dur] 20 meq PO BIDCM tablet 02/25/20 Senna/Docusate Sodium [Senokot-S] 2 tablet PO BID tablet 02/25/20 Umeclidinium [place] Inhaler [Incruse Ellipta Inhaler] 1 puff IH DAILY inhaler 02/25/20 [facility] [[facility]] - Please follow up with your Primary Care Physician in: 1 week. Disposition: Asstd Living/Non-Skill [place] Minutes spent on discharge:: 35 Patient Condition:: Poor Medical Necessity - Tobacco Use Smoking Status: Former smoker Tobacco Use: Non-smoker Meaningful Use Info Meaningful Use Diagnoses (Choose all that apply): None applicable
--- NOTE | 2020-02-25 20:11 | TREXTCAR_ITS ---
- Diet 02/11/20 00:05 Diet: Regular - General Food consistency:: Mechanical (Minced/Moist) Liquid Consistency:: Regular/Thin Is pt able to select menu?: No Diet Comments: 1:1supervision, upright 90 degrees for all PO intake & 30- 60min after - Routine Orders/Code Status Code Status: Full Code - Wound(s) Left side of neck Wound Type: Abrasion - Therapies Weight Bearing: Weight bearing as tolerated Extremity Affected:: Bilateral Lower Physical Therapy: Eval and Treat Occupational Therapy: Eval and Treat Speech Therapy: Eval and Treat - Problem/Diagnosis (1) Debility Status: Acute (2) Asthma Status: Chronic (3) Hypertension Status: Chronic (4) Hyperlipidemia Status: Acute (5) Iron deficiency anemia Status: Chronic (6) GERD (gastroesophageal reflux disease) Status: Chronic (7) Kidney stone Status: Chronic (8) Acute kidney injury Status: Acute (9) COPD (chronic obstructive pulmonary disease) Status: Chronic (10) Weakness Status: Acute (11) Dysphagia Status: Acute (12) Diabetes mellitus Status: Chronic (13) DKA (diabetic ketoacidoses) Status: Acute (14) Weight loss Status: Chronic - Allergies/Procedures Done in Hospital Allergies/Adverse Reactions: Allergies No Known Allergies Allergy (Verified 02/03/20 10:22) - Type of Care/Length of Stay Estimated LOS: More Than 30 Days Type of Care Needed: Intermediate Rehab Potential: Fair Prognosis: Poor - Additional Orders/Day of Discharge Day of Discharge: 02/25/20 - Dietary and Speech Recommendations Dietitian Recommendations/Changes: Rec continue current diet - will continue ensure pudding or magic cup w/ lunch and dinner for increased nutrittion if consumed. Speech Linguistic Eval Summary: Pt alert and oriented x4. Pt able to follow single verbal directions with little repetition. - Follow Up Care Primary Care Physician: [facility] [Primary Care Provider] - Please follow up with your Primary Care Physician in: 1 week.
[2020-02-25 22:10] LABS: Bedside Glucose 226 mg/dL (70-110)
[2020-02-25] MEDS: Atorvastatin Calcium 80 MG Tablet PO (22:44)
[2020-02-25] MEDS: MELATONIN 10 MG TABLET PO (22:44)
[2020-02-26 04:55] VITALS: BP 124/62; PULSE 84; RESP 18; TEMP 36.7; O2SAT 94
[2020-02-26] MEDS: Menthol/Lanolin/Calamine/Znox 113 GM Tube 1 APPLIC TOPICAL ×2 (04:56→17:41)
[2020-02-26] MEDS: APIXABAN 5 MG TABLET 10 MG PO ×2 (04:57→17:39)
[2020-02-26] MEDS: Umeclidinium Bromide Inhaler 1 PUFF IH (04:57)
[2020-02-26] MEDS: Pantoprazole Sodium 40 MG Tablet PO (04:58)
[2020-02-26] MEDS: Furosemide 40 MG Tablet PO (04:58)
[2020-02-26] MEDS: Nystatin Powder 15gm Bottle 1 APPLIC TOPICAL ×2 (04:58→21:43)
[2020-02-26] MEDS: Senna/Docusate Sodium 1 Tablet 2 TABLET PO ×2 (04:59→17:40)
[2020-02-26 06:20] LABS: Bedside Glucose 155 mg/dL (70-110)
[2020-02-26] MEDS: Insulin Lispro 100 UNIT/ML INSULN.PEN 7 UNIT SC ×3 (07:54→18:59)
[2020-02-26] MEDS: Multivitamins,Therapeutic Tablet 1 TABLET PO (07:55)
[2020-02-26 10:53] VITALS: PULSE 88; RESP 16
[2020-02-26] MEDS: Albuterol 2.5 MG/3 ML VIAL.NEB. INHALATION (10:53)
[2020-02-26 11:11] LABS: Bedside Glucose 238 mg/dL (70-110)
--- NOTE | 2020-02-26 13:10 | CASEMGMT ---
Social Work Physicians w/c transport scheduled for 11:30 am. PASRR completed and clinicals faxed to Faheem Dietrich. Bety García MSW INFERTILITY NURSE
[2020-02-26 13:47] VITALS: BP 120/68; PULSE 96; RESP 18; TEMP 36.5; O2SAT 93
[2020-02-26 17:11] LABS: Bedside Glucose 265 mg/dL (70-110)
[2020-02-26 21:30] LABS: Bedside Glucose 271 mg/dL (70-110)
[2020-02-26] MEDS: MELATONIN 10 MG TABLET PO (21:42)
[2020-02-26] MEDS: Atorvastatin Calcium 80 MG Tablet PO (21:42)
[2020-02-27] MEDS: Umeclidinium Bromide Inhaler 1 PUFF IH (04:33)
[2020-02-27] MEDS: Pantoprazole Sodium 40 MG Tablet PO (04:36)
[2020-02-27] MEDS: APIXABAN 5 MG TABLET 10 MG PO ×2 (04:36→18:13)
[2020-02-27] MEDS: Furosemide 40 MG Tablet PO (04:36)
[2020-02-27] MEDS: Senna/Docusate Sodium 1 Tablet 2 TABLET PO ×2 (04:36→18:14)
[2020-02-27] MEDS: Nystatin Powder 15gm Bottle 1 APPLIC TOPICAL ×2 (04:37→21:53)
[2020-02-27] MEDS: Menthol/Lanolin/Calamine/Znox 113 GM Tube 1 APPLIC TOPICAL ×2 (04:38→18:12)
[2020-02-27 04:39] VITALS: BP 114/70; PULSE 93; RESP 19; TEMP 36.8; O2SAT 94
[2020-02-27 06:35] LABS: Bedside Glucose 193 mg/dL (70-110)
[2020-02-27] MEDS: Multivitamins,Therapeutic Tablet 1 TABLET PO (07:57)
[2020-02-27] MEDS: Insulin Lispro 100 UNIT/ML INSULN.PEN 7 UNIT SC ×3 (07:58→18:17)
--- NOTE | 2020-02-27 08:17 | MDS.RN ---
Pain interview for TAMIKO 02/28/20 completed.
--- NOTE | 2020-02-27 09:53 | CASEMGMT ---
Social Work Patient's Medicaid application had to be transferred to [facility]. Spoke with [facility] the previous day and they just received the application so no pending number has been obtained. Contacted [facility] this date and received pending number #[id number]. Provided to Faheem Dietrich. KEISHA Messina
--- NOTE | 2020-02-27 10:53 | CASEMGMT ---
Social Work BIMS and PHQ-9 completed for MDS assessment. Bety García, CQ DEVELOPER BUSINESS ANALYST
[2020-02-27 11:21] LABS: Bedside Glucose 215 mg/dL (70-110)
--- NOTE | 2020-02-27 11:32 | CASEMGMT ---
Social Work Physicians came to machine operator picker pt this date, but pt not discharging until tomorrow. Contacted Physicians to confirm machine operator picker 02/27. Time changed to 1 pm. KEISHA Messina
--- NOTE | 2020-02-27 13:17 | PHA.DC.MR ---
Pharmacy Service has performed discharge medication reconciliation for this patient. The patient's discharge medication list was reviewed for discrepancies and discrepancies were resolved. Home Medications Acetaminophen Liquid [Tylenol Liquid] 650 mg PO Q6H PRN PRN udc 02/25/20 Apixaban [Eliquis] 5 mg PO BID tab 02/25/20 Atorvastatin Calcium [Lipitor] 80 mg PO QHS tab 02/25/20 Clobetasol Propionate [Temovate Cream (BKC)] 1 applic TOPICAL DAILY PRN tube 02/25/20 Fluticasone Prop 250 mcg [Flovent Diskus 250 mcg] 1 puff INHALATION BID inhaler 02/25/20 Furosemide [Lasix] 40 mg PO DAILY tab 02/25/20 Glucagon 1 mg IM .X1 PRN syringe 02/25/20 Insulin Glargine [Lantus SoloStar Pen] 20 units SC QHS pen 02/25/20 Insulin Lispro [Humalog KwikPen] 7 unit SC TIDAC insuln.pen 02/25/20 Jevity 1.5 240 ml GT TIDCM bottle 02/25/20 Melatonin 10 mg PO QHS tab 02/25/20 Menthol/Lanolin/Calamine/Znox [Calmoseptine Ointment] 1 applic TOPICAL BID tube 02/25/20 Mineral Oil/Petrolatum,White [Eucerin] 1 applic TOPICAL QHS jar 02/25/20 Multivitamins,Therapeutic [Multivitamin] 1 tab PO DAILYCM tab 02/25/20 Nystatin Powder [Mycostatin Powder] 1 applic TOPICAL 0600,2200 bottle 02/25/20 Pantoprazole Sodium [Protonix] 40 mg PO DAILY tab 02/25/20 Potassium Chloride [K-Dur] 20 meq PO BIDCM tab 02/25/20 Senna/Docusate Sodium [Senokot-S] 2 tab PO BID tab 02/25/20 Umeclidinium [place] Inhaler [Incruse Ellipta Inhaler] 1 puff IH DAILY inhaler 02/25/20
[2020-02-27 14:19] VITALS: BP 120/66; PULSE 91; RESP 17; TEMP 36.5; O2SAT 94
--- NOTE | 2020-02-27 14:21 | NURSING ---
Dr. Davis updated that perez was replaced 02/21 d/t x2 voiding trails Flomax ordered.
[2020-02-27 16:56] LABS: Bedside Glucose 252 mg/dL (70-110)
[2020-02-27] MEDS: Tamsulosin HCl 0.4 MG Capsule PO (18:13)
[2020-02-27 21:52] LABS: Bedside Glucose 314 mg/dL (70-110)
[2020-02-27] MEDS: MELATONIN 10 MG TABLET PO (21:52)
[2020-02-27] MEDS: Atorvastatin Calcium 80 MG Tablet PO (21:53)
[2020-02-28 02:39] VITALS: BP 127/75; PULSE 105; RESP 18; TEMP 36.1; O2SAT 92
[2020-02-28] MEDS: APIXABAN 5 MG TABLET 10 MG PO (05:14)
[2020-02-28] MEDS: Furosemide 40 MG Tablet PO (05:14)
[2020-02-28] MEDS: Pantoprazole Sodium 40 MG Tablet PO (05:14)
[2020-02-28] MEDS: Senna/Docusate Sodium 1 Tablet 2 TABLET PO (05:14)
[2020-02-28] MEDS: Umeclidinium Bromide Inhaler 1 PUFF IH (05:15)
[2020-02-28] MEDS: Menthol/Lanolin/Calamine/Znox 113 GM Tube 1 APPLIC TOPICAL (05:15)
[2020-02-28] MEDS: Nystatin Powder 15gm Bottle 1 APPLIC TOPICAL (05:16)
[2020-02-28] MEDS: Multivitamins,Therapeutic Tablet 1 TABLET PO (08:53)
[2020-02-28] MEDS: Insulin Lispro 100 UNIT/ML INSULN.PEN 10 UNIT SC (08:58)
[2020-02-28] MEDS: Insulin Lispro 100 UNIT/ML INSULN.PEN 7 UNIT SC ×2 (08:59→12:37)
[2020-02-28 10:11] LABS: Bedside Glucose 233 mg/dL (70-110)
[2020-02-28 11:20] LABS: Bedside Glucose 302 mg/dL (70-110)
--- NOTE | 2020-02-28 14:02 | NURSING ---
Patient transported off unit via wheelchair at 1340. Daughter had 30 minute visit with patient today and she took all patient's clothes to get washed and labeled. Waiting for facility to call to give report on patient.
== END 2020-02-28 13:40 | DRG 637 ==
PROVIDERS: Admitting Provider Family Medicine Geriatric Medicine; Visit Provider Family Medicine Geriatric Medicine
DX: E11.10 Type 2 diabetes mellitus with ketoacidosis without coma (principal); J69.0 Pneumonitis due to inhalation of food and vomit; N17.9 Acute kidney failure, unspecified; R13.10 Dysphagia, unspecified; E78.5 Hyperlipidemia, unspecified; I10 Essential (primary) hypertension; K21.9 Gastro-esophageal reflux disease without esophagitis; D50.9 Iron deficiency anemia, unspecified; J44.9 Chronic obstructive pulmonary disease, unspecified; Z87.891 Personal history of nicotine dependence; Z93.1 Gastrostomy status; D35.01 Benign neoplasm of right adrenal gland
CPT/HCPCS: 36415; 74018; 80048; 82947; 82962; 85025; 87635; 92507; 92526; 92610; 93970; 94640; 97110; 97162; 97166; 97530; 97535; 97802; 97803; A4216; U0003

== ENCOUNTER 2020-06-04 10:48 | Observation (INO) | payer OTHER, MEDICARE, MEDICAID, SELFPAY ==
[2020-02-10 15:57] VITALS: BMI 25.7
[2020-06-04] VITALS (7 sets, daily range): BP systolic 119–137; BP diastolic 63–67; PULSE 74–104; RESP 16–30; TEMP 36.3–36.8; O2SAT 86–98; BMI 24.5; BMI 24.6
--- NOTE | 2020-06-04 10:53 | PCM.HP.STD ---
Problem List (1) Diabetes mellitus type 2 in nonobese Status: Chronic (2) COPD (chronic obstructive pulmonary disease) Status: Chronic (3) Dysphagia Status: Chronic (4) Asthma Status: Chronic (5) Hypertension Status: Chronic (6) Hyperlipidemia Status: Chronic (7) Iron deficiency anemia Status: Chronic (8) GERD (gastroesophageal reflux disease) Status: Chronic History of Present Illness Date of Admission: 06/04/20 Chief Complaint: Shortness of breath. The patient is a 79 year old M with past medical history as mentioned above directly admitted from [facility] ER because of shortness of breath and abnormal cardiac enzymes. Patient was sent from the correction to [facility] ER for increasing shortness of breath. The patient is a very poor informant and was not able to provide good history. He mentioned that he has been having this shortness of breath for months but he is not sure why he was taken to [place] ER today. He stated that the shortness of breath is mainly exertional, with activity, aggravated by walking, no associated symptoms and no relieving factors. He denied chest pain, palpitation, dizziness or lightheadedness. He denied cough or sputum production. He denied fever or chills. He had a history of type 2 diabetes mellitus, has been on insulin and his hemoglobin A1c was 9.9% on January,. He had a history of COPD, has been on Flovent inhaler as well as Incruse Ellipta but never been on home oxygen. He had a history of hyperlipidemia and he has been on statins. At this time, his vital signs are stable, afebrile. Routine blood work at the other facility revealed WBC of 6.4, hemoglobin is 9.9 g/dL, platelet count is 1 55,000, glucose 159, BUN 16, creatinine is 0.58, sodium 139, potassium is 3.7. EKG revealed normal sinus rhythm, PACs, no acute acute changes. Chest x-ray showed no acute findings. Troponin was elevated 62 and 65 respectively. It is elevated according to the ER physician from [facility] as per the reference range. COVID-19 PCR was negative. Patient is being admitted for shortness of breath and abnormal cardiac enzymes. Past Medical History Past Medical History (Chronic Problems): Chronic Problems Diabetes mellitus type 2 in nonobese (Chronic) COPD (chronic obstructive pulmonary disease) (Chronic) Dysphagia (Chronic) Asthma (Chronic) Hypertension (Chronic) Hyperlipidemia (Chronic) Iron deficiency anemia (Chronic) GERD (gastroesophageal reflux disease) (Chronic) Kidney stone (Chronic) Allergies No Known Allergies Allergy (Verified 02/03/20 10:22) Home Medications: Ambulatory Orders Medication Instructions Recorded Acetaminophen Liquid [Tylenol 650 mg PO Q6H PRN PRN udc 02/25/20 Liquid] Atorvastatin Calcium [Lipitor] 80 mg PO QHS tab 02/25/20 Clobetasol Propionate [Temovate 1 applic TOPICAL DAILY PRN tube 02/25/20 Cream (BKC)] Fluticasone Prop 250 mcg [Flovent 1 puff INHALATION BID inhaler 02/25/20 Diskus 250 mcg] Furosemide [Lasix] 40 mg PO DAILY tab 02/25/20 Glucagon 1 mg IM .X1 PRN syringe 02/25/20 Jevity 1.5 240 ml GT TIDCM bottle 02/25/20 Menthol/Lanolin/Calamine/Znox 1 applic TOPICAL BID tube 02/25/20 [Calmoseptine Ointment] Mineral Oil/Petrolatum,White 1 applic TOPICAL QHS jar 02/25/20 [Eucerin] Multivitamins,Therapeutic 1 tab PO DAILYCM tab 02/25/20 [Multivitamin] Nystatin Powder [Mycostatin Powder] 1 applic TOPICAL 0600,2200 bottle 02/25/20 Pantoprazole Sodium [Protonix] 40 mg PO DAILY tab 02/25/20 Potassium Chloride [K-Dur] 20 meq PO BIDCM tab 02/25/20 Senna/Docusate Sodium [Senokot-S] 2 tab PO BID tab 02/25/20 Umeclidinium [place] Inhaler 1 puff IH DAILY inhaler 02/25/20 [Incruse Ellipta Inhaler] Ferrous Sulfate 325 mg PO DAILY 06/04/20 Insulin Glargine 24 units SQ QHS 06/04/20 Insulin Glargine [Lantus SoloStar 16 units SC DAILY 06/04/20 Pen] Iprat-Albut 0.5-3(2.5) mg/3 ml 1 unit INHALATION Q4H PRN PRN 06/04/20 Novolog Flexpen 10 units SQ TID 06/04/20 Proair Hfa 2 puff INHALATION Q4H PRN PRN 01/22/21 Surgical History: - - PEG tube. Psychiatric History: No pertinent psych hx Lives: Detention Smoking Status: Former smoker Alcohol: None Drugs: None - *Family History Maternal History Items: No pertinent history Paternal History Items: No pertinent history Review of Systems Constitutional: Denies: Anorexia, Chills, Fever Eyes: Denies: Blurred vision, Double vision, Drainage, Redness HEENT: Denies: Difficulty Hearing, Ear Pain, Eye Pain, Nasal Congestion, Sore Throat Cardiovascular: Denies: Chest Pain, Chest Pressure, Chest Tightness, Heaviness, Palpitations, Syncope Respiratory: Reports: Shortness of Breath, Shortness of breath upon exertion. Denies: Cough, Hemoptysis, Sputum production, Wheezing Gastrointestinal: Denies: Abdominal Pain, Constipation, Diarrhea, Nausea, Vomiting Genitourinary: Denies: Dysuria, Frequency, Hematuria Skin: Denies: Dryness, Rash Neurological: Denies: Balance problems, Double vision, Change in Speech, Slurred speech, Focal weakness, Headaches Psychiatric: Denies: Anxiety, Depression Endocrine: Denies: Change in Body Habitus, Polydipsia, Polyuria VTE Information - Inpt Only VTE Present on Admission: No VTE Mechan Device Prophylaxis: None VTE Pharm Prophylaxis ordered?: Yes - Physical Exam Vitals/I&O's: Vital Signs Temp Pulse Resp BP Pulse Ox 97.4 F L 97 18 119/64 98 06/04/20 10:06 06/04/20 10:06 06/04/20 10:06 06/04/20 10:06 06/04/20 10:06 Oxygen Delivery Method Room Air Weight: 156 lb 15.506 oz Body Mass Index (BMI) 24.5 Finger Stick Blood Glucose 82 General: Alert, Cooperative, No apparent distress, Well developed HEENT: Atraumatic, PERRLA, EOMI, Normocephalic Oral: Moist Mucosa, No Gingival or Mucosal Lesions/ Ulcerations Neck: Supple, No JVD, Negative Carotid Bruits, Trachea Midline, Thyroid Normal Size and Texture Lungs: Clear to auscultation, No rhonchi, No wheeze, No rales, Diminished Cardiovascular: Regular rate, Regular Rhythm, Normal S1, Normal S2, PMI Normal Abdomen: Bowel Sounds Present, Soft, Non Tender, Non-Distended, No Hepato-splenomegaly, - - PEG tube in place. Extremities: No clubbing, No cyanosis, Edema - Trace edema. Skin: No rashes, No breakdown Lymphatic: No Cervical, Supraclavicular, or Inguinal Adenopathy Neurological: Cranial nerves II-XII grossly intact, Motor Exam 5/5 strength throughout Psych/Mental Status: Normal Affect, Appropriate, Alert and oriented to time, place, person, mood and affect CBC: Hemoglobin 9.9, WBC 6.4, platelet count 1 55,000. BMP: Glucose 159, BUN 16, creatinine 0.58, sodium 139, potassium 3.7. Chest x-ray: No acute findings. EKG: Normal sinus rhythm, PACs, no acute segment changes. Current Medications Sodium Chloride (0.9% Saline Lock 10 Ml Syringe) 10 - 40 ml IV UD PRN PRN Reason: SALINE FLUSH Assessment/Plan This is a 79 years old male patient was directly admitted from outside facility for shortness of breath, found to have abnormal cardiac enzymes and he is being admitted for evaluation. #1 shortness of breath/abnormal cardiac enzymes: Chest x-ray from the outside facility reviewed, no acute findings. EKG reviewed normal sinus rhythm without evidence of acute ischemic changes. Currently, patient is on room air, vital signs are stable. He denies any chest pain. Troponin was elevated according to the [place] ER. COVID-19 PCR was negative. Plan: Admit to PCU, cardiac monitoring, serial cardiac enzymes, repeat EKG tomorrow morning, 2D echocardiogram, cardiology consult, Tylenol as needed, Zofran as needed, incentive spirometer, repeat CBC and BMP tomorrow morning, chest x-ray, continue statins, PT OT evaluation and treatment. #2 type 2 diabetes mellitus: Hemoglobin A1c was 9.9% on January,. Plan: ADA diet, Accu-Cheks, insulin sliding scale, continue Lantus and premeal NovoLog. #3 COPD: Currently, he is on room air. Plan for DuoNeb every 6 hours, albuterol as needed, incentive spirometer. #4 dysphagia status post PEG tube placement: Continue tube feeds Jevity 1.5, nutrition consult. #5 hypertension: Blood pressure stable, continue home medications. #6 chronic iron deficiency anemia: Hemoglobin and hematocrit are stable, continue iron supplement. #7 GERD: Continue PPI. #9 DVT prophylaxis: Subcu Lovenox. This note was generated with Hiphuntersation software. It may contain incorrect words, spelling, and punctuation that were not noted in checking the note before signing. Inpatient E&M: 16024 Init Hosp L3
--- NOTE | 2020-06-04 11:26 | ECHOCS_ITS ---
Reason For Study: Dyspnea/SOB Procedure This was a 2D Doppler, Color Flow transthoracic echocardiogram. Contrast injection was performed. The study was technically difficult. Exam performed portable in patient room. Left Ventricle Normal LV size. Moderate concentric left ventricular hypertrophy. Left ventricular systolic function is normal. The estimated ejection fraction is 75 %. Stage 1 diastolic dysfunction. No regional wall motion abnormalities noted. Right Ventricle Normal RV size. Normal systolic function. Atria Normal left atrium. Normal right atrium. Mitral Valve Normal mitral valve. Tricuspid Valve The tricuspid valve is not well visualized. Aortic Valve Normal aortic valve. Pulmonic Valve Normal pulmonic valve. Great Vessels Normal aortic root. The pulmonary artery is normal size. Normal inferior vena cava. Pericardium/Pleural No pericardial effusion. Medication Diluted definity 2ml given slow IV push to enhance endocardial definition. MMode/2D Measurements & Calculations LVIDd: 4.3 cm IVSd: 1.4 cm Ao root diam: 2.4 cm LVIDs: 2.0 cm LVPWd: 1.4 cm LA dimension: 3.0 cm RVDd: 2.9 cm FS: 54.3 % LAV(MOD-bp): 23.4 ml LVAd ap4: 28.2 cm2 SV(MOD-sp4): 50.5 ml LAV(MOD-bp) Indexed: 12.9 ml/m2 EDV(MOD-sp4): 70.6 ml LAV(MOD-sp2): 26.1 ml EDV(sp4-el): 72.8 ml LAV(MOD-sp4): 20.3 ml LVAs ap4: 13.0 cm2 ESV(MOD-sp4): 20.2 ml ESV(sp4-el): 20.5 ml EF(MOD-sp4): 71.5 % EF(sp4-el): 71.8 % SV(sp4-el): 52.3 ml LA A4 area: 10.4 cm2 RA A4 area: 8.0 cm2 Doppler Measurements & Calculations MV E max feroz: 62.9 cm/sec Lat Peak E' Feroz: 8.8 cm/sec Med Peak E' Feroz: 4.5 cm/sec MV A max feroz: 127.7 cm/sec E/E' lat: 7.1 E/E' med: 13.9 MV E/A: 0.49 Ao V2 max: 169.6 cm/sec LV V1 max: 142.7 cm/sec Ao max P.5 mmHg LV V1 max P.1 mmHg Ao V2 mean: 127.8 cm/sec Ao mean P.0 mmHg Ao V2 VTI: 28.9 cm Interpretation Summary Normal LV size. Moderate concentric left ventricular hypertrophy. Left ventricular systolic function is normal. The estimated ejection fraction is 75 %. Stage 1 diastolic dysfunction. Contrast injection was performed. Ordering Physician: Joy Low Referring Physician: [facility] Performed By: Carolynn Bazan RDCS, RVT
--- NOTE | 2020-06-04 11:35 | RAD_ITS ---
STUDY: X-RAY CHEST REASON FOR EXAM: Male, 79 years old. SOB TECHNIQUE: Single AP portable view of the chest. COMPARISON: Comparison is made with prior study dated 02/07/2020. FINDINGS: EKG electrodes are seen. Minimal increased markings are seen in the lateral right upper lobe. These have improved as compared to prior study. There is no demonstrated pleural abnormality. Normal size heart. Normal mediastinum and padmaja. Normal visualized pulmonary arteries. There is atherosclerotic calcification of the aortic arch with tortuosity. There are diffuse degenerative changes of the visualized thoracic spine. There is degenerative osteoarthritis of the bilateral shoulders. There is no demonstrated abnormality of the visualized soft tissue structures of the upper abdomen. RAD/Chest 1 View (Portable) IMPRESSION: Persistent mild increased markings in the lateral aspect of the right upper lobe. Electronically Signed: Freddie Montaño MD at 12:47 EST , Service support ,
[2020-06-04 12:00] LABS: Bedside Glucose 231 mg/dL (70-110)
[2020-06-04] MEDS: Ferrous Sulfate 325 MG Tablet PO (12:12)
[2020-06-04] MEDS: Insulin Lispro 100 UNIT/ML INSULN.PEN SC ×3 (12:12→21:47)
[2020-06-04] MEDS: Insulin Lispro 100 UNIT/ML INSULN.PEN 10 UNIT SC ×2 (12:12→16:40)
--- NOTE | 2020-06-04 13:00 | PCM.NTREPORT ---
Nutrition Therapy Report - History Nutrition Services has been consulted to:: Manage enteral nutrition Current diet / nutrition support order:: caridac, 1800 calorie controlled; Jevity 1.5 240mL TID via PEG - Anthropometric Measurements Height:: 5 ft 7 in Weight:: 71.2 kg Body Mass Index (BMI):: 24.5 - Assessment Food / Nutrition-Related History:: Eating lunch at time of assessment- consumed 100% of chicken noodle soup, jello. Did not like meatloaf so kitchen notified by RDN and turkey ordered. Pt has a PEG tube, but unable to provide much information about how he eats at [facility]. Per SNF records, pt was on a CHO controlled- regular/thin liquids diet w/ magic cup BID. Also noted order for Jevity 1.5 via PEG 1x/day w/ 120mL flush plus 120mL flush x 2/day regardless of PO intake at meals d/t wt loss. Per EMR, wt was 173.4# on 02/28/20 during [facility] stay. CBW 157.0#- 16.4#/9.4% wt loss x ~3 months is significant for malnutrition. Currently w/ BLE 2+ pitting edema which may be masking additional wt loss. Asked pt about chewing/swallowing difficulties- pt states he doesn't like thickened or pureed food. No notes from SNF about pt requiring altered textures/consistencies. 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 Evidence of Malnutrition Exists:: Yes Severe PCM:: Chronic Illness - Nutrition Intervention Nutrition Prescription:: for weight maintenance- 6432-1569 calories, 60-70 g protein/day. - Food / Nutrient Delivery Interventions Summary of nutrition intervention:: Discussed ONS w/ pt- he states he does not like the magic cups offered to him at [facility]. Unsure if he likes Ensure/Glucerna. Says he enjoys regular ice cream however. Pt asked for assistance cutting up meal items. Will ask kitchen to provide cut-up foods. Will change supplemental enteral nutrition to match SNF orders. Ideally, pt will consume >75% of estimated nutritional needs via PO diet. May need additional nutrition support if PO intake continues to fail and wt loss occurs. Nutrition support ordered as / adjusted to:: per SNF orders, will change supplemental enteral nutrition to 240mL Jevity 1.5 w/ 120mL flush 1x/day to provide an additional 360 calories, 15 g protein, and 302mL fluid. Will remove calorie limit from diet order d/t malnutrition and change to cardiac, consistent CHO diet. Daily wts. 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 May benefit from appetite stimulant. - MNT Monitoring Further MNT monitoring and evaluation required?: Yes MNT Follow-up in:: 1-2 days
--- NOTE | 2020-06-04 13:07 | CON.PCM_ITS ---
Reason for Consult Date of Consultation: 06/04/20 Reason for Consultation: Shortness of breath History of Present Illness: The patient is a 79 year old M who was transferred from [facility] yesterday because of shortness of breath and apparent abnormal cardiac enzymes. He had been in the [facility] and then was sent from the [facility] to [facility] for increasing shortness of breath. He is not able to provide a very detailed history and his daughter as well has not seen him since February. He denies any chest pain no paroxysmal nocturnal dyspnea or palpitations no dizziness or lightheadedness no near syncope or syncope. He denies any fever or chills. He apparently was admitted to the hospital here and then went to the transitional care unit with no symptomatology which was directed towards any cardiac issues. His laboratory tests from [place] revealed that he was in sinus rhythm with premature atrial complexes, chest x-ray demonstrated no acute findings and Covid test was negative. His electrolytes were within normal limits though his hemoglobin was low at 9.9. We decided to run another troponin level here and it was completely normal. At this time he seems to be doing well sitting in bed eating lunch. He is not particularly interested in carrying out a conversation. [] Past Medical History Allergies/Adverse Reactions: Allergies No Known Allergies Allergy (Verified 02/03/20 10:22) Home Medications: Ambulatory Orders Medication Instructions Recorded Acetaminophen Liquid [Tylenol 650 mg PO Q6H PRN PRN udc 02/25/20 Liquid] Atorvastatin Calcium [Lipitor] 80 mg PO QHS tab 02/25/20 Clobetasol Propionate [Temovate 1 applic TOPICAL DAILY PRN tube 02/25/20 Cream ([facility])] Fluticasone Prop 250 mcg [Flovent 1 puff INHALATION BID inhaler 02/25/20 Diskus 250 mcg] Furosemide [Lasix] 40 mg PO DAILY tab 02/25/20 Glucagon 1 mg IM .X1 PRN syringe 02/25/20 Jevity 1.5 240 ml GT TIDCM bottle 02/25/20 Menthol/Lanolin/Calamine/Znox 1 applic TOPICAL BID tube 02/25/20 [Calmoseptine Ointment] Mineral Oil/Petrolatum,White 1 applic TOPICAL QHS jar 02/25/20 [Eucerin] Multivitamins,Therapeutic 1 tab PO DAILYCM tab 02/25/20 [Multivitamin] Nystatin Powder [Mycostatin Powder] 1 applic TOPICAL 0600,2200 bottle 02/25/20 Pantoprazole Sodium [Protonix] 40 mg PO DAILY tab 02/25/20 Potassium Chloride [K-Dur] 20 meq PO BIDCM tab 02/25/20 Senna/Docusate Sodium [Senokot-S] 2 tab PO BID tab 02/25/20 Umeclidinium [place] Inhaler 1 puff IH DAILY inhaler 02/25/20 [Incruse Ellipta Inhaler] Ferrous Sulfate 325 mg PO DAILY 06/04/20 Insulin Glargine 24 units SQ QHS 06/04/20 Insulin Glargine [Lantus SoloStar 16 units SC DAILY 06/04/20 Pen] Iprat-Albut 0.5-3(2.5) mg/3 ml 1 unit INHALATION Q4H PRN PRN 06/04/20 Novolog Flexpen 10 units SQ TID 06/04/20 Proair Hfa 2 puff INHALATION Q4H PRN PRN 06/04/20 Past Medical History (Chronic Problems): Chronic Problems Diabetes mellitus type 2 in nonobese (Chronic) COPD (chronic obstructive pulmonary disease) (Chronic) Dysphagia (Chronic) Asthma (Chronic) Hypertension (Chronic) Hyperlipidemia (Chronic) Iron deficiency anemia (Chronic) GERD (gastroesophageal reflux disease) (Chronic) Kidney stone (Chronic) Surgical History: - - PEG tube. Psychiatric History: No pertinent psych hx - *Family History Maternal History Items: No pertinent history Paternal History Items: No pertinent history Lives: Long Term Smoking Status: Former smoker Alcohol: None Drugs: None Review of Systems - Review of Systems General: Denies: Fever, Night Sweats, Fatigue HEENT: Denies: Vision Change Cardiovascular: Reports: Shortness of Breath. Denies: Chest Discomfort, Orthopnea, PND, Peripheral Edema, Palpitations, Lightheadedness, Dizziness, Near Syncope, Syncope Respiratory: Denies: Cough, Sputum Production, Hemoptysis Gastrointestinal: Denies: Hematemesis, Hematochezia, Melena Genitourinary: Denies: Dysuria, Hematuria Muscoloskeletal: Denies: Myalgias Skin: Denies: Rash Neurological: Denies: Dizziness Psychiatric: Denies: Anxiety Endocrine: Denies: Heat Intolerance Subjectve: Patient seen and evaluated. Appears to be stable eating lunch with no co mplaints. Objective: Vital Signs Temp Pulse Resp BP Pulse Ox 97.4 F L 97 18 119/64 98 06/04/20 10:06 06/04/20 10:06 06/04/20 10:06 06/04/20 10:06 06/04/20 10:06 Oxygen Delivery Method Room Air Weight: 156 lb 15.506 oz Body Mass Index (BMI) 24.5 Finger Stick Blood Glucose 82 Intake and Output for Last 24 Hours 06/02/20 06/03/20 06/04/20 23:59 23:59 23:59 Intake Total 265 / 265 Output Total 400 / 400 Balance -135 / -135 General: Awake, Alert, Oriented x 3 HEENT: PERRL, EOMI, Sclera Non Icteric Neck: Supple, Good ROM, No Lymph Node Enlargement Lungs: Clear to auscultation Cardiovascular: Regular Rhythm, Normal S1, Normal S2, No Murmurs, No Rubs, No Gallops Vascular: No Carotid Bruits, Normal Femoral Pulses, Normal Radial Pulses, Normal Dorsalis Pedal Pulse, Normal Posterior Tibial Pulses Abdomen: Bowel Sounds Present, Soft, Non Tender, No HSM, No Organomegaly Extremities: No Cyanosis, No Clubbing, No edema Musculoskeletal: No Erythema Skin: No Rashes Lymphatic: No Lymph Node Enlargement Neurological: No Focal Motor or Sensory Deficit Psych/Mental Status: Appropriate 06/04/20 12:00: Troponin I < 0.015 Rhythm: EKG: Normal sinus rhythm with premature atrial complexes ECHO: Stress Test: Cardiac Cath: PCI: CT Surgery: Holter monitor: EPS: PPM: CXR: Chest CT Scan: Assessment/Plan 1. Shortness of breath * The etiology of the above is not entirely clear to me at this particular time. I would like us to obtain an echocardiogram as well as a natruretic peptide level. Depending on these findings further recommendations will be made. * His EKG does not demonstrate any acute changes in his chest x-ray findings are rather nonspecific. It is not clear to me what the troponin level is where at the outside hospital. I suspect that these were high-sensitivity troponin numbers. At troponin levels here however noted to be normal. I would recommend repeating another 1 3 hours later. If the above are normal then I would suggest conservative medical therapy. * I have discussed this in detail with his daughter who is an employee here she understands and is agreeable with this approach. * * Thank you for allowing me to participate in the care of your patient. Please don't hesitate to call if any issues arise. * * * Addendum: 2 troponins were done 3 hours apart which were completely normal, B natruretic peptide was done which was completely normal: Echocardiogram was done which demonstrated preserved ejection fraction. Based on the above findings I do not think that his shortness of breath is cardiogenic in etiology. It may be related to the anemia or other etiology. I have discussed this in detail with his daughter who works here. Also discussed with hospitalist.
--- NOTE | 2020-06-04 13:12 | CASEMGMT ---
Addendum entered by Gladis Schreiber 06/04/20 13:29: SW spoke with patient's daughter and confirmed the plans if for patient to return to [facility] when ready. She asked that transportation be arranged. SW will place a green sheet on the chart. Plan: d/c back to [facility] under intermediate level of care. Physicians will transport. Green sheet on chart. Gladis VALDES Original Note: KP spoke with [facility] and patient can return when ready. KP will check with patient and/or his daughter and make sure the plan is to return to [facility]. Gladis VALDES
[2020-06-04] MEDS: Ipratropium/Albuterol Sulfate 3 ML AMPUL.NEB INHALATION ×2 (13:43→18:52)
[2020-06-04 15:46] LABS: BNP,B-Type NATRIURETIC PEPTIDE 49.7 pg/mL (0-100)
[2020-06-04 16:50] LABS: Bedside Glucose 281 mg/dL (70-110)
--- NOTE | 2020-06-04 20:46 | PCS.PANDOC ---
PANDEMIC DOCUMENTATION INITIATED: Date: 06/04/20 Time: 8901
[2020-06-04] MEDS: Jevity 1.5. 1,000 ML Bottle 240 ML GT (21:48)
[2020-06-04] MEDS: Atorvastatin Calcium 80 MG Tablet PO (21:48)
[2020-06-04 22:41] LABS: Bedside Glucose 183 mg/dL (70-110)
[2020-06-05 01:53] VITALS: PULSE 87; RESP 30
[2020-06-05] MEDS: Ipratropium/Albuterol Sulfate 3 ML AMPUL.NEB INHALATION ×2 (01:53→07:40)
[2020-06-05 03:02] VITALS: PULSE 91
[2020-06-05 04:00] VITALS: BP 112/50; PULSE 94; RESP 16; TEMP 36.7; O2SAT 94
--- NOTE | 2020-06-05 05:55 | EKG12_ITS ---
Test Reason : AM EKG Blood Pressure : / mmHG Vent. Rate : 089 BPM Atrial Rate : 089 BPM P-R Int : 146 ms QRS Dur : 100 ms QT Int : 364 ms P-R-T Axes : 069 -19 070 degrees QTc Int : 442 ms Normal sinus rhythm Normal ECG When compared with ECG of 09-FEB-2020 05:35, No significant change was found Confirmed by ASIF HARDING, ROXY ([id number]), art editor MO CRUZ ([id number]) on 06/14/2020 12:56:13 PM Referred By: KSENIA Confirmed By:EDWARD GOLD MD
[2020-06-05 06:01] LABS: Absolute Lymphocyte Count 1.59 X10^3/uL (0.83-4.51); Absolute Neutrophil Count 2.8 X10^3/uL (2.0-7.7); Basophil# 0.01 X10^3/uL; Basophil% 0.2 % (0-1); Eosinophil# 0.04 X10^3/uL; Eosinophils% 0.8 % (0-5); Hematocrit 31.8 % (40-54); Hemoglobin 9.5 g/dL (13.0-16.5); Lymphocyte # 1.59 X10^3/ul (4.0); Lymphocyte % 31.1 % (19-41); Mean Corp Hgb Conc 29.9 g/dL (32-36); Mean Corpuscular Hgb 24.1 pg (27.0-32.0); Mean Corpuscular Volume 80.7 fL (80-94); Mean Platelet Vol. 10.1 fl (6.2-12.0); Monocyte# 0.68 X10^3/uL; Monocyte% 13.3 % (0-10); NRBC Flagged by Analyzer 0 % (0-5); Neutrophil # 2.79 X10^3/uL (2.7-7.7); Neutrophil % 54.4 % (47-70); Platelet Count 143 K/mm3 (150-450); RBC Distribution Width CV 14.4 % (11.6-14.6); RBC Distribution Width SD 42.6 fl (35.1-43.9); Red Blood Count 3.94 M/mm3 (4.6-6.2); White Blood Count 5.1 K/mm3 (4.4-11.0)
[2020-06-05 06:18] LABS: International Normalized Ratio 1.2; Prothrombin Time (Protime)PT. 14.3 SECONDS (11.7-14.9)
[2020-06-05 06:25] LABS: Anion Gap 0 (5-15); BUN 18 mg/dL (7-18); BUN/Creat Ratio 35.4 RATIO (10-20); Calcium,Total 8.2 mg/dL (8.5-10.1); Chloride 99 mmol/L (98-107); Creatinine, Serum 0.51 mg/dL (0.70-1.30); EST Glomerular Filtration Rate 167 mL/min (>60); Est Glom Filt Rate - Afr Amer 202 mL/min (>60); Glucose 120 mg/dL (74-106); Potassium 4.1 mmol/L (3.5-5.1); Sodium Level 138 mmol/L (136-145)
[2020-06-05 06:47] VITALS: PULSE 92
[2020-06-05 07:40] VITALS: PULSE 88; RESP 18; O2SAT 91
--- NOTE | 2020-06-05 08:40 | RAD_ITS ---
STUDY: X-RAY CHEST REASON FOR EXAM: Male, 79 years old. short of breath TECHNIQUE: PA and lateral views of the chest. COMPARISON: 06/04/2020 FINDINGS: The lungs are clear and expanded. Small bilateral pleural effusions. Normal size heart. Normal mediastinum and padmaja. Normal visualized pulmonary arteries. Normal visualized aortic arch and descending thoracic aorta. Normal visualized thoracic spine. Normal visualized ribs, clavicles, and shoulders. There is no demonstrated abnormality of the visualized soft tissue structures of the upper abdomen. RAD/Chest PA and Lateral IMPRESSION: Small bilateral pleural effusions. Electronically Signed: Dillon Maciel MD at 10:52 EST Tel , Service support ,
[2020-06-05] MEDS: Enoxaparin 30 MG/0.3 ML Syringe SC (09:18)
[2020-06-05] MEDS: Pantoprazole Sodium 40 MG Tablet PO (09:18)
[2020-06-05] MEDS: Furosemide 40 MG Tablet PO (09:18)
[2020-06-05] MEDS: Senna/Docusate Sodium 1 Tablet 2 TABLET PO (09:19)
--- NOTE | 2020-06-05 09:23 | TREXTCAR_ITS ---
- Diet 06/04/20 14:36 Diet: Carbohydrate Controlled Food consistency:: Regular Liquid Consistency:: Regular/Thin Dietary Modifications:: Cardiac / Heart Healthy Type of Dietary Supplement:: 120mL glucerna @B Is pt able to select menu?: No Diet Comments: ice cream w/ lunch; cut-up foods for pt please - Routine Orders/Code Status [facility] - Wound(s) Right Buttocks Wound Type: Pressure Injury Left Buttocks Wound Type: Pressure Injury - Suggestions for Active Care Change Position every (hours): 3 Hours to sit in a chair: 2 Times a day to sit in chair: 3 - Therapies Weight Bearing: Weight bearing as tolerated Physical Therapy: Eval and Treat Occupational Therapy: Eval and Treat - Problem/Diagnosis (1) Diabetes mellitus type 2 in nonobese Status: Chronic (2) COPD (chronic obstructive pulmonary disease) Status: Chronic (3) Dysphagia Status: Chronic (4) Asthma Status: Chronic (5) Hypertension Status: Chronic (6) Hyperlipidemia Status: Chronic (7) Iron deficiency anemia Status: Chronic (8) GERD (gastroesophageal reflux disease) Status: Chronic - Allergies/Procedures Done in Hospital Allergies/Adverse Reactions: Allergies No Known Allergies Allergy (Verified 02/03/20 10:22) - Type of Care/Length of Stay Estimated LOS: Convalescent Care Less Than 30 days Type of Care Needed: Skilled Rehab Potential: Fair Prognosis: Fair - Additional Orders/Day of Discharge H&P will serve as current which was dated: 06/04/20 Day of Discharge: 06/05/20 - Dietary and Speech Recommendations Dietitian Recommendations/Changes: Will change supplemental enteral nutrition to 240mL Jevity 1.5 w/ 120mL flush 1x/day to provide an additional 360 calories, 15 g protein, and 302mL fluid. Will remove calorie limit from diet order d/t malnutrition and change to cardiac, consistent CHO diet. 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 May benefit from appetite stimulant. - Follow Up Care Primary Care Physician: [facility] [Primary Care Provider] - Please follow up with your Primary Care Physician in: 1-2 weeks.
[2020-06-05 09:25] LABS: Bedside Glucose 105 mg/dL (70-110)
--- NOTE | 2020-06-05 09:28 | PCM.DC.SUM ---
Discharge Date and Diagnosis Date of Admission: 06/04/20 Date of Discharge: 06/05/20 - Primary Discharge Diagnosis Acute Problems: Shortness of breath/abnormal cardiac enzymes, ACS ruled out. - Secondary Discharge Diagnosis Chronic Problems: Chronic Problems Diabetes mellitus type 2 in nonobese (Chronic) COPD (chronic obstructive pulmonary disease) (Chronic) Dysphagia (Chronic) Asthma (Chronic) Hypertension (Chronic) Hyperlipidemia (Chronic) Iron deficiency anemia (Chronic) GERD (gastroesophageal reflux disease) (Chronic) Kidney stone (Chronic) Hospital Course and Treatment Imaging Results: 06/05/20 08:40 CXR [Chest PA and Lateral] [RAD] Urgent Clinical Impression(s) from Imaging Studies Chest X-Ray 06/04/20 11:35 IMPRESSION: Persistent mild increased markings in the lateral aspect of the right upper lobe. Electronically Signed: Freddie Montaño MD at 12:47 EST , Service support , Chest X-Ray 06/05/20 08:40 IMPRESSION: Small bilateral pleural effusions. Electronically Signed: Dillon Maciel MD at 10:52 EST Tel , Service support , Dr. Baker: Cardiology. Operations: None Procedures: 2-D Echocardiogram, EKG Summary of Care Provided: Patient seen and examined on the day of discharge and appeared to be stable to be discharged to shelter facility. He denied any more shortness of breath, denied cough or sputum production. He denied chest pain. His vitals are stable, he was able to come off oxygen and the pulse ox has been around 93% ox on room air. The patient is a 79 year old M directly admitted from outside facility for shortness of breath and abnormal cardiac enzymes. Chest x-ray and EKG at the other facility reviewed and showed no acute findings. Reportedly, cardiac enzymes were borderline elevated. Repeat EKG after admission revealed normal sinus rhythm without evidence of acute ischemic changes. Chest x-ray done after admission and showed no acute findings, atelectasis. Troponin was negative x3 after admission. Cardiology consulted and patient had 2D echocardiogram that revealed ejection fraction of 75%, moderate LVH, stage I diastolic dysfunction, no significant valvular heart disease. Reportedly, COVID-19 PCR was done at [facility] and was negative. Patient required some oxygen but he was able to come off oxygen and pulse ox has been around 92 to 92% on room air. ACS ruled out. Pneumonia ruled out. COVID-19 antigen also done again for placement and was negative. Patient discharged to shelter facility in a stable condition, continued on his previous home medications without any changes recommended follow-up with PCP in 1-2 week. - Physical Exam Vitals/I&O's: Vital Signs Temp Pulse Resp BP Pulse Ox 98.1 F 88 18 112/50 L 91 06/05/20 04:00 06/05/20 07:40 06/05/20 07:40 06/05/20 04:00 06/05/20 07:40 Oxygen Flow Rate (L/min) 2 Oxygen Delivery Method Room Air Weight: 156 lb 15.506 oz Body Mass Index (BMI) 24.5 Finger Stick Blood Glucose 82 Intake and Output for Last 24 Hours 06/03/20 06/04/20 06/05/20 23:59 23:59 23:59 Intake Total 795 / 1035 240 / 240 Output Total 700 / 850 325 / 325 Balance 95 / 185 -85 / -85 General: Alert, Cooperative, No apparent distress, Well nourished HEENT: Atraumatic, PERRLA, EOMI, Normocephalic Oral: Moist Mucosa, No Gingival or Mucosal Lesions/ Ulcerations Neck: Supple, No JVD, Negative Carotid Bruits, Trachea Midline, Thyroid Normal Size and Texture Lungs: Clear to auscultation, No rhonchi, No wheeze, No rales, Diminished Cardiovascular: Regular rate, Regular Rhythm, Normal S1, Normal S2, PMI Normal Abdomen: Bowel Sounds Present, Non Tender, Non-Distended, No Hepato-splenomegaly Extremities: No clubbing, No cyanosis, Edema Skin: No rashes, No breakdown Lymphatic: No Cervical, Supraclavicular, or Inguinal Adenopathy Neurological: Cranial nerves II-XII grossly intact, Neuro grossly intact Psych/Mental Status: Normal Affect, Appropriate Laboratory Results 06/04/20 11:54: POC Glucose 231 H 06/04/20 12:00: Troponin I < 0.015 06/04/20 15:03: B-Natriuretic Peptide 49.7 06/04/20 15:03: Troponin I < 0.015 06/04/20 16:39: POC Glucose 281 H 06/04/20 17:51: Troponin I < 0.015 06/04/20 21:46: POC Glucose 183 H 06/05/20 05:42: WBC 5.1, RBC 3.94 L, Hgb 9.5 L, Hct 31.8 L, MCV 80.7, MCH 24.1 L, MCHC 29.9 L, RDW Std Deviation 42.6, RDW Coeff of Yamile 14.4, Plt Count 143 L, MPV 10.1, Immature Gran % (Auto) 0.200, Neut % (Auto) 54.4, Lymph % (Auto) 31.1, [place] % (Auto) 13.3 H, Eos % (Auto) 0.8, Baso % (Auto) 0.2, Absolute Neuts (auto) 2.8, Absolute Lymphs (auto) 1.59, Nucleated RBC % 0 06/05/20 05:42: PT 14.3, INR 1.2 06/05/20 05:42: Sodium 138, Potassium 4.1, Chloride 99, Carbon Dioxide 39.0 H, Anion Gap 0 L, BUN 18, Creatinine 0.51 L, Estim Creat Clear Calc 56.00, Est GFR (MDRD) Af Amer 202, Est GFR (MDRD) Non-Af 167, BUN/Creatinine Ratio 35.4 H, Glucose 120 H, Calcium 8.2 L 06/05/20 09:15: POC Glucose 105 Current Medications Acetaminophen (Acetaminophen 325 Mg Tablet) 650 mg PO Q6H PRN PRN PRN Reason: Pain Score 1-10/Temp > 100.7 F Albuterol Sulfate (Albuterol 2.5 Mg/3 Ml Vial.Neb.) 2.5 mg INHALATION Q4H PRN PRN PRN Reason: SOB/Wheezing Albuterol/Ipratropium (Ipratropium/Albuterol Sulfate 3 Ml Ampul.Neb) 3 ml INHALATION Q6H.RT ROM Last Admin: 06/05/20 07:40 Dose: 3 ml Documented by: Atorvastatin Calcium (Atorvastatin Calcium 80 Mg Tablet) 80 mg PO QHS ROM Last Admin: 06/04/20 21:48 Dose: 80 mg Documented by: Enoxaparin Sodium (Enoxaparin 30 Mg/0.3 Ml Syringe) 30 mg SC DAILY [facility] Last Admin: 06/05/20 09:18 Dose: 30 mg Documented by: Enteral Nutritional Formula (Jevity 1.5. 1,000 Ml Bottle) 240 ml GT QHS [facility] Last Admin: 06/04/20 21:48 Dose: 240 ml Documented by: Ferrous Sulfate (Ferrous Sulfate 325 Mg Tablet) 325 mg PO DAILY@1200 [facility] Last Admin: 06/04/20 12:12 Dose: 325 mg Documented by: Furosemide (Furosemide 40 Mg Tablet) 40 mg PO DAILY [facility] Last Admin: 06/05/20 09:18 Dose: 40 mg Documented by: Insulin Glargine (Insulin Glargine 100 Units/Ml Pen) 24 units SC [facility] Last Admin: 06/04/20 21:47 Dose: 24 unit Documented by: Insulin Glargine (Insulin Glargine 100 Units/Ml Pen) 16 units SC DAILY [facility] Insulin Human Lispro (Insulin Lispro 100 Unit/Ml Insuln.Pen) 0 unit SC [facility]; Protocol Last Admin: 06/05/20 09:17 Dose: Not Given Documented by: Insulin Human Lispro (Insulin Lispro 100 Unit/Ml Insuln.Pen) 10 unit SC 0800,1200,1700 [facility] Last Admin: 06/05/20 09:18 Dose: Not Given Documented by: Ondansetron HCl (Ondansetron 4 Mg/2 Ml Vial) 4 mg IV Q8H PRN PRN PRN Reason: NAUSEA/VOMITING Pantoprazole Sodium (Pantoprazole Sodium 40 Mg Tablet) 40 mg PO DAILY [facility] Last Admin: 06/05/20 09:18 Dose: 40 mg Documented by: Potassium Chloride (Potassium Chloride 20 Meq Tablet) 20 meq PO BIDCM [facility] Last Admin: 06/04/20 16:43 Dose: 20 meq Documented by: Senna/Docusate Sodium (Senna/Docusate Sodium 1 Tablet) 2 tablet PO BID [facility] Last Admin: 06/05/20 09:19 Dose: 2 tablet Documented by: Sodium Chloride (0.9% Saline Lock 10 Ml Syringe) 10 - 40 ml IV UD PRN PRN Reason: SALINE FLUSH Home Medications: Medications to take at Discharge Acetaminophen Liquid [Tylenol Liquid] 650 mg PO Q6H PRN PRN udc 02/25/20 Atorvastatin Calcium [Lipitor] 80 mg PO QHS tab 02/25/20 Clobetasol Propionate [Temovate Cream (BKC)] 1 applic TOPICAL DAILY PRN tube 02/25/20 Fluticasone Prop 250 mcg [Flovent Diskus 250 mcg] 1 puff INHALATION BID inhaler 02/25/20 Furosemide [Lasix] 40 mg PO DAILY tab 02/25/20 Glucagon 1 mg IM .X1 PRN syringe 02/25/20 Jevity 1.5 240 ml GT TIDCM bottle 02/25/20 Menthol/Lanolin/Calamine/Znox [Calmoseptine Ointment] 1 applic TOPICAL BID tube 02/25/20 Mineral Oil/Petrolatum,White [Eucerin] 1 applic TOPICAL QHS jar 02/25/20 Multivitamins,Therapeutic [Multivitamin] 1 tab PO DAILYCM tab 02/25/20 Nystatin Powder [Mycostatin Powder] 1 applic TOPICAL 0600,2200 bottle 02/25/20 Pantoprazole Sodium [Protonix] 40 mg PO DAILY tab 02/25/20 Potassium Chloride [K-Dur] 20 meq PO BIDCM tab 02/25/20 Senna/Docusate Sodium [Senokot-S] 2 tab PO BID tab 02/25/20 Umeclidinium [place] Inhaler [Incruse Ellipta Inhaler] 1 puff IH DAILY inhaler 02/25/20 Ferrous Sulfate 325 mg PO DAILY 06/04/20 Insulin Glargine 24 units SQ QHS 06/04/20 Insulin Glargine [Lantus SoloStar Pen] 16 units SC DAILY 06/04/20 Iprat-Albut 0.5-3(2.5) mg/3 ml 1 unit INHALATION Q4H PRN PRN 06/04/20 Novolog Flexpen 10 units SQ TID 06/04/20 Proair Hfa 2 puff INHALATION Q4H PRN PRN 06/04/20 Primary Care Physician: [facility] [Primary Care Provider] - Please follow up with your Primary Care Physician in: 1-2 weeks. Disposition: [facility] facility Minutes spent on discharge:: 26 Patient Condition:: Stable Medical Necessity - Tobacco Use Smoking Status: Former smoker Meaningful Use Info Meaningful Use Diagnoses (Choose all that apply): None applicable OBSV E&M: 25587 Observation care discharge
[2020-06-05 10:00] VITALS: BP 101/50; PULSE 105; RESP 18; TEMP 36.5; O2SAT 93
--- NOTE | 2020-06-05 10:42 | NURSING ---
called Faheem Amaya and report given to Leah
[2020-06-05] MEDS: Insulin Lispro 100 UNIT/ML INSULN.PEN SC (12:35)
[2020-06-05] MEDS: Ferrous Sulfate 325 MG Tablet PO (12:35)
[2020-06-05] MEDS: Insulin Lispro 100 UNIT/ML INSULN.PEN 10 UNIT SC (12:35)
[2020-06-05 12:45] LABS: Bedside Glucose 264 mg/dL (70-110)
== END 2020-06-05 15:15 | disposition skilled nursing facility (03) | DRG 204 ==
PROVIDERS: Internal Medicine Cardiovascular Disease; Admitting Provider Hospitalist; Visit Provider Hospitalist
DX: R06.02 Shortness of breath (principal); Z20.822 Contact with and (suspected) exposure to COVID-19; E11.9 Type 2 diabetes mellitus without complications; J44.9 Chronic obstructive pulmonary disease, unspecified; I10 Essential (primary) hypertension; E78.5 Hyperlipidemia, unspecified; D50.9 Iron deficiency anemia, unspecified; R13.10 Dysphagia, unspecified; K21.9 Gastro-esophageal reflux disease without esophagitis; Z93.1 Gastrostomy status; Z79.4 Long term (current) use of insulin; Z79.51 Long term (current) use of inhaled steroids; Z79.899 Other long term (current) drug therapy; Z87.891 Personal history of nicotine dependence
CPT/HCPCS: 36415; 71045; 71046; 80048; 82962; 83880; 84484; 85025; 85610; 87426; 93005; 93306; 94640; 96372; 97162; 97166; 97802; 99218; Q9957; A4216; C8929; G0378; G0379

== ENCOUNTER 2020-06-15 09:19 | Emergency (ER) | payer OTHER, MEDICARE, MEDICAID, SELFPAY ==
[2020-06-04 14:38] VITALS: BMI 24.5
[2020-06-15] VITALS (16 sets, daily range): BP systolic 80–116; BP diastolic 42–60; PULSE 104–125; RESP 27–44; TEMP 36.5–37.2; O2SAT 94–100; BMI 25.4
--- NOTE | 2020-06-15 09:22 | EKG12_ITS ---
Test Reason : UNRESPONSIVE Blood Pressure : / mmHG Vent. Rate : 123 BPM Atrial Rate : 123 BPM P-R Int : 148 ms QRS Dur : 094 ms QT Int : 302 ms P-R-T Axes : 081 -24 073 degrees QTc Int : 432 ms Sinus tachycardia Otherwise normal ECG Confirmed by TOM HARDING, SHAGUFTA ([id number]), newspaper or periodical editor MO CRUZ ([id number]) on 06/18/2020 8:46:23 AM Referred By: NADER Confirmed By:SHAGUFTA SANTOS MD
--- NOTE | 2020-06-15 09:25 | RAD_ITS ---
STUDY: X-RAY CHEST REASON FOR EXAM: Male, 79 years old. Per care home pt was 81% on 1.5l and 87% on 2 l . pt is unresponsive and has shallow resps. -- HX ASTHMA, COPD TECHNIQUE: Single AP portable view of the chest. COMPARISON: Comparison is made with prior examination dated 06/05/2020. FINDINGS: EKG electrodes are seen. There now is evidence of mild increased markings at the lung bases suggestive of early bibasilar infiltrates. There is no demonstrated pleural abnormality. Normal size heart. Normal mediastinum and padmaja. Normal visualized pulmonary arteries. There is atherosclerotic tortuosity of the aortic arch and descending thoracic aorta. There are diffuse degenerative changes of the visualized thoracic spine. Normal visualized ribs, clavicles, and shoulders. There is no demonstrated abnormality of the visualized soft tissue structures of the upper abdomen. RAD/Chest 1 View (Portable) IMPRESSION: Findings suggestive of early bibasilar infiltrates. Electronically Signed: Freddie Montaño MD at 9:43 EST , Service support ,
[2020-06-15 09:43] LABS: Absolute Lymphocyte Count 0.62 X10^3/uL (0.83-4.51); Absolute Neutrophil Count 15.8 X10^3/uL (2.0-7.7); Basophil# 0.05 X10^3/uL; Basophil% 0.3 % (0-1); Eosinophil# 0.02 X10^3/uL; Eosinophils% 0.1 % (0-5); Hematocrit 42.2 % (40-54); Hemoglobin 12.3 g/dL (13.0-16.5); Lymphocyte # 0.62 X10^3/ul (4.0); Lymphocyte % 3.6 % (19-41); Mean Corp Hgb Conc 29.1 g/dL (32-36); Mean Corpuscular Hgb 23.1 pg (27.0-32.0); Mean Corpuscular Volume 79.2 fL (80-94); Mean Platelet Vol. 10.8 fl (6.2-12.0); Monocyte# 0.12 X10^3/uL; Monocyte% 0.7 % (0-10); NRBC Flagged by Analyzer 0 % (0-5); Neutrophil # 15.82 X10^3/uL (2.7-7.7); Neutrophil % 90.5 % (47-70); Platelet Count 151 K/mm3 (150-450); RBC Distribution Width SD 45.3 fl (35.1-43.9); Red Blood Count 5.33 M/mm3 (4.6-6.2); White Blood Count 17.5 K/mm3 (4.4-11.0)
[2020-06-15] MEDS: Ipratropium/Albuterol Sulfate 3 ML AMPUL.NEB INHALATION (09:45)
[2020-06-15] MEDS: Albuterol 2.5 MG/3 ML VIAL.NEB. INHALATION ×2 (09:48)
--- NOTE | 2020-06-15 09:49 | ED.DCSUM_ITS ---
History of Present Illness Chief Complaint: Unresponsive Informant: Family, SNF Narrative: Patient brought in from halfway with decreased level of consciousness and respiratory distress. Patient reportedly is normally on 1 to 2 L of oxygen. Per halfway report patient sats were in the low 80s on 1.5 L of oxygen today. They increased him to 2 L and called for transport. Squad states that he was still satting in the 80s on 2 L and they placed him on a nonrebreather mask. On arrival sats are in the high 90s with respiratory rate in the low 40s. Patient has eyes open but does not really respond or answer questions. Daughter is present at bedside. - Past Medical History (1) Asthma Status: Chronic (2) COPD (chronic obstructive pulmonary disease) Status: Chronic (3) Diabetes mellitus type 2 in nonobese Status: Chronic (4) GERD (gastroesophageal reflux disease) Status: Chronic (5) Hyperlipidemia Status: Chronic (6) Hypertension Status: Chronic (7) Iron deficiency anemia Status: Chronic (8) Kidney stone Status: Resolved Past Medical History - Allergies and Home Meds Allergies/Adverse Reactions: Allergies No Known Allergies Allergy (Verified 06/15/20 11:32) Primary Care Physician: [place] [STAFF PHYSICIAN] - Prior records reviewed: Yes Surgical History: - - PEG tube. Lives: [facility] Smoking Status: Former smoker - Family History Maternal Family History: Reports: No pertinent history Paternal Family History: Reports: No pertinent history Review of Systems ROS: Unable to Obtain Physical Exam Vital Signs/Narrative: Vital Signs Temp Pulse Resp BP Pulse Ox 06/15/20 09:45 94 06/15/20 09:25 99.0 F 123 H 41 H 116/54 L 100 06/15/20 09:21 99.0 F 125 H 44 H 116/54 L 100 General: Cachectic Head: Normocephalic, Atraumatic ENT: Dry mucous membranes Cardiovascular: Tachycardia Respiratory: - - Minimal air movement noted on auscultation, best heard in the left upper lobe. Abdomen: Soft, Nontender, - - Feeding tube in place Skin: Pallor Neurological: - - Eyes open but does not respond to questions. Diagnostic/Tx/Re-eval Chest X-Ray - ED: 1 View, Read by ED Physician, Chronic Changes Impressions Chest X-Ray 06/15/20 09:25 IMPRESSION: Findings suggestive of early bibasilar infiltrates. Electronically Signed: Freddie Montaño MD at 9:43 EST , Service support , Chest CTA 06/15/20 10:31 IMPRESSION: Small bilateral pleural effusions with bibasilar infiltrates and/or atelectasis worse on the right side. Findings suggestive of cirrhosis of the liver. Small amount of the perihepatic fluid. No evidence of pulmonary embolism. Electronically Signed: Freddie Montaño MD at 12:09 EST , Service support , 06/15/20 09:25 Chest 1 View (Portable) [RAD] Stat 06/15/20 10:31 CTA Chest W/WO Contrast [CT] Stat 06/15/20 09:32 Mucosa - Nose SARS-CoV-2 Antigen (Rapid) - Final Laboratory Results 06/15/20 06/15/20 06/15/20 09:25 09:25 09:25 WBC 17.5 H RBC 5.33 Hgb 12.3 L Hct 42.2 MCV 79.2 L MCH 23.1 L MCHC 29.1 L RDW Std Deviation 45.3 H RDW Coeff of Yamile 16.0 H Plt Count 151 MPV 10.8 Immature Gran % (Auto) 4.800 H Neut % (Auto) 90.5 H Lymph % (Auto) 3.6 L [place] % (Auto) 0.7 Eos % (Auto) 0.1 Baso % (Auto) 0.3 Absolute Neuts (auto) 15.8 H Absolute Lymphs (auto) 0.62 L Nucleated RBC % 0 PT 17.2 H INR 1.5 APTT 33.0 D-Dimer Quant (PE/DVT) > 20.00 H* Sodium 133 L Potassium 4.2 Chloride 95 L Carbon Dioxide 35.0 H Anion Gap 3 L BUN 36 H Creatinine 1.07 Estim Creat Clear Calc 55.98 Est GFR (MDRD) Af Amer 86 Est GFR (MDRD) Non-Af 71 BUN/Creatinine Ratio 33.6 H Glucose 126 H Lactic Acid Calcium 8.8 Total Bilirubin 1.70 H Direct Bilirubin 0.96 H AST 36 ALT 34 Alkaline Phosphatase 548 H Troponin I < 0.015 Total Protein 7.1 Albumin 2.5 L Globulin 4.6 H 06/15/20 09:25 WBC RBC Hgb Hct MCV MCH MCHC RDW Std Deviation RDW Coeff of Yamile Plt Count MPV Immature Gran % (Auto) Neut % (Auto) Lymph % (Auto) [place] % (Auto) Eos % (Auto) Baso % (Auto) Absolute Neuts (auto) Absolute Lymphs (auto) Nucleated RBC % PT INR APTT D-Dimer Quant (PE/DVT) Sodium Potassium Chloride Carbon Dioxide Anion Gap BUN Creatinine Estim Creat Clear Calc Est GFR (MDRD) Af Amer Est GFR (MDRD) Non-Af BUN/Creatinine Ratio Glucose Lactic Acid 2.8 H* Calcium Total Bilirubin Direct Bilirubin AST ALT Alkaline Phosphatase Troponin I Total Protein Albumin Globulin - EKG Initial EKG Interpretation: Sinus Tachycardia - Sinus tachycardia at 123. No obvious ischemia. - Medical Decision Making Patient had very poor air movement on auscultation on arrival. O2 sats are maintaining on a nonrebreather. Patient was given DuoNeb treatment followed by 2 albuterol's. Patient had slight improvement in air movement. Chest x-ray is largely unremarkable, questionable right lower lobe infiltrate. Patient was able to be transitioned to a 50% Ventimask and O2 sats of been maintaining in the high 90s. Lactic acid was elevated and patient was given IV fluids. Patient's blood pressure did begin to drop with MAP ranging between 60 and 65. CTA of the chest was obtained that shows small bilateral pleural effusions and atelectasis with mild infiltrate. Patient was given Zosyn and vancomycin. I sat down and spoke with the patient's daughter at bedside. I did advise that there was nothing significant on the work-up that would indicate a quick turnaround for this patient. She had brought up the idea of hospice when I first spoke with her. I did discuss with the daughter the possibility of bringing the patient into the hospital to see if he turns around over the next few days and if not get hospice involved. After speaking with both her brother as well as her mother they would prefer the patient be placed in hospice care at this time. They would like him to be sent back to the halfway where his is also residing so they can be together. [facility] staff states if we can get him back there they will contact hospice. DNR [facility] care order has been signed by myself after discussions with family. ED Disposition - Plan for ED Patient: Disposition: Nursing Home Facility
[2020-06-15 09:50] LABS: International Normalized Ratio 1.5; Prothrombin Time (Protime)PT. 17.2 SECONDS (11.7-14.9)
[2020-06-15 10:04] LABS: AST(SGOT) 36 U/L (15-37); Alanine Aminotransfer ALT/SGPT 34 U/L (16-61); Albumin, Serum 2.5 g/dL (3.2-5.0); Alkaline Phosphatase 548 U/L (45-117); Anion Gap 3 (5-15); BUN 36 mg/dL (7-18); BUN/Creat Ratio 33.6 RATIO (10-20); Bilirubin, Direct 0.96 mg/dL (0.00-0.30); Calcium,Total 8.8 mg/dL (8.5-10.1); Chloride 95 mmol/L (98-107); Creatinine, Serum 1.07 mg/dL (0.70-1.30); EST Glomerular Filtration Rate 71 mL/min (>60); Est Glom Filt Rate - Afr Amer 86 mL/min (>60); Estimated Creatinine Clearance 55.98 ml/min; Globulin 4.6 g/dL (2.2-4.2); Glucose 126 mg/dL (74-106); Potassium 4.2 mmol/L (3.5-5.1); Protein, Total 7.1 g/dL (6.4-8.2); Sodium Level 133 mmol/L (136-145)
[2020-06-15 10:07] LABS: Lactic Acid 2.8 mmol/L (0.4-1.9)
[2020-06-15 10:13] LABS: D-Dimer Quantitative (DVT/PE) > 20.00 FEU/ug/m (0.27-0.49)
--- NOTE | 2020-06-15 10:31 | CT_ITS ---
STUDY: CTA CHEST REASON FOR EXAM: Male, 79 years old. UNRESPONSIVE, LOW O2 RADIATION DOSAGE (If Supplied By Facility): CTDIvol = ( 15.23 ) mGy, DLP = ( 506.41 ) mGycm TECHNIQUE: The examination was performed with the intravenous administration of IV 100ML ISOVUE 370. Post-processing of the angiographic images was performed, with multiplanar reformation and 3D reconstruction. Individualized dose optimization techniques were used for this CT. COMPARISON: Comparison is made with prior CT scan of the thorax dated 02/04/2020. FINDINGS: Normal enhancement of the main pulmonary artery and right and left pulmonary arteries. Normal enhancement of the bilateral peripheral pulmonary arteries. There is no demonstrated pulmonary embolism. Normal thoracic aorta and visualized great vessels. There is no demonstrated aortic dissection. Normal heart and pericardium. Normal mediastinum. Normal hilar regions. Normal visualized trachea and bronchi. The lungs are well expanded. Small bilateral pleural effusions with bibasilar atelectasis and/or infiltrate slightly worse at the right lung base. Minimal atelectasis and/or scarring along the posterior lateral aspect of the right upper lobe. Normal chest wall structures. There are degenerative changes of thoracic spine. Small amount of perihepatic fluid. Nodular contour of the liver suggestive of cirrhosis. Stable 2.4 cm hypodense nodule in the right adrenal gland suggestive of adenoma. CT/CTA Chest W/WO Contrast IMPRESSION: Small bilateral pleural effusions with bibasilar infiltrates and/or atelectasis worse on the right side. Findings suggestive of cirrhosis of the liver. Small amount of the perihepatic fluid. No evidence of pulmonary embolism. Electronically Signed: Freddie Montaño MD at 12:09 EST , Service support ,
[2020-06-15] MEDS: 0.9% Normal Saline 1,000 ML 999 ML IV ×3 (10:42→12:11)
[2020-06-15 13:36] LABS: Reflex Lactate? Y
--- NOTE | 2020-06-15 14:54 | ED.RN ---
INCONTINENCE CARE PROVIDED, DRIED STOOL ON CATHETER, PENIS AND SCROTUM. SKIN BREAKDOWN ON COCCYX, SEVERAL STAGES OF ULCERS NOTED.
--- NOTE | 2020-06-15 15:16 | ED.RN ---
REPORT CALLED TO NURSE AT [facility], UPDATED ON STATUS AND DISCHARGE PLANS. ALL QUESTIONS ANSWERED.
== END 2020-06-15 15:35 | disposition skilled nursing facility (03) ==
PROVIDERS: Emergency Provider Emergency Medicine; PCP Internal Medicine Geriatric Medicine
DX: R06.03 Acute respiratory distress (principal); J44.9 Chronic obstructive pulmonary disease, unspecified; E11.9 Type 2 diabetes mellitus without complications; I10 Essential (primary) hypertension; E78.5 Hyperlipidemia, unspecified; D50.9 Iron deficiency anemia, unspecified; K21.9 Gastro-esophageal reflux disease without esophagitis; Z93.1 Gastrostomy status; Z99.81 Dependence on supplemental oxygen; Z79.4 Long term (current) use of insulin; Z79.52 Long term (current) use of systemic steroids; Z79.899 Other long term (current) drug therapy; Z87.442 Personal history of urinary calculi; Z87.891 Personal history of nicotine dependence
CPT/HCPCS: 71045; 71275; 80048; 80076; 83605; 84484; 85025; 85379; 85610; 85730; 87040; 87077; 87186; 87426; 93005; 94640; 96365; 96366; 96367; 99285; J7030; J7050; Q9967; A4216